=== PATIENT | male | born 1955 | race Caucasian/White ===

== ENCOUNTER 2016-11-07 08:06 | Outpatient (RCR) | payer BC ==
[~2016-11-07 08:06] MED LIST: ALN70T PO; AMLO1TAB55 PO; ATOR40TA PO; BUDE10.22 IH; BUPR150T6 PO; CALC-656 PO; CYAN10007 PO; DULO30CA3 PO; FENO145T2 PO; FEXO60TA PO; GARL400T13 PO; MECL25TA56 PO; METF-380 PO; MULT-963 PO; OMEP-10 PO; PARO40TA47 PO; PNT40TEC PO; PROBIOTIC1 EACH PO; RMP2.5C PO; SCR1T1 PO; SITA100T PO; ST.1POWD PO; TEST75GE3 TOP; TIOT18CA IH; TRZ50T PO
== END 2016-11-11 16:00 | disposition home or self-care (01) ==
LOC: WOUNDCARE 08:06
PROVIDERS: ATTEND Internal Medicine
DX: T81.31XA Disruption of external operation (surgical) wound, not elsewhere classified, initial encounter (principal); E11.622 Type 2 diabetes mellitus with other skin ulcer
CPT/HCPCS: 11042; 87070; 87075; 87205; 97605

== ENCOUNTER → 2016-11-14 | Outpatient (CLI) | payer BC | LOC: WOUNDCARE 08:05 | PROVIDERS: ATTEND Internal Medicine | DX: T81.31XA Disruption of external operation (surgical) wound, not elsewhere classified, initial encounter (principal); E11.621 Type 2 diabetes mellitus with foot ulcer | CPT/HCPCS: 11042 ==

== ENCOUNTER → 2016-11-21 | Outpatient (CLI) | payer BC | LOC: WOUNDCARE 08:03 | PROVIDERS: ATTEND Internal Medicine | DX: E11.622 Type 2 diabetes mellitus with other skin ulcer (principal); T81.31XA Disruption of external operation (surgical) wound, not elsewhere classified, initial encounter | CPT/HCPCS: 11042 ==

== ENCOUNTER → 2016-11-28 | Outpatient (CLI) | payer BC | LOC: WOUNDCARE 12:32 | PROVIDERS: ATTEND Nurse Practitioner | DX: T81.31XA Disruption of external operation (surgical) wound, not elsewhere classified, initial encounter (principal); E11.622 Type 2 diabetes mellitus with other skin ulcer | CPT/HCPCS: 11042 ==

== ENCOUNTER → 2016-12-05 | Outpatient (CLI) | payer BC | LOC: WOUNDCARE 08:01 | PROVIDERS: ATTEND Internal Medicine | DX: T81.31XA Disruption of external operation (surgical) wound, not elsewhere classified, initial encounter (principal); E11.622 Type 2 diabetes mellitus with other skin ulcer | CPT/HCPCS: 11042 ==

== ENCOUNTER → 2016-12-12 | Outpatient (CLI) | payer BC | LOC: WOUNDCARE 12-04 15:53 | PROVIDERS: ATTEND Internal Medicine | DX: T81.31XA Disruption of external operation (surgical) wound, not elsewhere classified, initial encounter (principal); E11.622 Type 2 diabetes mellitus with other skin ulcer | CPT/HCPCS: 11042 ==

== ENCOUNTER → 2016-12-19 | Outpatient (CLI) | payer BC | LOC: WOUNDCARE 08:04 | PROVIDERS: ATTEND Internal Medicine | DX: T81.31XA Disruption of external operation (surgical) wound, not elsewhere classified, initial encounter (principal) | CPT/HCPCS: 11042 ==

== ENCOUNTER → 2016-12-26 | Outpatient (CLI) | payer BC | LOC: WOUNDCARE 08:06 | PROVIDERS: ATTEND Internal Medicine | DX: T81.31XA Disruption of external operation (surgical) wound, not elsewhere classified, initial encounter (principal); E11.622 Type 2 diabetes mellitus with other skin ulcer | CPT/HCPCS: 11042 ==

== ENCOUNTER → 2017-01-02 | Outpatient (CLI) | payer BC | LOC: WOUNDCARE 08:04 | PROVIDERS: ATTEND Internal Medicine | DX: T81.31XA Disruption of external operation (surgical) wound, not elsewhere classified, initial encounter (principal); E11.622 Type 2 diabetes mellitus with other skin ulcer | CPT/HCPCS: 11042 ==

== ENCOUNTER → 2017-01-09 | Outpatient (CLI) | payer BC | LOC: WOUNDCARE 08:00 | PROVIDERS: ATTEND Internal Medicine | DX: T81.31XA Disruption of external operation (surgical) wound, not elsewhere classified, initial encounter (principal) | CPT/HCPCS: 11042; 87070; 87075; 87186; 87205 ==

== ENCOUNTER → 2017-01-16 | Outpatient (CLI) | payer BC | LOC: WOUNDCARE 08:03 | PROVIDERS: ATTEND Internal Medicine | DX: T81.31XA Disruption of external operation (surgical) wound, not elsewhere classified, initial encounter (principal); E11.622 Type 2 diabetes mellitus with other skin ulcer | CPT/HCPCS: 11042 ==

== ENCOUNTER → 2017-01-23 | Outpatient (CLI) | payer BC | LOC: WOUNDCARE 08:04 | PROVIDERS: ATTEND Internal Medicine | DX: T81.31XA Disruption of external operation (surgical) wound, not elsewhere classified, initial encounter (principal); E11.622 Type 2 diabetes mellitus with other skin ulcer | CPT/HCPCS: 11042 ==

== ENCOUNTER → 2017-01-23 | Outpatient (CLI) | payer BC ==
[2017-01-23 09:07] LABS: BASOPHILS # (AUTO) 0.1 10^3/uL (0.0-0.1); BASOPHILS % (AUTO) 1 % (0-10); EOSINOPHILS # (AUTO) 0.4 10^3/uL (0.0-0.3); EOSINOPHILS % (AUTO) 3 % (0-10); LYMPHOCYTES # (AUTO) 2.1 X 10^3 (1.0-4.0); LYMPHOCYTES % (AUTO) 19 % (12-44); MEAN CORPUSCULAR HEMOGLOBIN 27 PG (25-34); MEAN CORPUSCULAR HGB CONC 32 G/DL (32-36); MEAN CORPUSCULAR VOLUME 84 FL (80-99); MEAN PLATELET VOLUME 9.1 FL (7.4-10.4); MONOCYTES # (AUTO) 1.2 X 10^3 (0.0-1.0); MONOCYTES % (AUTO) 11 % (0-12); NEUTROPHILS # (AUTO) 7.2 X 10^3 (1.8-7.8); NEUTROPHILS % (AUTO) 66 % (42-75); PLATELET COUNT 294 10^3/uL (130-400); RED CELL DISTRIBUTION WIDTH 15.4 % (10.0-14.5); WHITE BLOOD COUNT 10.9 10^3/uL (4.3-11.0)
[2017-01-23 09:42] LABS: ERYTHROCYTE SEDIMENTATION RATE 3 MM/HR (0-30)
--- NOTE | 2017-01-23 22:06 | Diagnostic Imaging Report ---
EXAMINATION: Three views of the right elbow. INDICATION: Poor healing of wound along the olecranon. Evaluate for osteomyelitis. FINDINGS: There is lucency projecting over the soft tissues in the posterior aspect of the elbow probably related to the surgical wound described in the history. There is no significant elevation of the anterior or posterior fat pads in the elbow to suggest an effusion and there is no bone erosion or periosteal reaction seen. The there is no fracture or dislocation. No radiopaque from body. IMPRESSION: No bone erosion or periosteal reaction is seen to suggest osteomyelitis. Dictated by: Dictated on workstation # [id number]
== END ==
LOC: RAD 08:36
PROVIDERS: ATTEND Internal Medicine
DX: T81.31XA Disruption of external operation (surgical) wound, not elsewhere classified, initial encounter (principal); E11.622 Type 2 diabetes mellitus with other skin ulcer
CPT/HCPCS: 36415; 73080; 85025; 85652

== ENCOUNTER → 2017-01-30 | Outpatient (CLI) | payer BC | LOC: WOUNDCARE 08:03 | PROVIDERS: ATTEND Internal Medicine | DX: E11.622 Type 2 diabetes mellitus with other skin ulcer (principal); T81.31XA Disruption of external operation (surgical) wound, not elsewhere classified, initial encounter | CPT/HCPCS: 11042 ==

== ENCOUNTER → 2017-02-13 | Outpatient (CLI) | payer BC | LOC: WOUNDCARE 08:00 | PROVIDERS: ATTEND Internal Medicine | DX: E11.622 Type 2 diabetes mellitus with other skin ulcer (principal); T81.31XA Disruption of external operation (surgical) wound, not elsewhere classified, initial encounter | CPT/HCPCS: 99212 ==

== ENCOUNTER → 2017-07-04 | Outpatient (CLI) | payer BC | LOC: RT 10:22 | PROVIDERS: ATTEND Internal Medicine | DX: J44.9 Chronic obstructive pulmonary disease, unspecified (principal) | CPT/HCPCS: 94761 ==

== ENCOUNTER 2018-03-19 15:49 | Inpatient (IN) | payer MEDICARE, OTHER ==
[~2018-03-19] VITALS: Ht 160 cm; Wt 108.0 kg
[2018-03-19] MEDS ORDERED: ALPRAZolam 0.25 MG (XANAX) TAB PO PRN (16:30)
[2018-03-19] MEDS ORDERED: HYDROcodone/APAP 5 MG/325 MG (LORTAB) TAB PO PRN (16:30)
[2018-03-19] MEDS ORDERED: DOCUSATE SODIUM 100 MG (COLACE) CAP PO PRN (16:30)
[2018-03-19] MEDS ORDERED: ZOLPIDEM 5 MG (AMBIEN) TAB PO PRN (16:30)
[2018-03-19] MEDS ORDERED: ACETAMINOPHEN 500 MG TAB (TYLENOL) PO PRN (16:30)
[2018-03-19] MEDS ORDERED: ONDANSETRON 4 MG/2 ML (SDV) Z0FRAN IVP PRN (16:30)
[2018-03-19] MEDS ORDERED: ENOXAPARIN 40 MG/0.4 ML (LOVENOX) SYR SC SCH (16:30)
[2018-03-19] MEDS ORDERED: PIPERACILLIN SODIUM/TAZOBACTAM 4.5 GM in NS (IVPB) 100 ML IV SCH (16:30)
[2018-03-19] MEDS ORDERED: CALCIUM CARBONATE 500 MG (TUMS) TAB.CHEW PO PRN (16:30)
[2018-03-19] MEDS ORDERED: diphenhydrAMINE 25 MG TAB (BENADRYL) PO PRN (16:30)
[2018-03-19] MEDS ORDERED: fentaNYL INJECTION 100 MCG/2 ML AMP IVP PRN (16:30)
[2018-03-19 17:40] VITALS: BP 171/83
--- OUTSIDE RECORDS SUMMARY | 2018-03-19 17:47 | XMS REPORT | Clinical Summary ---
Author Author User, SongAfter Nazanin Rider DO, FACP Address Unknown Phone Allergies, Adverse Reactions, Alerts Allergy Name Reaction Description Start Date Severity Status Provider ANDRODERM skin rash and skin tear Critical Active Nazanin Rider DURAGESIC-100 Hypotension Critical Active Nazanin Rider FENTANYL PATCH hypotension Critical No Longer Active Nazanin Rider Conditions or Problems Problem Name Problem Code Onset Date Status Entry Date Provider Comment Standard Description Annotate OSTEOPOROSIS NEC 733.09 Active Nazanin Rider Other osteoporosis CHRONIC AIRWAY OBSTRUCTION (COPD) 496 Active Nazanin Rider Chronic airway obstruction, not elsewhere classified SMOKER 305.1 Active Nazanin Rider Tobacco use disorder DIABETES MELLITUS, NONINSULIN DEPENDENT (NIDDM) 250.02 Active Nazanin Rider Diabetes mellitus without mention of complication, type II or unspecified type, uncontrolled HYPERTENSION 401.1 Active Nazanin Rider Benign essential hypertension HYPERTRIGLYCERIDEMIA 272.1 Active Nazanin Rider Pure hyperglyceridemia GERD 530.81 Active Nazanin Rider Esophageal reflux PUD 533.90 Resolved Nazanin Rider Peptic ulcer of unspecified site, unspecified as acute or chronic, without mention of hemorrhage or perforation, without mention of obstruction DEPRESSION 311 Active Nazanin Rider Depressive disorder, not elsewhere classified ANXIETY 300.00 Resolved Nazanin Rider Anxiety state, unspecified FATIGUE 780.79 Resolved Nazanin Rider Other malaise and fatigue 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 COLONIC POLYPS 211.3 Active Nazanin Rider Benign neoplasm of colon ERECTILE DYSFUNCTION, 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 TESTOSTERONE DEFICIENCY 257.2 Active Nazanin Rider Other testicular hypofunction VITAMIN B12 DEFICIENCY 266.2 Active Nazanin Rider Other B-complex deficiencies RESTLESS LEG SYNDROME 333.94 Active Nazanin Rider Restless legs syndrome (RLS) PHARYNGITIS, ACUTE 462 Resolved Nazanin Rider Acute pharyngitis DYSPHAGIA PHARYNGOESOPHAGEAL PHASE 787.24 Resolved Nazanin Rider Dysphagia, pharyngoesophageal phase HEALTH SCREENING V70.0 Resolved Nazanin Rider Routine general medical examination at a health care facility SINUSITIS 473.9 Resolved Nazanin Rider Unspecified sinusitis (chronic) ACUTE SPHENOIDAL SINUSITIS 461.3 Resolved Nazanin Rider Acute sphenoidal sinusitis HEALTH SCREENING V70.0 Inactive Nazanin Rider Routine general medical examination at a health care facility BENIGN POSITIONAL VERTIGO 386.11 Resolved Nazanin Rider Benign paroxysmal positional vertigo CHEST PAIN, ATYPICAL 786.59 Resolved Nazanin Rider Other chest pain MUSCLE PAIN 729.1 Resolved Nazanin Rider Myalgia and myositis, unspecified HYPOXEMIA 799.02 Resolved Nazanin Rider Hypoxemia KNEE PAIN 719.46 Resolved Nazanin Rider Pain in joint involving lower leg HEALTH SCREENING V70.0 Resolved Nazanin Rider Routine general medical examination at a health care facility Medication List Medication Instructions Start Date Stop Date Generic Name NDC Status Provider Patient Instruction METFORMIN HCL 1000 MG TABS 1 PO BID METFORMIN HCL 16485387178 Active Nazanin Rider JANUVIA 100 MG TABS 1 PO DAILY SITAGLIPTIN PHOSPHATE 75170522180 Active Mable Moreno ALTACE 2.5 MG CAPS 1 po daily RAMIPRIL 64215573636 No Longer Active Nazanin Rider TESTOSTERONE CREAM 150MG apply cream daily TESTOSTERONE CREAM 150MG No Longer Active Nazanin Rider TRICOR 48 MG TABS 1 PO daily FENOFIBRATE 71845489420 Active Mable Moreno LIPITOR 20 MG TAB 1 PO QD ATORVASTATIN CALCIUM 20812276021 Active Mable Moreno JANUVIA 100 MG TABS 1 PO daily SITAGLIPTIN PHOSPHATE 82067312058 No Longer Active Nazanin Rider COMBIVENT RESPIMAT 20-100 MCG/ACT AERS 2 puffs QID IPRATROPIUM- ALBUTEROL 80920045659 Active Nazaninno Rider FLOMAX 0.4 MG CAPS 1 PO QHS TAMSULOSIN HCL 30063028082 Active Nazaninno Rider SYMBICORT 160-4.5 MCG/ACT AERO 2 puffs BID BUDESONIDE- FORMOTEROL FUMARATE 83028807436 Active Nazaninno Rider FLOMAX 0.4 MG CAPS 1 PO QHS TAMSULOSIN HCL 17596681620 No Longer Active Nazanin Rider ANTIVERT 25 MG TABS 1 PO Qhrs prn MECLIZINE HCL Active Nazanin Deborah Rider CYCLOBENZAPRINE HCL 10 MG TABS 1 PO TID prn CYCLOBENZAPRINE HCL 19314075554 Active Nazanin Deborah Rider HYDROCODONE-ACETAMINOPHEN 5-325 MG TABS 1 PO Q6hrs prn HYDROCODONE- ACETAMINOPHEN 42785549739 Active Nazanin Deborah Rdier CYMBALTA 30 MG CPEP 1 PO daily DULOXETINE HCL 83897189317 Active Mable Moreno WELLBUTRIN XL 300 MG QP52D-YPG 1 PO daily BUPROPION HCL 10806158065 No Longer Active Nazanin Deborah Rider NEURONTIN 100 MG CAP 1 PO TID GABAPENTIN 55869547064 No Longer Active Nazanin Deborah Rider PROAIR HFA 108 (90 BASE) MCG/ACT AERS 2 puff Q4 hrs prn wheezing ALBUTEROL SULFATE 83951829287 No Longer Active Nazanin Deborah Rider SYMBICORT 160-4.5 MCG/ACT AERO 2 pudds BID BUDESONIDE- FORMOTEROL FUMARATE 89289070396 No Longer Active Nazanin Deborah Rider VIAGRA 100 MG TABS 1 PO prn SILDENAFIL CITRATE 86728728244 No Longer Active Nazaninno Rider PREDNISONE 20 MG TAB 1 po bid for 5 days then 1 po daily for 3 days then stop PREDNISONE 22733095026 No Longer Active Nazanin Deborah Rider SPIRIVA HANDIHALER 18 MCG CAPS 1 inhalation daily TIOTROPIUM BROMIDE MONOHYDRATE 33268585432 No Longer Active Nazaninno Rider CYANOCOBALAMIN 1000 MCG TABS 1 PO daily CYANOCOBALAMIN No Longer Active Nazanin SOLORZANO'Walt NASAL SPRAY (DEXAMETHASONE, GENTAMICIN, SALINE) 2 puffs each nostril TID for [address] LEAVITT NASAL SPRAY ( DEXAMETHASONE, GENTAMICIN, SALINE) No Longer Active Nazanin Rider AUGMENTIN 875-125 MG TAB 1 PO BID AMOXICILLIN-POT CLAVULANATE 66889737941 No Longer Active Nazanin Deborah Rider FOSAMAX 70 MG TABS 1 PO Qwk ALENDRONATE SODIUM 45690545866 Active Mablearmaan Moreno FORTEO 600 MCG/2.4ML SOLN 1 injection daily for 2 years TERIPARATIDE (RECOMBINANT) 64698259901 No Longer Active Nazanin Deborah Rider TRAZODONE HCL 150 MG TABS 1 1/2-2 PO QHS TRAZODONE HCL 62433992609 Active Mablearmaan Moreno AUGMENTIN 500-125 MG TAB 1 PO BID AMOXICILLIN-POT CLAVULANATE 22606318006 No Longer Active Nazanin Deborah Rider ANDRODERM 5 MG/24HR PT24 1 patch daily TESTOSTERONE 16202680415 No Longer Active Nazanin Deborah Rider GLIPIZIDE 5 MG TABS one-half pill at noon GLIPIZIDE 24457698035 No Longer Active Mable Moreno COMBIVENT 18-103 MCG/ACT AERO 2 puffs Q4hrs prn IPRATROPIUM-ALBUTEROL 82255590442 No Longer Active Nazanin Deborah Rider DIABETA 1.25 MG TABS 1 po BID GLYBURIDE 64190878133 No Longer Active Nazanin Deborah Rider CHANTIX STARTING MONTH DEVON 0.5 MG X 11 & 1 MG X 42 TABS as directed VARENICLINE TARTRATE 01332757040 No Longer Active Nazanin Deborah Rider DYAZIDE 37.5-25 MG CAP 1 PO Daily TRIAMTERENE-HCTZ 97160330042 No Longer Active Nazanin Deborah Rider VITAMIN B-12 1000 MCG TABS 1 PO daily CYANOCOBALAMIN 04277217829 Active Nazanin Deborah Rider FOSAMAX 70 MG TABS 1 PO Qwk ALENDRONATE SODIUM 40194474219 No Longer Active Nazanin Rider VITAMINS A & D 5000-400 UNIT CAPS 1 PO daily VITAMINS A & D 80778234480 Active Nazanin Rider CALCIUM 600/VITAMIN D TABS 2 PO daily CALCIUM CARBONATE-VITAMIN D TABS 34956990871 Active Nazanin Rider PAXIL 40 MG TABS 1 PO daily PAROXETINE HCL 01019282911 No Longer Active Jacobo Hoffmann CARAFATE 1 GM TABS 1 PO daily SUCRALFATE 04259349399 Active Mable Moreno PROTONIX 40 MG TBEC 1 PO daily PANTOPRAZOLE SODIUM 62130329207 Active Mable Moreno CLAIRE 5-40 MG TABS 1 PO daily AMLODIPINE-OLMESARTAN 25406800266 Active Mable Moreno Vital Signs Date Name Value Unit Range Description blood pressure, diastolic - 8462-4 80 mm[Hg] BP cervantes blood pressure, systolic - 8480-6 140 mm[Hg] BP sys pulse rate E&M - 8867-4 88 /min Heart rate respiratory rate E&M - 9279-1 14 /min Resp rate temperature E&M 98.6 [degF] Body temperature weight E&M - 3141-9 210 [lb_av] Weight Measured blood pressure, diastolic - 8462-4 66 mm[Hg] BP cervantes blood pressure, systolic - 8480-6 122 mm[Hg] BP sys pulse rate E&M - 8867-4 80 /min Heart rate respiratory rate E&M - 9279-1 14 /min Resp rate weight E&M - 3141-9 204 [lb_av] Weight Measured blood pressure, diastolic - 8462-4 84 mm[Hg] BP cervantes blood pressure, systolic - 8480-6 146 mm[Hg] BP sys pulse rate E&M - 8867-4 72 /min Heart rate respiratory rate E&M - 9279-1 14 /min Resp rate weight E&M - 3141-9 210 [lb_av] Weight Measured blood pressure, diastolic - 8462-4 85 mm[Hg] BP cervantes blood pressure, systolic - 8480-6 135 mm[Hg] BP sys pulse rate E&M - 8867-4 90 /min Heart rate respiratory rate E&M - 9279-1 14 /min Resp rate weight E&M - 3141-9 224 [lb_av] Weight Measured blood pressure, diastolic - 8462-4 75 mm[Hg] BP cervantes blood pressure, systolic - 8480-6 135 mm[Hg] BP sys pulse rate E&M - 8867-4 60 /min Heart rate respiratory rate E&M - 9279-1 14 /min Resp rate Diagnostic Results Date Name Value Unit Range Description Clinical Lists Update: CBC - Hematology hematocrit, blood 34.7 % hemoglobin, blood 11.2 g/dL platelet count 409 10*3/mm3 erythrocyte (RBC) count 4.08 10*6/mm3 leukocyte count, blood 6.6 10*3/mm3 mean corpuscular volume, RBC 85.0 fL red blood cell distribution width 15.5 % Clinical Lists Update: CBC,CMP,FLP,HGA1C,ESR - Chemistry sodium, serum 136 mmol/L alkaline phosphatase, serum 33 U/L urea nitrogen, blood 15 mg/dL calcium, serum 9.1 mg/dL chloride, serum 101 mmol/L cholesterol, serum 105 mg/dL carbon dioxide, venous blood 27 mmol/L creatinine, serum 0.88 mg/dL Estimated Glomerular Filtration Rate (calc) >60 mL/min/1.73m2 glucose, plasma fasting 7.5 mg/dL albumin, serum 4.0 g/dL triglyceride, serum, fasting 86 mg/dL bilirubin, serum, total 0.2 mg/dL alanine aminotransferase (SGPT), serum 37 U/L aspartate aminotransferase (SGOT), serum 31 U/L protein, total, serum 7.5 g/dL potassium, serum 4.2 mmol/L LDL cholesterol, serum 50 mg/dL hemoglobin A1C, blood, as % of total hemoglobin 7.1 % HDL cholesterol, serum 38 mg/dL Clinical Lists Update: CBC,CMP,FLP,HGA1C,ESR - Hematology red blood cell distribution width 15.1 % mean corpuscular volume, RBC 80.7 fL leukocyte count, blood 8.6 10*3/mm3 erythrocyte (RBC) count 4.87 10*6/mm3 platelet count 355 10*3/mm3 hemoglobin, blood 12.9 g/dL hematocrit, blood 39.3 % erythrocyte sedimentation rate 18 mm/h Clinical Lists Update: CBC,CMP,PT,INR ER LABS - Chemistry protein, total, serum 7.3 g/dL potassium, serum 3.9 mmol/L creatinine, serum 1.02 mg/dL carbon dioxide, venous blood 23 mmol/L chloride, serum 107 mmol/L calcium, serum 9.0 mg/dL urea nitrogen, blood 9 mg/dL alkaline phosphatase, serum 30 U/L albumin, serum 3.9 g/dL Estimated Glomerular Filtration Rate (calc) >60 mL/min/1.73m2 glucose, plasma fasting 129 mg/dL sodium, serum 142 mmol/L bilirubin, serum, total 0.4 mg/dL alanine aminotransferase (SGPT), serum 44 U/L aspartate aminotransferase (SGOT), serum 30 U/L Clinical Lists Update: CBC,CMP,PT,INR ER LABS - Coagulation prothrombin time (patient) 13.9 s PTT patient 24 s international normalized ratio (INR) 1.1 Clinical Lists Update: CBC,CMP,PT,INR ER LABS - Hematology erythrocyte (RBC) count 4.83 10*6/mm3 platelet count 344 10*3/mm3 hemoglobin, blood 13.6 g/dL leukocyte count, blood 8.4 10*3/mm3 hematocrit, blood 40 % red blood cell distribution width 14.5 % mean corpuscular volume, RBC 83 fL Clinical Lists Update: CMP,FLP,HgA1c - Chemistry alkaline phosphatase, serum 25 U/L albumin, serum 4.0 g/dL urea nitrogen, blood 12 mg/dL calcium, serum 8.4 mg/dL chloride, serum 107 mmol/L cholesterol, serum 102 mg/dL carbon dioxide, venous blood 29 mmol/L creatinine, serum 0.80 mg/dL HDL cholesterol, serum 33 mg/dL hemoglobin A1C, blood, as % of total hemoglobin 7.6 % LDL cholesterol, serum 51 mg/dL potassium, serum 4.1 mmol/L protein, total, serum 7.4 g/dL aspartate aminotransferase (SGOT), serum 45 U/L alanine aminotransferase (SGPT), serum 61 U/L bilirubin, serum, total 0.4 mg/dL triglyceride, serum, fasting 92 mg/dL sodium, serum 135 mmol/L Estimated Glomerular Filtration Rate (calc) >60 mL/min/1.73m2 glucose, plasma fasting 156 mg/dL Clinical Lists Update: CMP,HgA1c,TSH,Chol - Chemistry albumin, serum 3.8 g/dL Estimated Glomerular Filtration Rate (calc) >60 mL/min/1.73m2 urea nitrogen, blood 10 mg/dL calcium, serum 9.2 mg/dL chloride, serum 104 mmol/L cholesterol, serum 81 mg/dL carbon dioxide, venous blood 26 mmol/L creatinine, serum 0.93 mg/dL hemoglobin A1C, blood, as % of total hemoglobin 5.9 % potassium, serum 3.9 mmol/L protein, total, serum 7.2 g/dL aspartate aminotransferase (SGOT), serum 27 U/L alanine aminotransferase (SGPT), serum 20 U/L bilirubin, serum, total 0.4 mg/dL triglyceride, serum, fasting 93 mg/dL sodium, serum 134 mmol/L glucose, plasma fasting 88 mg/dL alkaline phosphatase, serum 29 U/L Clinical Lists Update: ER LABS - Chemistry Estimated Glomerular Filtration Rate (calc) >60 mL/min/1.73m2 albumin, serum 4.0 g/dL sodium, serum 136 mmol/L bilirubin, serum, total 0.4 mg/dL alanine aminotransferase (SGPT), serum 35 U/L aspartate aminotransferase (SGOT), serum 30 U/L protein, total, serum 6.8 g/dL potassium, serum 4.2 mmol/L creatinine, serum 0.99 mg/dL carbon dioxide, venous blood 21 mmol/L chloride, serum 104 mmol/L calcium, serum 9.2 mg/dL urea nitrogen, blood 16 mg/dL alkaline phosphatase, serum 39 U/L glucose, plasma fasting 229 mg/dL Clinical Lists Update: ER LABS - Hematology red blood cell distribution width 15.2 % mean corpuscular volume, RBC 81 fL leukocyte count, blood 18.0 10*3/mm3 erythrocyte (RBC) count 4.43 10*6/mm3 platelet count 337 10*3/mm3 hemoglobin, blood 11.6 g/dL hematocrit, blood 36 % erythrocyte sedimentation rate 12 mm/h Clinical Lists Update: ER LABS - Urinalysis RBC urine by microscopy rare glucose, urine, semiquantitative 1+ bilirubin, urine neg ketones, urine, by test strip neg nitrite, urine, semiquantitative neg blood in urine (hemoglobin) by dipstick neg mucus on urinalysis neg epithelial cells, urine rare /[LPF] hyaline casts, urine none /[LPF] bacteria, urine microscopy neg protein, urine, semiquantitative (dipstick) neg WBC urine on microscopy rare {Cells}/[HPF] appearance, urine Clear Yellow urobilinogen, urine, semiquantitative (dipstick) normal specific gravity, urine 1.010 pH, urine, semiquantitative 6 Clinical Lists Update: Ferritin - Chemistry ferritin, serum 98.6 ng/mL ferritin, serum 28.0 ng/mL Clinical Lists Update: Microalbumin - Urinalysis microalbumin, urine, semiquantitative 0.4 mg/dL Clinical Lists Update: TSH - Chemistry thyroid stimulating hormone, serum 2.37 u[iU]/mL Office Visit: Dr Rider's Check Up: Established Patient Visit - Hematology erythrocyte sedimentation rate 2 mm/h Encounters Code Encounter Date Provider Facility CPT-51362 Ofc Vst, Est Level IV 21:39:22 CDT Nazanin Rider DO, FACP CPT-65311 Ofc Vst, Est Level IV 15:41:33 [employer] Nazanin Godoy Rider, DO, FACP CPT-95316 Ofc Vst, Est Level IV 15:36:22 CDT Nazanin Godoy Rider, DO, FACP CPT-50092 Ofc Vst, Est Level III 16:08:06 CDT Nazanin Deborah Godoy Rider, DO, FACP CPT-01485 Ofc Vst, Est Level IV 11:32:51 CDT Nazanin Deborah Godoy Tereso, DO, FACP CPT-43958 Ofc Vst, Est Level IV 15:57:01 CDT Nazanin Godoy Tereso, DO, FACP CPT-51308 Ofc Vst, Est Level IV 16:28:57 [employer] Nazanin Godoy Tereso, DO, FACP CPT-79095 Ofc Vst, Est Level III 13:24:21 [employer] Nazanin Godoy Rider, DO, FACP CPT-71591 Ofc Vst, Est Level V 14:40:53 CDT Nazanin Godoy Rider, DO, FACP CPT-24230 Ofc Vst, Est Level III 11:18:10 CDT Nazaninno Godoy Tereso, DO, FACP CPT-08432 Ofc Vst, Est Level IV 11:00:50 CDT Nazaninno Godoy Tereso, DO, FACP CPT-11728 Ofc Vst, Est Level IV 10:28:45 [employer] Nazanin Godoy Rider, DO, FACP CPT-42745 Ofc Vst, Est Level V 11:16:51 CDT Nazaninno Godoy Tereso, DO, FACP CPT-90293 Ofc Vst, Est Level IV 10:56:54 CDT Nazanin Cabrera Rider Nazanin Rider DO, FACP CPT-22831 Ofc Vst, Est Level IV 10:47:14 [employer] Nazanin Deborah Tereso Rider DO, FACP CPT-95865 Ofc Vst, Est Level V 15:33:32 [employer] Nazanin Deborahmonika Rider [facility] CPT-04965 Ofc Vst, New Level IV 14:53:37 CDT Nazanin Deborah Tereso Rider DO, FACP Procedures Code Procedure Name Date Entry Date Standard Description CPT-11778 Preventive, Est, (40-64) 20:04:47 [employer] CPT-35382 TRANSITIONAL CARE MANAGE SRVC 14 DAY DISCHARGE 16:51:12 CDT CPT-27333 Preventive, Est, (40-64) 13:15:26 [employer] CPT-24557 Preventive, Est, (40-64) 13:16:36 [employer] CPT-J3420 Vitamin b12 injection 10:28:45 [employer] CPT-74504 Injection 10:28:45 [employer] CPT-20688 Injection 10:47:14 [employer] CPT-J3420 Vitamin b12 injection 10:47:14 [employer] CPT-95623 Injection 15:33:32 [employer] CPT-J3420 Vitamin b12 injection 15:33:32 [employer]
--- OUTSIDE RECORDS SUMMARY | 2018-03-19 17:50 | XMS REPORT | Clinical Summary ---
Author Author User, Getting-in Organization Nazanin Rider DO, FACP Address Unknown Phone [...] Rider Other chest pain MUSCLE PAIN 729.1 Active Nazanin Rider Myalgia and myositis, unspecified HYPOXEMIA 799.02 Active Nazanin Rider Hypoxemia KNEE PAIN 719.46 Active Nazanin Rider Pain in joint involving lower leg HEALTH SCREENING V70.0 Active Nazanin Rider Routine general medical examination at a health care facility Medication List Medication Instructions Start Date Stop Date Generic Name NDC Status Provider Patient Instruction METFORMIN HCL 1000 MG TABS 1 PO BID METFORMIN HCL 33294881704 Active Mable Moreno JANUVIA 100 MG TABS 1 PO DAILY SITAGLIPTIN PHOSPHATE 98125491403 Active Mable Moreno ALTACE 2.5 MG CAPS 1 po daily RAMIPRIL 21392540251 No Longer Active Nazanin Rider TESTOSTERONE CREAM 150MG apply cream daily TESTOSTERONE CREAM 150MG No Longer Active Nazaninno Rider TRICOR 48 MG TABS 1 PO daily FENOFIBRATE 13652260550 Active Mable Moreno LIPITOR 20 MG TAB 1 PO QD ATORVASTATIN CALCIUM 94093632571 Active Mable Moreno JANUVIA 100 MG TABS 1 PO daily SITAGLIPTIN PHOSPHATE 71458343282 No Longer Active Nazanin Rider COMBIVENT RESPIMAT 20-100 MCG/ACT AERS 2 puffs QID IPRATROPIUM- ALBUTEROL 61417898654 Active Nazaninno Rider FLOMAX 0.4 MG CAPS 1 PO QHS TAMSULOSIN HCL 61843813353 Active Nazaninno Rider SYMBICORT 160-4.5 MCG/ACT AERO 2 puffs BID BUDESONIDE- FORMOTEROL FUMARATE 04696654205 Active Nazaninno Rider FLOMAX 0.4 MG CAPS 1 PO QHS TAMSULOSIN HCL 83722264229 No Longer Active Nazaninno Rider ANTIVERT 25 MG TABS 1 PO Qhrs prn MECLIZINE HCL Active Nazanin Deborah Rider CYCLOBENZAPRINE HCL 10 MG TABS 1 PO TID prn CYCLOBENZAPRINE HCL 65929513475 Active Nazanin Deborah Rider HYDROCODONE-ACETAMINOPHEN 5-325 MG TABS 1 PO Q6hrs prn HYDROCODONE- ACETAMINOPHEN 09968039235 Active Nazanin Deborah Riedr CYMBALTA 30 MG CPEP 1 PO daily DULOXETINE HCL 99459765746 Active Mable Moreno WELLBUTRIN XL 300 MG [id number] 1 PO daily BUPROPION HCL 99893465197 No Longer Active Nazanin Deborah Rider NEURONTIN 100 MG CAP 1 PO TID GABAPENTIN 29159618772 No Longer Active Nazanin Deborah Rider PROAIR HFA 108 (90 BASE) MCG/ACT AERS 2 puff Q4 hrs prn wheezing ALBUTEROL SULFATE 33512755349 No Longer Active Nazanin Deborah Rider SYMBICORT 160-4.5 MCG/ACT AERO 2 pudds BID BUDESONIDE- FORMOTEROL FUMARATE 71011272963 No Longer Active Nazanin Deborah Rider VIAGRA 100 MG TABS 1 PO prn SILDENAFIL CITRATE 25224705591 No Longer Active Nazaninno Rider PREDNISONE 20 MG TAB 1 po bid for 5 days then 1 po daily for 3 days then stop PREDNISONE 52198877066 No Longer Active Nazanin Deborah Rider SPIRIVA HANDIHALER 18 MCG CAPS 1 inhalation daily TIOTROPIUM BROMIDE MONOHYDRATE 52730076484 No Longer Active Nazanin Deborah Rider CYANOCOBALAMIN 1000 MCG TABS 1 PO daily CYANOCOBALAMIN No Longer Active Nazaninno SOLORZANO'S NASAL SPRAY (DEXAMETHASONE, GENTAMICIN, SALINE) 2 puffs each nostril TID for [address] LEAVITT NASAL SPRAY ( DEXAMETHASONE, GENTAMICIN, SALINE) No Longer Active Nazanin Rider AUGMENTIN 875-125 MG TAB 1 PO BID AMOXICILLIN-POT CLAVULANATE 93148524008 No Longer Active Nazanin Deborah Rider FOSAMAX 70 MG TABS 1 PO Qwk ALENDRONATE SODIUM 78865240219 Active Mablearmaan Moreno FORTEO 600 MCG/2.4ML SOLN 1 injection daily for 2 years TERIPARATIDE (RECOMBINANT) 54864350643 No Longer Active Nazanin Deborah Rider TRAZODONE HCL 150 MG TABS 1 1/2-2 PO QHS TRAZODONE HCL 43139368258 Active Mablearmaan Moreno AUGMENTIN 500-125 MG TAB 1 PO BID AMOXICILLIN-POT CLAVULANATE 56496364860 No Longer Active Nazanin Deborah Rider ANDRODERM 5 MG/24HR PT24 1 patch daily TESTOSTERONE 77840587822 No Longer Active Nazanni Deborah Rider GLIPIZIDE 5 MG TABS one-half pill at noon GLIPIZIDE 04470771714 No Longer Active Mable Moreno COMBIVENT 18-103 MCG/ACT AERO 2 puffs Q4hrs prn IPRATROPIUM-ALBUTEROL 77727209136 No Longer Active Nazanin Deborah Rider DIABETA 1.25 MG TABS 1 po BID GLYBURIDE 02458423102 No Longer Active Nazanin Deborah Rider CHANTIX STARTING MONTH DEVON 0.5 MG X 11 & 1 MG X 42 TABS as directed VARENICLINE TARTRATE 18408429495 No Longer Active Nazanin Deborah Rider DYAZIDE 37.5-25 MG CAP 1 PO Daily TRIAMTERENE-HCTZ 61672111574 No Longer Active Nazanin Deborah Rider VITAMIN B-12 1000 MCG TABS 1 PO daily CYANOCOBALAMIN 52790901232 Active Nazanin Deborah Rider FOSAMAX 70 MG TABS 1 PO Qwk ALENDRONATE SODIUM 46495387238 No Longer Active Nazanin Rider VITAMINS A & D 5000-400 UNIT CAPS 1 PO daily VITAMINS A & D 70379415248 Active Nazanin Rider CALCIUM 600/VITAMIN D TABS 2 PO daily CALCIUM CARBONATE-VITAMIN D TABS 16488548763 Active Nazanin Rider PAXIL 40 MG TABS 1 PO daily PAROXETINE HCL 03569499431 No Longer Active Jacobo Hoffmann CARAFATE 1 GM TABS 1 PO daily SUCRALFATE 24813010836 Active Mable Moreno PROTONIX 40 MG TBEC 1 PO daily PANTOPRAZOLE SODIUM 35099742642 Active Mable Moreno CLAIRE 5-40 MG TABS 1 PO daily AMLODIPINE-OLMESARTAN 70750537733 Active Mable Moreno Vital Signs Date Name Value Unit Range Description blood pressure, diastolic - 8462-4 66 mm[Hg] [...] Description Clinical Lists Update: CBC - Hematology platelet count 409 10*3/mm3 leukocyte count, blood 6.6 10*3/mm3 mean corpuscular volume, RBC 85.0 fL hemoglobin, blood 11.2 g/dL hematocrit, blood 34.7 % red blood cell distribution width 15.5 % erythrocyte (RBC) count 4.08 10*6/mm3 Clinical Lists Update: CBC,CMP,FLP,HGA1C,ESR - Chemistry cholesterol, serum 105 mg/dL albumin, serum 4.0 g/dL potassium, serum 4.2 mmol/L protein, total, serum 7.5 g/dL bilirubin, serum, total 0.2 mg/dL sodium, serum 136 mmol/L alkaline phosphatase, serum 33 U/L carbon dioxide, venous blood 27 mmol/L creatinine, serum 0.88 mg/dL Estimated Glomerular Filtration Rate (calc) >60 mL/min/1.73m2 urea nitrogen, blood 15 mg/dL glucose, plasma fasting 7.5 mg/dL calcium, serum 9.1 mg/dL triglyceride, serum, fasting 86 mg/dL HDL cholesterol, serum 38 mg/dL aspartate aminotransferase (SGOT), serum 31 U/L alanine aminotransferase (SGPT), serum 37 U/L hemoglobin A1C, blood, as % of total hemoglobin 7.1 % LDL cholesterol, serum 50 mg/dL chloride, serum 101 mmol/L Clinical Lists Update: CBC,CMP,FLP,HGA1C,ESR - Hematology leukocyte count, blood 8.6 10*3/mm3 platelet count 355 10*3/mm3 erythrocyte (RBC) count 4.87 10*6/mm3 hemoglobin, blood 12.9 g/dL mean corpuscular volume, RBC 80.7 fL hematocrit, blood 39.3 % erythrocyte sedimentation rate 18 mm/h red blood cell distribution width 15.1 % Clinical Lists Update: CBC,CMP,PT,INR ER LABS - Chemistry potassium, serum 3.9 mmol/L protein, total, serum 7.3 g/dL aspartate aminotransferase (SGOT), serum 30 U/L alanine aminotransferase (SGPT), serum 44 U/L sodium, serum 142 mmol/L chloride, serum 107 mmol/L carbon dioxide, venous blood 23 mmol/L creatinine, serum 1.02 mg/dL Estimated Glomerular Filtration Rate (calc) >60 mL/min/1.73m2 glucose, plasma fasting 129 mg/dL albumin, serum 3.9 g/dL alkaline phosphatase, serum 30 U/L bilirubin, serum, total 0.4 mg/dL urea nitrogen, blood 9 mg/dL calcium, serum 9.0 mg/dL Clinical Lists Update: CBC,CMP,PT,INR ER LABS - Coagulation PTT patient 24 s prothrombin time (patient) 13.9 s international normalized ratio (INR) 1.1 Clinical Lists Update: CBC,CMP,PT,INR ER LABS - Hematology erythrocyte (RBC) count 4.83 10*6/mm3 red blood cell distribution width 14.5 % hemoglobin, blood 13.6 g/dL hematocrit, blood 40 % leukocyte count, blood 8.4 10*3/mm3 platelet count 344 10*3/mm3 mean corpuscular volume, RBC 83 fL Clinical Lists Update: CMP,FLP,HgA1c - Chemistry sodium, serum 135 mmol/L alanine aminotransferase (SGPT), serum 61 U/L aspartate aminotransferase (SGOT), serum 45 U/L protein, total, serum 7.4 g/dL potassium, serum 4.1 mmol/L triglyceride, serum, fasting 92 mg/dL creatinine, serum 0.80 mg/dL calcium, serum 8.4 mg/dL urea nitrogen, blood 12 mg/dL bilirubin, serum, total 0.4 mg/dL alkaline phosphatase, serum 25 U/L albumin, serum 4.0 g/dL LDL cholesterol, serum 51 mg/dL hemoglobin A1C, blood, as % of total hemoglobin 7.6 % HDL cholesterol, serum 33 mg/dL glucose, plasma fasting 156 mg/dL Estimated Glomerular Filtration Rate (calc) >60 mL/min/1.73m2 carbon dioxide, venous blood 29 mmol/L cholesterol, serum 102 mg/dL chloride, serum 107 mmol/L Clinical Lists Update: CMP,HgA1c,TSH,Chol - Chemistry alkaline phosphatase, serum 29 U/L sodium, serum 134 mmol/L triglyceride, serum, fasting 93 mg/dL hemoglobin A1C, blood, as % of total hemoglobin 5.9 % aspartate aminotransferase (SGOT), serum 27 U/L glucose, plasma fasting 88 mg/dL urea nitrogen, blood 10 mg/dL Estimated Glomerular Filtration Rate (calc) >60 mL/min/1.73m2 albumin, serum 3.8 g/dL creatinine, serum 0.93 mg/dL alanine aminotransferase (SGPT), serum 20 U/L carbon dioxide, venous blood 26 mmol/L calcium, serum 9.2 mg/dL cholesterol, serum 81 mg/dL bilirubin, serum, total 0.4 mg/dL chloride, serum 104 mmol/L potassium, serum 3.9 mmol/L protein, total, serum 7.2 g/dL Clinical Lists Update: ER LABS - Chemistry chloride, serum 104 mmol/L carbon dioxide, venous blood 21 mmol/L creatinine, serum 0.99 mg/dL Estimated Glomerular Filtration Rate (calc) >60 mL/min/1.73m2 glucose, plasma fasting 229 mg/dL albumin, serum 4.0 g/dL alkaline phosphatase, serum 39 U/L bilirubin, serum, total 0.4 mg/dL urea nitrogen, blood 16 mg/dL calcium, serum 9.2 mg/dL potassium, serum 4.2 mmol/L protein, total, serum 6.8 g/dL aspartate aminotransferase (SGOT), serum 30 U/L alanine aminotransferase (SGPT), serum 35 U/L sodium, serum 136 mmol/L Clinical Lists Update: ER LABS - Hematology mean corpuscular volume, RBC 81 fL red blood cell distribution width 15.2 % erythrocyte (RBC) count 4.43 10*6/mm3 platelet count 337 10*3/mm3 leukocyte count, blood 18.0 10*3/mm3 hemoglobin, blood 11.6 g/dL hematocrit, blood 36 % erythrocyte sedimentation rate 12 mm/h Clinical Lists Update: ER LABS - Urinalysis ketones, urine, by test strip neg nitrite, urine, semiquantitative neg bacteria, urine microscopy neg bilirubin, urine neg blood in urine (hemoglobin) by dipstick neg specific gravity, urine 1.010 mucus on urinalysis neg protein, urine, semiquantitative (dipstick) neg WBC urine on microscopy rare {Cells}/[HPF] epithelial cells, urine rare /[LPF] urobilinogen, urine, semiquantitative (dipstick) normal hyaline casts, urine none /[LPF] RBC urine by microscopy rare pH, urine, semiquantitative 6 glucose, urine, semiquantitative 1+ appearance, urine Clear Yellow Clinical Lists Update: Ferritin - Chemistry ferritin, serum 98.6 ng/mL Clinical Lists Update: TSH - Chemistry thyroid stimulating hormone, serum 2.37 u[iU]/mL Office Visit: Dr Rider's Check Up: Established Patient Visit - Hematology erythrocyte sedimentation rate 2 mm/h Encounters Code Encounter Date Provider Facility CPT-94260 Ofc Vst, Est Level IV 15:41:33 RN GASTROENTEROLOGY Nazanin Rider DO, FACP CPT-46695 Ofc Vst, Est Level IV 15:36:22 CDT Nazanin Rider DO, FACP CPT-81063 Ofc Vst, Est Level III 16:08:06 CDT Nazanin Rider DO, FACP CPT-20945 Ofc Vst, Est Level IV 11:32:51 CDT Nazanin Rider DO, FACP CPT-70092 Ofc Vst, Est Level IV 15:57:01 CDT Nazanin Rider DO, FACP CPT-94502 Ofc Vst, Est Level IV 16:28:57 RN GASTROENTEROLOGY Nazanin Godoy Tereso, DO, FACP CPT-11202 Ofc Vst, Est Level III 13:24:21 RN GASTROENTEROLOGY Nazanin Godoy Tereso, DO, FACP CPT-81926 Ofc Vst, Est Level V 14:40:53 CDT Nazaninno Godoy Tereso DO, FACP CPT-48715 Ofc Vst, Est Level III 11:18:10 CDT Nazanin Godoy Tereso, DO, FACP CPT-21104 Ofc Vst, Est Level IV 11:00:50 CDT Nazaninno Godoy Tereso, DO, FACP CPT-18458 Ofc Vst, Est Level IV 10:28:45 RN GASTROENTEROLOGY Nazanin Godoy Tereso DO, FACP CPT-99597 Ofc Vst, Est Level V 11:16:51 CDT Nazaninno Godoy Tereso, DO, FACP CPT-16475 Ofc Vst, Est Level IV 10:56:54 CDT Nazaninno Godoy Tereso, DO, FACP CPT-73624 Ofc Vst, Est Level IV 10:47:14 RN GASTROENTEROLOGY Nazanin Godoy Tereso DO, FACP CPT-81488 Ofc Vst, Est Level V 15:33:32 RN GASTROENTEROLOGY Nazanin Rider [facility] CPT-62977 Ofc Vst, New Level IV 14:53:37 CDT Nazanin Godoy Tereso, DO, FACP Procedures Code Procedure Name Date Entry Date Standard Description CPT-02275 Preventive, Est, (40-64) 20:04:47 RN GASTROENTEROLOGY CPT-38037 TRANSITIONAL CARE MANAGE SRVC 14 DAY DISCHARGE 16:51:12 CDT CPT-29715 Preventive, Est, (40-64) 13:15:26 RN GASTROENTEROLOGY CPT-68327 Preventive, Est, (40-64) 13:16:36 RN GASTROENTEROLOGY CPT-J3420 Vitamin b12 injection 10:28:45 RN GASTROENTEROLOGY CPT-00378 Injection 10:28:45 RN GASTROENTEROLOGY CPT-83136 Injection 10:47:14 RN GASTROENTEROLOGY CPT-J3420 Vitamin b12 injection 10:47:14 RN GASTROENTEROLOGY CPT-50080 Injection 15:33:32 RN GASTROENTEROLOGY CPT-J3420 Vitamin b12 injection 15:33:32 RN GASTROENTEROLOGY
--- OUTSIDE RECORDS SUMMARY | 2018-03-19 17:51 | XMS REPORT | Clinical Summary ---
Author Author User, [employer] Nazanin Rider DO, FACP Address Unknown Phone [...] MG TABS 1 PO BID METFORMIN HCL 05901772347 Active Nazanin Rider JANUVIA 100 MG TABS 1 PO DAILY SITAGLIPTIN PHOSPHATE 53515451364 Active Mable Moreno ALTACE 2.5 MG CAPS 1 po daily RAMIPRIL 62250344888 No Longer Active Nazanin Rider TESTOSTERONE CREAM 150MG apply cream daily TESTOSTERONE CREAM 150MG No Longer Active Nazanin Rider TRICOR 48 MG TABS 1 PO daily FENOFIBRATE 07686733228 Active Mable Moreno LIPITOR 20 MG TAB 1 PO QD ATORVASTATIN CALCIUM 27665116262 Active Mable Moreno JANUVIA 100 MG TABS 1 PO daily SITAGLIPTIN PHOSPHATE 98115825487 No Longer Active Nazanin Rider COMBIVENT RESPIMAT 20-100 MCG/ACT AERS 2 puffs QID IPRATROPIUM- ALBUTEROL 83063906849 Active Nazaninno Rider FLOMAX 0.4 MG CAPS 1 PO QHS TAMSULOSIN HCL 12545692951 Active Nazaninno Rider SYMBICORT 160-4.5 MCG/ACT AERO 2 puffs BID BUDESONIDE- FORMOTEROL FUMARATE 84015058394 Active Nazaninno Rider FLOMAX 0.4 MG CAPS 1 PO QHS TAMSULOSIN HCL 89123788707 No Longer Active Nazanin Rider ANTIVERT 25 MG TABS 1 PO Qhrs prn MECLIZINE HCL Active Nazanin Deborah Rider CYCLOBENZAPRINE HCL 10 MG TABS 1 PO TID prn CYCLOBENZAPRINE HCL 49920800527 Active Nazanin Deborah Rider HYDROCODONE-ACETAMINOPHEN 5-325 MG TABS 1 PO Q6hrs prn HYDROCODONE- ACETAMINOPHEN 53452149886 Active Nazanin Deborah Rider CYMBALTA 30 MG CPEP 1 PO daily DULOXETINE HCL 62412426014 Active Mable Moreno WELLBUTRIN XL 300 MG [id number] 1 PO daily BUPROPION HCL 27882320557 No Longer Active Nazanin Deborah Rider NEURONTIN 100 MG CAP 1 PO TID GABAPENTIN 07394946682 No Longer Active Nazanin Deborah Rider PROAIR HFA 108 (90 BASE) MCG/ACT AERS 2 puff Q4 hrs prn wheezing ALBUTEROL SULFATE 82929368760 No Longer Active Nazanin Deborah Rider SYMBICORT 160-4.5 MCG/ACT AERO 2 pudds BID BUDESONIDE- FORMOTEROL FUMARATE 69177011831 No Longer Active Nazanin Deborah Rider VIAGRA 100 MG TABS 1 PO prn SILDENAFIL CITRATE 13598879862 No Longer Active Nazaninno Rider PREDNISONE 20 MG TAB 1 po bid for 5 days then 1 po daily for 3 days then stop PREDNISONE 97997571923 No Longer Active Nazanin Deborah Rider SPIRIVA HANDIHALER 18 MCG CAPS 1 inhalation daily TIOTROPIUM BROMIDE MONOHYDRATE 68767035270 No Longer Active Nazaninno Rider CYANOCOBALAMIN 1000 MCG TABS 1 PO daily CYANOCOBALAMIN No Longer Active Nazanin SOLORZANO'Walt NASAL SPRAY (DEXAMETHASONE, GENTAMICIN, SALINE) 2 puffs each nostril TID for [address] LEAVITT NASAL SPRAY ( DEXAMETHASONE, GENTAMICIN, SALINE) No Longer Active Nazanin Rider AUGMENTIN 875-125 MG TAB 1 PO BID AMOXICILLIN-POT CLAVULANATE 29896891699 No Longer Active Nazanin Deborah Rider FOSAMAX 70 MG TABS 1 PO Qwk ALENDRONATE SODIUM 31082143938 Active Mablearmaan Moreno FORTEO 600 MCG/2.4ML SOLN 1 injection daily for 2 years TERIPARATIDE (RECOMBINANT) 61819254327 No Longer Active Nazanin Deborah Rider TRAZODONE HCL 150 MG TABS 1 1/2-2 PO QHS TRAZODONE HCL 02271056900 Active Mablearmaan Moreno AUGMENTIN 500-125 MG TAB 1 PO BID AMOXICILLIN-POT CLAVULANATE 64544330734 No Longer Active Nazanin Deborah Rider ANDRODERM 5 MG/24HR PT24 1 patch daily TESTOSTERONE 00960307691 No Longer Active Nazanin Deborah Rider GLIPIZIDE 5 MG TABS one-half pill at noon GLIPIZIDE 77001493579 No Longer Active Mable Moreno COMBIVENT 18-103 MCG/ACT AERO 2 puffs Q4hrs prn IPRATROPIUM-ALBUTEROL 43981628461 No Longer Active Nazanin Deborah Rider DIABETA 1.25 MG TABS 1 po BID GLYBURIDE 19062357741 No Longer Active Nazanin Deborah Rider CHANTIX STARTING MONTH DEVON 0.5 MG X 11 & 1 MG X 42 TABS as directed VARENICLINE TARTRATE 66405441733 No Longer Active Nazanin Deborah Rider DYAZIDE 37.5-25 MG CAP 1 PO Daily TRIAMTERENE-HCTZ 68904912109 No Longer Active Nazanin Deborah Rider VITAMIN B-12 1000 MCG TABS 1 PO daily CYANOCOBALAMIN 93302790763 Active Nazanin Deborah Rider FOSAMAX 70 MG TABS 1 PO Qwk ALENDRONATE SODIUM 24078431526 No Longer Active Nazanin Rider VITAMINS A & D 5000-400 UNIT CAPS 1 PO daily VITAMINS A & D 23440826602 Active Nazanin Rider CALCIUM 600/VITAMIN D TABS 2 PO daily CALCIUM CARBONATE-VITAMIN D TABS 15132062581 Active Nazanin Rider PAXIL 40 MG TABS 1 PO daily PAROXETINE HCL 77210518903 No Longer Active Jacobo Hoffmann CARAFATE 1 GM TABS 1 PO daily SUCRALFATE 86304642227 Active Mable Moreno PROTONIX 40 MG TBEC 1 PO daily PANTOPRAZOLE SODIUM 89544490866 Active Mable Moreno CLAIRE 5-40 MG TABS 1 PO daily AMLODIPINE-OLMESARTAN 07410170386 Active Mable Moreno Vital Signs Date Name [...] CBC - Hematology hematocrit, blood 34.7 % platelet count 409 10*3/mm3 hemoglobin, blood 11.2 g/dL mean corpuscular volume, RBC 85.0 fL red blood cell distribution width 15.5 % leukocyte count, blood 6.6 10*3/mm3 erythrocyte (RBC) count 4.08 10*6/mm3 Clinical Lists Update: CBC,CMP,FLP,HGA1C,ESR - Chemistry glucose, plasma fasting 7.5 mg/dL Estimated Glomerular Filtration Rate (calc) >60 mL/min/1.73m2 creatinine, serum 0.88 mg/dL carbon dioxide, venous blood 27 mmol/L cholesterol, serum 105 mg/dL sodium, serum 136 mmol/L chloride, serum 101 mmol/L alanine aminotransferase (SGPT), serum 37 U/L aspartate aminotransferase (SGOT), serum 31 U/L protein, total, serum 7.5 g/dL potassium, serum 4.2 mmol/L triglyceride, serum, fasting 86 mg/dL calcium, serum 9.1 mg/dL urea nitrogen, blood 15 mg/dL bilirubin, serum, total 0.2 mg/dL alkaline phosphatase, serum 33 U/L albumin, serum 4.0 g/dL LDL cholesterol, serum 50 mg/dL hemoglobin A1C, blood, as % of total hemoglobin 7.1 % HDL cholesterol, serum 38 mg/dL Clinical Lists Update: CBC,CMP,FLP,HGA1C,ESR - Hematology hemoglobin, blood 12.9 g/dL leukocyte count, blood 8.6 10*3/mm3 hematocrit, blood 39.3 % platelet count 355 10*3/mm3 red blood cell distribution width 15.1 % erythrocyte (RBC) count 4.87 10*6/mm3 erythrocyte sedimentation rate 18 mm/h mean corpuscular volume, RBC 80.7 fL Clinical Lists Update: CBC,CMP,PT,INR ER LABS - Chemistry aspartate aminotransferase (SGOT), serum 30 U/L Estimated Glomerular Filtration Rate (calc) >60 mL/min/1.73m2 calcium, serum 9.0 mg/dL chloride, serum 107 mmol/L urea nitrogen, blood 9 mg/dL glucose, plasma fasting 129 mg/dL albumin, serum 3.9 g/dL carbon dioxide, venous blood 23 mmol/L alkaline phosphatase, serum 30 U/L bilirubin, serum, total 0.4 mg/dL alanine aminotransferase (SGPT), serum 44 U/L protein, total, serum 7.3 g/dL sodium, serum 142 mmol/L potassium, serum 3.9 mmol/L creatinine, serum 1.02 mg/dL Clinical Lists Update: CBC,CMP,PT,INR ER LABS - Coagulation international normalized ratio (INR) 1.1 prothrombin time (patient) 13.9 s PTT patient 24 s Clinical Lists Update: CBC,CMP,PT,INR ER LABS - Hematology leukocyte count, blood 8.4 10*3/mm3 platelet count 344 10*3/mm3 erythrocyte (RBC) count 4.83 10*6/mm3 hemoglobin, blood 13.6 g/dL hematocrit, blood 40 % mean corpuscular volume, RBC 83 fL red blood cell distribution width 14.5 % Clinical Lists Update: CMP,FLP,HgA1c - Chemistry chloride, serum 107 mmol/L sodium, serum 135 mmol/L carbon dioxide, venous blood 29 mmol/L creatinine, serum 0.80 mg/dL Estimated Glomerular Filtration Rate (calc) >60 mL/min/1.73m2 glucose, plasma fasting 156 mg/dL HDL cholesterol, serum 33 mg/dL hemoglobin A1C, blood, as % of total hemoglobin 7.6 % LDL cholesterol, serum 51 mg/dL albumin, serum 4.0 g/dL alkaline phosphatase, serum 25 U/L bilirubin, serum, total 0.4 mg/dL urea nitrogen, blood 12 mg/dL calcium, serum 8.4 mg/dL triglyceride, serum, fasting 92 mg/dL potassium, serum 4.1 mmol/L protein, total, serum 7.4 g/dL aspartate aminotransferase (SGOT), serum 45 U/L alanine aminotransferase (SGPT), serum 61 U/L cholesterol, serum 102 mg/dL Clinical Lists Update: CMP,HgA1c,TSH,Chol - Chemistry chloride, serum 104 mmol/L cholesterol, serum 81 mg/dL carbon dioxide, venous blood 26 mmol/L creatinine, serum 0.93 mg/dL Estimated Glomerular Filtration Rate (calc) >60 mL/min/1.73m2 glucose, plasma fasting 88 mg/dL hemoglobin A1C, blood, as % of total hemoglobin 5.9 % albumin, serum 3.8 g/dL alkaline phosphatase, serum 29 U/L bilirubin, serum, total 0.4 mg/dL urea nitrogen, blood 10 mg/dL calcium, serum 9.2 mg/dL triglyceride, serum, fasting 93 mg/dL potassium, serum 3.9 mmol/L protein, total, serum 7.2 g/dL aspartate aminotransferase (SGOT), serum 27 U/L alanine aminotransferase (SGPT), serum 20 U/L sodium, serum 134 mmol/L Clinical Lists Update: ER LABS - Chemistry chloride, serum 104 mmol/L carbon dioxide, venous blood 21 mmol/L sodium, serum 136 mmol/L alanine aminotransferase (SGPT), serum 35 U/L aspartate aminotransferase (SGOT), serum 30 U/L protein, total, serum 6.8 g/dL potassium, serum 4.2 mmol/L calcium, serum 9.2 mg/dL urea nitrogen, blood 16 mg/dL bilirubin, serum, total 0.4 mg/dL alkaline phosphatase, serum 39 U/L albumin, serum 4.0 g/dL glucose, plasma fasting 229 mg/dL Estimated Glomerular Filtration Rate (calc) >60 mL/min/1.73m2 creatinine, serum 0.99 mg/dL Clinical Lists Update: ER LABS - Hematology leukocyte count, blood 18.0 10*3/mm3 red blood cell distribution width 15.2 % hematocrit, blood 36 % hemoglobin, blood 11.6 g/dL mean corpuscular volume, RBC 81 fL erythrocyte (RBC) count 4.43 10*6/mm3 erythrocyte sedimentation rate 12 mm/h platelet count 337 10*3/mm3 Clinical Lists Update: ER LABS - Urinalysis ketones, urine, by test strip neg hyaline casts, urine none /[LPF] glucose, urine, semiquantitative 1+ pH, urine, semiquantitative 6 WBC urine on microscopy rare {Cells}/[HPF] mucus on urinalysis neg protein, urine, semiquantitative (dipstick) neg blood in urine (hemoglobin) by dipstick neg bilirubin, urine neg bacteria, urine microscopy neg appearance, urine Clear Yellow specific gravity, urine 1.010 RBC urine by microscopy rare urobilinogen, urine, semiquantitative (dipstick) normal nitrite, urine, semiquantitative neg epithelial cells, urine rare /[LPF] Clinical Lists Update: Ferritin - Chemistry ferritin, serum 98.6 ng/mL ferritin, serum 28.0 ng/mL Clinical Lists Update: TSH - Chemistry thyroid stimulating hormone, serum 2.37 u[iU]/mL Office Visit: Dr Rider's Check Up: Established Patient Visit - Hematology erythrocyte sedimentation rate 2 mm/h Encounters Code Encounter Date Provider Facility CPT-99088 Ofc Vst, Est Level IV 21:39:22 CDT Nazanin Rider DO, FACP CPT-40897 Ofc Vst, Est Level IV 15:41:33 PLANT OPERATOR Nazanin Deborah Rider Nazanin S Rider, DO, FACP CPT-48402 Ofc Vst, Est Level IV 15:36:22 CDT Nazanin Deborah Godoy Tereso, DO, FACP CPT-51516 Ofc Vst, Est Level III 16:08:06 CDT Nazanin Deborah Godoy Tereso, DO, FACP CPT-16958 Ofc Vst, Est Level IV 11:32:51 CDT Nazanin Deborah Godoy Tereso, DO, FACP CPT-01806 Ofc Vst, Est Level IV 15:57:01 CDT Nazanin Deborah Godoy Tereso, DO, FACP CPT-19771 Ofc Vst, Est Level IV 16:28:57 PL[employer] OPER[employer] Nazanin Godoy Tereso, DO, FACP CPT-76672 Ofc Vst, Est Level III 13:24:21 PLANT OPERATOR Nazaninno Godoy Tereso, DO, FACP CPT-66488 Ofc Vst, Est Level V 14:40:53 CDT Nazaninno Godoy Tereso, DO, FACP CPT-15234 Ofc Vst, Est Level III 11:18:10 CDT Nazaninno Godoy Tereso, DO, FACP CPT-07949 Ofc Vst, Est Level IV 11:00:50 CDT Nazanin Deborah Godoy Tereso, DO, FACP CPT-86747 Ofc Vst, Est Level IV 10:28:45 PLANT OPERATOR Nazaninno Godoy Tereso, DO, FACP CPT-57731 Ofc Vst, Est Level V 11:16:51 CDT Nazainnno Godoy Tereso, DO, FACP CPT-50089 Ofc Vst, Est Level IV 10:56:54 CDT Nazanin Deborah Godoy Tereso, DO, FACP CPT-73219 Ofc Vst, Est Level IV 10:47:14 PLANT OPER[employer] Nazanin Rider DO, FACP CPT-05192 Ofc Vst, Est Level V 15:33:32 PLANT OPER[employer] Nazanin Rider [facility] CPT-57080 Ofc Vst, New Level IV 14:53:37 CDT Nazanin Rider DO, FACP Procedures Code Procedure Name Date Entry Date Standard Description CPT-29497 Preventive, Est, (40-64) 20:04:47 PLANT OPERATOR CPT-05610 TRANSITIONAL CARE MANAGE SRVC 14 DAY DISCHARGE 16:51:12 CDT CPT-03641 Preventive, Est, (40-64) 13:15:26 PLANT OPERATOR CPT-42526 Preventive, Est, (40-64) 13:16:36 PLANT OPERATOR CPT-J3420 Vitamin b12 injection 10:28:45 PLANT OPERATOR CPT-84320 Injection 10:28:45 PLANT OPERATOR CPT-31032 Injection 10:47:14 PLANT OPERATOR CPT-J3420 Vitamin b12 injection 10:47:14 PLANT OPERATOR CPT-51591 Injection 15:33:32 PLANT OPERATOR CPT-J3420 Vitamin b12 injection 15:33:32 PLANT OPERATOR
--- OUTSIDE RECORDS SUMMARY | 2018-03-19 17:52 | XMS REPORT | Clinical Summary ---
Author Author User, [employer] Nazanin Rider DO, FACP Address Unknown Phone [...] MG TABS 1 PO BID METFORMIN HCL 96427904064 Active Mable Moreno JANUVIA 100 MG TABS 1 PO DAILY SITAGLIPTIN PHOSPHATE 37311649560 Active Mable Moreno ALTACE 2.5 MG CAPS 1 po daily RAMIPRIL 65559673618 No Longer Active Nazanin Rider TESTOSTERONE CREAM 150MG apply cream daily TESTOSTERONE CREAM 150MG No Longer Active Nazaninno Rider TRICOR 48 MG TABS 1 PO daily FENOFIBRATE 75110715269 Active Mable Moreno LIPITOR 20 MG TAB 1 PO QD ATORVASTATIN CALCIUM 26008456234 Active Mable Moreno JANUVIA 100 MG TABS 1 PO daily SITAGLIPTIN PHOSPHATE 54456066170 No Longer Active Nazanin Rider COMBIVENT RESPIMAT 20-100 MCG/ACT AERS 2 puffs QID IPRATROPIUM- ALBUTEROL 06882019525 Active Nazaninno Rider FLOMAX 0.4 MG CAPS 1 PO QHS TAMSULOSIN HCL 22236667168 Active Nazaninno Rider SYMBICORT 160-4.5 MCG/ACT AERO 2 puffs BID BUDESONIDE- FORMOTEROL FUMARATE 55065009944 Active Nazaninno Rider FLOMAX 0.4 MG CAPS 1 PO QHS TAMSULOSIN HCL 07920086870 No Longer Active Nazaninno Rider ANTIVERT 25 MG TABS 1 PO Qhrs prn MECLIZINE HCL Active Nazanin Deborah Rider CYCLOBENZAPRINE HCL 10 MG TABS 1 PO TID prn CYCLOBENZAPRINE HCL 47300226563 Active Nazanin Deborah Rider HYDROCODONE-ACETAMINOPHEN 5-325 MG TABS 1 PO Q6hrs prn HYDROCODONE- ACETAMINOPHEN 25438081148 Active Nazanin Deborah Rider CYMBALTA 30 MG CPEP 1 PO daily DULOXETINE HCL 05372611656 Active Mable Moreno WELLBUTRIN XL 300 MG [id number]-[id number] 1 PO daily BUPROPION HCL 38708563770 No Longer Active Nazanin Deborah Rider NEURONTIN 100 MG CAP 1 PO TID GABAPENTIN 53640634637 No Longer Active Nazanin Deborah Rider PROAIR HFA 108 (90 BASE) MCG/ACT AERS 2 puff Q4 hrs prn wheezing ALBUTEROL SULFATE 71116781946 No Longer Active Nazanin Deborah Rider SYMBICORT 160-4.5 MCG/ACT AERO 2 pudds BID BUDESONIDE- FORMOTEROL FUMARATE 48851371609 No Longer Active Nazanin Deborah Rider VIAGRA 100 MG TABS 1 PO prn SILDENAFIL CITRATE 85302034890 No Longer Active Nazaninno Rider PREDNISONE 20 MG TAB 1 po bid for 5 days then 1 po daily for 3 days then stop PREDNISONE 13252770612 No Longer Active Nazanin Deborah Rider SPIRIVA HANDIHALER 18 MCG CAPS 1 inhalation daily TIOTROPIUM BROMIDE MONOHYDRATE 83227066210 No Longer Active Nazanin Deborah Rider CYANOCOBALAMIN 1000 MCG TABS 1 PO daily CYANOCOBALAMIN No Longer Active Nazanin SOLORZANO'S NASAL SPRAY (DEXAMETHASONE, GENTAMICIN, SALINE) 2 puffs each nostril TID for [address] LEAVITT NASAL SPRAY ( DEXAMETHASONE, GENTAMICIN, SALINE) No Longer Active Nazaninno Rider AUGMENTIN 875-125 MG TAB 1 PO BID AMOXICILLIN-POT CLAVULANATE 74180191868 No Longer Active Nazanin Deborah Rider FOSAMAX 70 MG TABS 1 PO Qwk ALENDRONATE SODIUM 30408689322 Active Mable Moreno FORTEO 600 MCG/2.4ML SOLN 1 injection daily for 2 years TERIPARATIDE (RECOMBINANT) 63159314433 No Longer Active Nazanin Deborah Rider TRAZODONE HCL 150 MG TABS 1 1/2-2 PO QHS TRAZODONE HCL 35695462245 Active Mable Moreno AUGMENTIN 500-125 MG TAB 1 PO BID AMOXICILLIN-POT CLAVULANATE 66761223293 No Longer Active Nazanin Deborah Rider ANDRODERM 5 MG/24HR PT24 1 patch daily TESTOSTERONE 08790747528 No Longer Active Nazanin Deborah Rider GLIPIZIDE 5 MG TABS one-half pill at noon GLIPIZIDE 02648439827 No Longer Active Mable Moreno COMBIVENT 18-103 MCG/ACT AERO 2 puffs Q4hrs prn IPRATROPIUM-ALBUTEROL 86494258670 No Longer Active Nazanin Deborah Rider DIABETA 1.25 MG TABS 1 po BID GLYBURIDE 37411908176 No Longer Active Nazanin Deborah Rider CHANTIX STARTING MONTH DEVON 0.5 MG X 11 & 1 MG X 42 TABS as directed VARENICLINE TARTRATE 61728885797 No Longer Active Nazanin Deborah Rider DYAZIDE 37.5-25 MG CAP 1 PO Daily TRIAMTERENE-HCTZ 24600567517 No Longer Active Nazanin Deborah Rider VITAMIN B-12 1000 MCG TABS 1 PO daily CYANOCOBALAMIN 77525521138 Active Nazanin Deborah Rider FOSAMAX 70 MG TABS 1 PO Qwk ALENDRONATE SODIUM 72702395124 No Longer Active Nazanin Rider VITAMINS A & D 5000-400 UNIT CAPS 1 PO daily VITAMINS A & D 38243240660 Active Nazanin Rider CALCIUM 600/VITAMIN D TABS 2 PO daily CALCIUM CARBONATE-VITAMIN D TABS 74348499204 Active Nazanin Rider PAXIL 40 MG TABS 1 PO daily PAROXETINE HCL 68474002068 No Longer Active Jacobo Hoffmann CARAFATE 1 GM TABS 1 PO daily SUCRALFATE 80154346431 Active Mable Moreno PROTONIX 40 MG TBEC 1 PO daily PANTOPRAZOLE SODIUM 45374849867 Active Mable Moreno CLAIRE 5-40 MG TABS 1 PO daily AMLODIPINE-OLMESARTAN 50358551189 Active Mable Moreno Vital Signs Date Name [...] mm/h Encounters Code Encounter Date Provider Facility CPT-78807 Ofc Vst, Est Level IV 15:41:33 FUEL HANDLER Nazanin Rider DO, FACP CPT-98160 Ofc Vst, Est Level IV 15:36:22 CDT Nazanin Rider DO, FACP CPT-75803 Ofc Vst, Est Level III 16:08:06 CDT Nazanin Rider DO, FACP CPT-62853 Ofc Vst, Est Level IV 11:32:51 CDT Nazanin Rider DO, FACP CPT-15629 Ofc Vst, Est Level IV 15:57:01 CDT Nazanin Deborah Rider Nazanin S Rider, DO, FACP CPT-94595 Ofc Vst, Est Level IV 16:28:57 FUEL HANDLER Nazanin Godoy Tereso, DO, FACP CPT-16441 Ofc Vst, Est Level III 13:24:21 FUEL HANDLER Nazanin Godoy Tereso, DO, FACP CPT-18098 Ofc Vst, Est Level V 14:40:53 CDT Nazaninno Godoy Tereso, DO, FACP CPT-42274 Ofc Vst, Est Level III 11:18:10 CDT Nazanin Godoy Tereso, DO, FACP CPT-32787 Ofc Vst, Est Level IV 11:00:50 CDT Nazaninno Godoy Tereso, DO, FACP CPT-10931 Ofc Vst, Est Level IV 10:28:45 FUEL HANDLER Nazanin Godoy Tereso, DO, FACP CPT-75443 Ofc Vst, Est Level V 11:16:51 CDT Nazaninno Godoy Tereso, DO, FACP CPT-74485 Ofc Vst, Est Level IV 10:56:54 CDT Nazaninno Godoy Tereso, DO, FACP CPT-17260 Ofc Vst, Est Level IV 10:47:14 FUEL HANDLER Nazanin Godoy Tereso, DO, FACP CPT-01824 Ofc Vst, Est Level V 15:33:32 FUEL HANDLER Nazanin Rider [place] [facility] CPT-15796 Ofc Vst, New Level IV 14:53:37 CDT Nazanin Godoy Tereso, DO, FACP Procedures Code Procedure Name Date Entry Date Standard Description CPT-86636 Preventive, Est, (40-64) 20:04:47 FUEL HANDLER CPT-63260 TRANSITIONAL CARE MANAGE SRVC 14 DAY DISCHARGE 16:51:12 CDT CPT-94350 Preventive, Est, (40-64) 13:15:26 FUEL HANDLER CPT-57174 Preventive, Est, (40-64) 13:16:36 FUEL HANDLER CPT-J3420 Vitamin b12 injection 10:28:45 FUEL HANDLER CPT-58524 Injection 10:28:45 FUEL HANDLER CPT-02504 Injection 10:47:14 FUEL HANDLER CPT-J3420 Vitamin b12 injection 10:47:14 FUEL HANDLER CPT-33742 Injection 15:33:32 FUEL HANDLER CPT-J3420 Vitamin b12 injection 15:33:32 FUEL HANDLER
--- OUTSIDE RECORDS SUMMARY | 2018-03-19 17:54 | XMS REPORT | Clinical Summary ---
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 Nazanin Rider Neoplasm of uncertain behavior of skin Medication List Medication Instructions Start Date Stop Date Generic Name NDC Status Provider Patient Instruction METFORMIN HCL 1000 MG TABS 1 PO BID METFORMIN HCL 94900035991 Active Nazanin Rider JANUVIA 100 MG TABS 1 PO DAILY SITAGLIPTIN PHOSPHATE 64917171779 Active Mable Moreno ALTACE 2.5 MG CAPS 1 po daily RAMIPRIL 33034932778 No Longer Active Nazanin Rider TESTOSTERONE CREAM 150MG apply cream daily TESTOSTERONE CREAM 150MG No Longer Active Nazanin Rider TRICOR 48 MG TABS 1 PO daily FENOFIBRATE 63993361716 Active Mable Moreno LIPITOR 20 MG TAB 1 PO QD ATORVASTATIN CALCIUM 00133826978 Active Mable Moreno JANUVIA 100 MG TABS 1 PO daily SITAGLIPTIN PHOSPHATE 09411994743 No Longer Active Nazanin Rider COMBIVENT RESPIMAT 20-100 MCG/ACT AERS 2 puffs QID IPRATROPIUM- ALBUTEROL 37389862271 Active Nazanin Rider FLOMAX 0.4 MG CAPS 1 PO QHS TAMSULOSIN HCL 49812629101 Active Nazanin Rider SYMBICORT 160-4.5 MCG/ACT AERO 2 puffs BID BUDESONIDE- FORMOTEROL FUMARATE 64550887178 Active Nazanin Rider FLOMAX 0.4 MG CAPS 1 PO QHS TAMSULOSIN HCL 51563129390 No Longer Active Nazanin Deborah Rider ANTIVERT 25 MG TABS 1 PO Qhrs prn MECLIZINE HCL Active Nazanin Deborah Rider CYCLOBENZAPRINE HCL 10 MG TABS 1 PO TID prn CYCLOBENZAPRINE HCL 02368887970 Active Nazanin Deborah Rider HYDROCODONE-ACETAMINOPHEN 5-325 MG TABS 1 PO Q6hrs prn HYDROCODONE- ACETAMINOPHEN 65279600370 Active Nazanin Deborah Rider CYMBALTA 30 MG CPEP 1 PO daily DULOXETINE HCL 80390399365 Active Mable Moreno WELLBUTRIN XL 300 MG [id number] 1 PO daily BUPROPION HCL 03221792041 No Longer Active Nazanin Deborah Rider NEURONTIN 100 MG CAP 1 PO TID GABAPENTIN 87897068852 No Longer Active Nazanin Deborah Rider PROAIR HFA 108 (90 BASE) MCG/ACT AERS 2 puff Q4 hrs prn wheezing ALBUTEROL SULFATE 88020679115 No Longer Active Nazanin Deborah Rider SYMBICORT 160-4.5 MCG/ACT AERO 2 pudds BID BUDESONIDE- FORMOTEROL FUMARATE 76892282144 No Longer Active Nazanin Deborah Rider VIAGRA 100 MG TABS 1 PO prn SILDENAFIL CITRATE 98571961733 No Longer Active Nazanin Deborah Rider PREDNISONE 20 MG TAB 1 po bid for 5 days then 1 po daily for 3 days then stop PREDNISONE 60119209373 No Longer Active Nazanin Deborah Rider SPIRIVA HANDIHALER 18 MCG CAPS 1 inhalation daily TIOTROPIUM BROMIDE MONOHYDRATE 65729412719 No Longer Active Nazanin Deborah Rider CYANOCOBALAMIN 1000 MCG TABS 1 PO daily CYANOCOBALAMIN No Longer Active Nazanin Deborah SOLORZANO'S NASAL SPRAY (DEXAMETHASONE, GENTAMICIN, SALINE) 2 puffs each nostril TID for [address] SOLORZANO'S NASAL SPRAY ( DEXAMETHASONE, GENTAMICIN, SALINE) No Longer Active Nazaninno Rider AUGMENTIN 875-125 MG TAB 1 PO BID AMOXICILLIN-POT CLAVULANATE 43300711843 No Longer Active Nazanin Debroah Rider FOSAMAX 70 MG TABS 1 PO Qwk ALENDRONATE SODIUM 74297902418 Active Mable Moreno FORTEO 600 MCG/2.4ML SOLN 1 injection daily for 2 years TERIPARATIDE (RECOMBINANT) 38526892390 No Longer Active Nazanin Deborah Rider TRAZODONE HCL 150 MG TABS 1 1/2-2 PO QHS TRAZODONE HCL 62529277866 Active Mable Moreno AUGMENTIN 500-125 MG TAB 1 PO BID AMOXICILLIN-POT CLAVULANATE 30837009340 No Longer Active Nazaninno Rider ANDRODERM 5 MG/24HR PT24 1 patch daily TESTOSTERONE 50688215522 No Longer Active Nazanin Deborah Rider GLIPIZIDE 5 MG TABS one-half pill at noon GLIPIZIDE 76205167888 No Longer Active Mable Moreno COMBIVENT 18-103 MCG/ACT AERO 2 puffs Q4hrs prn IPRATROPIUM-ALBUTEROL 76820468991 No Longer Active Nazaninno Rider DIABETA 1.25 MG TABS 1 po BID GLYBURIDE 06994481689 No Longer Active Nazanin Deborah Rider CHANTIX STARTING MONTH DEVON 0.5 MG X 11 & 1 MG X 42 TABS as directed VARENICLINE TARTRATE 91337592895 No Longer Active Nazanin Deborah Rider DYAZIDE 37.5-25 MG CAP 1 PO Daily TRIAMTERENE-HCTZ 14040811646 No Longer Active Nazanin Deborah Rider VITAMIN B-12 1000 MCG TABS 1 PO daily CYANOCOBALAMIN 60058102781 Active Nazanin Rider FOSAMAX 70 MG TABS 1 PO Qwk ALENDRONATE SODIUM 83837580914 No Longer Active Nazanin Rider VITAMINS A & D 5000-400 UNIT CAPS 1 PO daily VITAMINS A & D 41940532924 Active Nazanin Rider CALCIUM 600/VITAMIN D TABS 2 PO daily CALCIUM CARBONATE-VITAMIN D TABS 37126650466 Active Nazanin Rider PAXIL 40 MG TABS 1 PO daily PAROXETINE HCL 10071848076 No Longer Active Jacobo Hoffmann CARAFATE 1 GM TABS 1 PO daily SUCRALFATE 96572173729 Active Mable Tiffanie PROTONIX 40 MG TBEC 1 PO daily PANTOPRAZOLE SODIUM 03914951704 Active Mable Tiffanie CLAIRE 5-40 MG TABS 1 PO daily AMLODIPINE-OLMESARTAN 91376289329 Active Mable Cheungtis Vital Signs Date Name Value Unit Range Description blood pressure, diastolic - 8462-4 86 mm[Hg] BP cervantes blood pressure, systolic - 8480-6 160 mm[Hg] BP sys pulse rate E&M - 8867-4 92 /min Heart rate respiratory rate E&M - 9279-1 14 /min Resp rate temperature E&M 98.6 [degF] Body temperature weight E&M - 3141-9 216 [lb_av] Weight Measured blood pressure, diastolic - 8462-4 80 mm[Hg] [...] mm/h Encounters Code Encounter Date Provider Facility CPT-94582 Ofc Vst, Est Level IV 21:39:22 CDT Nazanin Deborah Rider, DO, FACP CPT-75001 Ofc Vst, Est Level IV 15:41:33 STONE CRUSHER OPERATOR Nazanin Rider, DO, FACP CPT-26154 Ofc Vst, Est Level IV 15:36:22 CDT Nazaninno Rider, DO, FACP CPT-94696 Ofc Vst, Est Level III 16:08:06 CDT Nazaninno Rider, DO, FACP CPT-47369 Ofc Vst, Est Level IV 11:32:51 CDT Nazaninno Rider, DO, FACP CPT-44116 Ofc Vst, Est Level IV 15:57:01 CDT Nazanin Rider, DO, FACP CPT-60598 Ofc Vst, Est Level IV 16:28:57 STONE CRUSHER OPERATOR Nazanin Rider, DO, FACP CPT-01866 Ofc Vst, Est Level III 13:24:21 STONE CRUSHER OPERATOR Nazanin Rider, DO, FACP CPT-35907 Ofc Vst, Est Level V 14:40:53 CDT Nazaninno Rider, DO, FACP CPT-56950 Ofc Vst, Est Level III 11:18:10 CDT Nazanin Godoy Tereso, DO, FACP CPT-82485 Ofc Vst, Est Level IV 11:00:50 CDT Nazanin Godoy Tereso, DO, FACP CPT-10533 Ofc Vst, Est Level IV 10:28:45 STONE CRUSHER OPERATOR Nazanin Godoy Tereso DO, FACP CPT-80215 Ofc Vst, Est Level V 11:16:51 CDT Nazanin Godoy Tereso, DO, FACP CPT-13343 Ofc Vst, Est Level IV 10:56:54 CDT Nazainn Godoy Tereso, DO, FACP CPT-19370 Ofc Vst, Est Level IV 10:47:14 STONE CRUSHER OPERATOR Nazanin Godoy Tereso DO, FACP CPT-67085 Ofc Vst, Est Level V 15:33:32 STONE CRUSHER OPERATOR Nazanin Rider [facility] CPT-92902 Ofc Vst, New Level IV 14:53:37 CDT Nazanin Godoy Tereso, DO, FACP Procedures Code Procedure Name Date Entry Date Standard Description CPT-49330 Excision of Benign Lesion 1.1-2.0 cm 17:20:46 CDT 09/15 CPT-99922 Preventive, Est, (40-64) 20:04:47 STONE CRUSHER OPERATOR CPT-68130 TRANSITIONAL CARE MANAGE SRVC 14 DAY DISCHARGE 16:51:12 CDT CPT-45140 Preventive, Est, (40-64) 13:15:26 STONE CRUSHER OPERATOR CPT-47055 Preventive, Est, (40-64) 13:16:36 STONE CRUSHER OPERATOR CPT-J3420 Vitamin b12 injection 10:28:45 STONE CRUSHER OPERATOR CPT-12943 Injection 10:28:45 STONE CRUSHER OPERATOR CPT-50886 Injection 10:47:14 STONE CRUSHER OPERATOR CPT-J3420 Vitamin b12 injection 10:47:14 STONE CRUSHER OPERATOR CPT-14347 Injection 15:33:32 STONE CRUSHER OPERATOR CPT-J3420 Vitamin b12 injection 15:33:32 STONE CRUSHER OPERATOR
--- OUTSIDE RECORDS SUMMARY | 2018-03-19 17:55 | XMS REPORT | Clinical Summary ---
Author Author User, [employer] Organization Nazanin Rider DO, FACP Address Unknown [...] MG TABS 1 PO BID METFORMIN HCL 53537727616 Active Mable Moreno JANUVIA 100 MG TABS 1 PO DAILY SITAGLIPTIN PHOSPHATE 37753882888 Active Mable Moreno ALTACE 2.5 MG CAPS 1 po daily RAMIPRIL 96108422728 No Longer Active Nazanin Rider TESTOSTERONE CREAM 150MG apply cream daily TESTOSTERONE CREAM 150MG No Longer Active Nazaninno Rider TRICOR 48 MG TABS 1 PO daily FENOFIBRATE 44537726571 Active Mable Moreno LIPITOR 20 MG TAB 1 PO QD ATORVASTATIN CALCIUM 90815229391 Active Mable Moreno JANUVIA 100 MG TABS 1 PO daily SITAGLIPTIN PHOSPHATE 06301363471 No Longer Active Nazanin Rider COMBIVENT RESPIMAT 20-100 MCG/ACT AERS 2 puffs QID IPRATROPIUM- ALBUTEROL 40085267635 Active Nazaninon Rider FLOMAX 0.4 MG CAPS 1 PO QHS TAMSULOSIN HCL 02968513000 Active Nazaninno Rider SYMBICORT 160-4.5 MCG/ACT AERO 2 puffs BID BUDESONIDE- FORMOTEROL FUMARATE 62558915264 Active Nazaninno Rider FLOMAX 0.4 MG CAPS 1 PO QHS TAMSULOSIN HCL 25808161708 No Longer Active Nazaninno Rider ANTIVERT 25 MG TABS 1 PO Qhrs prn MECLIZINE HCL Active Nazanin Deborah Rider CYCLOBENZAPRINE HCL 10 MG TABS 1 PO TID prn CYCLOBENZAPRINE HCL 51105412614 Active Nazanin Deborah Rider HYDROCODONE-ACETAMINOPHEN 5-325 MG TABS 1 PO Q6hrs prn HYDROCODONE- ACETAMINOPHEN 13796687707 Active Nazanin Deborah Rider CYMBALTA 30 MG CPEP 1 PO daily DULOXETINE HCL 14332715527 Active Mable Moreno WELLBUTRIN XL 300 MG [id number] 1 PO daily BUPROPION HCL 58091954072 No Longer Active Nazanin Deborah Rider NEURONTIN 100 MG CAP 1 PO TID GABAPENTIN 86253644302 No Longer Active Nazanin Deborah Rider PROAIR HFA 108 (90 BASE) MCG/ACT AERS 2 puff Q4 hrs prn wheezing ALBUTEROL SULFATE 43169578156 No Longer Active Nazanin Deborah Rider SYMBICORT 160-4.5 MCG/ACT AERO 2 pudds BID BUDESONIDE- FORMOTEROL FUMARATE 93600777352 No Longer Active Nazanin Deborah Rider VIAGRA 100 MG TABS 1 PO prn SILDENAFIL CITRATE 46728255922 No Longer Active Nazaninno Rider PREDNISONE 20 MG TAB 1 po bid for 5 days then 1 po daily for 3 days then stop PREDNISONE 53708861074 No Longer Active Nazanin Deborah Rider SPIRIVA HANDIHALER 18 MCG CAPS 1 inhalation daily TIOTROPIUM BROMIDE MONOHYDRATE 91699027558 No Longer Active Nazanin Deborah Rider CYANOCOBALAMIN 1000 MCG TABS 1 PO daily CYANOCOBALAMIN No Longer Active Nazaninno SOLORZANO'S NASAL SPRAY (DEXAMETHASONE, GENTAMICIN, SALINE) 2 puffs each nostril TID for [address] LEAVITT NASAL SPRAY ( DEXAMETHASONE, GENTAMICIN, SALINE) No Longer Active Nazanin Rider AUGMENTIN 875-125 MG TAB 1 PO BID AMOXICILLIN-POT CLAVULANATE 33022301090 No Longer Active Nazanin Deborah Rider FOSAMAX 70 MG TABS 1 PO Qwk ALENDRONATE SODIUM 76617088484 Active Mablearmaan Moreno FORTEO 600 MCG/2.4ML SOLN 1 injection daily for 2 years TERIPARATIDE (RECOMBINANT) 03269895354 No Longer Active Nazanin Deborah Rider TRAZODONE HCL 150 MG TABS 1 1/2-2 PO QHS TRAZODONE HCL 69225177769 Active Mablearmaan Moreno AUGMENTIN 500-125 MG TAB 1 PO BID AMOXICILLIN-POT CLAVULANATE 59055615816 No Longer Active Nazanin Deborah Rider ANDRODERM 5 MG/24HR PT24 1 patch daily TESTOSTERONE 87986055087 No Longer Active Nazanin Deborah Rider GLIPIZIDE 5 MG TABS one-half pill at noon GLIPIZIDE 15164793648 No Longer Active Mable Moreno COMBIVENT 18-103 MCG/ACT AERO 2 puffs Q4hrs prn IPRATROPIUM-ALBUTEROL 15680729514 No Longer Active Nazanin Deborah Rider DIABETA 1.25 MG TABS 1 po BID GLYBURIDE 22266090787 No Longer Active Nazanin Deborah Rider CHANTIX STARTING MONTH DEVON 0.5 MG X 11 & 1 MG X 42 TABS as directed VARENICLINE TARTRATE 86183353716 No Longer Active Nazanin Deborah Rider DYAZIDE 37.5-25 MG CAP 1 PO Daily TRIAMTERENE-HCTZ 55300932966 No Longer Active Nazanin Deborah Rider VITAMIN B-12 1000 MCG TABS 1 PO daily CYANOCOBALAMIN 48851391531 Active Nazanin Deborah Rider FOSAMAX 70 MG TABS 1 PO Qwk ALENDRONATE SODIUM 66554191222 No Longer Active Nazanin Rider VITAMINS A & D 5000-400 UNIT CAPS 1 PO daily VITAMINS A & D 05663033981 Active Nazanin Rider CALCIUM 600/VITAMIN D TABS 2 PO daily CALCIUM CARBONATE-VITAMIN D TABS 93677313222 Active Nazanin Rider PAXIL 40 MG TABS 1 PO daily PAROXETINE HCL 99067921797 No Longer Active Jacobo Hoffmann CARAFATE 1 GM TABS 1 PO daily SUCRALFATE 61552122709 Active Mable Moreno PROTONIX 40 MG TBEC 1 PO daily PANTOPRAZOLE SODIUM 67803591050 Active Mable Moreno CLAIRE 5-40 MG TABS 1 PO daily AMLODIPINE-OLMESARTAN 12664728208 Active Mable Moreno Vital Signs Date Name [...] Description Clinical Lists Update: CBC - Hematology leukocyte count, blood 6.6 10*3/mm3 hemoglobin, blood 11.2 g/dL red blood cell distribution width 15.5 % hematocrit, blood 34.7 % platelet count 409 10*3/mm3 erythrocyte (RBC) count 4.08 10*6/mm3 mean corpuscular volume, RBC 85.0 fL Clinical Lists Update: CBC,CMP,FLP,HGA1C,ESR - Chemistry potassium, serum 4.2 mmol/L carbon dioxide, venous blood 27 mmol/L albumin, serum 4.0 g/dL creatinine, serum 0.88 mg/dL glucose, plasma fasting 7.5 mg/dL alkaline phosphatase, serum 33 U/L chloride, serum 101 mmol/L HDL cholesterol, serum 38 mg/dL bilirubin, serum, total 0.2 mg/dL aspartate aminotransferase (SGOT), serum 31 U/L hemoglobin A1C, blood, as % of total hemoglobin 7.1 % alanine aminotransferase (SGPT), serum 37 U/L LDL cholesterol, serum 50 mg/dL urea nitrogen, blood 15 mg/dL Estimated Glomerular Filtration Rate (calc) >60 mL/min/1.73m2 calcium, serum 9.1 mg/dL cholesterol, serum 105 mg/dL protein, total, serum 7.5 g/dL sodium, serum 136 mmol/L triglyceride, serum, fasting 86 mg/dL Clinical Lists Update: CBC,CMP,FLP,HGA1C,ESR - Hematology leukocyte count, blood 8.6 10*3/mm3 mean corpuscular volume, RBC 80.7 fL hemoglobin, blood 12.9 g/dL hematocrit, blood 39.3 % platelet count 355 10*3/mm3 erythrocyte sedimentation rate 18 mm/h red blood cell distribution width 15.1 % erythrocyte (RBC) count 4.87 10*6/mm3 Clinical Lists Update: CBC,CMP,PT,INR ER LABS - Chemistry protein, total, serum 7.3 g/dL potassium, serum 3.9 mmol/L calcium, serum 9.0 mg/dL bilirubin, serum, total 0.4 mg/dL alkaline phosphatase, serum 30 U/L albumin, serum 3.9 g/dL glucose, plasma fasting 129 mg/dL Estimated Glomerular Filtration Rate (calc) >60 mL/min/1.73m2 creatinine, serum 1.02 mg/dL carbon dioxide, venous blood 23 mmol/L chloride, serum 107 mmol/L urea nitrogen, blood 9 mg/dL sodium, serum 142 mmol/L alanine aminotransferase (SGPT), serum 44 U/L aspartate aminotransferase (SGOT), serum 30 U/L Clinical Lists Update: CBC,CMP,PT,INR ER LABS - Coagulation prothrombin time (patient) 13.9 s international normalized ratio (INR) 1.1 PTT patient 24 s Clinical Lists Update: CBC,CMP,PT,INR ER LABS - Hematology hematocrit, blood 40 % hemoglobin, blood 13.6 g/dL mean corpuscular volume, RBC 83 fL leukocyte count, blood 8.4 10*3/mm3 platelet count 344 10*3/mm3 erythrocyte (RBC) count 4.83 10*6/mm3 red blood cell distribution width 14.5 % Clinical Lists Update: CMP,FLP,HgA1c - Chemistry aspartate aminotransferase (SGOT), serum 45 U/L HDL cholesterol, serum 33 mg/dL protein, total, serum 7.4 g/dL potassium, serum 4.1 mmol/L triglyceride, serum, fasting 92 mg/dL calcium, serum 8.4 mg/dL urea nitrogen, blood 12 mg/dL bilirubin, serum, total 0.4 mg/dL alkaline phosphatase, serum 25 U/L albumin, serum 4.0 g/dL LDL cholesterol, serum 51 mg/dL hemoglobin A1C, blood, as % of total hemoglobin 7.6 % glucose, plasma fasting 156 mg/dL Estimated Glomerular Filtration Rate (calc) >60 mL/min/1.73m2 creatinine, serum 0.80 mg/dL carbon dioxide, venous blood 29 mmol/L cholesterol, serum 102 mg/dL chloride, serum 107 mmol/L sodium, serum 135 mmol/L alanine aminotransferase (SGPT), serum 61 U/L Clinical Lists Update: CMP,HgA1c,TSH,Chol - Chemistry protein, total, serum 7.2 g/dL aspartate aminotransferase (SGOT), serum 27 U/L calcium, serum 9.2 mg/dL Estimated Glomerular Filtration Rate (calc) >60 mL/min/1.73m2 alkaline phosphatase, serum 29 U/L creatinine, serum 0.93 mg/dL triglyceride, serum, fasting 93 mg/dL carbon dioxide, venous blood 26 mmol/L albumin, serum 3.8 g/dL cholesterol, serum 81 mg/dL urea nitrogen, blood 10 mg/dL chloride, serum 104 mmol/L potassium, serum 3.9 mmol/L sodium, serum 134 mmol/L hemoglobin A1C, blood, as % of total hemoglobin 5.9 % alanine aminotransferase (SGPT), serum 20 U/L bilirubin, serum, total 0.4 mg/dL glucose, plasma fasting 88 mg/dL Clinical Lists Update: ER LABS - Chemistry aspartate aminotransferase (SGOT), serum 30 U/L alanine aminotransferase (SGPT), serum 35 U/L sodium, serum 136 mmol/L chloride, serum 104 mmol/L carbon dioxide, venous blood 21 mmol/L creatinine, serum 0.99 mg/dL Estimated Glomerular Filtration Rate (calc) >60 mL/min/1.73m2 glucose, plasma fasting 229 mg/dL albumin, serum 4.0 g/dL alkaline phosphatase, serum 39 U/L bilirubin, serum, total 0.4 mg/dL urea nitrogen, blood 16 mg/dL calcium, serum 9.2 mg/dL potassium, serum 4.2 mmol/L protein, total, serum 6.8 g/dL Clinical Lists Update: ER LABS - Hematology hemoglobin, blood 11.6 g/dL mean corpuscular volume, RBC 81 fL hematocrit, blood 36 % erythrocyte (RBC) count 4.43 10*6/mm3 leukocyte count, blood 18.0 10*3/mm3 erythrocyte sedimentation rate 12 mm/h platelet count 337 10*3/mm3 red blood cell distribution width 15.2 % Clinical Lists Update: ER LABS - Urinalysis bilirubin, urine neg blood in urine (hemoglobin) by dipstick neg mucus on urinalysis neg bacteria, urine microscopy neg appearance, urine Clear Yellow hyaline casts, urine none /[LPF] glucose, urine, semiquantitative 1+ epithelial cells, urine rare /[LPF] specific gravity, urine 1.010 RBC urine by microscopy rare protein, urine, semiquantitative (dipstick) neg ketones, urine, by test strip neg WBC urine on microscopy rare {Cells}/[HPF] urobilinogen, urine, semiquantitative (dipstick) normal nitrite, urine, semiquantitative neg pH, urine, semiquantitative 6 Clinical Lists Update: Ferritin - Chemistry ferritin, serum 98.6 ng/mL Office Visit: Dr Rider's Check Up: Established Patient Visit - Hematology erythrocyte sedimentation rate 2 mm/h Encounters Code Encounter Date Provider Facility CPT-99490 Ofc Vst, Est Level IV 15:41:33 CHEMICAL PROCESSING LABORER Nazanin Rider DO, FACP CPT-68740 Ofc Vst, Est Level IV 15:36:22 CDT Nazanin Rider DO, FACP CPT-26186 Ofc Vst, Est Level III 16:08:06 CDT Nazanin Rider DO, FACP CPT-04218 Ofc Vst, Est Level IV 11:32:51 CDT Nazanin Rider DO, FACP CPT-15051 Ofc Vst, Est Level IV 15:57:01 CDT Nazanin Rider, DO, FACP CPT-50071 Ofc Vst, Est Level IV 16:28:57 CHEMICAL PROCESSING LABORER Nazanin Deborah Rider Nazanin S Rider, DO, FACP CPT-20067 Ofc Vst, Est Level III 13:24:21 CHEMICAL PROCESSING LABORER Nazanin Godoy Tereso, DO, FACP CPT-11529 Ofc Vst, Est Level V 14:40:53 CDT Nazanin Godoy Tereso, DO, FACP CPT-44524 Ofc Vst, Est Level III 11:18:10 CDT Nazaninno Godoy Tereso, DO, FACP CPT-62316 Ofc Vst, Est Level IV 11:00:50 CDT Nazanin Godoy Tereso, DO, FACP CPT-29435 Ofc Vst, Est Level IV 10:28:45 CHEMICAL PROCESSING LABORER Nazanin Godoy Tereso, DO, FACP CPT-72042 Ofc Vst, Est Level V 11:16:51 CDT Nazaninno Godoy Tereso, DO, FACP CPT-53878 Ofc Vst, Est Level IV 10:56:54 CDT Nazaninno Godoy Tereso, DO, FACP CPT-49529 Ofc Vst, Est Level IV 10:47:14 CHEMICAL PROCESSING LABORER Nazanin Godoy Tereso, DO, FACP CPT-76062 Ofc Vst, Est Level V 15:33:32 CHEMICAL PROCESSING LABORER Nazanin Rider [facility] CPT-70446 Ofc Vst, New Level IV 14:53:37 CDT Nazanin Godoy Rider, DO, FACP Procedures Code Procedure Name Date Entry Date Standard Description CPT-40828 Preventive, Est, (40-64) 20:04:47 CHEMICAL PROCESSING LABORER CPT-50028 TRANSITIONAL CARE MANAGE SRVC 14 DAY DISCHARGE 16:51:12 CDT CPT-60060 Preventive, Est, (40-64) 13:15:26 CHEMICAL PROCESSING LABORER CPT-97660 Preventive, Est, (40-64) 13:16:36 CHEMICAL PROCESSING LABORER CPT-J3420 Vitamin b12 injection 10:28:45 CHEMICAL PROCESSING LABORER CPT-66174 Injection 10:28:45 CHEMICAL PROCESSING LABORER CPT-70670 Injection 10:47:14 CHEMICAL PROCESSING LABORER CPT-J3420 Vitamin b12 injection 10:47:14 CHEMICAL PROCESSING LABORER CPT-08680 Injection 15:33:32 CHEMICAL PROCESSING LABORER CPT-J3420 Vitamin b12 injection 15:33:32 CHEMICAL PROCESSING LABORER
--- OUTSIDE RECORDS SUMMARY | 2018-03-19 17:58 | XMS REPORT | Continuity of Care Document ---
Author Author [facility] Organization [facility] Address Unknown Phone Unavailable Allergies Active Description Code Type Severity Reaction Onset Reported/Identified Relationship to Patient Clinical Status Yes No Known Drug Allergies [id number] Drug Allergy Unknown N/A 06/18/2012 Medications There is no data. 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 06/22/2012 Ot 785.6 ENLARGEMENT LYMPH NODES 11/08/2013 ISABEL SOLIS ASHLYN Ot 250.00 DIAB LILLY WO COMPL, TYPE II OR UNSPEC TY 11/08/2013 ISABEL SOLIS ASHLYN Ot 272.4 HYPERLIPIDEMIA NEC/NOS 11/08/2013 ISABEL SOLIS ASHLYN Ot 401.9 HYPERTENSION NOS 11/08/2013 ISABEL SOLIS ASHLYN Ot 496 CHR AIRWAY OBSTRUCT NEC 11/08/2013 ISABEL SOLIS ASHLYN Ot 780.4 DIZZINESS AND GIDDINESS 11/08/2013 ISABEL SOLIS ASHLYN Ot 786.59 CHEST PAIN NEC 08/14/2014 JOHN MORALES Ot 719.40 JOINT PAIN-UNSPEC 08/15/2014 JOHN MORALES Ot 719.40 09/28/2014 SARAH ART FACC, ELLIOT FACP CCDS Ot 250.00 09/28/2014 SARAH ART FACC, ELLIOT FACP CCDS Ot 272.4 09/28/2014 SARAH ART FACC, ELLIOT FACP CCDS Ot 278.00 09/28/2014 SARAH ART FACC, ELLIOT FACP CCDS Ot 305.1 09/28/2014 SARAH ART FACC, ELLIOT FACP CCDS Ot 401.9 09/28/2014 SARAH ART FACC, ALI FACP CCDS Ot 423.9 09/28/2014 SARAH ART FACC, ELLIOT FACP CCDS Ot 716.90 09/16/2016 IBETH HAWK MD Ot E11.622 TYPE 2 DIABETES MELLITUS WITH OTHER SKIN 09/16/2016 IBETH HAWK MD Ot T81.31XA DISRUPTION OF EXTERNAL OPERATION (SURGIC 11/04/2016 IBETH HAWK MD Ot E11.622 TYPE 2 DIABETES MELLITUS WITH OTHER SKIN 11/04/2016 IBETH HAWK MD Ot T81.31XA DISRUPTION OF EXTERNAL OPERATION (SURGIC 11/11/2016 IBETH HAWK MD Ot E11.622 TYPE 2 DIABETES MELLITUS WITH OTHER SKIN 11/11/2016 IBETH HAWK MD Ot T81.31XA DISRUPTION OF EXTERNAL OPERATION (SURGIC 11/20/2016 IBETH HAWK MD Ot E11.621 TYPE 2 DIABETES MELLITUS WITH FOOT ULCER 11/20/2016 IBETH HAWK MD Ot T81.31XA DISRUPTION OF EXTERNAL OPERATION (SURGIC 11/27/2016 IBETH HAWK MD Ot E11.622 TYPE 2 DIABETES MELLITUS WITH OTHER SKIN 11/27/2016 IBETH HAWK MD Ot T81.31XA DISRUPTION OF EXTERNAL OPERATION (SURGIC 12/09/2016 IBETH HAWK MD Ot E11.621 TYPE 2 DIABETES MELLITUS WITH FOOT ULCER 12/09/2016 IBETH HAWK MD Ot T81.31XA DISRUPTION OF EXTERNAL OPERATION (SURGIC 12/09/2016 IBETH HAWK MD Ot E11.622 TYPE 2 DIABETES MELLITUS WITH OTHER SKIN 12/09/2016 IBETH HAWK MD Ot T81.31XA DISRUPTION OF EXTERNAL OPERATION (SURGIC 12/17/2016 TODD LOVELL FURNITURE REFINISHER Ot E11.622 TYPE 2 DIABETES MELLITUS WITH OTHER SKIN 12/17/2016 TODD LOVELL FURNITURE REFINISHER Ot T81.31XA DISRUPTION OF EXTERNAL OPERATION (SURGIC 12/18/2016 IBETH HAWK MD Ot E11.622 TYPE 2 DIABETES MELLITUS WITH OTHER SKIN 12/18/2016 IBETH HAWK MD Ot T81.31XA DISRUPTION OF EXTERNAL OPERATION (SURGIC 12/25/2016 IBETH HAWK MD Ot E11.622 TYPE 2 DIABETES MELLITUS WITH OTHER SKIN 12/25/2016 IBETH HAWK MD Ot T81.31XA DISRUPTION OF EXTERNAL OPERATION (SURGIC 12/27/2016 IBETH HAWK MD Ot E11.622 TYPE 2 DIABETES MELLITUS WITH OTHER SKIN 12/27/2016 IBETH HAWK MD Ot T81.31XA DISRUPTION OF EXTERNAL OPERATION (SURGIC 01/02/2017 IBETH HAWK MD Ot T81.31XA DISRUPTION OF EXTERNAL OPERATION (SURGIC 01/06/2017 IBETH HAWK MD Ot E11.622 TYPE 2 DIABETES MELLITUS WITH OTHER SKIN 01/06/2017 IBETH HAWK MD Ot T81.31XA DISRUPTION OF EXTERNAL OPERATION (SURGIC 01/08/2017 IBETH HAWK MD Ot E11.622 TYPE 2 DIABETES MELLITUS WITH OTHER SKIN 01/08/2017 IBETH HAWK MD Ot T81.31XA DISRUPTION OF EXTERNAL OPERATION (SURGIC 01/08/2017 IBETH HAWK MD Ot E11.622 TYPE 2 DIABETES MELLITUS WITH OTHER SKIN 01/08/2017 IBETH HAWK MD Ot T81.31XA DISRUPTION OF EXTERNAL OPERATION (SURGIC 01/15/2017 IBETH HAWK MD Ot T81.31XA DISRUPTION OF EXTERNAL OPERATION (SURGIC 01/15/2017 IBETH HAWK MD Ot E11.622 TYPE 2 DIABETES MELLITUS WITH OTHER SKIN 01/15/2017 IBETH HAWK MD Ot T81.31XA DISRUPTION OF EXTERNAL OPERATION (SURGIC 01/22/2017 IBETH HAWK MD Ot T81.31XA DISRUPTION OF EXTERNAL OPERATION (SURGIC 02/13/2017 IBETH HAWK MD Ot E11.622 TYPE 2 DIABETES MELLITUS WITH OTHER SKIN 02/13/2017 IBETH HAWK MD Ot T81.31XA DISRUPTION OF EXTERNAL OPERATION (SURGIC 02/13/2017 IBETH HAWK MD Ot E11.622 TYPE 2 DIABETES MELLITUS WITH OTHER SKIN 02/13/2017 IBETH HAWK MD Ot T81.31XA DISRUPTION OF EXTERNAL OPERATION (SURGIC 02/13/2017 IBETH HAWK MD Ot E11.622 TYPE 2 DIABETES MELLITUS WITH OTHER SKIN 02/13/2017 IBETH HAWK MD Ot T81.31XA DISRUPTION OF EXTERNAL OPERATION (SURGIC 02/13/2017 IBETH HAWK MD Ot E11.622 TYPE 2 DIABETES MELLITUS WITH OTHER SKIN 02/13/2017 IBETH HAWK MD Ot T81.31XA DISRUPTION OF EXTERNAL OPERATION (SURGIC 02/14/2017 IBETH HAWK MD Ot E11.622 TYPE 2 DIABETES MELLITUS WITH OTHER SKIN 02/14/2017 IBETH HAWK MD Ot T81.31XA DISRUPTION OF EXTERNAL OPERATION (SURGIC 02/18/2017 Ot 733.90 BONE CARTILAGE DIS NOS 02/18/2017 Ot 462 ACUTE PHARYNGITIS 02/18/2017 Ot 473.9 CHRONIC SINUSITIS NOS 02/18/2017 Ot 786.2 COUGH 02/18/2017 Ot V81.5 SCREEN FOR NEPHROPATHY 02/18/2017 Ot 492.8 EMPHYSEMA NEC 02/18/2017 Ot 571.8 CHRONIC LIVER DIS NEC 02/18/2017 Ot 785.6 ENLARGEMENT LYMPH NODES 02/18/2017 Ot V81.5 SCREEN FOR NEPHROPATHY 02/18/2017 Ot 785.6 ENLARGEMENT LYMPH NODES 02/18/2017 Ot 786.05 SHORTNESS OF BREATH 02/18/2017 Ot V72.84 EXAM PRE- OPERATIVE NOS 02/18/2017 SARAH ART FACC, ALI FACP CCDS Ot 250.00 DIAB LILLY WO COMPL, TYPE II OR UNSPEC TY 02/18/2017 SARAH ART FACC, ALI FACP CCDS Ot 272.4 HYPERLIPIDEMIA NEC/NOS 02/18/2017 SARAH ART FACC, ALI FACP CCDS Ot 278.00 OBESITY, NOS 02/18/2017 SARAH ART FACC, ALI FACP CCDS Ot 305.1 TOBACCO USE DISORDER 02/18/2017 SARAH ART FACC, ALI FACP CCDS Ot 401.9 HYPERTENSION NOS 02/18/2017 SARAH ART FACC, ALI FACP CCDS Ot 423.9 PERICARDIAL DISEASE NOS 02/18/2017 SARAH ART FACC, ALI FACP CCDS Ot 716.90 ARTHROPATHY NOS-UNSPEC 02/18/2017 IBETH HAWK MD Ot E11.621 TYPE 2 DIABETES MELLITUS WITH FOOT ULCER 02/18/2017 KENN ART, IBETH Orozco Ot T81.31XA DISRUPTION OF EXTERNAL OPERATION (SURGIC 02/18/2017 IBETH HAWK MD, Ot E11.622 TYPE 2 DIABETES MELLITUS WITH OTHER SKIN 02/18/2017 IBETH HAWK MD, Ot T81.31XA DISRUPTION OF EXTERNAL OPERATION (SURGIC 02/18/2017 TODD LOVELL FURNITURE REFINISHER Ot E11.622 TYPE 2 DIABETES MELLITUS WITH OTHER SKIN 02/18/2017 TODD LOVELL FURNITURE REFINISHER Ot T81.31XA DISRUPTION OF EXTERNAL OPERATION (SURGIC 02/18/2017 IBETH HAWK MD, Ot E11.622 TYPE 2 DIABETES MELLITUS WITH OTHER SKIN 02/18/2017 IBETH HAWK MD Ot T81.31XA DISRUPTION OF EXTERNAL OPERATION (SURGIC 02/18/2017 IBETH HAWK MD, Ot E11.622 TYPE 2 DIABETES MELLITUS WITH OTHER SKIN 02/18/2017 IBETH HAWK MD Ot T81.31XA DISRUPTION OF EXTERNAL OPERATION (SURGIC 02/18/2017 IBETH HAWK MD Ot T81.31XA DISRUPTION OF EXTERNAL OPERATION (SURGIC 02/18/2017 IBETH HAWK MD Ot E11.622 TYPE 2 DIABETES MELLITUS WITH OTHER SKIN 02/18/2017 IBETH HAWK MD Ot T81.31XA DISRUPTION OF EXTERNAL OPERATION (SURGIC 02/18/2017 IBETH HAWK MD Ot E11.622 TYPE 2 DIABETES MELLITUS WITH OTHER SKIN 02/18/2017 IBETH HAWK MD Ot T81.31XA DISRUPTION OF EXTERNAL OPERATION (SURGIC 02/18/2017 IBETH HAWK MD Ot T81.31XA DISRUPTION OF EXTERNAL OPERATION (SURGIC 02/18/2017 IBETH HAWK MD Ot E11.622 TYPE 2 DIABETES MELLITUS WITH OTHER SKIN 02/18/2017 IBETH HAWK MD Ot T81.31XA DISRUPTION OF EXTERNAL OPERATION (SURGIC 02/18/2017 IBETH HAWK MD Ot E11.622 TYPE 2 DIABETES MELLITUS WITH OTHER SKIN 02/18/2017 IBETH HAWK MD Ot T81.31XA DISRUPTION OF EXTERNAL OPERATION (SURGIC 02/18/2017 IBETH HAWK MD Ot E11.622 TYPE 2 DIABETES MELLITUS WITH OTHER SKIN 02/18/2017 IBETH HAWK MD Ot T81.31XA DISRUPTION OF EXTERNAL OPERATION (SURGIC 02/18/2017 IBETH HAWK MD Ot E11.622 TYPE 2 DIABETES MELLITUS WITH OTHER SKIN 02/18/2017 IBETH HAWK MD Ot T81.31XA DISRUPTION OF EXTERNAL OPERATION (SURGIC 02/18/2017 IBETH HAWK MD Ot E11.622 TYPE 2 DIABETES MELLITUS WITH OTHER SKIN 02/18/2017 IBETH HAWK MD Ot T81.31XA DISRUPTION OF EXTERNAL OPERATION (SURGIC 03/17/2017 IBETH HAWK MD Ot E11.622 TYPE 2 DIABETES MELLITUS WITH OTHER SKIN 03/17/2017 IBETH HAWK MD Ot T81.31XA DISRUPTION OF EXTERNAL OPERATION (SURGIC 03/17/2017 MELINDA MARQUEZ APRN Ot J32.8 OTHER CHRONIC SINUSITIS 03/17/2017 MELINDA MARQUEZ APRN Ot J39.2 OTHER DISEASES OF PHARYNX 07/07/2017 ASHLYN HALL DO Ot J44.9 CHRONIC OBSTRUCTIVE PULMONARY DISEASE, U 07/16/2017 ASHLYN HALL DO Ot J44.9 CHRONIC OBSTRUCTIVE PULMONARY DISEASE, U Procedures There is no data. Results Test Result Range Bacteria identification in isolate by anaerobe culture - 09/19/16 08:29 Bacteria identification in isolate by anaerobe culture NG NRG Gram stain microscopy - 09/19/16 08:29 GRAM STAIN RESULT NO BACTERIA OBSERVED NRG Bacteria identification in wound by culture - 09/19/16 08:29 Bacteria identification in wound by culture NG NRG Gram stain microscopy - 01/09/17 08:22 GRAM STAIN RESULT NO WBC'S OR BACTERIA OBSERVED NRG Bacteria identification in isolate by anaerobe culture - 01/09/17 08:22 Bacteria identification in isolate by anaerobe culture NOANA NRG Bacteria identification in wound by culture - 01/09/17 08:22 Bacteria identification in wound by culture [id number] NR FREE [place] [address], 01-11-17 NRG QUANTITY OF GROWTH Scant Growth NR Bacterial susceptibility panel - 01/09/17 08:22 Oxacillin susceptibility test by minimum inhibitory concentration < = NRG Gentamicin susceptibility test by minimum inhibitory concentration < = NRG Clindamycin susceptibility test by minimum inhibitory concentration <= NRG Erythromycin susceptibility test by minimum inhibitory concentration >= NRG Trimethoprim/sulfamethoxazole susceptibility test by minimum inhibitoryconcentration 80 NRG Vancomycin susceptibility test by minimum inhibitory concentration 1 NRG Levofloxacin susceptibility test by minimum inhibitory concentration <= NRG Rifampin susceptibility test by minimum inhibitory concentration <= NRG Tetracycline susceptibility test by minimum inhibitory concentration <= NRG Complete blood count (CBC) with automated white blood cell (WBC) differential - 01/23/17 09:00 Blood leukocytes automated count (number/volume) 10.9 10*3/uL 4.3-11.0 Blood erythrocytes automated count (number/volume) 5.40 10*6/uL 4.35-5.85 Venous blood hemoglobin measurement (mass/volume) 14.6 g/dL 13.3-17.7 Blood hematocrit (volume fraction) 45 % 40-54 Automated erythrocyte mean corpuscular volume 84 [foz_us] 80-99 Automated erythrocyte mean corpuscular hemoglobin (mass per erythrocyte) 27 pg 25-34 Automated erythrocyte mean corpuscular hemoglobin concentration measurement ( mass/volume) 32 g/dL 32-36 Automated erythrocyte distribution width ratio 15.4 % 10.0-14.5 Automated blood platelet count (count/volume) 294 10*3/uL 130-400 Automated blood platelet mean volume measurement 9.1 [foz_us] 7.4-10.4 Automated blood neutrophils/100 leukocytes 66 % 42-75 Automated blood lymphocytes/100 leukocytes 19 % 12-44 Blood monocytes/100 leukocytes 11 % 0-12 Automated blood eosinophils/100 leukocytes 3 % 0-10 Automated blood basophils/100 leukocytes 1 % 0-10 Blood neutrophils automated count (number/volume) 7.2 10*3 1.8-7.8 Blood lymphocytes automated count (number/volume) 2.1 10*3 1.0-4.0 Blood monocytes automated count (number/volume) 1.2 10*3 0.0-1.0 Automated eosinophil count 0.4 10*3/uL 0.0-0.3 Automated blood basophil count (count/volume) 0.1 10*3/uL 0.0-0.1 Erythrocyte sedimentation rate by westergren method - 01/23/17 09:00 Erythrocyte sedimentation rate by westergren method 3 mm 0-30 [id number] - 02/18/17 07:22 Serum or plasma urea nitrogen measurement (mass/volume) 13 mg/dL 7-18 Serum or plasma creatinine measurement (mass/volume) 0.96 mg/dL 0.60-1.30 Serum or plasma urea nitrogen/creatinine mass ratio 14 NRG Serum or plasma creatinine measurement with calculation of estimated glomerular filtration rate > NRG Hemoglobin A1c - 02/18/17 07:22 Hemoglobin A1c 6.7 % 4.5-6.2 Encounters ACCT No. Visit Date/Time Discharge Status Pt. Type Provider Facility Loc./Unit Complaint [id number] 07/04/2017 10:22:00 07/04/2017 23:59:59 CLS Outpatient ASHLYN HALL DO [facility] RT J44.9 [id number] 02/18/2017 07:13:00 02/18/2017 23:59:59 CLS Outpatient MELINDA MARQUEZ APRN [facility] RAD ASSYMETRICAL HEARING LOSS [id number] 02/13/2017 08:00:00 02/13/2017 23:59:59 CLS Outpatient IBETH HAWK MD [facility] WOUNDCARE [id number] 01/30/2017 08:03:00 01/30/2017 23:59:59 CLS Outpatient IBETH HAWK MD [facility] WOUNDCARE [id number] 01/23/2017 08:36:00 01/23/2017 23:59:59 CLS Outpatient IBETH HAWK MD [facility] RAD T81.31XA,E11.622 [id number] 01/23/2017 08:04:00 01/23/2017 23:59:59 CLS Outpatient IBETH HAWK MD [facility] WOUNDCARE [id number] 01/16/2017 08:03:00 01/16/2017 23:59:59 CLS Outpatient IBETH HAWK MD [id number] 01/09/2017 08:00:00 01/09/2017 23:59:59 CLS Outpatient IBETH HAWK MD [facility] [id number] 01/02/2017 08:04:00 01/02/2017 23:59:59 CLS Outpatient IBETH HAWK MD [facility] [id number] 12/26/2016 08:06:00 12/26/2016 23:59:59 CLS Outpatient IBETH HAWK MD [facility] [id number] 12/19/2016 08:04:00 12/19/2016 23:59:59 CLS Outpatient IBETH HAWK MD [facility] [id number] 12/12/2016 08:04:00 12/12/2016 23:59:59 CLS Outpatient IBETH HAWK MD [facility] [id number] 12/05/2016 08:01:00 12/05/2016 23:59:59 CLS Outpatient IBETH HAWK MD [facility] WOUND[facility] [id number] 11/28/2016 12:32:00 11/28/2016 23:59:59 CLS Outpatient TODD LOVELL APRN [facility] WOUND[facility] [id number] 11/21/2016 08:03:00 11/21/2016 23:59:59 CLS Outpatient IBETH HAWK MD [facility] WOUND[facility] [id number] 11/14/2016 08:05:00 11/14/2016 23:59:59 CLS Outpatient IBETH HAWK MD [facility] WOUND[facility] [id number] 11/07/2016 08:06:00 11/11/2016 16:00:00 DIS Outpatient IBETH HAWK MD [facility] WOUND[facility] [id number] 08/20/2015 13:59:00 08/20/2015 23:59:59 CLS Outpatient COLLORENE GALLO DO [facility] QUICK [id number] 08/16/2014 09:19:00 08/16/2014 23:59:59 CLS Outpatient SARAH ART FACC, ELLIOT WHITTAKER CCDS [facility] CARD PE [id number] 08/14/2014 15:56:00 08/14/2014 20:20:00 DIS Emergency JOHN MORALES [facility] ER JOINT SWELLING [id number] 11/07/2013 13:48:00 11/08/2013 14:53:00 DIS Inpatient ASHLYN HALL DO [facility] CSD CHEST PAIN, LIGHTHEADEDNESS/DIZZINESS [id number] 12/04/2012 17:36:00 12/04/2012 23:59:59 CLS Outpatient [id number] 06/22/2012 05:59:00 Document Registration [id number] 06/18/2012 12:21:00 Document Registration [id number] 05/22/2012 08:16:00 Document Registration [id number] 03/24/2012 08:26:00 Document Registration [id number] 03/13/2012 08:23:00 Document Registration
[2018-03-19] MEDS ORDERED: PIPERACILLIN/TAZO 4.5 GM/NS 100 ML IV NR ×2 (18:00)
[2018-03-19] MEDS ORDERED: CATHETER FLUSH 10 ML SYR IV PRN ×2 (18:15→19:00)
[2018-03-19 18:19] LABS: BASOPHILS # (AUTO) 0.1 10^3/uL (0.0-0.1); BASOPHILS % (AUTO) 1 % (0-10); EOSINOPHILS # (AUTO) 0.2 10^3/uL (0.0-0.3); EOSINOPHILS % (AUTO) 2 % (0-10); HEMATOCRIT 44 % (40-54); LYMPHOCYTES # (AUTO) 2.4 X 10^3 (1.0-4.0); LYMPHOCYTES % (AUTO) 19 % (12-44); MEAN CORPUSCULAR HEMOGLOBIN 27 PG (25-34); MEAN CORPUSCULAR HGB CONC 32 G/DL (32-36); MEAN CORPUSCULAR VOLUME 85 FL (80-99); MEAN PLATELET VOLUME 9.1 FL (7.4-10.4); MONOCYTES # (AUTO) 1.4 X 10^3 (0.0-1.0); MONOCYTES % (AUTO) 11 % (0-12); NEUTROPHILS # (AUTO) 8.6 X 10^3 (1.8-7.8); NEUTROPHILS % (AUTO) 68 % (42-75); PLATELET COUNT 262 10^3/uL (130-400); RED BLOOD COUNT 5.19 10^6/uL (4.35-5.85); WHITE BLOOD COUNT 12.7 10^3/uL (4.3-11.0)
[2018-03-19] MEDS: NS IV 1000 ML 1,000 ML IV SCH (18:35)
[2018-03-19] MEDS: methylPREDNISolone 40 MG/ML (Solu-MEDROL) VIAL IV SCH (18:38)
[2018-03-19 18:39] LABS: ALANINE AMINOTRANSFERASE 27 U/L (0-55); ALBUMIN 3.9 GM/DL (3.2-4.5); ALKALINE PHOSPHATASE 42 U/L (40-136); BILIRUBIN,TOTAL 0.5 MG/DL (0.1-1.0); BUN/CREATININE RATIO 12; CALCIUM 9.3 MG/DL (8.5-10.1); CARBON DIOXIDE 24 MMOL/L (21-32); CHLORIDE 102 MMOL/L (98-107); CREATININE SERUM 0.78 MG/DL (0.60-1.30); GFR ESTIMATED > 60; GLUCOSE 136 MG/DL (70-105); POTASSIUM 3.3 MMOL/L (3.6-5.0); SODIUM 138 MMOL/L (135-145)
[2018-03-19] MEDS ORDERED: NS 250 ML (IVPB) BAG IV ONE (19:00)
[2018-03-19] MEDS ORDERED: IOHEXOL 350 MG/ML 100 ML (OMNIPAQUE 350) VIAL IV ONE (19:00)
[2018-03-19] MEDS ORDERED: RECEIVED CONTRAST (Hold Metformin) IV SCH (19:00)
--- NOTE | 2018-03-19 19:31 | Diagnostic Imaging Report ---
INDICATION: Pneumonia PA and lateral chest obtained at 7:35 p.m. and compared to 08/20/2015. There is cardiomegaly. There is mild central vascular prominence. There are multiple old bilateral rib fractures. There is some minimal infiltrate and/or atelectasis in the right base as well as in the right perihilar region. There is some minimal left perihilar infiltrate and left basilar infiltrate. There is a stable enchondroma versus bone infarct in the right proximal humerus. IMPRESSION: Cardiomegaly. Minimal bilateral infiltrates are present as above. There are old bilateral rib fractures noted. There is no pleural fluid or pneumothorax. Dictated by: Dictated on workstation # [id number]
--- NOTE | 2018-03-19 19:44 | Diagnostic Imaging Report ---
PROCEDURE: CT chest with contrast only. TECHNIQUE: Multiple contiguous axial images were obtained through the chest after administration of intravenous contrast. INDICATION: Increased shortness of breath and chest pressure. History of COPD. Pneumonia versus lung mass. COMPARISON: Chest radiographs also performed today. FINDINGS: TRACHEA AND MAIN BRONCHI: Patent without evidence of tracheal or endobronchial lesion. LUNGS AND PLEURA: There is upper lobe predominant centrilobular emphysematous change in both lungs. There are scattered areas of linear atelectasis or scarring, most prominent in the right middle lobe and lingula. There is mild dependent atelectasis in both lower lobes. No focal consolidation to suggest pneumonia. No mass is seen. No pleural effusion or pneumothorax. MEDIASTINUM AND BENY: Visualized thyroid gland is normal. There is marked mediastinal lymphadenopathy, with the largest nodes being a 1.3 cm short axis diameter right pretracheal lymph node and a 1.4 cm short axis diameter subcarinal lymph node. No definite hilar lymphadenopathy. The esophagus is nondistended. HEART AND VESSELS: Heart is normal in size. Small pericardial effusion. Thoracic aorta is nonaneurysmal. DIAPHRAGM AND UPPER ABDOMEN: Unremarkable. CHEST WALL: Unremarkable. BONES: Multilevel degenerative changes involve the spine. No acute osseous abnormality. There are multiple bilateral old rib fractures. IMPRESSION: Upper lobe predominant emphysematous change. No evidence of pneumonia. No lung mass. Scattered linear atelectasis or scarring is demonstrated in the lung bases. Nonspecific mediastinal lymphadenopathy. Findings may be reactive in nature; however, malignancy is not excluded. Dictated by: Dictated on workstation # [id number]
[2018-03-19 20:10] VITALS: BP 152/86
[2018-03-19 20:16] LABS: BILIRUBIN,URINE NEGATIVE (NEGATIVE); CLARITY,URINE CLEAR; COLOR,URINE YELLOW; GLUCOSE, URINE (UA) NEGATIVE (NEGATIVE); KETONES,URINE NEGATIVE (NEGATIVE); LEUKOCYTE ESTERASE ,URINE 1+ (NEGATIVE); NITRITE,URINE NEGATIVE (NEGATIVE); PH,URINE 8 (5-9); PROTEIN,URINE 3+ (NEGATIVE); UROBILINOGEN,URINE NORMAL (NORMAL)
[2018-03-19 20:23] LABS: BACTERIA,URINE NEGATIVE /HPF; WBC,URINE 0-2 /HPF
[2018-03-19] MEDS: inSUlin ASPART (NovoLOG) 1 UNIT/0.01 ML (CHARGE PER UNIT) SC SCH (20:34)
[2018-03-19] MEDS: RT-ALBUTEROL/IPRATROPIUM 3 ML (DUONEB) VIAL INH SCH ×2 (20:37→23:05)
[2018-03-19 20:51] VITALS: BP 171/83
[2018-03-19] MEDS ORDERED: hydrALAZINE (APRESOLINE) 25 MG TAB PO SCH (21:15)
[2018-03-19] MEDS ORDERED: MULTIVIT W/MINERALS TAB (THERAGRAN M) PO ONE (21:15)
[2018-03-19] MEDS ORDERED: SUCRALFATE 1 GM (CARAFATE) TAB PO ONE (21:15)
[2018-03-19] MEDS: MELATONIN 3 MG TABLET PO SCH (21:30)
[2018-03-19] MEDS: BISACODYL 10 MG SUPP (DULCOLAX) PR SCH (21:30)
[2018-03-19] MEDS ORDERED: hydrALAZINE (APRESOLINE) 25 MG TAB ONE (23:04)
[2018-03-19 23:05] VITALS: BP 157/79
[2018-03-19] MEDS ORDERED: traZODone 150 MG (DESYREL) TABLET ONE (23:05)
[2018-03-19] MEDS: traZODone 150 MG (DESYREL) TABLET PO SCH (23:08)
[2018-03-20] MEDS: PIPERACILLIN/TAZO 4.5 GM/NS 100 ML IV SCH ×8 (01:22→23:39)
[2018-03-20] MEDS: methylPREDNISolone 40 MG/ML (Solu-MEDROL) VIAL IV SCH ×5 (01:23→23:38)
[2018-03-20] MEDS: RT-ALBUTEROL/IPRATROPIUM 3 ML (DUONEB) VIAL INH SCH ×6 (02:52→22:33)
[2018-03-20 04:13] VITALS: BP 141/73
[2018-03-20 05:20] LABS: BASOPHILS % (AUTO) 0 % (0-10); EOSINOPHILS % (AUTO) 0 % (0-10); HEMATOCRIT 46 % (40-54); HEMOGLOBIN 14.6 G/DL (13.3-17.7); LYMPHOCYTES # (AUTO) 1.2 X 10^3 (1.0-4.0); LYMPHOCYTES % (AUTO) 10 % (12-44); MEAN CORPUSCULAR HEMOGLOBIN 27 PG (25-34); MEAN CORPUSCULAR HGB CONC 32 G/DL (32-36); MEAN CORPUSCULAR VOLUME 86 FL (80-99); MEAN PLATELET VOLUME 10.1 FL (7.4-10.4); MONOCYTES # (AUTO) 0.2 X 10^3 (0.0-1.0); MONOCYTES % (AUTO) 2 % (0-12); NEUTROPHILS # (AUTO) 10.6 X 10^3 (1.8-7.8); NEUTROPHILS % (AUTO) 89 % (42-75); PLATELET COUNT 251 10^3/uL (130-400); RED BLOOD COUNT 5.39 10^6/uL (4.35-5.85); RED CELL DISTRIBUTION WIDTH 17.6 % (10.0-14.5); WHITE BLOOD COUNT 11.9 10^3/uL (4.3-11.0)
[2018-03-20 05:37] LABS: ALANINE AMINOTRANSFERASE 30 U/L (0-55); ALBUMIN 4.1 GM/DL (3.2-4.5); ALKALINE PHOSPHATASE 41 U/L (40-136); BILIRUBIN,TOTAL 0.5 MG/DL (0.1-1.0); BUN/CREATININE RATIO 11; CALCIUM 9.2 MG/DL (8.5-10.1); CARBON DIOXIDE 22 MMOL/L (21-32); CHLORIDE 103 MMOL/L (98-107); CREATININE SERUM 0.89 MG/DL (0.60-1.30); GFR ESTIMATED > 60; GLUCOSE 208 MG/DL (70-105); POTASSIUM 4.3 MMOL/L (3.6-5.0); SODIUM 138 MMOL/L (135-145); TOTAL PROTEIN 7.6 GM/DL (6.4-8.2)
[2018-03-20 06:33] LABS: LYMPHOCYTES % (MANUAL) 10 %; NEUTROPHILS % (MANUAL) 90 %
[2018-03-20] MEDS: inSUlin ASPART (NovoLOG) 1 UNIT/0.01 ML (CHARGE PER UNIT) SC SCH ×4 (06:36→20:32)
[2018-03-20] MEDS: RT-ADVAIR HFA 115/21 MCG PER PUFF IH SCH ×2 (06:52→22:33)
[2018-03-20 08:00] VITALS: BP 152/73
[2018-03-20] MEDS ORDERED: FLU QUADRIvalent (5+ YOA) 2018-2019 (AFLURIA) 0.5 ML IM ONE ×2 (08:00→11:44)
[2018-03-20] MEDS: CYANOCOBALAMIN 1,000 MCG (VITAMIN B-12) TABLET PO SCH (08:34)
[2018-03-20] MEDS: FERROUS SULF 325 MG (IRON) TAB PO SCH ×3 (08:34→17:21)
[2018-03-20] MEDS: LACTOBACILLUS ACIDOPHILUS (PROBIOTIC) CAPSULE PO SCH (08:34)
[2018-03-20] MEDS: GLIMEPIRIDE 1 MG (AMARYL) TAB PO SCH ×2 (08:35→17:21)
[2018-03-20] MEDS: MAGNESIUM OXIDE (MAG-OX)400 MG TAB PO SCH (08:35)
[2018-03-20] MEDS: ENOXAPARIN 40 MG/0.4 ML (LOVENOX) SYR SC SCH ×2 (09:44→18:33)
[2018-03-20] MEDS: LOSARTAN 100 MG (COZAAR) TABLET PO SCH (09:44)
[2018-03-20] MEDS: PARoxetine 20 MG (PAXIL) TAB PO SCH (09:44)
[2018-03-20] MEDS: amLODIPine 5 MG (NORVASC) TAB PO SCH (09:44)
[2018-03-20] MEDS: PANTOPRAZOLE 20 MG TABLET (PROTONIX) PO SCH (09:45)
[2018-03-20] MEDS: buPROPion SR 150 MG (WELLBUTRIN SR) TAB PO SCH (09:45)
[2018-03-20] MEDS: hydrALAZINE (APRESOLINE) 25 MG TAB PO SCH ×2 (09:45→20:31)
[2018-03-20] MEDS: OXYBUTYNIN (DITROPAN) 5 MG TAB PO SCH ×2 (09:46→20:31)
[2018-03-20] MEDS: NS IV 1000 ML 1,000 ML IV SCH ×2 (09:47→17:22)
[2018-03-20] MEDS: BISACODYL 10 MG SUPP (DULCOLAX) PR SCH ×2 (09:49→20:30)
[2018-03-20] MEDS ORDERED: FEXO180T84 PO (10:09)
[2018-03-20] MEDS ORDERED: MULT-1102 PO (10:09)
[2018-03-20] MEDS ORDERED: L.AC1CAP6 PO (10:09)
[2018-03-20] MEDS ORDERED: BUPR150T7 PO (10:09)
[2018-03-20] MEDS ORDERED: GLIM1TAB PO (10:09)
[2018-03-20] MEDS ORDERED: SUCR1TAB PO (10:09)
[2018-03-20] MEDS ORDERED: BUDE10.2 INH (10:09)
[2018-03-20] MEDS ORDERED: GLUT1POW PO (10:09)
[2018-03-20] MEDS ORDERED: FINA5TAB6 PO (10:09)
[2018-03-20] MEDS ORDERED: METF-399 PO (10:09)
[2018-03-20] MEDS ORDERED: RT-ALBUINH INH (10:09)
[2018-03-20] MEDS ORDERED: SITA100T12 PO (10:09)
[2018-03-20] MEDS ORDERED: LOSA100T8 PO (10:09)
[2018-03-20] MEDS ORDERED: FERR-84 PO (10:09)
[2018-03-20] MEDS ORDERED: CYAN200014 PO (10:09)
[2018-03-20] MEDS ORDERED: OMEP20TA7 PO (10:09)
[2018-03-20] MEDS ORDERED: PARO40TA3 PO (10:09)
[2018-03-20] MEDS ORDERED: TRAZ150T72 PO (10:09)
[2018-03-20] MEDS ORDERED: FENO48TA5 PO (10:09)
[2018-03-20] MEDS ORDERED: ALFU10TA11 PO (10:09)
[2018-03-20] MEDS ORDERED: AMLO5TAB7 PO (10:09)
[2018-03-20] MEDS ORDERED: IPRA4AER INH (10:09)
[2018-03-20] MEDS ORDERED: OXYB10TA PO (10:09)
[2018-03-20] MEDS ORDERED: CALC-6 PO (10:09)
[2018-03-20] MEDS ORDERED: ALEN70TA47 PO (10:09)
[2018-03-20] MEDS ORDERED: MAGN250T13 PO (10:09)
[2018-03-20] MEDS ORDERED: IPRA3AMP31 NEB (10:19)
[2018-03-20] MEDS ORDERED: GLUTATHIONE PO (10:19)
[2018-03-20] MEDS ORDERED: AMOX500C2 PO (10:19)
[2018-03-20] MEDS ORDERED: HYDR-3923 PO (10:19)
[2018-03-20] MEDS ORDERED: IBUP200C11 PO (10:22)
--- NOTE | 2018-03-20 11:00 | History & Physical-Hospitalist ---
History of Present Illness HPI/Chief Complaint CC: Dyspnea HPI: This is a 62-year-old white male clinic patient of mine for the past 10 years with severe COPD due to continued smoking now oxygen dependent, diabetes mellitus, hypertension, and chronic disability who presents to my clinic yesterday with increased shortness of breath and unable to manage at home. He was placed on an antibiotic 2 days ago for both bronchitis and dental abscess by Dr. Carbone but he continued to worsen coughing up productive sputum that is yellow and due to the severity of his COPD he will require IV steroids and IV antibiotics and CT scan sister was a question of a mass in the right lower lobe when pneumonia was diagnosed with a chest x-ray was done at [facility] the day before admission. CT scan was reviewed and considering the mediastinal lymphadenopathy and a long-term smoker he will require repeat CT scan in 3 months after treating the upper respiratory bacterial infection to hopefully clear and showed no evidence of any mass but a lung mass and cancer is a possibility. Source: patient, RN/MD Exam Limitations: no limitations Date Seen 03/20/18 Time Seen by a Provider: 10:30 Attending Physician Nazanin Rider DO PCP Nazanin Rider DO Referring Physician Date of Admission Mar 19, 2018 at 17:43 Home Medications & Allergies Home Medications Reviewed patient Home Medication Reconciliation performed by pharmacy medication reconciliations mechanical laboratory technician and/or nursing. Patients Allergies have been reviewed. 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) Smoking Status: Current Everyday Smoker Type Used: Cigarettes Physical Abuse Screen: No Sexual Abuse: No Recent Foreign Travel: No Contact w/other who traveled: No Recent Hopitalizations: No Recent Infectious Disease Expo: No Immunizations Up To Date Tetanus Booster (TDap): More than 5yrs Pediatric: No Date of Pneumonia Vaccine: Mar 19, 2013 Seasonal Allergies Seasonal Allergies: Yes Past Medical History Surgeries: Orthopedic Respiratory: Asthma, Chronic Bronchitis, COPD, Emphysema, Pneumonia, Sleep Apnea Currently Using CPAP: No Currently Using BIPAP: No Cardiac: High Cholesterol, Hypertension Reproductive: No Genitourinary: Benign Prostatic Hyperpl, Bladder Infection Gastrointestinal: Gastroesophageal Reflux, Ulcer Musculoskeletal: Osteoporosis, Chronic Back Pain Endocrine: Diabetes, Non-Insulin dep Psychosocial: Depression History of Blood Disorders: No Family History Alcoholism G8 BROTHER Family history: Diabetes mellitus G8 BROTHER Family history: Hypertension 19 MOTHER History of - disorder G8 BROTHER (DEPRESSION) G8 SISTER (STAPH INFECTION) History of drug abuse 19 MOTHER Stroke G8 BROTHER Diabetes, Hypertension, Stroke Review of Systems Constitutional: see HPI, dizziness, malaise, weakness EENTM: no symptoms reported Respiratory: cough, dyspnea on exertion, orthopnea, phlegm, short of breath, wheezing Cardiovascular: no symptoms reported Gastrointestinal: no symptoms reported Genitourinary: no symptoms reported Musculoskeletal: no symptoms reported Skin: no symptoms reported Psychiatric/Neurological: No Symptoms Reported Physical Exam Physical Exam Vital Signs Vital Signs - First Documented 03/19/18 03/19/18 17:40 20:51 Temp 98.1 Pulse 95 Resp 22 B/P (MAP) 171/83 (112) Pulse Ox 90 O2 Delivery Nasal Cannula O2 Flow Rate 4.00 FiO2 36 Capillary Refill : Height, Weight, BMI Height: 5'3.00" Weight: 238lbs. 1.0oz. [id number]; 42.2 BMI Method:Stated General Appearance: WD/WN, Anxious, Chronically ill, Mild Distress Eyes: Bilateral Eye Normal Inspection, Bilateral Eye PERRL HEENT: PERRL/EOMI, Normal ENT Inspection, Pharynx Normal Neck: Full Range of Motion, Normal Inspection, Non Tender, Supple, Carotid Bruit Respiratory: Chest Non Tender, No Accessory Muscle Use, No Respiratory Distress , Crackles, Decreased Breath Sounds, Wheezing Cardiovascular: Regular Rate, Rhythm, No Edema, No Gallop, No JVD, No Murmur, Normal Peripheral Pulses Gastrointestinal: Normal Bowel Sounds, No Organomegaly, No Pulsatile Mass, Non Tender, Soft Back: Normal Inspection, No CVA Tenderness, No Vertebral Tenderness Extremity: Normal Capillary Refill, Normal Inspection, Normal Range of Motion, Non Tender, No Calf Tenderness, No Pedal Edema Neurologic/Psychiatric: Alert, Oriented x3, No Motor/Sensory Deficits, Normal Mood/Affect Skin: Normal Color, Warm/Dry Lymphatic: No Adenopathy Results Results/Procedures Labs Laboratory Tests 03/19/18 18:00 03/20/18 04:50 Patient resulted labs reviewed. Assessment/Plan Admission Diagnosis Assessment: Bilateral pneumonia failed oral antibiotics Severe COPD with exacerbation requiring IV steroids Diabetes mellitus out of control due to steroids Obesity Sleep apnea Chronic disability Hypertension malignant type Severe chronic back pain Current smoker Leukocytosis acute Plan: IV steroids IV antibiotics empirically Repeat CT scan in 3 months to rule out any type of lung mass and a current smoker Insulin Home meds Monitor creatinine Nebulizer treatments Admission Status: Inpatient Order (span 2 midnights) Reason for Inpatient Admission: Severe COPD exacerbation with pneumonia on CT scan who failed oral antibiotics 2 days prior Diagnosis/Problems Diagnosis/Problems (1) Pneumonia Status: Acute Qualifiers: Pneumonia type: due to unspecified organism Laterality: bilateral Lung location: lower lobe of lung Qualified Codes: J18.1 - Lobar pneumonia, unspecified organism (2) RESPIRATORY FAILURE, UNSP, UNSP W HYPOXIA OR HYPERCAPNIA Status: Acute (3) COPD exacerbation Status: Acute (4) Oxygen dependent Status: Chronic (5) Diabetes mellitus Qualifiers: Diabetes mellitus type: type 2 Diabetes mellitus custodial insulin use: without custodial use Diabetes mellitus complication status: without complication Qualified Codes: E11.9 - Type 2 diabetes mellitus without complications (6) Obesity Status: Chronic Qualifiers: Obesity type: due to excess calories Obesity classification: adult class 3 (BMI >= 40) Serious obesity comorbidity presence: with serious comorbidity Body mass index: BMI 40.0-44.9 Qualified Codes: E66.01 - Morbid (severe) obesity due to excess calories; Z68.41 - Body mass index (BMI) 40.0-44.9, adult (7) Leukocytosis Status: Acute Qualifiers: Leukocytosis type: leukemoid reaction Qualified Codes: D72.823 - Leukemoid reaction (8) Hypertension Status: Chronic Qualifiers: Hypertension type: essential hypertension Qualified Codes: I10 - Essential (primary) hypertension (9) Depression Status: Chronic Qualifiers: Depression Type: unspecified Qualified Codes: F32.9 - Major depressive disorder, single episode, unspecified (10) Malaise Status: Acute (11) Low grade fever Status: Acute Clinical Quality Measures DVT/VTE Risk/Contraindication: Risk Factor Score Per Nursin RFS Level Per Nursing on Admit: 4+=Very High NAZANIN RIDER DO Mar 20, 2018 11:00
[2018-03-20 12:00] VITALS: BP 153/71
[2018-03-20 16:00] VITALS: BP 162/75
[2018-03-20 19:49] VITALS: BP 156/76
[2018-03-20] MEDS: MELATONIN 3 MG TABLET PO SCH ×2 (20:22→23:40)
[2018-03-20] MEDS: traZODone 150 MG (DESYREL) TABLET PO SCH (20:32)
[2018-03-20] MEDS ORDERED: FENOFIBRATE, MICRO 67 MG (LOFIBRA) CAPSULE PO SCH (21:00)
[2018-03-20] MEDS ORDERED: FINASTERIDE (PROSCAR) 5 MG TAB PO SCH (21:00)
[2018-03-21 00:19] VITALS: BP 158/84
[2018-03-21] MEDS: RT-ALBUTEROL/IPRATROPIUM 3 ML (DUONEB) VIAL INH SCH ×3 (02:19→11:27)
[2018-03-21 04:00] VITALS: BP 170/79
[2018-03-21] MEDS: NS IV 1000 ML 1,000 ML IV SCH (04:29)
[2018-03-21] MEDS: inSUlin ASPART (NovoLOG) 1 UNIT/0.01 ML (CHARGE PER UNIT) SC SCH (05:53)
[2018-03-21] MEDS: methylPREDNISolone 40 MG/ML (Solu-MEDROL) VIAL IV SCH (05:53)
[2018-03-21] MEDS: RT-ADVAIR HFA 115/21 MCG PER PUFF IH SCH (06:15)
[2018-03-21] MEDS: CYANOCOBALAMIN 1,000 MCG (VITAMIN B-12) TABLET PO SCH (06:57)
[2018-03-21] MEDS: LACTOBACILLUS ACIDOPHILUS (PROBIOTIC) CAPSULE PO SCH (06:57)
[2018-03-21] MEDS: ENOXAPARIN 40 MG/0.4 ML (LOVENOX) SYR SC SCH (06:57)
[2018-03-21] MEDS: FERROUS SULF 325 MG (IRON) TAB PO SCH (06:57)
[2018-03-21] MEDS: GLIMEPIRIDE 1 MG (AMARYL) TAB PO SCH (06:58)
[2018-03-21] MEDS: MAGNESIUM OXIDE (MAG-OX)400 MG TAB PO SCH (06:58)
[2018-03-21 08:00] VITALS: BP 172/84
[2018-03-21] MEDS: PIPERACILLIN/TAZO 4.5 GM/NS 100 ML IV SCH ×2 (08:37)
[2018-03-21] MEDS: OXYBUTYNIN (DITROPAN) 5 MG TAB PO SCH (08:37)
[2018-03-21] MEDS: hydrALAZINE (APRESOLINE) 25 MG TAB PO SCH (08:37)
[2018-03-21] MEDS: PANTOPRAZOLE 20 MG TABLET (PROTONIX) PO SCH (08:37)
[2018-03-21] MEDS: PARoxetine 20 MG (PAXIL) TAB PO SCH (08:37)
[2018-03-21] MEDS: buPROPion SR 150 MG (WELLBUTRIN SR) TAB PO SCH (08:37)
[2018-03-21] MEDS: LOSARTAN 100 MG (COZAAR) TABLET PO SCH (08:37)
[2018-03-21] MEDS: amLODIPine 5 MG (NORVASC) TAB PO SCH (08:37)
[2018-03-21] MEDS: BISACODYL 10 MG SUPP (DULCOLAX) PR SCH (08:38)
[2018-03-21] MEDS ORDERED: CEFD300C3 PO (10:25)
[2018-03-21] MEDS ORDERED: PRED10TA22 PO (10:25)
[2018-03-21] MEDS ORDERED: FURO-125 PO (10:25)
--- NOTE | 2018-03-21 10:28 | Discharge Summary-Hospitalist ---
Diagnosis/Chief Complaint Date of Admission Mar 19, 2018 at 17:43 Date of Discharge Discharge Date: Mar 21, 2018 Admission Diagnosis Assessment: Bilateral pneumonia failed oral antibiotics Severe COPD with exacerbation requiring IV steroids Diabetes mellitus out of control due to steroids Obesity Sleep apnea Chronic disability Hypertension malignant type Severe chronic back pain Current smoker Leukocytosis acute Plan: IV steroids IV antibiotics empirically Repeat CT scan in 3 months to rule out any type of lung mass and a current smoker Insulin Home meds Monitor creatinine Nebulizer treatments Discharge Diagnosis (1) Pneumonia Status: Acute (2) RESPIRATORY FAILURE, UNSP, UNSP W HYPOXIA OR HYPERCAPNIA Status: Acute (3) COPD exacerbation Status: Acute (4) Oxygen dependent Status: Chronic (5) Diabetes mellitus (6) Obesity Status: Chronic (7) Leukocytosis Status: Acute (8) Hypertension Status: Chronic (9) Depression Status: Chronic (10) Malaise Status: Acute (11) Low grade fever Status: Acute Discharge Summary Discharge Physical Exam Allergies: Coded Allergies: No Known Drug Allergies (Unverified , 06/18/12) Vitals & I&Os Vital Signs Date Time Temp Pulse Resp B/P (MAP) Pulse Ox O2 Delivery O2 Flow Rate FiO2 03/21/18 13:51 86 20 172/84 91 Nasal Cannula 4.50 03/21/18 08:00 98.0 03/19/18 20:51 36 General Appearance: No Apparent Distress, WD/WN, Anxious, Chronically ill, Obese Respiratory: Chest Non Tender, Normal Breath Sounds, No Accessory Muscle Use, No Respiratory Distress, Crackles, Wheezing Cardiovascular: Regular Rate, Rhythm, No Edema, No Gallop, No JVD, No Murmur, Normal Peripheral Pulses Neurologic/Psychiatric: Alert, Oriented x3, No Motor/Sensory Deficits, Normal Mood/Affect Hospital Course Hospital course: Patient had a brief hospital course he was admitted for severe dyspnea and exacerbation of COPD. Is placed on empiric antibiotics for pneumonia found on chest x-ray from [facility] the right lower lobe. CT scan showed widespread infiltrates. Home meds were restarted. Overall patient improved dramatically he was able to be discharged in improved condition and he will see me in close follow-up at the clinic. He will need repeat CT scan in 3 months to make sure that there are no masses in this current every day and heavy smoker. Labs (last 24 hrs) Microbiology 03/19/18 Blood Culture - Preliminary, Resulted No growth Patient resulted labs reviewed. Pending Labs Discussion & Recommendations Discharge Planning: <30 minutes discharge planning Discharge Home Medications: Active Scripts Active Lasix (Furosemide) 20 Mg Tablet 20 Mg PO Q48H Prednisone 10 Mg Tab.ds.pk 20 Mg PO DAILY Cefdinir 300 Mg Capsule 300 Mg PO BID Reported Advil (Ibuprofen) 200 Mg Capsule 400-800 Mg PO TID PRN Iprat-Albut 0.5-3(2.5) mg/3 ml (Ipratropium/Albuterol Sulfate) 3 Ml Ampul.neb 3 Ml NEB BID Hydralazine HCl 25 Mg Tablet 12.5 Mg PO BID TAKES 1/2 (25MG) TABLET [Glutathione] 3 Cap PO DAILY Proair Hfa (Albuterol Sulfate) 1 Puff Puff 2 Puff INH Q4H PRN Symbicort 160-4.5 Mcg Inhaler (Budesonide/Formoterol Fumarate) 10.2 Gm Hfa.aer.ad 2 Puff INH BID Combivent Respimat Inhal [place] (Albuterol/Ipratropium) 4 Gm Aero 1 Puff INH TID Alfuzosin HCl ER (Alfuzosin HCl) 10 Mg Tab.er.24h 10 Mg PO HS Finasteride 5 Mg Tablet 5 Mg PO HS Iron (Ferrous Sulfate) 325 Mg Tablet 325 Mg PO [place] Magnesium (Magnesium Oxide) 250 Mg Tablet 250 Mg PO DAILY Shilpa Allergy (Fexofenadine HCl) 180 Mg Tablet 180 Mg PO DAILY Alendronate Sodium 70 Mg Tablet 70 Mg PO [place] Fenofibrate (Fenofibrate Nanocrystallized) 48 Mg Tablet 48 Mg PO DAILY Bupropion Xl (Bupropion HCl) 150 Mg Tab.er.24h 150 Mg PO DAILY Januvia (Sitagliptin Phosphate) 100 Mg Tablet 100 Mg PO DAILY Oxybutynin Chloride ER (Oxybutynin Chloride) 10 Mg Tab.er.24 10 Mg PO DAILY Paroxetine HCl 40 Mg Tablet 40 Mg PO DAILY Sucralfate 1 Gm Tablet 1 Gm PO DAILY Losartan Potassium 100 Mg Tablet 100 Mg PO DAILY Amlodipine Besylate 5 Mg Tablet 5 Mg PO DAILY Trazodone HCl 150 Mg Tablet 300 Mg PO HS TAKES 2 (150MG) TABLETS Metformin HCl 1,000 Mg Tablet 1,000 Mg PO BID Glimepiride 1 Mg Tablet 0.5 Mg PO BID TAKES 1/2 (1MG) TABLET Omeprazole 20 Mg Tablet.dr 20 Mg PO DAILY Men's Multivitamin Tablet (Multivit-Min/Folic/Vit K/Lycop) 1 Each Tablet 1 Tab PO DAILY Vitamin B-12 (Cyanocobalamin (Vitamin B-12)) 2,000 Mcg Tablet 2,000 Mcg PO DAILY Calcium 600 + Vit D 200 Tablet (Calcium Carbonate/Vitamin D3) 1 Each Tablet 1 Tab PO BID Probiotic (L.acidoph & Paracasei,B.lactis) 1 Each Capsule 1 Cap PO DAILY Instructions to patient/family Please see electronic discharge instructions given to patient. Clinical Quality Measures DVT/VTE Risk/Contraindication: Risk Factor Score Per Nursin RFS Level Per Nursing on Admit: 4+=Very High Problem Qualifiers (1) Pneumonia: Pneumonia type: due to unspecified organism Laterality: bilateral Lung location: lower lobe of lung Qualified Codes: J18.1 - Lobar pneumonia, unspecified organism (2) Diabetes mellitus: Diabetes mellitus type: type 2 Diabetes mellitus halfway insulin use: without halfway use Diabetes mellitus complication status: without complication Qualified Codes: E11.9 - Type 2 diabetes mellitus without complications (3) Obesity: Obesity type: due to excess calories Obesity classification: adult class 3 ( BMI >= 40) Serious obesity comorbidity presence: with serious comorbidity Body mass index: BMI 40.0-44.9 Qualified Codes: E66.01 - Morbid (severe) obesity due to excess calories; Z68.41 - Body mass index (BMI) 40.0-44.9, adult (4) Leukocytosis: Leukocytosis type: leukemoid reaction Qualified Codes: D72.823 - Leukemoid reaction (5) Hypertension: Hypertension type: essential hypertension Qualified Codes: I10 - Essential ( primary) hypertension (6) Depression: Depression Type: unspecified Qualified Codes: F32.9 - Major depressive disorder, single episode, unspecified ASHLYN HALL DO Mar 21, 2018 10:28
[2018-03-21] MEDS ORDERED: FUROSEMIDE 40 MG/4 ML INJ (LASIX) IVP ONE ×2 (10:30)
[2018-03-21 13:51] VITALS: BP 172/84
== END 2018-03-21 12:10 | disposition home or self-care (01) | DRG 193 ==
LOC: 4TH 17:43
PROVIDERS: ADMIT Internal Medicine; ATTEND Internal Medicine
DX: J18.9 Pneumonia, unspecified organism (principal); J96.90 Respiratory failure, unspecified, unspecified whether with hypoxia or hypercapnia; J43.9 Emphysema, unspecified; E66.01 Morbid (severe) obesity due to excess calories; Z68.41 Body mass index [BMI] 40.0-44.9, adult; E11.65 Type 2 diabetes mellitus with hyperglycemia; T38.0X5A Adverse effect of glucocorticoids and synthetic analogues, initial encounter; I10 Essential (primary) hypertension; F17.210 Nicotine dependence, cigarettes, uncomplicated; G47.30 Sleep apnea, unspecified; J45.909 Unspecified asthma, uncomplicated; E78.00 Pure hypercholesterolemia, unspecified; N40.0 Benign prostatic hyperplasia without lower urinary tract symptoms; K21.9 Gastro-esophageal reflux disease without esophagitis; M81.0 Age-related osteoporosis without current pathological fracture; F32.9 Major depressive disorder, single episode, unspecified; R53.81 Other malaise; Z99.81 Dependence on supplemental oxygen
CPT/HCPCS: 36415; 71046; 71260; 80053; 81000; 82962; 83605; 83880; 84484; 85007; 85025; 85027; 87040; 90686; 93005; 94640; 94760

== ENCOUNTER 2018-05-11 10:45 | Outpatient (RCR) | payer MEDICARE, OTHER ==
[~2018-05-11 10:45] MED LIST changes: +ALEN70TA5 PO; +ALFU10TA11 PO; +AMLO5TAB9 PO; +AMOX500C2 PO; +BUDE10.2 INH; +BUPR150T7 PO; +CALC-6 PO; +CEFD300C3 PO; +CYAN200014 PO; +FENO48TA5 PO; +FERR-84 PO; +FEXO180T84 PO; +FINA5TAB6 PO; +FURO-125 PO; +GLIM1TAB PO; +GLUT1POW PO; +GLUTATHIONE PO; +HYDR-3923 PO; +IBUP200C11 PO; +IPRA3AMP31 NEB; +IPRA4AER INH; +L.AC1CAP6 PO; +LOSA100T57 PO; +MAGN250T13 PO; +METF-399 PO; +MULT-1102 PO; +OMEP20TA7 PO; +OXYB10TA PO; +PARO40TA3 PO; +PRED10TA22 PO; +RT-ALBUINH INH; +SITA100T12 PO; +SUCR1TAB PO; +TRAZ150T72 PO
--- NOTE | 2018-05-11 11:49 | Pulmonary Rehab Eval/Txmt Plan ---
Pulmonary Rehab Initial Eval Information Paper Evaluation Completed: Yes Date: May 11, 2018 Therapist: RADHIKA Diagnosis: J44.9 COPD Referring Physician: ISABEL Pulmonary Rehab Treatment Plan Treatment P Treatment Periord: Initial Diagnosis Diagnosis: J44.9 COPD Date: May 11, 2018 Barriers to Learning Barriers: None Assessment/Problems Exercise: Deconditioning, No Regular Exercise, Sedentary Type: AEROBIC Frequency: 2 X'S PER WEEK Duration: 1 HR CLASS, EXERCISE PER PT'S TOLERANCE Barriers to Exercise: VERY SOA Initial MET Level: 2 Aerobic Exercise/Goals Freq: time per week minus RI: 2 MET Level=: 2 Type: Arm Ergometry, Bike, Scifi/Nustep, Treadmill EMILY CLEMENTS DO May 11, 2018 11:48
[2018-06-02 09:30] VITALS: BP 160/88
[2018-06-04 09:00] VITALS: BP 140/90
[2018-06-04 11:00] VITALS: BP 140/80
== END 2018-08-09 | disposition home or self-care (01) ==
LOC: PULM 10:45
PROVIDERS: ATTEND Internal Medicine
DX: J44.9 Chronic obstructive pulmonary disease, unspecified (principal)
CPT/HCPCS: 99211

== ENCOUNTER → 2018-07-06 | Outpatient (CLI) | payer MEDICARE, OTHER ==
[~2018-07-06] MED LIST changes: +GADOBUTROL 10 MMOL/10 ML (GADAVIST) VIAL IV ONE
--- NOTE | 2018-07-06 09:45 | Diagnostic Imaging Report ---
PROCEDURE: MR imaging of the brain with and without contrast. TECHNIQUE: Multiplanar, multisequence MR imaging of the brain was performed with and without contrast. INDICATION: Headaches and dizziness as well as right-sided weakness. Correlation is made with prior MRI brain from 02/18/2017. The ventricles and sulci are stable in appearance. Periventricular and subcortical white matter signal abnormalities appear similar to prior exam and consistent with chronic microvascular ischemia. The normal expected flow-voids within the carotid siphons are seen. No diffusion restriction is identified to suggest acute ischemia. No acute intra-axial or extra-axial hemorrhage is detected. No abnormal enhancement following contrast administration is seen. Corpus callosum is unremarkable. The sella and parasellar structures are unremarkable. IMPRESSION: Stable MRI of the brain with and without contrast when compared with exam from 02/18/2017. Changes of chronic microvascular ischemia appears similar to prior exam. No acute abnormality is identified. Dictated by: Dictated on workstation # [id number]
== END ==
LOC: RAD 07:32
PROVIDERS: ATTEND Internal Medicine
DX: I63.9 Cerebral infarction, unspecified (principal); I67.82 Cerebral ischemia
CPT/HCPCS: 70553

== ENCOUNTER 2020-03-06 05:30 | Outpatient (RCR) | payer MEDICARE, OTHER ==
[~2020-03-06] VITALS: Ht 162.6 cm; Wt 96.8 kg
[~2020-03-06 05:30] MED LIST changes: -ALEN70TA5 PO; +ALEN70TA69 PO; -ALFU10TA11 PO; +ALFU10TA12 PO; +AMLO-250 PO; -AMLO5TAB9 PO; +ATOR20TA66 PO; -CALC-6 PO; +CALC1TAB84 PO; +FENO48TA10 PO; -FENO48TA5 PO; -GADOBUTROL 10 MMOL/10 ML (GADAVIST) VIAL IV ONE; -GLIM1TAB PO; +GLIM1TAB4 PO; -OXYB10TA PO; +OXYB10TA29 PO; +PRAZ1CAP2 PO
== END 2020-03-06 10:51 | disposition home or self-care (01) ==
LOC: PREOP 05:30
PROVIDERS: ATTEND Surgery
DX: Z01.812 Encounter for preprocedural laboratory examination (principal); K21.9 Gastro-esophageal reflux disease without esophagitis; Z20.828 Contact with and (suspected) exposure to other viral communicable diseases
CPT/HCPCS: 87635

== ENCOUNTER 2020-03-08 09:24 | Day surgery (SDC) | payer MEDICARE, OTHER ==
[~2020-03-08] VITALS: Ht 162 cm; Wt 97.0 kg
[2020-03-08] MEDS ORDERED: LACTATED RINGERS 1,000 ML IV STA (09:33)
[2020-03-08] MEDS ORDERED: LACTATED RINGERS 1,000 ML IV ONE (09:35)
[2020-03-08 09:45] VITALS: BP 174/107
[2020-03-08] MEDS ORDERED: LIDOCAINE JELLY 2% 6 ML SYRINGE MM PRN (09:45)
[2020-03-08] MEDS ORDERED: HURRICAINE EXT TUBE (BENZOCAINE) XX PRN (09:45)
[2020-03-08] MEDS ORDERED: PROPOFOL INJECTION 50 ML IV ONE ×2 (10:37→11:34)
[2020-03-08] MEDS ORDERED: MIDAZOLAM 2 MG/2 ML (VERSED) VIAL ONE ×2 (10:37→11:02)
[2020-03-08] MEDS ORDERED: MIDAZOLAM 2 MG/2 ML (VERSED) VIAL IVP ONE (11:15)
--- NOTE | 2020-03-08 11:26 | Progress Note-Pre Operative ---
Pre-Operative Progress Note H&P Reviewed The H&P was reviewed, patient examined and no changes noted. Date Seen by Provider: Mar 08, 2020 Time Seen by Provider: 11:00 Date H&P Reviewed: Mar 08, 2020 Time H&P Reviewed: 11:00 Pre-Operative Diagnosis: GERD, dysphagia, screening LIANE CLEMONS MD Mar 08, 2020 11:26
[2020-03-08] MEDS ORDERED: PANT40TA2 PO (11:27)
--- NOTE | 2020-03-08 11:28 | Discharge Inst-Surgical ---
D/C Lap Instructions-KIDO New, Converted, or Re-Newed RX: RX on Chart Follow Up Activity as tolerated High Fiber Diet 25g or more per day Avoid Alcohol, Caffeine, Spicy [place] and Acid foods. Drink 64 fluid oz or more of fluids per day. Symptoms to Report: Fever over 101 degree F, Nausea/Vomiting If any problems/questions: Contact your physician or go to Emergency Room LIANE CLEMONS MD Mar 08, 2020 11:28
[2020-03-08] MEDS ORDERED: LIDOCAINE JELLY 2% 6 ML SYRINGE ONE (11:29)
[2020-03-08] MEDS ORDERED: ONDANSETRON 4 MG/2 ML (SDV) Z0FRAN IVP PRN (11:30)
[2020-03-08] MEDS ORDERED: ACETAMINOPHEN 325 MG TABLET PO PRN (11:30)
[2020-03-08] MEDS ORDERED: morphine INJ 10 MG/ML 1ML (SYR OR VIAL) IVP PRN ×2 (11:30)
[2020-03-08] MEDS ORDERED: HYDROcodone/APAP 5 MG/325 MG (LORTAB) TAB PO PRN (11:30)
[2020-03-08 12:35] VITALS: BP 141/72
[2020-03-08 12:40] VITALS: BP 148/72
[2020-03-08 12:45] VITALS: BP 163/85
[2020-03-08 12:50] VITALS: BP 163/85
[2020-03-08 13:30] VITALS: BP 163/85
--- NOTE | 2020-03-08 13:37 | Progress Note-Post Operative ---
Post-Operative Progess Note Surgeon (s)/Costume Seamstress (s) Surgeon LIANE CLEMONS MD Costume Seamstress: none Pre-Operative Diagnosis GERD, dysphagia, screening Post-Operative Diagnosis reflux esophagitis(stage 2-3), moderate HH(2.5cm), mod gastritis. mild stage 1 ext and int hemorrhoids, polyp ascending, hepatic flex, prox transverse colon, distal transverse. Procedure & Operative Findings Date of Procedure 03/08/20 Procedure Performed/Findings EGD with bx. Colonoscopy with bx x4 and snare polypectomy Anesthesia Type mac Estimated Blood Loss Estimated blood loss (mL): minimal Specimens/Packing Specimens Removed polyp ascending, hepatic flex, prox transverse colon, distal transverse. LIANE CLEMONS MD Mar 08, 2020 13:37
--- NOTE | 2020-03-08 14:32 | Anesthesia-General Post-Op ---
MAC Patient Condition Mental Status/LOC: Same as Preop Cardiovascular: Satisfactory Nausea/Vomiting: Absent Respiratory: Satisfactory Pain: Controlled Complications: Absent Post Op Complications Complications None Follow Up Care/Instructions Patient Instructions None needed. Anesthesiology Discharge Order Discharge Order Patient is doing well, no complaints, stable vital signs, no apparent adverse anesthesia problems. No complications reported per nursing. ELIGIO CANELA CRNA Mar 08, 2020 14:32
--- NOTE | 2020-03-08 20:32 | OPERATIVE REPORT ---
DATE OF SERVICE: 03/08/2020 ATTENDING PRIMARY CARE PHYSICIAN: Nazanin Rider DO. PREOPERATIVE DIAGNOSES: Gastroesophageal reflux disease, screening colonoscopy. POSTOPERATIVE DIAGNOSES: Reflux esophagitis between stage II and III, small to moderate size hiatal hernia approximately 2.5 cm in size, moderate gastritis, normal duodenum. Multiple polyps were identified throughout the colon including a rectal polyp, ascending colon, hepatic flexure, proximal transverse colon, distal transverse colon as well as others identified upon entry; however, there was a poor prep to identify these. The largest one was at the distal transverse colon in approximately 7 mm in size and removed by snare polypectomy. PROCEDURE: Esophagogastroduodenoscopy with biopsy, colonoscopy with snare polypectomy and removal by biopsy forceps x4 SURGEON: Liane Clemons MD. ANESTHESIA: Monitored anesthesia care. ESTIMATED BLOOD LOSS: Minimal. FINDINGS: Reflux esophagitis between stage II and III, small to moderate size hiatal hernia approximately 2.5 cm in size, moderate gastritis, normal duodenum. Multiple polyps were identified throughout the colon including a rectal polyp, ascending colon, hepatic flexure, proximal transverse colon, distal transverse colon as well as others identified upon entry; however, there was a poor prep to identify these. The largest one was at the distal transverse colon in approximately 7 mm in size and removed by snare polypectomy. DISPOSITION: The patient tolerated the procedure well. INDICATIONS: The patient is a 64-year-old male who we have seen before in the past for lipoma of the back, which was removed. He was referred over to us for issues with gastroesophageal reflux disease, which has worsened and also does have mild intermittent episodes of dysphagia with specific types of food. He also is in need of a screening colonoscopy. His last colonoscopy was greater than 20 years ago. DESCRIPTION OF PROCEDURE: The patient was brought to the endoscopy suite, laid in left lateral decubitus position. After adequate IV pain and stated medications and monitored anesthesia care, the mouthpiece was applied. The endoscope was placed in the mouth, visualizing the pharynx and hypopharyngeal region. Vocal cords, epiglottis and vallecula identified and appeared to be normal. The endoscope gently intubated esophageal opening and esophagus insufflated. The endoscope was then advanced through the first, second and third portion of the esophagus. At the GE junction, a reflux esophagitis between stage II and III identified. There were no ulcers or strictures identified in this region. A biopsy was taken with forceps with visualization of good hemostasis. The endoscope was then advanced into the stomach and endoscope retroflexed, visualizing a small to moderate size hiatal hernia approximately 2.5 cm in size. There was a moderate gastritis and a biopsy was taken of the antrum to rule out H. pylori with visualization of good hemostasis. The endoscope was then advanced to the pylorus and the first and second portion of the duodenum, which appeared normal. The endoscope was then slowly withdrawn while taking a second look and suctioning of residual air with no additional findings. Under the same anesthesia, we then proceeded with colonoscopy portion of procedure. Digital rectal examination was performed, which revealed chronic stage II external and internal hemorrhoids, not actively edematous nor inflamed and no bleeding. Normal sphincter tone was felt and there were no palpable masses. Prostate gland was palpable and appeared normal. The endoscope was then intubated and anus and rectum gently insufflated. A small polyp approximately 3 mm in size was identified of the rectum. This was biopsied and destroyed using forceps and electrocautery with visualization of good hemostasis. Throughout the descending colon, a few other small polyps of the similar in size were identified. We decided to proceed with advancing the scope through the remainder of the transverse and ascending colon to the cecum. Multiple other polyps were identified. We then proceeded with systematic biopsy and removal of the forceps starting at the ascending colon using forceps and electrocautery and the same at the hepatic flexure and proximal transverse colon. At the distal transverse colon, a polyp that was large in size, approximately 7 mm in size was identified. This was snared at its base using a snare and electrocautery. While withdrawing the scope through the descending and sigmoid colon, the prep was poor and we were unable to identify the small polyps that were seen on entry. The endoscope was then slowly withdrawn while taking a second look and suctioning of residual air with no additional findings. The patient tolerated the procedure well. We will recommend the necessary lifestyle and diet accommodation including small and more frequent meals, avoidance of eating at night as well as head elevation while lying supine. He also needs to avoid caffeinated beverages, spicy, greasy and acidic foods. We will also start him on Protonix 40 mg daily. Due to the number of polyps identified and the inadequacy of the prep, we will recommend a followup colonoscopy in the next 1 to 3 years to reevaluate the colon and to remove any residual polyps. Job ID: [id number] DocumentID: [id number] Dictated Date: 03/08/2020 12:48:15 [address] Tester Date: 03/08/2020 20:31:58 Dictated By: LIANE CLEMONS MD MTDD
== END 2020-03-08 13:30 | disposition home or self-care (01) ==
LOC: ENDO 09:24
PROVIDERS: ATTEND Surgery
DX: Z12.11 Encounter for screening for malignant neoplasm of colon (principal); D12.8 Benign neoplasm of rectum; D12.2 Benign neoplasm of ascending colon; D12.3 Benign neoplasm of transverse colon; K21.00 Gastro-esophageal reflux disease with esophagitis, without bleeding; K29.50 Unspecified chronic gastritis without bleeding; K44.9 Diaphragmatic hernia without obstruction or gangrene; I10 Essential (primary) hypertension; J44.9 Chronic obstructive pulmonary disease, unspecified; F32.9 Major depressive disorder, single episode, unspecified; F41.9 Anxiety disorder, unspecified; K21.9 Gastro-esophageal reflux disease without esophagitis; E11.9 Type 2 diabetes mellitus without complications; G89.29 Other chronic pain; E78.00 Pure hypercholesterolemia, unspecified; N40.0 Benign prostatic hyperplasia without lower urinary tract symptoms; E66.9 Obesity, unspecified; Z68.37 Body mass index [BMI] 37.0-37.9, adult; Z79.899 Other long term (current) drug therapy; Z79.51 Long term (current) use of inhaled steroids; Z79.84 Long term (current) use of oral hypoglycemic drugs; Z87.11 Personal history of peptic ulcer disease
CPT/HCPCS: 82962; 88305

== ENCOUNTER → 2020-09-20 | Outpatient (CLI) | payer MEDICARE, OTHER ==
[~2020-09-20] MED LIST changes: -ALEN70TA69 PO; +ALEN70TA80 PO; +BUPR150T24 PO; -BUPR150T7 PO; +PANT40TA2 PO
[2020-09-20 09:38] LABS: BASOPHILS # (AUTO) 0.1 10^3/uL (0.0-0.1); BASOPHILS % (AUTO) 1 % (0-10); EOSINOPHILS # (AUTO) 0.4 10^3/uL (0.0-0.3); EOSINOPHILS % (AUTO) 4 % (0-10); HEMATOCRIT 44 % (40-54); HEMOGLOBIN 13.9 g/dL (13.3-17.7); LYMPHOCYTES % (AUTO) 19 % (12-44); MEAN CORPUSCULAR HEMOGLOBIN 27 pg (25-34); MEAN CORPUSCULAR HGB CONC 32 g/dL (32-36); MEAN CORPUSCULAR VOLUME 86 fL (80-99); MEAN PLATELET VOLUME 9.6 fL (9.0-12.2); MONOCYTES # (AUTO) 1.6 10^3/uL (0.0-1.0); MONOCYTES % (AUTO) 16 % (0-12); NEUTROPHILS # (AUTO) 6.4 10^3/uL (1.8-7.8); NEUTROPHILS % (AUTO) 61 % (42-75); PLATELET COUNT 292 10^3/uL (130-400); WHITE BLOOD COUNT 10.5 10^3/uL (4.3-11.0)
== END ==
LOC: LAB 09:17
PROVIDERS: ATTEND Surgery
DX: L98.492 Non-pressure chronic ulcer of skin of other sites with fat layer exposed (principal); E11.622 Type 2 diabetes mellitus with other skin ulcer; B02.9 Zoster without complications; T65.222A Toxic effect of tobacco cigarettes, intentional self-harm, initial encounter; F17.218 Nicotine dependence, cigarettes, with other nicotine-induced disorders
CPT/HCPCS: 36415; 85025

== ENCOUNTER → 2020-09-20 | Outpatient (CLI) | payer MEDICARE, OTHER | LOC: WOUNDCARE 08:08 | PROVIDERS: ATTEND Surgery | DX: L98.492 Non-pressure chronic ulcer of skin of other sites with fat layer exposed (principal); E11.622 Type 2 diabetes mellitus with other skin ulcer; B02.9 Zoster without complications; T65.222A Toxic effect of tobacco cigarettes, intentional self-harm, initial encounter; F17.218 Nicotine dependence, cigarettes, with other nicotine-induced disorders | CPT/HCPCS: 11042; A6260; G0463 ==

== ENCOUNTER → 2020-09-27 | Outpatient (CLI) | payer MEDICARE, OTHER ==
[2020-09-27 09:23] LABS: ALANINE AMINOTRANSFERASE 18 U/L (0-55); ALKALINE PHOSPHATASE 33 U/L (40-136); BILIRUBIN,TOTAL 0.5 MG/DL (0.1-1.0); BUN/CREATININE RATIO 10; CARBON DIOXIDE 22 MMOL/L (21-32); CHLORIDE 106 MMOL/L (98-107); CREATININE SERUM 0.86 MG/DL (0.60-1.30); GFR ESTIMATED > 60; GLUCOSE 117 MG/DL (70-105); POTASSIUM 3.6 MMOL/L (3.6-5.0); SODIUM 139 MMOL/L (135-145); TOTAL PROTEIN 7.4 GM/DL (6.4-8.2)
== END ==
LOC: WOUNDCARE 07:57
PROVIDERS: ATTEND Surgery
DX: E11.622 Type 2 diabetes mellitus with other skin ulcer (principal); I96 Gangrene, not elsewhere classified; L98.492 Non-pressure chronic ulcer of skin of other sites with fat layer exposed; B02.9 Zoster without complications; T65.222A Toxic effect of tobacco cigarettes, intentional self-harm, initial encounter; F17.218 Nicotine dependence, cigarettes, with other nicotine-induced disorders
CPT/HCPCS: 11042; 80053; 83036; A6260; G0463; 36415

== ENCOUNTER → 2020-10-04 | Outpatient (CLI) | payer MEDICARE, OTHER | LOC: WOUNDCARE 08:19 | PROVIDERS: ATTEND Surgery | DX: I96 Gangrene, not elsewhere classified (principal); L98.492 Non-pressure chronic ulcer of skin of other sites with fat layer exposed; E11.622 Type 2 diabetes mellitus with other skin ulcer; B02.8 Zoster with other complications; T65.222A Toxic effect of tobacco cigarettes, intentional self-harm, initial encounter; F17.218 Nicotine dependence, cigarettes, with other nicotine-induced disorders | CPT/HCPCS: 11042; A6197; G0463 ==

== ENCOUNTER → 2020-10-11 | Outpatient (CLI) | payer MEDICARE, OTHER | LOC: WOUNDCARE 08:01 | PROVIDERS: ATTEND Surgery | DX: L98.492 Non-pressure chronic ulcer of skin of other sites with fat layer exposed (principal); E11.622 Type 2 diabetes mellitus with other skin ulcer; B02.8 Zoster with other complications; T65.222A Toxic effect of tobacco cigarettes, intentional self-harm, initial encounter; F17.218 Nicotine dependence, cigarettes, with other nicotine-induced disorders | CPT/HCPCS: 99212 ==

== ENCOUNTER → 2020-10-19 | Outpatient (CLI) | payer MEDICARE, OTHER | LOC: CARD 11:00 | PROVIDERS: ATTEND Internal Medicine | DX: I51.7 Cardiomegaly (principal) | CPT/HCPCS: 93306 ==

== ENCOUNTER 2022-05-21 18:28 | Inpatient (IN) | payer MEDICARE, OTHER ==
[~2022-05-21] VITALS: Ht 170.2 cm; Wt 109.0 kg
[~2022-05-21 18:28] MED LIST changes: +ALBU8.5H6 INH; -FENO48TA10 PO; +FENO48TA11 PO; +OMEP20TA56 PO; -OMEP20TA7 PO; -RT-ALBUINH INH
[2022-05-21] MEDS ORDERED: ENOXAPARIN 40 MG/0.4 ML (LOVENOX) SYR SC SCH (18:45)
[2022-05-21] MEDS ORDERED: BISACODYL 10 MG SUPP (DULCOLAX) PR PRN (18:45)
[2022-05-21] MEDS ORDERED: MELATONIN 3 MG TABLET PO PRN (18:45)
[2022-05-21] MEDS ORDERED: CALCIUM CARBONATE 500 MG (TUMS) TAB.CHEW PO PRN (18:45)
[2022-05-21] MEDS ORDERED: LACTULOSE SYRUP 10GM/15ML (ENULOSE) 30ML UDC PO PRN (18:45)
[2022-05-21] MEDS ORDERED: ONDANSETRON 4 MG (ZOFRAN) ORAL DISSOLVE TAB PO PRN (18:45)
[2022-05-21] MEDS ORDERED: diphenhydrAMINE 50 MG/ML INJ (BENADRYL) IVP PRN (18:45)
[2022-05-21] MEDS ORDERED: ACETAMINOPHEN 325 MG TABLET PO PRN (18:45)
[2022-05-21] MEDS ORDERED: MILK OF MAGNESIA 400 MG/5 ML 30 ML UDC PO PRN (18:45)
[2022-05-21] MEDS ORDERED: diphenhydrAMINE 25 MG TAB (BENADRYL) PO PRN (18:45)
[2022-05-21] MEDS ORDERED: polyethylene glycoL POWDER 17 GM (MIRALAX) PACK PO PRN (18:45)
[2022-05-21] MEDS ORDERED: ANTACID SUSP 30 ML UDC (MYLANTA) PO PRN (18:45)
[2022-05-21] MEDS ORDERED: NS IV 500 ML 500 ML IV PRN (18:45)
[2022-05-21] MEDS ORDERED: FUROSEMIDE 40 MG/4 ML INJ (LASIX) IVP NR (19:00)
--- NOTE | 2022-05-21 19:12 | Diagnostic Imaging Report ---
INDICATION: Difficulty breathing. Time of Exam: 6:58 PM Comparison is made with prior chest from 11/07/2013. Heart is enlarged. There are multiple healed rib fractures bilaterally. There appears to be some minimal infiltrate or atelectasis right base. Otherwise, the lungs are clear. No effusion or pneumothorax is seen. IMPRESSION: Cardiomegaly with minimal right basilar infiltrate or atelectasis. Dictated by: Dictated on workstation # [id number]
[2022-05-21 19:19] LABS: BASOPHILS # (AUTO) 0.1 10^3/uL (0.0-0.1); BASOPHILS % (AUTO) 1 % (0-10); EOSINOPHILS # (AUTO) 0.3 10^3/uL (0.0-0.3); EOSINOPHILS % (AUTO) 2 % (0-10); HEMATOCRIT 37 % (40-54); HEMOGLOBIN 11.7 g/dL (13.3-17.7); LYMPHOCYTES # (AUTO) 2.2 10^3/uL (1.0-4.0); LYMPHOCYTES % (AUTO) 14 % (12-44); MEAN CORPUSCULAR HEMOGLOBIN 27 pg (25-34); MEAN CORPUSCULAR HGB CONC 32 g/dL (32-36); MEAN CORPUSCULAR VOLUME 86 fL (80-99); MEAN PLATELET VOLUME 9.3 fL (9.0-12.2); MONOCYTES # (AUTO) 1.7 10^3/uL (0.0-1.0); MONOCYTES % (AUTO) 11 % (0-12); NEUTROPHILS # (AUTO) 11.1 10^3/uL (1.8-7.8); NEUTROPHILS % (AUTO) 72 % (42-75); PLATELET COUNT 332 10^3/uL (130-400); WHITE BLOOD COUNT 15.4 10^3/uL (4.3-11.0)
[2022-05-21 19:33] LABS: ALBUMIN 3.9 GM/DL (3.2-4.5); CHLORIDE 106 MMOL/L (98-107); POTASSIUM 3.1 MMOL/L (3.6-5.0); SODIUM 142 MMOL/L (135-145)
[2022-05-21 19:35] LABS: GLUCOSE 101 MG/DL (70-105)
[2022-05-21 19:36] LABS: TOTAL PROTEIN 7.2 GM/DL (6.4-8.2)
[2022-05-21 19:37] LABS: CARBON DIOXIDE 25 MMOL/L (21-32)
[2022-05-21 19:38] LABS: BILIRUBIN,TOTAL 0.5 MG/DL (0.1-1.0)
[2022-05-21 19:39] LABS: ALKALINE PHOSPHATASE 40 U/L (40-136); GFR ESTIMATED 97
[2022-05-21 19:40] LABS: BUN/CREATININE RATIO 11
[2022-05-21 19:42] LABS: ALANINE AMINOTRANSFERASE 24 U/L (0-55)
[2022-05-21 19:46] LABS: ABG BASE EXCESS 4.3 MMOL/L (-2.5-2.5); ABG OXYGEN SATURATION 90 % (94-100); ABG PCO2 45 MMHG (35-45); ABG PH 7.42 (7.37-7.43); ABG PO2 55 MMHG (79-93); ABG TCO2 29.9 MMOL/L (21.0-31.0)
[2022-05-21 19:53] LABS: FIBRIN DEGRADATION PRODUCTS 3.16 UG/ML (0.00-0.49); PROTHROMBIN TIME PATIENT 13.9 SEC (12.2-14.7)
[2022-05-21 19:58] LABS: ALLENS TEST YES-POS; INSPIRED O2 6L; PATIENT TEMP 37.1; VENTILATOR NO
[2022-05-21 19:59] LABS: ANISOCYTOSIS SLIGHT; EOSINOPHILS % (MANUAL) 2 %; HYPOCHROMASIA SLIGHT; LYMPHOCYTES % (MANUAL) 9 %; MONOCYTES % (MANUAL) 10 %; NEUTROPHILS % (MANUAL) 79 %
[2022-05-21] MEDS ORDERED: KCL 20 MEQ TAB (K-DUR) PO ONE (20:15)
--- NOTE | 2022-05-21 20:33 | Progress Note ---
Progress Note This is a 66yoWM clinic patient of [employer] for the past 15+ years who has a h/o severe COPD O2 dependent and continued smoking along with DM, HTN, HLP, depression who presented to the ICU as a direct admit from my clinic in [place] for increasing dyspnea for past 3 weeks following COVID. Lower extremity edema noted for the past several days up to thighs. O2 sat was 60% this morning, 75% in my clinic. ABG ordered along with septic w/u. COVID was 3 weeks ago confirmed on swab so no need to reswab. Assessment: Acute on chronic respiratory failure AECOPD Severe COPD O2 dependent at home Suspicion for PNA vs. bronchitis Recent COVID 3 weeks ago Lower extremity edema Elevated d-dimer ordered CT angiogram to r/o PE and dosed Lovenox 1mg/kg SQ Q 12 hours Smoker Panic attacks DM HTN HLP Depression Insomnia Anemia GERD Hypogonadism ED BPH B12 Plan: CT angiogram IVF Abx Lovenox ABG CXR BCx UA Anxiolytics ASHLYN HALL DO May 21, 2022 20:33
[2022-05-21] MEDS ORDERED: IOHEXOL 350 MG/ML 100 ML (OMNIPAQUE 350) VIAL IV ONE (20:45)
[2022-05-21] MEDS ORDERED: cloNIDine 0.1 MG (CATAPRES) TAB PO PRN (20:45)
[2022-05-21] MEDS ORDERED: NS 100 ML (IVPB) BAG IV ONE (20:45)
--- NOTE | 2022-05-21 21:12 | Diagnostic Imaging Report ---
PROCEDURE: CT angiography of the chest with contrast. TECHNIQUE: Multiple contiguous axial images were obtained through the chest after uneventful bolus administration of intravenous contrast. 3D reconstructed CTA MIP acquisitions were also performed. Auto Exposure Controls were utilized during the CT exam to meet ALARA standards for radiation dose reduction. INDICATION: Dyspnea. COMPARISON: Chest x-ray from 03/19/2018 FINDINGS: There is marked motion artifact on multiple images resulting in suboptimal evaluation due to respiration. The pulmonary arteries appear diagnostic to the lobar level on the right and perhaps the proximal segmental level on the left. No definite filling defect is seen to indicate a pulmonary embolus on this exam. There is no evidence of right heart strain. The aorta is normal in caliber. There is mild atherosclerosis. There is a moderate pericardial effusion. There are multiple mildly prominent mediastinal lymph nodes. There is a marker right lower paratracheal lymph node which measures 1.9 x 1.9 cm in size. These may be reactive. There are moderate emphysematous changes in the lungs. Again, the lungs are difficult to evaluate due to motion. There does appear to be some chronic airspace opacity in the right lower lobe. There are old right-sided rib fractures. There are old left-sided rib fractures. There are degenerative changes throughout the spine. Imaged portions of the upper abdomen demonstrate motion artifact. There may be some pericholecystic edema. IMPRESSION: 1. Suboptimal examination due to significant motion artifact. No pulmonary embolus is seen under these terms. 2. Moderate pericardial effusion. This appears mildly increased since 03/19/2018. 3. Airspace opacities in the right lower lobe, appear to be chronic, most likely atelectasis and scarring. 4. Mildly prominent mediastinal lymph nodes, which are nonspecific. These could be reactive and appear similar to the prior study. 5. Question mild pericholecystic edema. Consider correlation with clinical findings and liver enzymes and if indicated ultrasound could be considered to evaluate for cholecystitis. Dictated by: Dictated on workstation # [id number]
[2022-05-21] MEDS ORDERED: AZITHROMYCIN INJECTION 500 MG/5 ML VIAL ONE (21:16)
[2022-05-21] MEDS ORDERED: NS (IVPB) 50 ML ONE (21:16)
[2022-05-21] MEDS ORDERED: NS IV 1000 ML 1,000 ML ONE (21:17)
[2022-05-21] MEDS ORDERED: CEFEPIME 1 GM/10 ML (MAXIPIME) VIAL ONE (21:17)
[2022-05-21] MEDS ORDERED: NS (IVPB) 250 ML ONE (21:17)
[2022-05-21] MEDS: LORazepam INJ 2 MG/ML (ATIVAN) VIAL IVP PRN (21:23)
[2022-05-21] MEDS: CEFEPIME INJECTION 1,000 MG in NS (IVPB) 50 ML IV SCH (21:24)
[2022-05-21] MEDS: NS IV 1000 ML 1,000 ML IV SCH (21:24)
[2022-05-21] MEDS: AZITHROMYCIN INJECTION 500 MG in NS (IVPB) 250 ML IV SCH (21:25)
[2022-05-21] MEDS: hydrALAZINE (APRESOLINE) 25 MG TAB PO SCH ×2 (21:45→22:00)
[2022-05-21] MEDS ORDERED: LIDOCAINE UROJET 2% GEL 10 ML PKG TOP ONE (21:45)
[2022-05-21] MEDS ORDERED: LIDOCAINE UROJET 2% GEL 10 ML PKG ONE (21:48)
[2022-05-21] MEDS ORDERED: RT-ALBUTEROL/IPRATROPIUM 3 ML (DUONEB) VIAL INH SCH (22:00)
[2022-05-21] MEDS: SENNOSIDES 8.6 MG (SENOKOT) TAB PO SCH (22:06)
[2022-05-21] MEDS: RT-IPRATROPIUM (ATROVENT) 0.5MG/2.5ML AMP IH SCH (22:06)
[2022-05-21] MEDS: DOCUSATE SODIUM 100 MG (COLACE) CAP PO SCH (22:06)
[2022-05-21] MEDS: RT-ALBUTEROL SULF 2.5 MG/3 ML PRE-MIX VIAL INH SCH (22:06)
[2022-05-21] MEDS: inSUlin ASPART (NovoLOG) 1 UNIT/0.01 ML (CHARGE PER UNIT) SC SCH (22:07)
[2022-05-21 22:09] LABS: BILIRUBIN,URINE NEGATIVE (NEGATIVE); CLARITY,URINE CLEAR; COLOR,URINE YELLOW; GLUCOSE, URINE (UA) NEGATIVE (NEGATIVE); KETONES,URINE NEGATIVE (NEGATIVE); LEUKOCYTE ESTERASE ,URINE NEGATIVE (NEGATIVE); NITRITE,URINE NEGATIVE (NEGATIVE); PH,URINE 7.5 (5-9); PROTEIN,URINE 1+ (NEGATIVE)
[2022-05-21] MEDS: HYDROmorphone 2 MG/ML VIAL (DILAUDID) IV PRN (22:13)
[2022-05-21 22:18] LABS: BACTERIA,URINE TRACE /HPF; SQUAMOUS EPITHELIAL CELL,UR RARE /HPF
[2022-05-22] MEDS: methylPREDNISolone 40 MG/ML (Solu-MEDROL) VIAL IV SCH ×4 (00:23→17:55)
[2022-05-22] MEDS: RT-IPRATROPIUM (ATROVENT) 0.5MG/2.5ML AMP IH SCH ×6 (01:35→22:28)
[2022-05-22] MEDS: RT-ALBUTEROL SULF 2.5 MG/3 ML PRE-MIX VIAL INH SCH ×6 (01:35→22:28)
[2022-05-22] MEDS: LORazepam INJ 2 MG/ML (ATIVAN) VIAL IVP PRN (01:43)
[2022-05-22] MEDS: CEFEPIME INJECTION 1,000 MG in NS (IVPB) 50 ML IV SCH ×4 (04:32→22:05)
[2022-05-22] MEDS ORDERED: LABETALOL HCL 20 MG/4 ML VIAL ONE (05:16)
[2022-05-22] MEDS: LABETALOL HCL 20 MG/4 ML VIAL IV PRN (05:22)
[2022-05-22 05:24] LABS: EOSINOPHILS % (AUTO) 1 % (0-10); HEMOGLOBIN 11.9 g/dL (13.3-17.7); NEUTROPHILS % (AUTO) 91 % (42-75)
[2022-05-22 05:26] LABS: BASOPHILS # (AUTO) 0.1 10^3/uL (0.0-0.1); BASOPHILS % (AUTO) 1 % (0-10); EOSINOPHILS # (AUTO) 0.1 10^3/uL (0.0-0.3); HEMATOCRIT 39 % (40-54); LYMPHOCYTES # (AUTO) 0.9 10^3/uL (1.0-4.0); LYMPHOCYTES % (AUTO) 5 % (12-44); MEAN CORPUSCULAR HEMOGLOBIN 27 pg (25-34); MEAN CORPUSCULAR HGB CONC 31 g/dL (32-36); MEAN CORPUSCULAR VOLUME 88 fL (80-99); MEAN PLATELET VOLUME 10.8 fL (9.0-12.2); MONOCYTES # (AUTO) 0.3 10^3/uL (0.0-1.0); MONOCYTES % (AUTO) 2 % (0-12); NEUTROPHILS # (AUTO) 15.2 10^3/uL (1.8-7.8); PLATELET COUNT 254 10^3/uL (130-400); WHITE BLOOD COUNT 16.7 10^3/uL (4.3-11.0)
[2022-05-22 05:51] LABS: ALBUMIN 3.8 GM/DL (3.2-4.5); BILIRUBIN,TOTAL 0.4 MG/DL (0.1-1.0); CALCIUM 8.6 MG/DL (8.5-10.1); CREATININE SERUM 0.77 MG/DL (0.60-1.30); MAGNESIUM 1.7 MG/DL (1.6-2.4); PHOSPHORUS 3.5 MG/DL (2.3-4.7); POTASSIUM 3.8 MMOL/L (3.6-5.0); TOTAL PROTEIN 7.2 GM/DL (6.4-8.2)
--- NOTE | 2022-05-22 06:24 | Diagnostic Imaging Report ---
INDICATION: Dyspnea. Comparison is made with prior examination of 05/21/22. FINDINGS: There is cardiomegaly. There are bilateral pulmonary infiltrates. There appears to be some venous congestion. There is some discoid atelectasis in the right lung base. There is no pleural effusion or pneumothorax. IMPRESSION: Bilateral pulmonary infiltrates with discoid atelectasis in right lung base. Cardiomegaly and mild central pulmonary venous congestion. Dictated by: Dictated on workstation # [id number]
[2022-05-22] MEDS: KCL 20 MEQ TAB (K-DUR) PO SCH (06:34)
[2022-05-22] MEDS: POTASSIUM CL 10MEQ/50ML IVPB 50 ML IV SCH (06:34)
[2022-05-22] MEDS: MAGNESIUM 1 GM/100 ML IVPB 100 ML IV SCH ×5 (06:34→08:49)
[2022-05-22] MEDS: inSUlin ASPART (NovoLOG) 1 UNIT/0.01 ML (CHARGE PER UNIT) SC SCH ×4 (06:35→22:06)
[2022-05-22] MEDS ORDERED: FUROSEMIDE 40 MG/4 ML INJ (LASIX) IVP SCH (07:00)
--- NOTE | 2022-05-22 07:41 | Tele-ICU Consult ---
History of Present Illness History of Present Illness Date Seen by Provider: May 22, 2022 Time Seen by Provider: 07:36 History of Present Illness eICU consult 66 M with severe COPD admitted with exacerbation, uses oxygen at home, Came to ED with increasing dyspne and leg edema. recent episode of COVID On BiPAP at 18/8 FiO2 50% CXR showed marked cardiomegaly with congestion, CTA did not show pulm emb but has moderate pericardial effusion, seen by senior genetic counselor, to get echo D dimer elevated at 3.16, on Lovenox 1 mg/kg Started on IV Cefepime, Azithromycin, Medrol PMH DM, HTN, HLD, depression, GERD, ED, BPH, low B 12 continue to smoke Allergies and Home Medications Allergies Coded Allergies: No Known Drug Allergies (Unverified , 06/18/12) Home Medications Albuterol Sulfate 1 Puff Puff, 2 PUFF INH Q4H PRN for SHORTNESS OF BREATH, (Reported) Albuterol/Ipratropium 4 Gm Aero, 1 PUFF INH TID, (Reported) Alfuzosin HCl 10 Mg Tab.er.24h, 10 MG PO HS, (Reported) Amlodipine Besylate 5 Mg Tablet, 5 MG PO DAILY, (Reported) Atorvastatin Calcium 20 Mg Tablet, 20 MG PO HS, (Reported) Budesonide/Formoterol Fumarate 10.2 Gm Hfa.aer.ad, 2 PUFF INH BID, (Reported) Bupropion HCl 150 Mg Tab.er.24h, 150 MG PO DAILY, (Reported) Calcium Carbonate/Vitamin D3 1 Each Tablet, 1 TAB PO BID, (Reported) Cyanocobalamin (Vitamin B-12) 2,000 Mcg Tablet, 2,000 MCG PO DAILY, (Reported) Fenofibrate Nanocrystallized 48 Mg Tablet, 48 MG PO DAILY, (Reported) Ferrous Sulfate 325 Mg Tablet, 325 MG PO MoWeFr, (Reported) Fexofenadine HCl 180 Mg Tablet, 180 MG PO DAILY, (Reported) Finasteride 5 Mg Tablet, 5 MG PO HS, (Reported) Glimepiride 1 Mg Tablet, 0.5 MG PO BID, (Reported) TAKES 1/2 (1MG) TABLET Hydralazine HCl 25 Mg Tablet, 12.5 MG PO BID, (Reported) TAKES 1/2 (25MG) TABLET Ipratropium/Albuterol Sulfate 3 Ml Ampul.neb, 3 ML NEB BID, (Reported) L.acidoph & Paracasei,B.lactis 1 Each Capsule, 1 CAP PO DAILY, (Reported) Losartan Potassium 100 Mg Tablet, 100 MG PO DAILY, (Reported) Metformin HCl 1,000 Mg Tablet, 1,000 MG PO BID, (Reported) Multivit-Min/Folic/Vit K/Lycop 1 Each Tablet, 1 TAB PO DAILY, (Reported) Pantoprazole Sodium 40 Mg Tablet.dr, 40 MG PO DAILY Prescribed by: LIANE CLEMONS on 03/08/20 1127 Paroxetine HCl 40 Mg Tablet, 40 MG PO DAILY, (Reported) Prazosin HCl 1 Mg Capsule, 1 MG PO DAILY, (Reported) Sitagliptin Phosphate 100 Mg Tablet, 100 MG PO DAILY, (Reported) Sucralfate 1 Gm Tablet, 1 GM PO DAILY, (Reported) Trazodone HCl 150 Mg Tablet, 150 MG PO HS, (Reported) [Glutathione] , 3 CAP PO DAILY, (Reported) Past Medical/Social/Family Hx Patient Social History Tobacco Use?: No Smoking Status: Former Smoker Immunizations Up To Date Influenza Vaccine Up-to-Date: No; Not Current Hepatitis A: No Hepatitis B: No TB Skin Test: Negative Date of Pneumonia Vaccine: Mar 19, 2013 Current Status Communicates: Verbally Primary Language: [place] Preferred Spoken Language: [place] Is interpretation needed?: No Review of Systems Constitutional: see HPI Focused Exam Lactate Level 05/21/22 19:05: Lactic Acid Level 1.56 Height, Weight, BMI Height: 5'3.00" Weight: 226lbs. 1.0oz. 107.649411sd; 34.58 BMI Method:Stated Exam Exam Patient acknowledged, consented, and participated in this virtual visit which was conducted using real time audio/video Vital Signs Date Time Temp Pulse Resp B/P (MAP) Pulse Ox O2 Delivery O2 Flow Rate FiO2 05/22/22 07:18 92 OxyMask 10.00 05/22/22 06:00 81 15 173/95 (130) 92 OxyMask 10.00 05/22/22 05:00 96 17 182/99 (131) 93 OxyMask 10.00 05/22/22 04:00 93 OxyMask 10.00 05/22/22 04:00 93 32 171/92 (118) 93 OxyMask 10.00 05/22/22 03:00 95 21 176/95 (120) 93 OxyMask 10.00 05/22/22 02:11 94 23 181/95 (136) 94 OxyMask 10.00 05/22/22 02:03 OxyMask 10.00 05/22/22 02:00 93 36 181/101 (125) 94 High Flow N/C 10.00 05/22/22 01:38 High Flow N/C 10.00 05/22/22 01:35 92 High Flow N/C 10.00 05/22/22 01:00 90 17 167/92 (118) 91 Nasal Cannula 6.00 05/22/22 01:00 90 05/22/22 00:00 36.8 05/22/22 00:00 85 17 169/88 (104) 90 Nasal Cannula 6.00 05/21/22 23:59 92 Nasal Cannula 6.00 05/21/22 23:00 85 13 178/95 (134) 95 Nasal Cannula 6.00 05/21/22 22:52 85 35 180/110 (121) 94 Nasal Cannula 6.00 05/21/22 22:07 98 Nasal Cannula 6.00 05/21/22 22:02 85 29 178/90 (115) 95 Nasal Cannula 6.00 05/21/22 21:02 82 23 167/117 (136) 92 Nasal Cannula 6.00 05/21/22 20:15 80 16 150/75 (107) 89 Nasal Cannula 6.00 05/21/22 20:00 94 Nasal Cannula 6.00 05/21/22 20:00 80 13 169/88 (139) 92 Nasal Cannula 6.00 05/21/22 19:45 80 13 154/87 (95) 91 Nasal Cannula 6.00 05/21/22 19:30 80 14 135/81 (93) 91 Nasal Cannula 6.00 05/21/22 19:26 80 15 160/87 (138) 91 Nasal Cannula 6.00 05/21/22 19:00 37.1 96 22 168/89 (115) 94 Nasal Cannula 6.00 05/21/22 19:00 82 24 95 05/21/22 19:00 83 I & O 05/22/22 07:00 Intake Total 450 ml Output Total 1150 ml Balance -700 ml Height & Weight Height: 5'3.00" Weight: 226lbs. 1.0oz. 107.378506mk; 34.58 BMI Method:Stated General Appearance: No Apparent Distress, Mild Distress Respiratory: Decreased Breath Sounds, Wheezing Cardiovascular: Regular Rate, Rhythm Gastrointestinal: normal bowel sounds, non tender, soft Extremity: Pedal Edema, Other (+2 leg edema) Neurologic/Psychiatric: Alert, Oriented x3 Results Lab Laboratory Tests 05/21/22 19:05 05/22/22 04:28 Assessment/Plan Assessment/Plan AECOPD, will continue steroids, abx, monitor SpO2, pt is full code, continue on BIPAP would do echo looking for pulm htn, size of pericardial effusion Glu 189 on sliding scale insulin LA is normal, renal and liver function ok Critical Care: Critically Ill Patient Time spent with patient (mins): 25 CARLOS HADDAD MD May 22, 2022 07:41
[2022-05-22] MEDS: DexMEDEtomidine 250 ML DRIP 250 ML IV SCH (07:48)
[2022-05-22 07:57] VITALS: BP 186/102
--- NOTE | 2022-05-22 08:35 | Consultation-Cardiology ---
HPI-Cardiology Cardiology Consultation: Date of Consultation 05/22/22 Time Seen by a Provider: 08:30 Date of Admission 05-21-22 Attending Physician Nazanin Hall DO Admitting Physician Admitting Physician: Nazanin Hall DO Attending Physician: Nazanin Hall DO Consulting Physician Suresh Bonner MD HPI: Chief Complaint: Progressive dyspnea Mr. Diaz is a 66 yr old male admitted to ICU as a direct admit per Dr. Hall d/t increasing SOB. He is currently requiring Bi-pap. D/t sedation he is not able to provide any information from patient. There is not family at the bedside. Nurse reports he was admitted for increasing dyspnea and lower extremity edema. Review of Systems-Cardiology Review of Systems Other comments Unable to obtain d/t sedation [id number]-[id number] Hx Patient Social History Smoking Status: Former Smoker Former smoker/When Quit: Apr 14, 2012 Immunizations Up To Date Tetanus Booster (TDap): More than 5yrs Date of Pneumonia Vaccine: Mar 19, 2013 Date of Influenza Vaccine: Jan 13, 2020 Past Medical History PMH As described under Assessment. Family Medical History Family Medical History: Unable to obtain d/t sedation Family History: Alcoholism G8 BROTHER Family history: Diabetes mellitus G8 BROTHER Family history: Hypertension 19 MOTHER History of - disorder G8 BROTHER (DEPRESSION) G8 SISTER (STAPH INFECTION) History of drug abuse 19 MOTHER Stroke G8 BROTHER Allergies and Home Medications Allergies Coded Allergies: No Known Drug Allergies (Unverified , 06/18/12) Patient Home Medication List Acetaminophen/Diphenhydramine (Tylenol Pm Ex-Strength Caplet) 500 Mg-25 Mg Tablet, 3 EACH PO HS, (Reported) Entered as Reported by: THOR THOMAS on 05/22/22 1221 Last Action: Reviewed Albuterol Sulfate (Ventolin Hfa) 1 Puff Puff, 2 PUFF INH Q4H PRN for SHORTNESS OF BREATH, (Reported) Entered as Reported by: MARTHA LOERA on 03/20/18 100 Last Action: Reviewed Albuterol/Ipratropium (Combivent Respimat Inhal [place]) 20 Mcg-100 Mcg/Actuation Aero, 1 PUFF INH BID, (Reported) Entered as Reported by: MARTHA LOERA on 03/20/18 100 Last Action: Reviewed Amlodipine Besylate (Amlodipine Besylate) 5 Mg Tablet, 5 MG PO BID, (Reported) Entered as Reported by: MARTHA LOERA on 03/20/181008 Last Action: Reviewed Atorvastatin Calcium (Atorvastatin Calcium) 10 Mg Tablet, 10 MG PO DAILY, (Reported) Entered as Reported by: THOR THOMAS on 05/22/221 Last Action: Reviewed Budesonide/Formoterol Fumarate (Symbicort 160-4.5 Mcg Inhaler) 10.2 Gm Hfa.aer .ad, 2 PUFF INH BID, (Reported) Entered as Reported by: MARTHA LOERA on 03/20/181008 Last Action: Reviewed Bupropion HCl (Bupropion Xl) 150 Mg Tab.er.24h, 150 MG PO DAILY, (Reported) Entered as Reported by: MARTHA LOERA on 03/20/181008 Last Action: Reviewed Calcium Carbonate/Vitamin D3 (Calcium 600 + Vit D 200 Tablet) 600 Mg Calcium-5 Mcg (200 Unit) Tablet, 1 EA PO BID WITH MEALS, (Reported) Entered as Reported by: MARTHA LOERA on 03/20/181008 Last Action: Reviewed Diphenhydramine HCl (Zzzquil) 50 Mg/30 Ml Liquid, 5 ML PO HS, (Reported) Entered as Reported by: THOR THOMAS on 05/22/221220 Last Action: Reviewed Fenofibrate Nanocrystallized (Fenofibrate) 48 Mg Tablet, 48 MG PO DAILY, (Reported) Entered as Reported by: MARTHA LOERA on 03/20/181008 Last Action: Reviewed Finasteride (Finasteride) 5 Mg Tablet, 5 MG PO 1800, (Reported) Entered as Reported by: MARTHA LOERA on 03/20/181008 Last Action: Reviewed Hydralazine HCl (Hydralazine HCl) 25 Mg Tablet, 25 MG PO BID WITH MEALS, (Reported) Entered as Reported by: MARTHA LOERA on 03/20/181018 Last Action: Reviewed Ipratropium/Albuterol Sulfate (Iprat-Albut 0.5-3(2.5) mg/3 ml) 0.5 Mg-3 Mg (2.5 Mg Base)/3 Ml Ampul.neb, 3 ML NEB TID, (Reported) Entered as Reported by: MARTHA LOERA on 03/20/18 1019 Last Action: Reviewed L.acidoph & Paracasei,B.lactis (Probiotic) 1 Each Capsule, 1 CAP PO DAILY, (Reported) Entered as Reported by: MARTHA LOERA on 03/20/18 100 Last Action: Reviewed Loratadine (Loratadine) 10 Mg Tablet, 10 MG PO DAILY, (Reported) Entered as Reported by: THOR THOMAS on 05/22/221220 Last Action: Reviewed Melatonin (Melatonin) 5 Mg Tablet, 10 MG PO HS, (Reported) Entered as Reported by: THOR THOMAS on 05/22/221220 Last Action: Reviewed Metformin HCl (Metformin HCl) 500 Mg Tablet, 500 MG PO BID WITH MEALS, (Reported) Entered as Reported by: THOR THOMAS on 05/22/221220 Last Action: Reviewed Multivit-Min/FA/Lycopen/Lutein (Men 50 Plus Multivitamin Tab) 300 Mcg-600 Mcg-30 0 Mcg Tablet, 1 EACH PO DAILY, (Reported) Entered as Reported by: THOR THOMAS on 05/22/221220 Last Action: Reviewed Olmesartan Medoxomil (Olmesartan Medoxomil) 40 Mg Tablet, 40 MG PO DAILY, (Reported) Entered as Reported by: THOR THOMAS on 05/22/221220 Last Action: Reviewed Omeprazole (Omeprazole) 20 Mg Tab.rap.dr, 20 MG PO DAILY, (Reported) Entered as Reported by: THOR THOMAS on 05/22/221220 Last Action: Reviewed Paroxetine HCl (Paroxetine HCl) 40 Mg Tablet, 40 MG PO DAILY, (Reported) Entered as Reported by: AMRTHA LOERA on 03/20/18 100 Last Action: Reviewed Prazosin HCl (Prazosin HCl) 1 Mg Capsule, 1 MG PO HS, (Reported) Entered as Reported by: CARLYLE ROBLES on 03/02/20 1530 Last Action: Reviewed Tolterodine Tartrate (Tolterodine Tartrate ER) 4 Mg Cap.er.24h, 4 MG PO DAILY, (Reported) Entered as Reported by: THOR THOMAS on 05/22/221220 Last Action: Reviewed Trazodone HCl (Trazodone HCl) 150 Mg Tablet, 300 MG PO HS, (Reported) Entered as Reported by: AMRTHA LOERA on 03/20/181008 Last Action: Reviewed Discontinued Medications Alfuzosin HCl (Alfuzosin HCl ER) 10 Mg Tab.er.24h, 10 MG PO HS, (Reported) Discontinued Reason: No Longer Taking Entered as Reported by: MARTHA LOERA on 03/20/181008 Last Action: Discontinued Atorvastatin Calcium (Atorvastatin Calcium) 20 Mg Tablet, 20 MG PO HS, (Reported) Discontinued Reason: Duplicate Order Entered as Reported by: CARLYLE ROBLES on 03/02/20 1530 Last Action: Discontinued Cyanocobalamin (Vitamin B-12) (Vitamin B-12) 2,000 Mcg Tablet, 2,000 MCG PO DAILY, (Reported) Discontinued Reason: No Longer Taking Entered as Reported by: MARTHA LOERA on 03/20/181008 Last Action: Discontinued Ferrous Sulfate (Iron) 325 Mg Tablet, 325 MG PO MoWeFr, (Reported) Discontinued Reason: No Longer Taking Entered as Reported by: MARTHA LOERA on 03/20/181008 Last Action: Discontinued Fexofenadine HCl (Shilpa Allergy) 180 Mg Tablet, 180 MG PO DAILY, (Reported) Discontinued Reason: No Longer Taking Entered as Reported by: MARTHA LOERA on 03/20/181008 Last Action: Discontinued Glimepiride (Glimepiride) 1 Mg Tablet, 0.5 MG PO BID, (Reported) Discontinued Reason: No Longer Taking Entered as Reported by: MARTHA LOERA on 03/20/181008 Last Action: Discontinued Losartan Potassium (Losartan Potassium) 100 Mg Tablet, 100 MG PO DAILY, (Reported) Discontinued Reason: No Longer Taking Entered as Reported by: MARTHA LOERA on 03/20/181008 Last Action: Discontinued Metformin HCl (Metformin HCl) 1,000 Mg Tablet, 1,000 MG PO BID, (Reported) Discontinued Reason: No Longer Taking Entered as Reported by: MARTHA LOERA on 03/20/181008 Last Action: Discontinued Multivit-Min/Folic/Vit K/Lycop (Men's Multivitamin Tablet) 1 Each Tablet, 1 TAB PO DAILY, (Reported) Discontinued Reason: Prescription changed Entered as Reported by: MARTHA LOERA on 03/20/181008 Pantoprazole Sodium (Protonix) 40 Mg Tablet.dr, 40 MG PO DAILY Discontinued Reason: No Longer Taking Prescribed by: LIANE CLEMONS on 03/08/20 1127 Last Action: Discontinued Sitagliptin Phosphate (Januvia) 100 Mg Tablet, 100 MG PO DAILY, (Reported) Discontinued Reason: No Longer Taking Entered as Reported by: MARTHA LOERA on 03/20/18 1009 Last Action: Discontinued Sucralfate (Sucralfate) 1 Gm Tablet, 1 GM PO DAILY, (Reported) Discontinued Reason: No Longer Taking Entered as Reported by: MARTHA LOERA on 03/20/18 1009 Last Action: Discontinued [Glutathione] , 3 CAP PO DAILY, (Reported) Discontinued Reason: No Longer Taking Entered as Reported by: MARTHA LOERA on 03/20/18 1019 Last Action: Discontinued Physical Exam-Cardiology Physical Exam Vital Signs/I&O 05/22/22 05/22/22 05/22/22 05/23/22 22:28 23:00 23:59 00:00 Pulse 67 68 67 Resp 17 18 17 B/P (MAP) 169/88 (115) 173/89 (117) Pulse Ox 95 95 96 95 O2 Delivery NIV Bilevel NIV Bilevel NIV Bilevel O2 Flow Rate 50.00 50.00 50.00 FiO2 50 05/23/22 05/23/22 05/23/22 05/23/22 01:00 01:00 02:00 02:40 Pulse 70 67 65 65 Resp 30 15 21 B/P (MAP) 170/90 (116) 174/91 (118) Pulse Ox 95 95 95 O2 Delivery NIV Bilevel NIV Bilevel O2 Flow Rate 50.00 50.00 50.00 05/23/22 05/23/22 05/23/22 05/23/22 03:00 04:00 04:00 05:00 Pulse 71 67 71 Resp 20 19 21 B/P (MAP) 173/88 (116) 178/93 (121) Pulse Ox 96 97 96 97 O2 Delivery NIV Bilevel NIV Bilevel NIV Bilevel NIV Bilevel O2 Flow Rate 50.00 50.00 50.00 FiO2 50 05/23/22 05/23/22 05/23/22 05/23/22 05:14 06:00 06:59 07:00 Pulse 71 70 71 70 Resp 17 18 27 B/P (MAP) 173/88 158/127 (137) 178/78 (111) Pulse Ox 97 97 97 O2 Delivery NIV Bilevel NIV Bilevel O2 Flow Rate 50.00 50.00 50.00 05/23/22 05/23/22 05/23/22 05/23/22 07:00 07:04 08:00 09:00 Pulse 70 70 68 76 Resp 16 15 15 B/P (MAP) 186/91 (122) 186/140 (155) Pulse Ox 97 97 97 O2 Delivery NIV Bilevel NIV Bilevel O2 Flow Rate 40.00 50.00 50.00 05/23/22 05/23/22 09:22 09:22 Temp 37.1 O2 Delivery OxyMask O2 Flow Rate 6.00 05/23/22 00:00 Intake Total 1550 ml Output Total 375 ml Balance 1175 ml Capillary Refill : Constitutional: other (currently sedated and on the Bi-pap) Neck: No carotid bruit; carotid pulses are 2 + bilaterally Respiratory: No accessory muscle use, No respiratory distress; chest expansion is symmetric, chest is bilaterally symmetric, rhonchi (scattered), other (fair air entry - currently on Bi-pap) Cardiovascular: regular rate-rhythm; No JVD; S1 and S2 Gastrointestinal: soft, audible bowel sounds Extremities: no lower extremity edema bilateral Neurologic/Psychiatric: other (unable to cooperate with neuro exam d/t sedatio) Skin: No rash on exposed areas, No ulcerations on exposed areas Data Review Labs Laboratory Tests 05/22/22 15:50: Glucometer 162H 05/22/22 21:43: Glucometer 195H 05/23/22 06:16: Glucometer 219H 05/23/22 08:11: White Blood Count 14.4H, Red Blood Count 4.28L, Hemoglobin 11.6L, Hematocrit 37L , Mean Corpuscular Volume 85, Mean Corpuscular Hemoglobin 27, Mean Corpuscular Hemoglobin Concent 32, Red Cell Distribution Width 15.4H, Platelet Count 292, Mean Platelet Volume 9.8, Immature Granulocyte % (Auto) 1, Neutrophils (%) (Auto) 84H, Lymphocytes (%) (Auto) 7L, Monocytes (%) (Auto) 7, Eosinophils (%) (Auto) 0, Basophils (%) (Auto) 0, Neutrophils # (Auto) 12.2H, Lymphocytes # (Auto) 1.1, Monocytes # (Auto) 1.1H, Eosinophils # (Auto) 0.0, Basophils # (Auto) 0.0, Immature Granulocyte # (Auto) 0.1, Sodium Level 137, Potassium Level 4.0, Chloride Level 105, Carbon Dioxide Level 24, Anion Gap 8, Blood Urea Nitrogen 26H, Creatinine 0.92, Estimat Glomerular Filtration Rate 91, BUN/Creatinine Ratio 28, Glucose Level 218H, Calcium Level 8.6, Corrected Calcium 9.0, Phosphorus Level 3.1, Magnesium Level 2.3, Total Bilirubin 0.4, Aspartate Amino Transf (AST/SGOT) 18, Alanine Aminotransferase (ALT/SGPT) 16, Alkaline Phosphatase 40, Total Protein 6.7, Albumin 3.5 Microbiology 05/21/22 Blood Culture - Preliminary, Resulted No growth 05/21/22 MRSA Screen - Final, Complete MRSA not isolated Radiology NAME: SHIRLEY DIAZ [facility] REC#: [id number] PT STATUS: ADM Letty : 1955 PHYSICIAN: NAZANIN HALL DO ADMIT DATE: 05/21/22/ICU Signed Date of Exam:05/21/22 CT ANGIO CHEST W PROCEDURE: CT angiography of the chest with contrast. TECHNIQUE: Multiple contiguous axial images were obtained through the chest after uneventful bolus administration of intravenous contrast. 3D reconstructed CTA MIP acquisitions were also performed. Auto Exposure Controls were utilized during the CT exam to meet ALARA standards for radiation dose reduction. INDICATION: Dyspnea. COMPARISON: Chest x-ray from 03/19/2018 FINDINGS: There is marked motion artifact on multiple images resulting in suboptimal evaluation due to respiration. The pulmonary arteries appear diagnostic to the lobar level on the right and perhaps the proximal segmental level on the left. No definite filling defect is seen to indicate a pulmonary embolus on this exam. There is no evidence of right heart strain. The aorta is normal in caliber. There is mild atherosclerosis. There is a moderate pericardial effusion. There are multiple mildly prominent mediastinal lymph nodes. There is a marker right lower paratracheal lymph node which measures 1.9 x 1.9 cm in size. These may be reactive. There are moderate emphysematous changes in the lungs. Again, the lungs are difficult to evaluate due to motion. There does appear to be some chronic airspace opacity in the right lower lobe. There are old right-sided rib fractures. There are old left-sided rib fractures. There are degenerative changes throughout the spine. Imaged portions of the upper abdomen demonstrate motion artifact. There may be some pericholecystic edema. IMPRESSION: 1. Suboptimal examination due to significant motion artifact. No pulmonary embolus is seen under these terms. 2. Moderate pericardial effusion. This appears mildly increased since 03/19/2018. 3. Airspace opacities in the right lower lobe, appear to be chronic, most likely atelectasis and scarring. 4. Mildly prominent mediastinal lymph nodes, which are nonspecific. These could be reactive and appear similar to the prior study. 5. Question mild pericholecystic edema. Consider correlation with clinical findings and liver enzymes and if indicated ultrasound could be considered to evaluate for cholecystitis. Dictated by: Dictated on workstation # [id number] Dict: 05/21/222099 Trans: 05/21/222257 ACB [id number] Interpreted by: KELLY LINDSAY MD Electronically signed by: KELLY LINDSAY MD 05/21/228 NAME: SHIRLEY DIAZ [facility] REC#: [id number] PT STATUS: ADM Letty : 1955 PHYSICIAN: NAZANIN HALL DO ADMIT DATE: 05/21/22/ICU Draft Date of Exam:05/22/22 CHEST 1 VIEW, AP/PA ONLY INDICATION: Dyspnea. Comparison is made with prior examination of 05/21/22. FINDINGS: There is cardiomegaly. There are bilateral pulmonary infiltrates. There appears to be some venous congestion. There is some discoid atelectasis in the right lung base. There is no pleural effusion or pneumothorax. IMPRESSION: Bilateral pulmonary infiltrates with discoid atelectasis in right lung base. Cardiomegaly and mild central pulmonary venous congestion. Dictated on workstation # [id number] Dict: 05/22/22610 Trans: 05/22/22622 WILNER [id number] Interpreted by: GUZMAN SANTIZO MD Electronically signed by: ECG Impression ECG Initial ECG Rhythm: Normal Sinus A/P-Cardiology Assessment/Admission Diagnosis Progressive dyspnea - Echocardiogram of 10-19-20 showed LVEF 55-65%. Mild concentric hypertrophy. LA dilated. PASP 40-45 mmHg Acute on chronic exacerbation of COPD - management per medical services Pneumonia - management per medical services Pericardial effusion seen on CT of the chest on 05-21-22 - Echocardiogram today HTN - uncontrolled - restart home medications DM 2 GERD Discussion and Recomendations Progressive dyspnea likely d/t acute exacerbation of COPD with pneumonia - management per medical/eICU services CTA of the chest showed pericardial effusion - echocardiogram today Uncontrolled HTN - restart home medications Monitor lab - replace electrolytes as indicated Further recs will be based on his hospital course We would like to thank medical services for this consult Clinical Quality Measures DVT/VTE Risk/Contraindication: Contraindications-Mechi: Other *list below* Other: poss dvt KEVIN GONZALEZ PAPER REELER May 22, 2022 08:35
[2022-05-22] MEDS: SENNOSIDES 8.6 MG (SENOKOT) TAB PO SCH ×2 (08:42→22:06)
[2022-05-22] MEDS: DOCUSATE SODIUM 100 MG (COLACE) CAP PO SCH ×2 (08:42→22:06)
[2022-05-22] MEDS: hydrALAZINE (APRESOLINE) 25 MG TAB PO SCH ×3 (08:42→22:06)
[2022-05-22] MEDS ORDERED: KCL 20 MEQ TAB (K-DUR) PO ONE (09:00)
[2022-05-22] MEDS ORDERED: ENOXAPARIN 100 MG/1 ML (LOVENOX) SYR SC SCH (09:00)
--- NOTE | 2022-05-22 09:08 | Diagnostic Imaging Report ---
PROCEDURE: US Venous Lower Ext Lan. TECHNIQUE: Multiple real-time grayscale images were obtained over the lower extremities in various projections, bilaterally. Additional duplex Doppler and color Doppler images were also obtained. INDICATION: DVT. There is no evidence of right or left lower extremity DVT. Both lower extremity deep venous systems demonstrate normal compressibility with normal response to augmentation and Valsalva. No fluid collection or mass is detected. IMPRESSION: No evidence of right or left lower extremity DVT. Dictated by: Dictated on workstation # [id number]
[2022-05-22] MEDS ORDERED: ENOXAPARIN 40 MG/0.4 ML (LOVENOX) SYR SC SCH (10:00)
[2022-05-22 10:42] VITALS: BP 186/102
[2022-05-22] MEDS ORDERED: OLME40TA18 PO (12:21)
[2022-05-22] MEDS ORDERED: METF-397 PO (12:21)
[2022-05-22] MEDS ORDERED: DIPH50LI PO (12:21)
[2022-05-22] MEDS ORDERED: OMEP-401 PO (12:21)
[2022-05-22] MEDS ORDERED: MELA5TAB14 PO (12:21)
[2022-05-22] MEDS ORDERED: LORA10TA7 PO (12:21)
[2022-05-22] MEDS ORDERED: ACET-3075 PO (12:21)
[2022-05-22] MEDS ORDERED: ATOR10TA66 PO (12:21)
[2022-05-22] MEDS ORDERED: TOLT4CAP26 PO (12:21)
[2022-05-22] MEDS ORDERED: MULT-1056 PO (12:21)
[2022-05-22] MEDS: NS IV 1000 ML 1,000 ML IV SCH ×2 (13:26→17:04)
[2022-05-22 15:05] VITALS: BP 160/63
--- NOTE | 2022-05-22 16:26 | History & Physical ---
SARBJIT NEUMANN 05/22/22 1626: History of Present Illness History of Present Illness Reason for visit/HPI Sacha Diaz is a 66 yo M with a pmh of severe COPD and BiPAP dependence. He is a patient of Dr. Hall who was directly admitted from clinic in [place] due to increasing dyspnea. This morning he went in to respiratory distress and was placed on BiPAP and given Precedex. Patient was deeply asleep unable to wake for an interview. There is no family in the room. Venous Doppler shows no evidence of right or left lower extremity DVT. Per last note of Dr. Hall on 05/21/22: "This is a 66yoWM clinic patient of mine for the past 15+ years who has a h/o severe COPD O2 dependent and continued smoking along with DM, HTN, HLP, depression who presented to the ICU as a direct admit from my clinic in [place] for increasing dyspnea for past 3 weeks following COVID. Lower extremity edema noted for the past several days up to thighs. O2 sat was 60% this morning, 75% in my clinic. ABG ordered along with septic w/u. COVID was 3 weeks ago confirmed on swab so no need to reswab." Date of Admission May 21, 2022 at 18:38 Date Seen by a Provider: May 22, 2022 Time Seen by a Provider: 08:42 I consulted on this patient on 05/22/22 08:42 Attending Physician Nazanin Hall DO Admitting Physician Admitting Physician: Nazanin Hall DO Attending Physician: Nazanin Hall DO Consult Allergies and Home Medications Allergies Coded Allergies: No Known Drug Allergies (Unverified , 06/18/12) Patient Home Medication List Home Medication List Reviewed: Yes Acetaminophen/Diphenhydramine (Tylenol Pm Ex-Strength Caplet) 500 Mg-25 Mg Tablet, 3 EACH PO HS, (Reported) Entered as Reported by: THOR THOMAS on 05/22/22 1221 Last Action: Reviewed Albuterol Sulfate (Ventolin Hfa) 1 Puff Puff, 2 PUFF INH Q4H PRN for SHORTNESS OF BREATH, (Reported) Entered as Reported by: MARTHA LOERA on 03/20/18 1009 Last Action: Reviewed Albuterol/Ipratropium (Combivent Respimat Inhal [place]) 20 Mcg-100 Mcg/Actuation Aero, 1 PUFF INH BID, (Reported) Entered as Reported by: MARTHA LOERA on 03/20/181008 Last Action: Reviewed Amlodipine Besylate (Amlodipine Besylate) 5 Mg Tablet, 5 MG PO BID, (Reported) Entered as Reported by: MARTHA LOERA on 03/20/181008 Last Action: Reviewed Atorvastatin Calcium (Atorvastatin Calcium) 10 Mg Tablet, 10 MG PO DAILY, (Reported) Entered as Reported by: THOR THOMAS on 05/22/221220 Last Action: Reviewed Budesonide/Formoterol Fumarate (Symbicort 160-4.5 Mcg Inhaler) 10.2 Gm Hfa.aer.ad, 2 PUFF INH BID, (Reported) Entered as Reported by: MARTHA LOERA on 03/20/181008 Last Action: Reviewed Bupropion HCl (Bupropion Xl) 150 Mg Tab.er.24h, 150 MG PO DAILY, (Reported) Entered as Reported by: MARTHA LOERA on 03/20/181008 Last Action: Reviewed Calcium Carbonate/Vitamin D3 (Calcium 600 + Vit D 200 Tablet) 600 Mg Calcium-5 Mcg (200 Unit) Tablet, 1 EA PO BID WITH MEALS, (Reported) Entered as Reported by: MARTHA LOERA on 03/20/181008 Last Action: Reviewed Diphenhydramine HCl (Zzzquil) 50 Mg/30 Ml Liquid, 5 ML PO HS, (Reported) Entered as Reported by: THOR THOMAS on 05/22/221220 Last Action: Reviewed Fenofibrate Nanocrystallized (Fenofibrate) 48 Mg Tablet, 48 MG PO DAILY, (Reported) Entered as Reported by: MARTHA LOERA on 03/20/181008 Last Action: Reviewed Finasteride (Finasteride) 5 Mg Tablet, 5 MG PO 1800, (Reported) Entered as Reported by: MARTHA LOERA on 03/20/181008 Last Action: Reviewed Hydralazine HCl (Hydralazine HCl) 25 Mg Tablet, 25 MG PO BID WITH MEALS, (Reported) Entered as Reported by: MARTHA LOERA on 03/20/18 101 Last Action: Reviewed Ipratropium/Albuterol Sulfate (Iprat-Albut 0.5-3(2.5) mg/3 ml) 0.5 Mg-3 Mg (2.5 Mg Base)/3 Ml Ampul.neb, 3 ML NEB TID, (Reported) Entered as Reported by: MARTHA LOERA on 03/20/18 1019 Last Action: Reviewed L.acidoph & Paracasei,B.lactis (Probiotic) 1 Each Capsule, 1 CAP PO DAILY, (Reported) Entered as Reported by: MARTHA LOERA on 03/20/18 100 Last Action: Reviewed Loratadine (Loratadine) 10 Mg Tablet, 10 MG PO DAILY, (Reported) Entered as Reported by: THOR THOMAS on 05/22/221220 Last Action: Reviewed Melatonin (Melatonin) 5 Mg Tablet, 10 MG PO HS, (Reported) Entered as Reported by: THOR THOMAS on 05/22/221220 Last Action: Reviewed Metformin HCl (Metformin HCl) 500 Mg Tablet, 500 MG PO BID WITH MEALS, (Reported) Entered as Reported by: THOR THOMAS on 05/22/221220 Last Action: Reviewed Multivit-Min/FA/Lycopen/Lutein (Men 50 Plus Multivitamin Tab) 300 Mcg-600 Mcg- 300 Mcg Tablet, 1 EACH PO DAILY, (Reported) Entered as Reported by: THOR THOMAS on 05/22/221220 Last Action: Reviewed Olmesartan Medoxomil (Olmesartan Medoxomil) 40 Mg Tablet, 40 MG PO DAILY, (Reported) Entered as Reported by: THOR THOMAS on 05/22/221220 Last Action: Reviewed Omeprazole (Omeprazole) 20 Mg Tab.rap.dr, 20 MG PO DAILY, (Reported) Entered as Reported by: THOR THOMAS on 05/22/221220 Last Action: Reviewed Paroxetine HCl (Paroxetine HCl) 40 Mg Tablet, 40 MG PO DAILY, (Reported) Entered as Reported by: MARTHA LOERA on 03/20/18 100 Last Action: Reviewed Prazosin HCl (Prazosin HCl) 1 Mg Capsule, 1 MG PO HS, (Reported) Entered as Reported by: CARLYLE ROBLES on 03/02/20 1530 Last Action: Reviewed Tolterodine Tartrate (Tolterodine Tartrate ER) 4 Mg Cap.er.24h, 4 MG PO DAILY, (Reported) Entered as Reported by: THOR THOMAS on 05/22/22 1221 Last Action: Reviewed Trazodone HCl (Trazodone HCl) 150 Mg Tablet, 300 MG PO HS, (Reported) Entered as Reported by: MARTHA LOERA on 03/20/181008 Last Action: Reviewed Discontinued Medications Alfuzosin HCl (Alfuzosin HCl ER) 10 Mg Tab.er.24h, 10 MG PO HS, (Reported) Discontinued Reason: No Longer Taking Entered as Reported by: MARTHA LOERA on 03/20/181008 Last Action: Discontinued Atorvastatin Calcium (Atorvastatin Calcium) 20 Mg Tablet, 20 MG PO HS, (Reported) Discontinued Reason: Duplicate Order Entered as Reported by: CARLYLE ROBLES on 03/02/20 1530 Last Action: Discontinued Cyanocobalamin (Vitamin B-12) (Vitamin B-12) 2,000 Mcg Tablet, 2,000 MCG PO DAILY, (Reported) Discontinued Reason: No Longer Taking Entered as Reported by: MARTHA LOERA on 03/20/181008 Last Action: Discontinued Ferrous Sulfate (Iron) 325 Mg Tablet, 325 MG PO MoWeFr, (Reported) Discontinued Reason: No Longer Taking Entered as Reported by: MARTHA LOERA on 03/20/181008 Last Action: Discontinued Fexofenadine HCl (Shilpa Allergy) 180 Mg Tablet, 180 MG PO DAILY, (Reported) Discontinued Reason: No Longer Taking Entered as Reported by: MARTHA LOERA on 03/20/181008 Last Action: Discontinued Glimepiride (Glimepiride) 1 Mg Tablet, 0.5 MG PO BID, (Reported) Discontinued Reason: No Longer Taking Entered as Reported by: MARTHA LOERA on 03/20/181008 Last Action: Discontinued Losartan Potassium (Losartan Potassium) 100 Mg Tablet, 100 MG PO DAILY, (Reported) Discontinued Reason: No Longer Taking Entered as Reported by: MARTHA LOERA on 03/20/181008 Last Action: Discontinued Metformin HCl (Metformin HCl) 1,000 Mg Tablet, 1,000 MG PO BID, (Reported) Discontinued Reason: No Longer Taking Entered as Reported by: MARTHA LOERA on 03/20/181008 Last Action: Discontinued Multivit-Min/Folic/Vit K/Lycop (Men's Multivitamin Tablet) 1 Each Tablet, 1 TAB PO DAILY, (Reported) Discontinued Reason: Prescription changed Entered as Reported by: MARTHA LOERA on 03/20/18 1009 Pantoprazole Sodium (Protonix) 40 Mg Tablet.dr, 40 MG PO DAILY Discontinued Reason: No Longer Taking Prescribed by: LIANE CLEMONS on 03/08/20 1127 Last Action: Discontinued Sitagliptin Phosphate (Januvia) 100 Mg Tablet, 100 MG PO DAILY, (Reported) Discontinued Reason: No Longer Taking Entered as Reported by: MARTHA LOERA on 03/20/18 1009 Last Action: Discontinued Sucralfate (Sucralfate) 1 Gm Tablet, 1 GM PO DAILY, (Reported) Discontinued Reason: No Longer Taking Entered as Reported by: MARTHA LOERA on 03/20/18 100 Last Action: Discontinued [Glutathione] , 3 CAP PO DAILY, (Reported) Discontinued Reason: No Longer Taking Entered as Reported by: MARTHA LOERA on 03/20/18 1019 Last Action: Discontinued Past Qfuyhym-Bcvudy-Jgqltu Hx Patient Social History Tobacco Use?: No Smoking Status: Former Smoker Immunizations Up To Date Date of Influenza Vaccine: Jan 13, 2020 Hepatitis A: No Hepatitis B: No PED Vaccines UTD: No Date of Pneumonia Vaccine: Mar 19, 2013 Seasonal Allergies Seasonal Allergies: Yes Current Status Communicates: Verbally Primary Language: [place] Preferred Spoken Language: [place] Is interpretation needed?: No Past Medical History Surgeries: Orthopedic, Tonsillectomy Pneumonia, Chronic Bronchitis, COPD Currently Using CPAP: No Currently Using BIPAP: No High Cholesterol, Hypertension Benign Prostatic Hyperpl Gastroesophageal Reflux, Ulcer Osteoporosis, Chronic Back Pain Diabetes, Non-Insulin dep Anxiety, Depression Blood Disorders: No Family Medical History Alcoholism G8 BROTHER Family history: Diabetes mellitus G8 BROTHER Family history: Hypertension 19 MOTHER History of - disorder G8 BROTHER (DEPRESSION) G8 SISTER (STAPH INFECTION) History of drug abuse 19 MOTHER Stroke G8 BROTHER Diabetes, Hypertension, Stroke Review of Systems ROS-Unable to Obtain: Patient is deeply sleeping 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 1.0oz. 107.331008mp; 34.58 BMI Method:Stated General Appearance: Obese, Other (On BiPAP) Respiratory: Decreased Breath Sounds, Other (wearing BiPAP) Cardiovascular: Regular Rate, Rhythm, Normal Peripheral Pulses Gastrointestinal: Normal Bowel Sounds, Soft Genital/Rectal: Other (keys catheter in place) Neurologic/Psychiatric: Other (deep sleep) Skin: Normal Color, Warm/Dry Assessment/Plan Assessment and Plan Assessment: Acute on chronic respiratory failure AECOPD Severe COPD O2 dependent at home Suspicion for PNA vs. bronchitis Recent COVID 3 weeks ago Lower extremity edema Elevated d-dimer ordered CT angiogram to r/o PE and dosed Lovenox 1mg/kg SQ Q 12 hours Smoker Panic attacks DM HTN HLP Depression Insomnia Anemia GERD Hypogonadism ED BPH B12 Plan: Continue BiPAP IVF Abx - Azithromycin and Cefepime Lovenox Anxiolytics Admission Diagnosis Admission Status: Inpatient Order (span 2 midnights) Reason for Inpatient Admission: Acute on Chronic Respiratory Failure Clinical Quality Measures DVT/VTE Risk/Contraindication: Contraindications-Mechi: Other *list below* Other: poss dvt NAZANIN HALL DO 05/23/22 0523: Allergies and Home Medications Allergies Coded Allergies: No Known Drug Allergies (Unverified , 06/18/12) Patient Home Medication List Acetaminophen/Diphenhydramine (Tylenol Pm Ex-Strength Caplet) 500 Mg-25 Mg Tablet, 3 EACH PO HS, (Reported) Entered as Reported by: THOR THOMAS on 05/22/22 1221 Last Action: Reviewed Albuterol Sulfate (Ventolin Hfa) 1 Puff Puff, 2 PUFF INH Q4H PRN for SHORTNESS OF BREATH, (Reported) Entered as Reported by: MARTHA LOERA on 03/20/18 100 Last Action: Reviewed Albuterol/Ipratropium (Combivent Respimat Inhal [place]) 20 Mcg-100 Mcg/Actuation Aero, 1 PUFF INH BID, (Reported) Entered as Reported by: MARTHA LOERA on 03/20/18 100 Last Action: Reviewed Amlodipine Besylate (Amlodipine Besylate) 5 Mg Tablet, 5 MG PO BID, (Reported) Entered as Reported by: MARTHA LOERA on 03/20/181008 Last Action: Reviewed Atorvastatin Calcium (Atorvastatin Calcium) 10 Mg Tablet, 10 MG PO DAILY, (Reported) Entered as Reported by: THOR THOMAS on 05/22/221 Last Action: Reviewed Budesonide/Formoterol Fumarate (Symbicort 160-4.5 Mcg Inhaler) 10.2 Gm Hfa.aer.ad, 2 PUFF INH BID, (Reported) Entered as Reported by: MARTHA LOERA on 03/20/181008 Last Action: Reviewed Bupropion HCl (Bupropion Xl) 150 Mg Tab.er.24h, 150 MG PO DAILY, (Reported) Entered as Reported by: MARTHA LOERA on 03/20/181008 Last Action: Reviewed Calcium Carbonate/Vitamin D3 (Calcium 600 + Vit D 200 Tablet) 600 Mg Calcium-5 Mcg (200 Unit) Tablet, 1 EA PO BID WITH MEALS, (Reported) Entered as Reported by: MARTHA LOERA on 03/20/181008 Last Action: Reviewed Diphenhydramine HCl (Zzzquil) 50 Mg/30 Ml Liquid, 5 ML PO HS, (Reported) Entered as Reported by: THOR THOMAS on 05/22/22 122 Last Action: Reviewed Fenofibrate Nanocrystallized (Fenofibrate) 48 Mg Tablet, 48 MG PO DAILY, (Reported) Entered as Reported by: MARTHA LOERA on 03/20/181008 Last Action: Reviewed Finasteride (Finasteride) 5 Mg Tablet, 5 MG PO 1800, (Reported) Entered as Reported by: MARTHA LOERA on 03/20/181008 Last Action: Reviewed Hydralazine HCl (Hydralazine HCl) 25 Mg Tablet, 25 MG PO BID WITH MEALS, (Reported) Entered as Reported by: MARTHA LOERA on 03/20/181018 Last Action: Reviewed Ipratropium/Albuterol Sulfate (Iprat-Albut 0.5-3(2.5) mg/3 ml) 0.5 Mg-3 Mg (2.5 Mg Base)/3 Ml Ampul.neb, 3 ML NEB TID, (Reported) Entered as Reported by: MARTHA LOERA on 12/7/18 1019 Last Action: Reviewed L.acidoph & Paracasei,B.lactis (Probiotic) 1 Each Capsule, 1 CAP PO DAILY, (Reported) Entered as Reported by: MARTHA LOERA on 03/20/181008 Last Action: Reviewed Loratadine (Loratadine) 10 Mg Tablet, 10 MG PO DAILY, (Reported) Entered as Reported by: THOR THOMAS on 05/22/221220 Last Action: Reviewed Melatonin (Melatonin) 5 Mg Tablet, 10 MG PO HS, (Reported) Entered as Reported by: THOR THOMAS on 05/22/221220 Last Action: Reviewed Metformin HCl (Metformin HCl) 500 Mg Tablet, 500 MG PO BID WITH MEALS, (Reported) Entered as Reported by: THOR THOMAS on 05/22/221220 Last Action: Reviewed Multivit-Min/FA/Lycopen/Lutein (Men 50 Plus Multivitamin Tab) 300 Mcg-600 Mcg- 300 Mcg Tablet, 1 EACH PO DAILY, (Reported) Entered as Reported by: THOR THOMAS on 05/22/221220 Last Action: Reviewed Olmesartan Medoxomil (Olmesartan Medoxomil) 40 Mg Tablet, 40 MG PO DAILY, (Reported) Entered as Reported by: THOR THOMAS on 05/22/221220 Last Action: Reviewed Omeprazole (Omeprazole) 20 Mg Tab.rap.dr, 20 MG PO DAILY, (Reported) Entered as Reported by: THOR THOMAS on 05/22/221220 Last Action: Reviewed Paroxetine HCl (Paroxetine HCl) 40 Mg Tablet, 40 MG PO DAILY, (Reported) Entered as Reported by: MARTHA LOERA on 03/20/181008 Last Action: Reviewed Prazosin HCl (Prazosin HCl) 1 Mg Capsule, 1 MG PO HS, (Reported) Entered as Reported by: CARLYLE ROBLES on 03/02/20 1530 Last Action: Reviewed Tolterodine Tartrate (Tolterodine Tartrate ER) 4 Mg Cap.er.24h, 4 MG PO DAILY, (Reported) Entered as Reported by: THOR THOMAS on 05/22/221220 Last Action: Reviewed Trazodone HCl (Trazodone HCl) 150 Mg Tablet, 300 MG PO HS, (Reported) Entered as Reported by: MARTHA LOERA on 03/20/181008 Last Action: Reviewed Discontinued Medications Alfuzosin HCl (Alfuzosin HCl ER) 10 Mg Tab.er.24h, 10 MG PO HS, (Reported) Discontinued Reason: No Longer Taking Entered as Reported by: MARTHA LOERA on 03/20/181008 Last Action: Discontinued Atorvastatin Calcium (Atorvastatin Calcium) 20 Mg Tablet, 20 MG PO HS, (Repo rted) Discontinued Reason: Duplicate Order Entered as Reported by: CARLYLE ROBLES on 03/02/20 1530 Last Action: Discontinued Cyanocobalamin (Vitamin B-12) (Vitamin B-12) 2,000 Mcg Tablet, 2,000 MCG PO DAILY, (Reported) Discontinued Reason: No Longer Taking Entered as Reported by: MARTHA LOERA on 03/20/181008 Last Action: Discontinued Ferrous Sulfate (Iron) 325 Mg Tablet, 325 MG PO MoWeFr, (Reported) Discontinued Reason: No Longer Taking Entered as Reported by: MARTHA LOERA on 03/20/181008 Last Action: Discontinued Fexofenadine HCl (Shilpa Allergy) 180 Mg Tablet, 180 MG PO DAILY, (Reported) Discontinued Reason: No Longer Taking Entered as Reported by: MARTHA LOERA on 03/20/181008 Last Action: Discontinued Glimepiride (Glimepiride) 1 Mg Tablet, 0.5 MG PO BID, (Reported) Discontinued Reason: No Longer Taking Entered as Reported by: MARTHA LOERA on 03/20/181008 Last Action: Discontinued Losartan Potassium (Losartan Potassium) 100 Mg Tablet, 100 MG PO DAILY, (Reported) Discontinued Reason: No Longer Taking Entered as Reported by: MARTHA LOERA on 03/20/181008 Last Action: Discontinued Metformin HCl (Metformin HCl) 1,000 Mg Tablet, 1,000 MG PO BID, (Reported) Discontinued Reason: No Longer Taking Entered as Reported by: MARTHA LOERA on 03/20/181008 Last Action: Discontinued Multivit-Min/Folic/Vit K/Lycop (Men's Multivitamin Tablet) 1 Each Tablet, 1 TAB PO DAILY, (Reported) Discontinued Reason: Prescription changed Entered as Reported by: MARTHA LOERA on 03/20/181008 Pantoprazole Sodium (Protonix) 40 Mg Tablet.dr, 40 MG PO DAILY Discontinued Reason: No Longer Taking Prescribed by: LIANE CLEMONS on 03/08/20 1127 Last Action: Discontinued Sitagliptin Phosphate (Januvia) 100 Mg Tablet, 100 MG PO DAILY, (Reported) Discontinued Reason: No Longer Taking Entered as Reported by: MARTHA LOERA on 03/20/18 1009 Last Action: Discontinued Sucralfate (Sucralfate) 1 Gm Tablet, 1 GM PO DAILY, (Reported) Discontinued Reason: No Longer Taking Entered as Reported by: MARTHA LOERA on 03/20/18 1009 Last Action: Discontinued [Glutathione] , 3 CAP PO DAILY, (Reported) Discontinued Reason: No Longer Taking Entered as Reported by: MARTHA LOERA on 03/20/18 1019 Last Action: Discontinued Past Xtjdsuy-Ktnidi-Pbzsib Hx Patient Social History Marrital Status: 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/Student: 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 Smoking Status: Current Everyday Smoker Alcohol Use?: No Past Medical History COPD, Emphysema Chronic Edema/Swelling, High Cholesterol, Hypertension Neuropathy Benign Prostatic Hyperpl Gastroesophageal Reflux Arthritis, Chronic Back Pain Diabetes, Non-Insulin dep Anxiety, Depression Family Medical History Alcoholism G8 BROTHER Family history: Diabetes mellitus G8 BROTHER Family history: Hypertension 19 MOTHER History of - disorder G8 BROTHER (DEPRESSION) G8 SISTER (STAPH INFECTION) History of drug abuse 19 MOTHER Stroke G8 BROTHER Review of Systems Constitutional: see HPI Physical Exam General Appearance: WD/WN, Chronically ill, Obese Eyes: Bilateral Eye Normal Inspection, Bilateral Eye PERRL, Bilateral Eye EOMI HEENT: PERRL/EOMI, Normal ENT Inspection, Pharynx Normal Neck: Full Range of Motion, Normal Inspection, Non Tender, Supple, Carotid Bruit Respiratory: Chest Non Tender, Lungs Clear, No Accessory Muscle Use, No Respiratory Distress, Decreased Breath Sounds, Other (wearing BiPAP) Cardiovascular: Regular Rate, Rhythm, No Edema, No Gallop, No JVD, No Murmur, Normal Peripheral Pulses Gastrointestinal: Normal Bowel Sounds, No Organomegaly, No Pulsatile Mass, Non Tender, Soft Back: Normal Inspection, No CVA Tenderness, No Vertebral Tenderness Extremity: Normal Capillary Refill, Normal Inspection, Normal Range of Motion, Non Tender, No Calf Tenderness, No Pedal Edema Neurologic/Psychiatric: Alert, Oriented x3, No Motor/Sensory Deficits, Normal Mood/Affect Skin: Normal Color, Warm/Dry Lymphatic: No Adenopathy Assessment/Plan Assessment and Plan Problems: (1) Respiratory failure with hypoxia (2) COPD exacerbation (3) BiPAP (biphasic positive airway pressure) dependence (4) Anasarca (5) Pericardial effusion (6) Hypertension Status: Chronic (7) Diabetes mellitus (8) Obesity Status: Chronic (9) Oxygen dependent Status: Chronic Admission Diagnosis Admission Status: Inpatient Order (span 2 midnights) Reason for Inpatient Admission: resp fail Supervisory-Addendum Brief Verification & Attestation Participated in pt care: history, MDM, physical Personally performed: exam, history, MDM, supervision of care Care discussed with: Medical Student Procedures: n/a Results interpretation: Verified all documentation Verification and Attestation of Medical Student E/M Service A medical student performed and documented this service in my presence. I revie wed and verified all information documented by the medical student and made modifications to such information, when appropriate. I personally performed the physical exam and medical decision making. Nazanin Hall May 23, 2022,05:23 SARBJIT NEUMANN May 22, 2022 16:26 NAZANIN HALL DO May 23, 2022 05:23
--- NOTE | 2022-05-22 17:27 | Consultation-Cardiology ---
HPI-Cardiology Cardiology Consultation: Date of Consultation 05/22/22 Time Seen by a Provider: 13:10 Date of Admission Attending Physician Nazanin Rider DO Admitting Physician Admitting Physician: Nazanin Rider DO Attending Physician: Nazanin Rider DO Consulting Physician ELLIOT SMITH MD, MA, FACP, FACC, FSCAI, CCDS HPI: Chief Complaint: Reason for Card consult: Progressive dyspnea Mr. Diaz is a 66 yr old male admitted to ICU as a direct admit per Dr. Rider d/t increasing SOB. He is currently requiring Bi-pap. D/t sedation he is not able to provide any information from patient. There is not family at the bedside. Nurse reports he was admitted for increasing dyspnea and lower extremity edema. Review of Systems-Cardiology All Other Systems Reviewed Negative Unless Noted: Yes [id number] Hx Patient Social History Smoking Status: Former Smoker Former smoker/When Quit: Apr 14, 2012 Immunizations Up To Date Tetanus Booster (TDap): More than 5yrs Date of Pneumonia Vaccine: Mar 19, 2013 Date of Influenza Vaccine: Jan 13, 2020 Past Medical History PMH As described under Assessment. Family Medical History Family Medical History: Unable to obtain d/t sedation Family History: Alcoholism G8 BROTHER Family history: Diabetes mellitus G8 BROTHER Family history: Hypertension 19 MOTHER History of - disorder G8 BROTHER (DEPRESSION) G8 SISTER (STAPH INFECTION) History of drug abuse 19 MOTHER Stroke G8 BROTHER Allergies and Home Medications Allergies Coded Allergies: No Known Drug Allergies (Unverified , 06/18/12) Patient Home Medication List Home Medication List Reviewed: Yes Acetaminophen/Diphenhydramine (Tylenol Pm Ex-Strength Caplet) 500 Mg-25 Mg Tablet, 3 EACH PO HS, (Reported) Entered as Reported by: THOR THOMAS on 05/22/22 1221 Last Action: Reviewed Albuterol Sulfate (Ventolin Hfa) 1 Puff Puff, 2 PUFF INH Q4H PRN for SHORTNESS OF BREATH, (Reported) Entered as Reported by: MARTHA LOERA on 03/20/18 1009 Last Action: Reviewed Albuterol/Ipratropium (Combivent Respimat Inhal [place]) 20 Mcg-100 Mcg/Actuation Aero, 1 PUFF INH BID, (Reported) Entered as Reported by: MARTHA LOERA on 03/20/181008 Last Action: Reviewed Amlodipine Besylate (Amlodipine Besylate) 5 Mg Tablet, 5 MG PO BID, (Reported) Entered as Reported by: MARTHA LOERA on 03/20/181008 Last Action: Reviewed Atorvastatin Calcium (Atorvastatin Calcium) 10 Mg Tablet, 10 MG PO DAILY, (Reported) Entered as Reported by: THOR THOMAS on 05/22/22 1221 Last Action: Reviewed Budesonide/Formoterol Fumarate (Symbicort 160-4.5 Mcg Inhaler) 10.2 Gm Hfa.aer.ad, 2 PUFF INH BID, (Reported) Entered as Reported by: MARTHA LOERA on 03/20/181008 Last Action: Reviewed Bupropion HCl (Bupropion Xl) 150 Mg Tab.er.24h, 150 MG PO DAILY, (Reported) Entered as Reported by: MARTHA LOERA on 03/20/181008 Last Action: Reviewed Calcium Carbonate/Vitamin D3 (Calcium 600 + Vit D 200 Tablet) 600 Mg Calcium-5 Mcg (200 Unit) Tablet, 1 EA PO BID WITH MEALS, (Reported) Entered as Reported by: MARTHA LOERA on 03/20/181008 Last Action: Reviewed Diphenhydramine HCl (Zzzquil) 50 Mg/30 Ml Liquid, 5 ML PO HS, (Reported) Entered as Reported by: THOR THOMAS on 05/22/221220 Last Action: Reviewed Fenofibrate Nanocrystallized (Fenofibrate) 48 Mg Tablet, 48 MG PO DAILY, (Reported) Entered as Reported by: MARTHA LOERA on 03/20/181008 Last Action: Reviewed Finasteride (Finasteride) 5 Mg Tablet, 5 MG PO 1800, (Reported) Entered as Reported by: MARTHA LOERA on 03/20/181008 Last Action: Reviewed Hydralazine HCl (Hydralazine HCl) 25 Mg Tablet, 25 MG PO BID WITH MEALS, (Reported) Entered as Reported by: MARTHA LOERA on 03/20/181018 Last Action: Reviewed Ipratropium/Albuterol Sulfate (Iprat-Albut 0.5-3(2.5) mg/3 ml) 0.5 Mg-3 Mg (2.5 Mg Base)/3 Ml Ampul.neb, 3 ML NEB TID, (Reported) Entered as Reported by: MARTHA LOERA on 03/20/18 1019 Last Action: Reviewed L.acidoph & Paracasei,B.lactis (Probiotic) 1 Each Capsule, 1 CAP PO DAILY, (Repo rted) Entered as Reported by: MARTHA LOERA on 03/20/18 1009 Last Action: Reviewed Loratadine (Loratadine) 10 Mg Tablet, 10 MG PO DAILY, (Reported) Entered as Reported by: THOR THOMAS on 05/22/221220 Last Action: Reviewed Melatonin (Melatonin) 5 Mg Tablet, 10 MG PO HS, (Reported) Entered as Reported by: THOR THOMAS on 05/22/221220 Last Action: Reviewed Metformin HCl (Metformin HCl) 500 Mg Tablet, 500 MG PO BID WITH MEALS, (Reported) Entered as Reported by: THOR THOMAS on 05/22/221220 Last Action: Reviewed Multivit-Min/FA/Lycopen/Lutein (Men 50 Plus Multivitamin Tab) 300 Mcg-600 Mcg- 300 Mcg Tablet, 1 EACH PO DAILY, (Reported) Entered as Reported by: THOR THOMAS on 05/22/221220 Last Action: Reviewed Olmesartan Medoxomil (Olmesartan Medoxomil) 40 Mg Tablet, 40 MG PO DAILY, (Reported) Entered as Reported by: THOR THOMAS on 05/22/221220 Last Action: Reviewed Omeprazole (Omeprazole) 20 Mg Tab.rap.dr, 20 MG PO DAILY, (Reported) Entered as Reported by: THOR THOMAS on 05/22/221220 Last Action: Reviewed Paroxetine HCl (Paroxetine HCl) 40 Mg Tablet, 40 MG PO DAILY, (Reported) Entered as Reported by: MARTHA LOERA on 03/20/18 1009 Last Action: Reviewed Prazosin HCl (Prazosin HCl) 1 Mg Capsule, 1 MG PO HS, (Reported) Entered as Reported by: CARLYLE ROBLES on 03/02/20 1530 Last Action: Reviewed Tolterodine Tartrate (Tolterodine Tartrate ER) 4 Mg Cap.er.24h, 4 MG PO DAILY, (Reported) Entered as Reported by: THOR THOMAS on 05/22/221220 Last Action: Reviewed Trazodone HCl (Trazodone HCl) 150 Mg Tablet, 300 MG PO HS, (Reported) Entered as Reported by: MARTHA LOERA on 03/20/181008 Last Action: Reviewed Discontinued Medications Alfuzosin HCl (Alfuzosin HCl ER) 10 Mg Tab.er.24h, 10 MG PO HS, (Reported) Discontinued Reason: No Longer Taking Entered as Reported by: MARTHA LOERA on 03/20/181008 Last Action: Discontinued Atorvastatin Calcium (Atorvastatin Calcium) 20 Mg Tablet, 20 MG PO HS, (Reported) Discontinued Reason: Duplicate Order Entered as Reported by: CARLYLE ROBLES on 03/02/20 1530 Last Action: Discontinued Cyanocobalamin (Vitamin B-12) (Vitamin B-12) 2,000 Mcg Tablet, 2,000 MCG PO DAILY, (Reported) Discontinued Reason: No Longer Taking Entered as Reported by: MARTHA LOERA on 03/20/181008 Last Action: Discontinued Ferrous Sulfate (Iron) 325 Mg Tablet, 325 MG PO MoWeFr, (Reported) Discontinued Reason: No Longer Taking Entered as Reported by: MARTHA LOERA on 03/20/181008 Last Action: Discontinued Fexofenadine HCl (Shilpa Allergy) 180 Mg Tablet, 180 MG PO DAILY, (Reported) Discontinued Reason: No Longer Taking Entered as Reported by: MARTHA LOERA on 03/20/181008 Last Action: Discontinued Glimepiride (Glimepiride) 1 Mg Tablet, 0.5 MG PO BID, (Reported) Discontinued Reason: No Longer Taking Entered as Reported by: MARTHA LOERA on 03/20/181008 Last Action: Discontinued Losartan Potassium (Losartan Potassium) 100 Mg Tablet, 100 MG PO DAILY, (Reported) Discontinued Reason: No Longer Taking Entered as Reported by: MARTHA LOERA on 03/20/181008 Last Action: Discontinued Metformin HCl (Metformin HCl) 1,000 Mg Tablet, 1,000 MG PO BID, (Reported) Discontinued Reason: No Longer Taking Entered as Reported by: MARTHA LOERA on 03/20/181008 Last Action: Discontinued Multivit-Min/Folic/Vit K/Lycop (Men's Multivitamin Tablet) 1 Each Tablet, 1 TAB PO DAILY, (Reported) Discontinued Reason: Prescription changed Entered as Reported by: MARTHA LOERA on 12/7/18 1009 Pantoprazole Sodium (Protonix) 40 Mg Tablet.dr, 40 MG PO DAILY Discontinued Reason: No Longer Taking Prescribed by: LIANE CLEMONS on 03/08/20 1127 Last Action: Discontinued Sitagliptin Phosphate (Januvia) 100 Mg Tablet, 100 MG PO DAILY, (Reported) Discontinued Reason: No Longer Taking Entered as Reported by: MARTHA LOERA on 03/20/18 1009 Last Action: Discontinued Sucralfate (Sucralfate) 1 Gm Tablet, 1 GM PO DAILY, (Reported) Discontinued Reason: No Longer Taking Entered as Reported by: MARTHA LOERA on 03/20/18 100 Last Action: Discontinued [Glutathione] , 3 CAP PO DAILY, (Reported) Discontinued Reason: No Longer Taking Entered as Reported by: MARTHA LOERA on 03/20/18 1019 Last Action: Discontinued Physical Exam-Cardiology Physical Exam Vital Signs/I&O 05/22/22 05/22/22 05/22/22 05/22/22 06:00 07:00 07:18 07:40 Pulse 81 90 Resp 15 18 B/P (MAP) 173/95 (130) 186/102 (130) Pulse Ox 92 92 92 O2 Delivery OxyMask OxyMask OxyMask OxyMask O2 Flow Rate 10.00 10.00 10.00 11.00 05/22/22 05/22/22 05/22/22 05/22/22 07:48 07:57 07:57 08:00 Temp 37.4 Pulse 81 88 89 Resp 19 B/P (MAP) 173/95 Pulse Ox 100 O2 Flow Rate 100.00 05/22/22 05/22/22 05/22/22 05/22/22 08:00 08:00 08:10 09:00 Pulse 87 81 81 Resp 20 17 17 B/P (MAP) 162/86 (111) 143/80 (101) 143/80 (101) Pulse Ox 93 99 93 93 O2 Delivery NIV Bilevel OxyMask NIV Bilevel NIV Bilevel O2 Flow Rate 11.00 50.00 50.00 FiO2 50 05/22/22 05/22/22 05/22/22 05/22/22 10:00 10:42 11:00 11:48 Pulse 72 88 75 75 Resp 18 19 16 B/P (MAP) 154/86 (108) 168/96 (120) 168/96 Pulse Ox 93 100 96 O2 Delivery NIV Bilevel NIV Bilevel O2 Flow Rate 50.00 50.00 50.00 05/22/22 05/22/22 05/22/22 05/22/22 12:00 12:00 12:00 12:43 Temp 36.3 Pulse 77 77 Resp 16 B/P (MAP) 171/87 (115) Pulse Ox 93 95 O2 Delivery NIV Bilevel NIV Bilevel O2 Flow Rate 50.00 FiO2 50 05/22/22 05/22/22 05/22/22 05/22/22 13:00 14:00 15:00 15:05 Pulse 89 82 75 76 Resp 18 17 16 16 B/P (MAP) 144/119 (127) 162/90 (114) 160/83 (108) Pulse Ox 95 93 94 93 O2 Delivery NIV Bilevel NIV Bilevel NIV Bilevel O2 Flow Rate 50.00 50.00 50.00 50.00 05/22/22 05/22/22 05/22/22 05/22/22 15:59 16:00 17:00 17:00 Temp 36.8 Pulse 76 74 Resp 13 17 B/P (MAP) 167/83 (111) 167/86 (113) Pulse Ox 93 96 94 O2 Delivery NIV Bilevel NIV Bilevel NIV Bilevel O2 Flow Rate 50.00 50.00 FiO2 50 05/22/22 00:00 Intake Total 200 ml Balance 200 ml Capillary Refill : Constitutional: other (currently sedated and on the Bi-pap) Neck: No carotid bruit; carotid pulses are 2 + bilaterally Respiratory: No accessory muscle use, No respiratory distress; chest expansion is symmetric, chest is bilaterally symmetric, rhonchi (scattered), other (fair air entry - currently on Bi-pap) Cardiovascular: regular rate-rhythm; No JVD; S1 and S2 Gastrointestinal: soft, audible bowel sounds Extremities: no lower extremity edema bilateral Neurologic/Psychiatric: other (unable to cooperate with neuro exam d/t sedatio) Skin: No rash on exposed areas, No ulcerations on exposed areas Data Review Labs Laboratory Tests 05/21/22 19:05: White Blood Count 15.4H, Red Blood Count 4.32, Hemoglobin 11.7L, Hematocrit 37L, Mean Corpuscular Volume 86, Mean Corpuscular Hemoglobin 27, Mean Corpuscular Hemoglobin Concent 32, Red Cell Distribution Width 15.7H, Platelet Count 332, Mean Platelet Volume 9.3, Immature Granulocyte % (Auto) 1, Neutrophils (%) (Auto) 72, Lymphocytes (%) (Auto) 14, Monocytes (%) (Auto) 11, Eosinophils (%) (Auto) 2, Basophils (%) (Auto) 1, Neutrophils # (Auto) 11.1H, Lymphocytes # (Auto) 2.2, Monocytes # (Auto) 1.7H, Eosinophils # (Auto) 0.3, Basophils # (Auto) 0.1, Immature Granulocyte # (Auto) 0.1, Neutrophils % (Manual) 79, Lymphocytes % (Manual) 9, Monocytes % (Manual) 10, Eosinophils % (Manual) 2, Hypochromasia SLIGHT, Anisocytosis SLIGHT, Prothrombin Time 13.9, INR Comment 1.0, D-Dimer 3.16H, Sodium Level 142, Potassium Level 3.1L, Chloride Level 106, Carbon Dioxide Level 25, Anion Gap 11, Blood Urea Nitrogen 9, Creatinine 0.80, Estimat Glomerular Filtration Rate 97, BUN/Creatinine Ratio 11, Glucose Level 101, Lactic Acid Level 1.56, Calcium Level 9.0, Corrected Calcium 9.1, Total Bilirubin 0.5, Aspartate Amino Transf (AST/SGOT) 16, Alanine Aminotransferase (ALT/SGPT) 24, Alkaline Phosphatase 40, Troponin I < 0.028, B-Type Natriuretic Peptide 75.4, Total Protein 7.2, Albumin 3.9 05/21/22 19:38: Blood Gas Puncture Site L RAD, Blood Gas Patient Temperature 37.1, Arterial Blood pH 7.42, Arterial Blood Partial Pressure CO2 45, Arterial Blood Partial Pressure O2 55L, Arterial Blood HCO3 29H, Arterial Blood Total CO2 29.9, Arterial Blood Oxygen Saturation 90L, Arterial Blood Base Excess 4.3H, Castro Test YES-POS, Blood Gas Ventilator Setting NO, Blood Gas Inspired Oxygen 6L 05/21/22 21:04: Glucometer 131H 05/22/22 04:28: White Blood Count 16.7H, Red Blood Count 4.39, Hemoglobin 11.9L, Hematocrit 39L, Mean Corpuscular Volume 88, Mean Corpuscular Hemoglobin 27, Mean Corpuscular Hemoglobin Concent 31L, Red Cell Distribution Width 15.2H, Platelet Count 254, Mean Platelet Volume 10.8, Immature Granulocyte % (Auto) 1, Neutrophils (%) (Auto) 91H, Lymphocytes (%) (Auto) 5L, Monocytes (%) (Auto) 2, Eosinophils (%) (Auto) 1, Basophils (%) (Auto) 1, Neutrophils # (Auto) 15.2H, Lymphocytes # (Auto) 0.9L, Monocytes # (Auto) 0.3, Eosinophils # (Auto) 0.1, Basophils # (Auto) 0.1, Immature Granulocyte # (Auto) 0.2H, Sodium Level 141, Potassium Level 3.8, Chloride Level 105, Carbon Dioxide Level 24, Anion Gap 12, Blood Urea Nitrogen 8, Creatinine 0.77, Estimat Glomerular Filtration Rate 98, BUN/Creatinine Ratio 10, Glucose Level 189H, Calcium Level 8.6, Corrected Calcium 8.8, Total Bilirubin 0.4, Aspartate Amino Transf (AST/SGOT) 19, Alanine Aminotransferase (ALT/SGPT) 20, Alkaline Phosphatase 43, Total Protein 7.2, Albumin 3.8, Percent Immature Platelet Fraction 4.1, Phosphorus Level 3.5, Magnesium Level 1.7 05/22/22 10:14: Glucometer 234H 05/22/22 15:50: Glucometer 162H Microbiology 05/21/22 Blood Culture - Preliminary, Resulted No growth 05/21/22 MRSA Screen - Final, Complete MRSA not isolated A/P-Cardiology Assessment/Admission Diagnosis Progressive dyspnea probably due to ac on ch exac of COPD due to pneumonia - Echocardiogram of 05-22-22: Mild concentric hypertrophy. Estimated ejection fraction is 60-65%. There were no regional wall motion abnormalities identified. A small to moderate pericardial effusion is identified circumferential to the heart, without evidence of hemodynamic significance Acute on chronic exacerbation of COPD - management per Medical services Pneumonia - management per medical services Pericardial effusion seen on CT of the chest on 05-21-22 - see subsequent echo report above HTN - uncontrolled DM 2 GERD Discussion and Recomendations * Treat pnemonia and ac exac of COPD (Med Svce * Monitor pericar eff * Restart home meds for hypertension * Monitor labs * I spoke with him and his fam regarding CV issues Clinical Quality Measures DVT/VTE Risk/Contraindication: Contraindications-Mechi: Other *list below* Other: poss dvt ELLIOT SMITH MD FACP [facility] CCDS May 22, 2022 17:27
[2022-05-22 18:58] VITALS: BP 172/87
[2022-05-22 22:28] VITALS: BP 181/91
[2022-05-23] MEDS: methylPREDNISolone 40 MG/ML (Solu-MEDROL) VIAL IV SCH ×5 (00:25→23:25)
[2022-05-23 02:40] VITALS: BP 174/91
[2022-05-23] MEDS: RT-IPRATROPIUM (ATROVENT) 0.5MG/2.5ML AMP IH SCH ×5 (02:40→22:55)
[2022-05-23] MEDS: RT-ALBUTEROL SULF 2.5 MG/3 ML PRE-MIX VIAL INH SCH ×5 (02:40→22:54)
[2022-05-23] MEDS: CEFEPIME INJECTION 1,000 MG in NS (IVPB) 50 ML IV SCH ×4 (03:59→21:02)
[2022-05-23] MEDS: DexMEDEtomidine 250 ML DRIP 250 ML IV SCH ×3 (05:14→20:21)
[2022-05-23] MEDS: KCL 20 MEQ TAB (K-DUR) PO SCH (05:34)
[2022-05-23] MEDS: MAGNESIUM 1 GM/100 ML IVPB 100 ML IV SCH (05:34)
[2022-05-23] MEDS: POTASSIUM CL 10MEQ/50ML IVPB 50 ML IV SCH (05:34)
[2022-05-23] MEDS: inSUlin ASPART (NovoLOG) 1 UNIT/0.01 ML (CHARGE PER UNIT) SC SCH ×4 (06:21→21:06)
[2022-05-23 08:20] LABS: BASOPHILS % (AUTO) 0 % (0-10); EOSINOPHILS % (AUTO) 0 % (0-10); HEMATOCRIT 37 % (40-54); HEMOGLOBIN 11.6 g/dL (13.3-17.7); LYMPHOCYTES # (AUTO) 1.1 10^3/uL (1.0-4.0); LYMPHOCYTES % (AUTO) 7 % (12-44); MEAN CORPUSCULAR HEMOGLOBIN 27 pg (25-34); MEAN CORPUSCULAR HGB CONC 32 g/dL (32-36); MEAN CORPUSCULAR VOLUME 85 fL (80-99); MEAN PLATELET VOLUME 9.8 fL (9.0-12.2); MONOCYTES # (AUTO) 1.1 10^3/uL (0.0-1.0); MONOCYTES % (AUTO) 7 % (0-12); NEUTROPHILS # (AUTO) 12.2 10^3/uL (1.8-7.8); NEUTROPHILS % (AUTO) 84 % (42-75); PLATELET COUNT 292 10^3/uL (130-400); WHITE BLOOD COUNT 14.4 10^3/uL (4.3-11.0)
--- NOTE | 2022-05-23 08:42 | Diagnostic Imaging Report ---
Indication: Shortness of breath Portable chest 5:18 AM There is cardiomegaly. Pulmonary vascularity is normal. Lungs are clear. IMPRESSION: Cardiomegaly without evidence of pulmonary venous hypertension. There is improved vascular congestion compared to previous day. Dictated by: Dictated on workstation # [id number]
[2022-05-23 08:51] LABS: ALBUMIN 3.5 GM/DL (3.2-4.5)
[2022-05-23 08:52] LABS: CALCIUM 8.6 MG/DL (8.5-10.1)
[2022-05-23 08:54] LABS: TOTAL PROTEIN 6.7 GM/DL (6.4-8.2)
[2022-05-23] MEDS: hydrALAZINE (APRESOLINE) 25 MG TAB PO SCH ×2 (08:54→17:47)
[2022-05-23] MEDS: ENOXAPARIN 40 MG/0.4 ML (LOVENOX) SYR SC SCH (08:54)
[2022-05-23] MEDS: DOCUSATE SODIUM 100 MG (COLACE) CAP PO SCH ×2 (08:54→21:05)
[2022-05-23] MEDS: SENNOSIDES 8.6 MG (SENOKOT) TAB PO SCH ×2 (08:54→21:06)
[2022-05-23 08:55] LABS: BILIRUBIN,TOTAL 0.4 MG/DL (0.1-1.0)
[2022-05-23 08:57] LABS: CREATININE SERUM 0.92 MG/DL (0.60-1.30); PHOSPHORUS 3.1 MG/DL (2.3-4.7)
[2022-05-23 09:01] LABS: MAGNESIUM 2.3 MG/DL (1.6-2.4)
[2022-05-23] MEDS: LORazepam 0.5 MG (ATIVAN) TABLET PO PRN ×2 (09:02→14:26)
--- NOTE | 2022-05-23 10:19 | Progress Note - Cardiology ---
Cardiology SOAP Progress Note Subjective: Off Bi-pap this morning Very anxious and SOB No c/o CP Objective: I&O/Vital Signs 05/23/22 05/23/22 05/23/22 05/24/22 22:55 23:00 23:59 00:00 Pulse 56 60 60 Resp 23 28 20 B/P (MAP) 143/81 (101) 151/83 (105) Pulse Ox 98 98 98 98 O2 Delivery NIV Bilevel NIV Bilevel NIV Bilevel O2 Flow Rate 40.00 40.00 40.00 FiO2 40 05/24/22 05/24/22 05/24/22 05/24/22 00:00 00:21 01:00 01:00 Temp 36.4 Pulse 60 59 61 Resp 19 B/P (MAP) 151/83 165/89 (114) Pulse Ox 98 O2 Delivery NIV Bilevel O2 Flow Rate 40.00 05/24/22 05/24/22 05/24/22 05/24/22 02:00 02:36 02:44 03:00 Pulse 59 58 58 61 Resp 19 17 20 B/P (MAP) 169/86 (113) 172/89 165/88 (113) Pulse Ox 98 98 97 O2 Delivery NIV Bilevel NIV Bilevel O2 Flow Rate 40.00 40.00 40.00 05/24/22 05/24/22 05/24/22 05/24/22 04:00 04:00 04:00 05:00 Temp 36.6 Pulse 62 73 Resp 24 24 B/P (MAP) 167/89 (115) 178/95 (122) Pulse Ox 99 98 98 O2 Delivery NIV Bilevel NIV Bilevel NIV Bilevel O2 Flow Rate 40.00 40.00 FiO2 40 05/24/22 05/24/22 05/24/22 05/24/22 06:00 07:00 07:00 07:00 Pulse 65 75 70 77 B/P (MAP) 172/93 (119) 166/91 (139) 166/91 Pulse Ox 99 96 O2 Delivery NIV Bilevel NIV Bilevel O2 Flow Rate 40.00 30.00 05/24/22 05/24/22 05/24/22 05/24/22 07:04 07:30 07:30 08:00 Temp 36.8 36.0 Pulse 70 74 Resp 23 16 B/P (MAP) 157/86 (117) Pulse Ox 98 97 O2 Delivery NIV Bilevel O2 Flow Rate 30.00 30.00 05/24/22 05/24/22 09:00 10:00 Pulse 69 77 Resp 17 21 B/P (MAP) 166/82 (115) 148/77 (105) Pulse Ox 97 96 O2 Delivery NIV Bilevel NIV Bilevel O2 Flow Rate 30.00 30.00 05/24/22 00:00 Intake Total 1145 ml Output Total 850 ml Balance 295 ml Weight (Pounds): 226 Weight (Ounces): 1.0 Weight (Calculated Kilograms): [id number] Constitutional: other (currently sedated and on the Bi-pap) Respiratory: accessory muscle use, respiratory distress, chest expansion is symmetric, chest is bilaterally symmetric, rhonchi (scattered), other (fair air entry - currently on Bi-pap) Cardiovascular: regular rate-rhythm; No JVD; S1 and S2 Gastrointestional: soft, audible bowel sounds Extremities: no lower extremity edema bilateral Neurologic/Psychiatric: other (unable to cooperate with neuro exam d/t sedatio) Skin: No rash on exposed areas, No ulcerations on exposed areas Results/Procedures: Labs Laboratory Tests 05/23/22 12:11: Glucometer 265H 05/23/22 15:44: Glucometer 256H 05/23/22 20:26: Glucometer 222H 05/24/22 03:07: Blood Gas Puncture Site LT RAD, Blood Gas Patient Temperature 36.8, Arterial Blood pH 7.40, Arterial Blood Partial Pressure CO2 40, Arterial Blood Partial Pressure O2 68L, Arterial Blood HCO3 24, Arterial Blood Total CO2 25.2, Arterial Blood Oxygen Saturation 94, Arterial Blood Base Excess -0.3, Castro Test YES-POS, Blood Gas Ventilator Setting NO, Blood Gas Inspired Oxygen 65% 05/24/22 04:15: White Blood Count 17.2H, Red Blood Count 4.46, Hemoglobin 11.9L, Hematocrit 38L, Mean Corpuscular Volume 85, Mean Corpuscular Hemoglobin 27, Mean Corpuscular Hemoglobin Concent 32, Red Cell Distribution Width 15.3H, Platelet Count 293, Mean Platelet Volume 10.3, Immature Granulocyte % (Auto) 1, Neutrophils (%) (Auto) 88H, Lymphocytes (%) (Auto) 6L, Monocytes (%) (Auto) 5, Eosinophils (%) (Auto) 0, Basophils (%) (Auto) 0, Neutrophils # (Auto) 15.1H, Lymphocytes # (Auto) 1.1, Monocytes # (Auto) 0.9, Eosinophils # (Auto) 0.0, Basophils # (Auto) 0.0, Immature Granulocyte # (Auto) 0.1, Sodium Level 137, Potassium Level 4.0, Chloride Level 106, Carbon Dioxide Level 19L, Anion Gap 12, Blood Urea Nitrogen 32H, Creatinine 0.84, Estimat Glomerular Filtration Rate 96, BUN/Creatinine Ratio 38, Glucose Level 204H, Calcium Level 9.0, Corrected Calcium 9.5, Phosphorus Level 3.5, Magnesium Level 2.1, Total Bilirubin 0.5, Aspartate Amino Transf (AST/SGOT) 19, Alanine Aminotransferase (ALT/SGPT) 18, Alkaline Phosphatase 40, Total Protein 6.4, Albumin 3.4 Microbiology 05/21/22 Blood Culture - Preliminary, Resulted No growth 05/21/22 MRSA Screen - Final, Complete MRSA not isolated Procedures NAME: [facility] REC#: [id number] PT STATUS: ADM IN : 1955 PHYSICIAN: ASHLYN HALL DO ADMIT DATE: 05/21/22/ICU Signed Date of Exam:05/23/22 CHEST 1 VIEW, AP/PA ONLY Indication: Shortness of breath Portable chest 5:18 AM There is cardiomegaly. Pulmonary vascularity is normal. Lungs are clear. IMPRESSION: Cardiomegaly without evidence of pulmonary venous hypertension. There is improved vascular congestion compared to previous day. Dictated by: Dictated on workstation # [id number] Dict: 05/23/22824 Trans: 05/23/22918 [facility] [id number] Interpreted by: ROLA TYLER MD Electronically signed by: ROLA TYLER MD 05/23/22918 A/P: Assessment: Progressive dyspnea probably due to ac on ch exac of COPD due to pneumonia - Echocardiogram of 05-22-22: Mild concentric hypertrophy. Estimated ejection fraction is 60-65%. There were no regional wall motion abnormalities identified. A small to moderate pericardial effusion is identified circumferential to the heart, without evidence of hemodynamic significance Acute on chronic exacerbation of COPD - management per Medical services Pneumonia - management per medical services Pericardial effusion seen on CT of the chest on 05-21-22 - see subsequent echo report above HTN - uncontrolled DM 2 GERD Plan: * Treat pnemonia and ac exac of COPD (Med Svce * Monitor pericar eff * BP not well controlled - restart home regimen * Sinus tachycardia - likely d/t resp distress * Monitor labs * I spoke with him and his fam regarding CV issues * Lovenox for DVT prophylaxis KEVIN GONZALEZ May 23, 2022 10:19
[2022-05-23] MEDS: LORazepam INJ 2 MG/ML (ATIVAN) VIAL IVP PRN ×2 (10:20→10:39)
--- NOTE | 2022-05-23 10:27 | Tele-ICU Progress Note ---
Subjective Date Seen by a Provider: May 23, 2022 Time Seen by a Provider: 10:26 Subjective/Events-last exam (Tele-ICU Physician , Progress Note ) Service provided via interactive audio and video telecommunications E-CARE system to a patient admitted to ICU bed in [facility]. Patient is seen today due to persistent need of ICU care Available chart/ vitals / labs / Images reviewed Video assessment done using teleICU camera, rest of exam as per RN Discussed with RN Events overnight : Afebrile hemodynamically stable Respiratory - I/O = Drips: Pressors- no Consultants: Hospital course: 05/21- 66y M Direct from Interior for Acute on Chronic Resp failure,COPD, hypoxemia,LE edema. Elevated Ddimer-CTA chest r/o PE(-) A/P Progressive dyspnea probably due to ac on ch exac of COPD due to pneumonia - ECHO 05-22-22: Mild concentric hypertrophy. Estimated ejection fraction is 60- 65%. There were no regional wall motion abnormalities identified. A small to moderate pericardial effusion is identified circumferential to the heart, without evidence of hemodynamic significance Acute on chronic resp failure - with AECOPD, infection , possible VO ( CTA 05/21 and US LE 05/22 neg for tromboembolic dz ) - Neddsa BIPAP 29/11 50 % - try to wean off Acute exacerbation of COPD ( moderate emphysematous changes on CT, ( baseline on O2 ) - cont IV steroidsm, nebs Pneumonia? - post covid ? , CT chest with chronic changes - small infitrates vs atelecvtasis , - management per medical services Pericardial effusion seen on CT of the chest on 05-21-22 -not consern by ECHO HTN - as per cards DM 2 - ISS Anxiety -on precedex 0.8 + ativan prn Lines : , (Central Line Necessity Reviewed) Landeros: OG: Nutrition: po Analgesia: Anxiety/ delirium VTE Prophylaxis: wil 40 Stress Ulcer Prophylaxis: Plans in collaboration with bedside consultants and IM MDs. Discussed with RN to reach out if any questions or concerns A total of 32 minutes of critical care time was devoted to this patient today, required to treat and/or prevent further deterioration of critical care condition ( as above ) . I am remotely monitoring this patient from another state. I am unable to do the bedside exam, and history/physical and pertinent information is taken from other notes in the computer and bedside staff. Sepsis Event Evaluation Height, Weight, BMI Height: 5'3.00" Weight: 226lbs. 1.0oz. 107.892934nj; 34.58 BMI Method:Stated Focused Exam Lactate Level 05/21/22 19:05: Lactic Acid Level 1.56 Exam Exam Patient acknowledged, consented, and participated in this virtual visit which was conducted using real time audio/video Vital Signs Date Time Temp Pulse Resp B/P (MAP) Pulse Ox O2 Delivery O2 Flow Rate FiO2 05/23/22 09:22 OxyMask 6.00 05/23/22 09:22 37.1 05/23/22 09:00 76 15 186/140 (155) 97 NIV Bilevel 50.00 05/23/22 08:00 68 15 186/91 (122) 97 NIV Bilevel 50.00 05/23/22 07:04 70 16 97 40.00 05/23/22 07:00 70 05/23/22 07:00 70 27 178/78 (111) 97 NIV Bilevel 50.00 05/23/22 06:59 71 18 97 50.00 05/23/22 06:00 70 17 158/127 (137) 97 NIV Bilevel 50.00 05/23/22 05:14 71 173/88 05/23/22 05:00 71 21 97 NIV Bilevel 50.00 05/23/22 04:00 67 19 178/93 (121) 96 NIV Bilevel 50.00 05/23/22 04:00 97 NIV Bilevel 50 05/23/22 03:00 71 20 173/88 (116) 96 NIV Bilevel 50.00 05/23/22 02:40 65 21 95 50.00 05/23/22 02:00 65 15 174/91 (118) 95 NIV Bilevel 50.00 05/23/22 01:00 67 30 170/90 (116) 95 NIV Bilevel 50.00 05/23/22 01:00 70 05/23/22 00:00 67 17 173/89 (117) 95 NIV Bilevel 50.00 05/22/22 23:59 96 NIV Bilevel 50 05/22/22 23:00 68 18 169/88 (115) 95 NIV Bilevel 50.00 05/22/22 22:28 67 17 95 50.00 05/22/22 22:00 67 23 181/91 (121) 95 NIV Bilevel 50.00 05/22/22 21:00 68 16 171/86 (114) 94 NIV Bilevel 50.00 05/22/22 20:04 36.6 69 20 172/87 (115) 94 NIV Bilevel 50.00 05/22/22 20:00 93 NIV Bilevel 50 05/22/22 19:00 70 05/22/22 19:00 66 17 170/98 (122) 94 NIV Bilevel 50.00 05/22/22 18:58 65 22 94 50.00 05/22/22 18:00 67 17 172/87 (115) 95 NIV Bilevel 50.00 05/22/22 17:00 36.8 05/22/22 17:00 74 17 167/86 (113) 94 NIV Bilevel 50.00 05/22/22 16:00 76 13 167/83 (111) 96 NIV Bilevel 50.00 05/22/22 15:59 93 NIV Bilevel 50 05/22/22 15:05 76 16 93 50.00 05/22/22 15:00 75 16 160/83 (108) 94 NIV Bilevel 50.00 05/22/22 14:00 82 17 162/90 (114) 93 NIV Bilevel 50.00 05/22/22 13:00 89 18 144/119 (127) 95 NIV Bilevel 50.00 05/22/22 12:43 77 05/22/22 12:00 77 16 171/87 (115) 95 NIV Bilevel 50.00 05/22/22 12:00 93 NIV Bilevel 50 05/22/22 12:00 36.3 05/22/22 11:48 75 168/96 05/22/22 11:00 75 16 168/96 (120) 96 NIV Bilevel 50.00 05/22/22 10:42 88 19 100 50.00 I & O 05/23/22 07:00 Intake Total 2400 ml Output Total 1075 ml Balance 1325 ml Height & Weight Height: 5'3.00" Weight: 226lbs. 1.0oz. 107.958333vp; 34.58 BMI Method:Stated General Appearance: WD/WN, Chronically ill, Obese HEENT: PERRL/EOMI, Normal ENT Inspection, Pharynx Normal Neck: Full Range of Motion, Normal Inspection, Non Tender, Supple, Carotid Bruit Respiratory: Chest Non Tender, Lungs Clear, No Accessory Muscle Use, No Respiratory Distress, Decreased Breath Sounds, Other (wearing BiPAP) Cardiovascular: Regular Rate, Rhythm, No Edema, No Gallop, No JVD, No Murmur, Normal Peripheral Pulses Capillary Refill: Less Than 3 Seconds Gastrointestinal: normal bowel sounds, non tender, soft Extremity: Normal Capillary Refill, Normal Inspection, Normal Range of Motion, Non Tender, No Calf Tenderness, No Pedal Edema Neurologic/Psychiatric: Alert, Oriented x3, No Motor/Sensory Deficits, Normal Mood/Affect Skin: Normal Color, Warm/Dry Lymphatic: No Adenopathy Results Lab Laboratory Tests 05/21/22 19:05 05/22/22 04:28 05/23/22 08:11 Assessment/Plan Assessment/Plan 1 ZAC DIAZ MD May 23, 2022 10:27
[2022-05-23] MEDS ORDERED: amLODIPine 10 MG (NORVASC) TAB PO NR (10:30)
[2022-05-23] MEDS ORDERED: LORazepam INJ 2 MG/ML (ATIVAN) VIAL ONE (10:43)
[2022-05-23] MEDS ORDERED: methylPREDNISolone 125 MG (Solu-MEDROL) VIAL ONE (10:43)
[2022-05-23] MEDS ORDERED: MIDAZOLAM 5 MG/5 ML (VERSED) VIAL ONE (10:43)
[2022-05-23] MEDS ORDERED: methylPREDNISolone 125 MG (Solu-MEDROL) VIAL IM ONE (10:45)
[2022-05-23] MEDS ORDERED: MIDAZOLAM 5 MG/5 ML (VERSED) VIAL IVP ONE (11:00)
[2022-05-23] MEDS ORDERED: MIDAZOLAM 10 MG/2 ML (VERSED) VIAL IM NR (11:00)
[2022-05-23] MEDS ORDERED: LORazepam INJ 2 MG/ML (ATIVAN) VIAL IVP NR (11:00)
[2022-05-23] MEDS ORDERED: LOSARTAN 25 MG (COZAAR) TAB PO NR (11:00)
[2022-05-23] MEDS ORDERED: methylPREDNISolone 125 MG (Solu-MEDROL) VIAL IVP ONE (11:15)
[2022-05-23] MEDS: NS IV 1000 ML 1,000 ML IV SCH (13:00)
--- NOTE | 2022-05-23 13:27 | Progress Note ---
SARBJIT NEUMANN 05/23/22 1327: Subjective Date Seen by a Provider: May 23, 2022 Time Seen by a Provider: 09:03 Subjective/Events-last exam Shirley Diaz is a 66 yo M with a pmh of severe COPD with oxygen dependence, smoking, DM, HTN, HLP, and depression. He is a patient of Dr. Hall who was d irectly admitted on 05/21 from clinic in [place] due to increasing dyspnea. This morning Shirley is alert and oriented. Received Ativan this morning. His is present in the room. He refused ABGs this morning. ECHO performed yesterday. During interview he is off of BiPAP and wearing an oxygen mask while sats are 92-94. He believes he is breathing fine like this but he plans to resume BiPAP soon. He denies pain or concerns at this time. Keys is in place. He is unsure of when he last had a bowel movement. Later, due to increasing anxiety, RN notes patient received Versed. Review of Systems HEENT: No Head Aches, No Visual Changes Pulmonary: Dyspnea, Cough Cardiovascular: No: Chest Pain, Palpitations Gastrointestinal: No: Nausea, Vomiting, Abdominal Pain Genitourinary: Other (keys in place) Neurological: Weakness Anxious Focused Exam Lactate Level 05/21/22 19:05: Lactic Acid Level 1.56 Objective Exam Last Set of Vital Signs Vital Signs Date Time Temp Pulse Resp B/P (MAP) Pulse Ox O2 Delivery O2 Flow Rate FiO2 05/23/22 12:43 76 05/23/22 12:00 27 156/81 (106) 94 OxyMask 6.00 05/23/22 09:22 37.1 05/23/22 04:00 50 Capillary Refill : Less Than 3 Seconds I&O Intake and Output 05/23/22 00:00 Intake Total 1900 ml Output Total 1850 ml Balance 50 ml Intake Oral 750 ml IV Total 1150 ml Output Urine Total 1850 ml General: Alert, Oriented X3, Cooperative, Mild Distress (on oxygen mask) HEENT: PERRLA, EOMI Neck: Supple Lungs: Other (decreased air movement / accessory muscle use) Heart: Regular Rate, Normal S1, Normal S2, No Murmurs Abdomen: Normal Bowel Sounds, Soft, No Tenderness Extremities: No Clubbing, Normal Pulses, No Tenderness/Swelling Results Lab Laboratory Tests 2/8/23 15:50: Glucometer 162H 05/22/22 21:43: Glucometer 195H 05/23/22 06:16: Glucometer 219H 05/23/22 08:11: White Blood Count 14.4H, Red Blood Count 4.28L, Hemoglobin 11.6L, Hematocrit 37L , Mean Corpuscular Volume 85, Mean Corpuscular Hemoglobin 27, Mean Corpuscular Hemoglobin Concent 32, Red Cell Distribution Width 15.4H, Platelet Count 292, Mean Platelet Volume 9.8, Immature Granulocyte % (Auto) 1, Neutrophils (%) (Auto) 84H, Lymphocytes (%) (Auto) 7L, Monocytes (%) (Auto) 7, Eosinophils (%) (Auto) 0, Basophils (%) (Auto) 0, Neutrophils # (Auto) 12.2H, Lymphocytes # (Auto) 1.1, Monocytes # (Auto) 1.1H, Eosinophils # (Auto) 0.0, Basophils # (Auto) 0.0, Immature Granulocyte # (Auto) 0.1, Sodium Level 137, Potassium Level 4.0, Chloride Level 105, Carbon Dioxide Level 24, Anion Gap 8, Blood Urea Ni trogen 26H, Creatinine 0.92, Estimat Glomerular Filtration Rate 91, BUN/Creatinine Ratio 28, Glucose Level 218H, Calcium Level 8.6, Corrected Calcium 9.0, Phosphorus Level 3.1, Magnesium Level 2.3, Total Bilirubin 0.4, Aspartate Amino Transf (AST/SGOT) 18, Alanine Aminotransferase (ALT/SGPT) 16, Alkaline Phosphatase 40, Total Protein 6.7, Albumin 3.5 05/23/22 12:11: Glucometer 265H Microbiology 05/21/22 Blood Culture - Preliminary, Resulted No growth 05/21/22 MRSA Screen - Final, Complete MRSA not isolated Radiology NAME: SHIRLEY DIAZ Pam [facility] REC#: [id number] PT STATUS: ADM IN : 1955 PHYSICIAN: NAZANIN HALL DO ADMIT DATE: 05/21/22/ICU Signed Date of Exam:05/23/22 CHEST 1 VIEW, AP/PA ONLY Indication: Shortness of breath Portable chest 5:18 AM There is cardiomegaly. Pulmonary vascularity is normal. Lungs are clear. IMPRESSION: Cardiomegaly without evidence of pulmonary venous hypertension. There is improved vascular congestion compared to previous day. Dictated by: Dictated on workstation # [id number] Dict: 05/23/22824 Trans: 05/23/22918 [facility] [id number] Interpreted by: ROLA TYLER MD Electronically signed by: ROLA TYLER MD 05/23/22918 Procedures Procedures Echocardiogram of 05-22-22: Mild concentric hypertrophy. Estimated ejection fraction is 60-65%. There were no regional wall motion abnormalities identified. A small to moderate pericardial effusion is identified circumferential to the heart, without evidence of hemodynamic significance Assessment/Plan Assessment/Plan Assess & Plan/Chief Complaint Assessment: Acute on chronic respiratory failure AECOPD Severe COPD O2 dependent at home Suspicion for PNA vs. bronchitis Recent COVID 3 weeks ago Lower extremity edema Elevated d-dimer ordered CT angiogram to r/o PE and dosed Lovenox 1mg/kg SQ Q 12 hours Smoker Panic attacks DM HTN HLP Depression Insomnia Anemia GERD Hypogonadism ED BPH B12 Malignant HTN Plan: Continue BiPAP Continue steroid IVF Abx - Azithromycin and Cefepime Lovenox - CTA and Venous doppler ruled out PE or DVT of lower extremities Anxiolytics - receiving Ativan and Versed Lower Extremity edema has much improved today B12 labs are pending DM - continue insulins Malignant HTN - start amlodipine, losartan Depression - start paroxetine, buproprion Clinical Quality Measures Admission Status Admission Dx Assessment: Acute on chronic respiratory failure AECOPD Severe COPD O2 dependent at home Suspicion for PNA vs. bronchitis Recent COVID 3 weeks ago Lower extremity edema Elevated d-dimer ordered CT angiogram to r/o PE and dosed Lovenox 1mg/kg SQ Q 12 hours Smoker Panic attacks DM HTN HLP Depression Insomnia Anemia GERD Hypogonadism ED BPH B12 Plan: Continue BiPAP IVF Abx - Azithromycin and Cefepime Lovenox Anxiolytics DVT/VTE Risk/Contraindication: Contraindications-Mechi: Other *list below* Other: poss dvt NAZANIN HALL DO 05/24/22 0514: Assessment/Plan Assessment/Plan Assess & Plan/Chief Complaint Updated in-depth in waiting room Supervisory-Addendum Brief Verification & Attestation Participated in pt care: history, MDM, physical Personally performed: exam, history, MDM, supervision of care Care discussed with: Medical Student Procedures: n/a Results interpretation: Verified all documentation Verification and Attestation of Medical Student E/M Service A medical student performed and documented this service in my presence. I reviewed and verified all information documented by the medical student and made modifications to such information, when appropriate. I personally performed the physical exam and medical decision making. Nazanin Hall, May 24, 2022,05:13 SARBJIT NEUMANN May 23, 2022 13:27 NAZANIN HALL DO May 24, 2022 05:14
[2022-05-23 14:34] VITALS: BP 167/88
--- NOTE | 2022-05-23 17:40 | Progress Note - Cardiology ---
Cardiology SOAP Progress Note Subjective: He had received anxiolytics prior to my exam, was sedated, on BiPAP and unable to meaningfully answer questions Objective: I&O/Vital Signs 05/23/22 05/23/22 05/23/22 05/23/22 06:00 06:59 07:00 07:00 Pulse 70 71 70 70 Resp 17 18 27 B/P (MAP) 158/127 (137) 178/78 (111) Pulse Ox 97 97 97 O2 Delivery NIV Bilevel NIV Bilevel O2 Flow Rate 50.00 50.00 50.00 05/23/22 05/23/22 05/23/22 05/23/22 07:04 08:00 08:00 09:00 Pulse 70 68 76 Resp 16 15 15 B/P (MAP) 186/91 (122) 186/140 (155) Pulse Ox 97 97 97 97 O2 Delivery NIV Bilevel NIV Bilevel NIV Bilevel O2 Flow Rate 40.00 50.00 50.00 FiO2 45 05/23/22 05/23/22 05/23/22 05/23/22 09:22 09:22 10:00 10:45 Temp 37.1 Pulse 79 Resp 20 B/P (MAP) 159/78 (105) Pulse Ox 93 O2 Delivery OxyMask OxyMask NIV Bilevel O2 Flow Rate 6.00 6.00 40.00 05/23/22 05/23/22 05/23/22 05/23/22 11:00 12:00 12:30 12:43 Pulse 84 76 76 Resp 26 27 B/P (MAP) 140/76 (97) 156/81 (106) Pulse Ox 98 94 96 O2 Delivery NIV Bilevel NIV Bilevel NIV Bilevel O2 Flow Rate 40.00 40.00 FiO2 40 05/23/22 05/23/22 05/23/22 05/23/22 13:00 14:00 14:34 14:58 Pulse 75 71 74 71 Resp 20 19 20 B/P (MAP) 176/91 (119) 171/94 (119) 167/88 Pulse Ox 94 96 96 O2 Delivery NIV Bilevel NIV Bilevel O2 Flow Rate 40.00 40.00 40.00 05/23/22 05/23/22 05/23/22 05/23/22 15:00 15:51 16:00 16:00 Temp 37.2 Pulse 72 70 Resp 19 23 B/P (MAP) 163/83 (109) 183/104 (130) Pulse Ox 97 96 95 O2 Delivery NIV Bilevel NIV Bilevel NIV Bilevel O2 Flow Rate 40.00 40.00 FiO2 40 05/23/22 17:00 Pulse 66 Resp 21 B/P (MAP) 177/88 (117) Pulse Ox 95 O2 Delivery NIV Bilevel O2 Flow Rate 40.00 05/23/22 00:00 Intake Total 1550 ml Output Total 375 ml Balance 1175 ml Weight (Pounds): 226 Weight (Ounces): 1.0 Weight (Calculated Kilograms): 107.155598 Constitutional: other (currently sedated and on the Bi-pap) Respiratory: accessory muscle use, respiratory distress, chest expansion is symmetric, chest is bilaterally symmetric, rhonchi (scattered), other (fair air entry - currently on Bi-pap) Cardiovascular: regular rate-rhythm; No JVD; S1 and S2 Gastrointestional: soft, audible bowel sounds Extremities: no lower extremity edema bilateral Neurologic/Psychiatric: other (unable to cooperate with neuro exam d/t sedatio) Skin: No rash on exposed areas, No ulcerations on exposed areas Results/Procedures: Labs Laboratory Tests 05/22/22 21:43: Glucometer 195H 05/23/22 06:16: Glucometer 219H 05/23/22 08:11: White Blood Count 14.4H, Red Blood Count 4.28L, Hemoglobin 11.6L, Hematocrit 37L , Mean Corpuscular Volume 85, Mean Corpuscular Hemoglobin 27, Mean Corpuscular Hemoglobin Concent 32, Red Cell Distribution Width 15.4H, Platelet Count 292, Mean Platelet Volume 9.8, Immature Granulocyte % (Auto) 1, Neutrophils (%) (Auto) 84H, Lymphocytes (%) (Auto) 7L, Monocytes (%) (Auto) 7, Eosinophils (%) (Auto) 0, Basophils (%) (Auto) 0, Neutrophils # (Auto) 12.2H, Lymphocytes # (Auto) 1.1, Monocytes # (Auto) 1.1H, Eosinophils # (Auto) 0.0, Basophils # (Auto) 0.0, Immature Granulocyte # (Auto) 0.1, Sodium Level 137, Potassium Level 4.0, Chloride Level 105, Carbon Dioxide Level 24, Anion Gap 8, Blood Urea Nitrogen 26H, Creatinine 0.92, Estimat Glomerular Filtration Rate 91, BUN/Creatinine Ratio 28, Glucose Level 218H, Calcium Level 8.6, Corrected Calcium 9.0, Phosphorus Level 3.1, Magnesium Level 2.3, Total Bilirubin 0.4, Aspartate Amino Transf (AST/SGOT) 18, Alanine Aminotransferase (ALT/SGPT) 16, Alkaline Phosphatase 40, Total Protein 6.7, Albumin 3.5 05/23/22 12:11: Glucometer 265H 05/23/22 15:44: Glucometer 256H Microbiology 05/21/22 Blood Culture - Preliminary, Resulted No growth 05/21/22 MRSA Screen - Final, Complete MRSA not isolated A/P: Assessment: Progressive dyspnea probably due to ac on ch exac of COPD due to pneumonia - Echocardiogram of 05-22-22: Mild concentric hypertrophy. Estimated ejection fraction is 60-65%. There were no regional wall motion abnormalities identified. A small to moderate pericardial effusion is identified circumferential to the heart, without evidence of hemodynamic significance Acute on chronic exacerbation of COPD - management per Medical services Pneumonia - management per medical services Pericardial effusion seen on CT of the chest on 05-21-22 - see subsequent echo report above HTN - uncontrolled DM 2 GERD Plan: * Treat pnemonia and ac exac of COPD (Med Svce * Monitor pericar eff * BP not well controlled - restart home regimen * Sinus tachycardia - likely d/t resp distress * Monitor labs * Lovenox for DVT prophylaxis ELLIOT SMITH MD FACP [facility] May 23, 2022 17:40
[2022-05-23] MEDS: metFORMIN 500 MG (GLUCOPHAGE) TAB PO SCH (17:46)
[2022-05-23] MEDS: FINASTERIDE (PROSCAR) 5 MG TAB PO SCH (17:46)
[2022-05-23] MEDS: CALCIUM CARB + VIT D 600 MG (CALCARB + D) TAB PO SCH (17:47)
[2022-05-23] MEDS ORDERED: NON-FORMULARY MEDICATION 1 EA EA (Calcium Carbonate/Vitamin D3 (Calcium 600 + Vit D 200 Ta PO SCH (18:00)
[2022-05-23] MEDS ORDERED: NON-FORMULARY MEDICATION 1 EA EA (Melatonin 10 MG) PO SCH (21:00)
[2022-05-23] MEDS ORDERED: DIPHENHYDRAMINE HCL PO SCH (21:00)
[2022-05-23] MEDS ORDERED: NON-FORMULARY MEDICATION 1 EA EA (Acetaminophen/Diphenhydramine (Tylenol Pm Ex-Strength Ca PO SCH (21:00)
[2022-05-23] MEDS ORDERED: amLODIPine 5 MG (NORVASC) TAB PO SCH (21:00)
[2022-05-23] MEDS ORDERED: NON-FORMULARY MEDICATION 1 EA EA (Budesonide/Formoterol Fumarate (Symbicort 160-4.5 Mcg In INH SCH (21:00)
[2022-05-23] MEDS ORDERED: NON-FORMULARY MEDICATION 1 EA EA (Prazosin HCl 1 MG) PO SCH (21:00)
[2022-05-23] MEDS: MELATONIN 10 MG TABLET PO SCH (21:04)
[2022-05-23] MEDS: diphenhydrAMINE 25 MG TAB (BENADRYL) PO SCH (21:05)
[2022-05-23] MEDS: traZODone 150 MG (DESYREL) TABLET PO SCH (21:05)
[2022-05-23] MEDS: ACETAMINOPHEN 500 MG TAB (TYLENOL) PO SCH (21:06)
[2022-05-23] MEDS: AZITHROMYCIN INJECTION 500 MG in NS (IVPB) 250 ML IV SCH (21:41)
[2022-05-23 22:55] VITALS: BP 138/78
[2022-05-23] MEDS: RT--FLUTICASONE/SALMETEROL 232-14 (AIRDUO RespiCLICK) IH SCH (22:55)
[2022-05-24 02:36] VITALS: BP 172/89
[2022-05-24] MEDS: RT-IPRATROPIUM (ATROVENT) 0.5MG/2.5ML AMP IH SCH ×6 (02:36→22:28)
[2022-05-24] MEDS: RT-ALBUTEROL SULF 2.5 MG/3 ML PRE-MIX VIAL INH SCH ×6 (02:36→22:28)
[2022-05-24] MEDS: CEFEPIME INJECTION 1,000 MG in NS (IVPB) 50 ML IV SCH ×4 (02:44→21:02)
[2022-05-24] MEDS: DexMEDEtomidine 250 ML DRIP 250 ML IV SCH ×3 (02:44→20:32)
[2022-05-24 03:12] LABS: ABG BASE EXCESS -0.3 MMOL/L (-2.5-2.5); ABG OXYGEN SATURATION 94 % (94-100); ABG PCO2 40 MMHG (35-45); ABG PO2 68 MMHG (79-93); ABG TCO2 25.2 MMOL/L (21.0-31.0); ALLENS TEST YES-POS
[2022-05-24 03:13] LABS: INSPIRED O2 65%; PATIENT TEMP 36.8; VENTILATOR NO
[2022-05-24 04:36] LABS: BASOPHILS % (AUTO) 0 % (0-10); EOSINOPHILS % (AUTO) 0 % (0-10); HEMATOCRIT 38 % (40-54); HEMOGLOBIN 11.9 g/dL (13.3-17.7); LYMPHOCYTES # (AUTO) 1.1 10^3/uL (1.0-4.0); LYMPHOCYTES % (AUTO) 6 % (12-44); MEAN CORPUSCULAR HEMOGLOBIN 27 pg (25-34); MEAN CORPUSCULAR HGB CONC 32 g/dL (32-36); MEAN CORPUSCULAR VOLUME 85 fL (80-99); MEAN PLATELET VOLUME 10.3 fL (9.0-12.2); MONOCYTES # (AUTO) 0.9 10^3/uL (0.0-1.0); MONOCYTES % (AUTO) 5 % (0-12); NEUTROPHILS # (AUTO) 15.1 10^3/uL (1.8-7.8); NEUTROPHILS % (AUTO) 88 % (42-75); PLATELET COUNT 293 10^3/uL (130-400); WHITE BLOOD COUNT 17.2 10^3/uL (4.3-11.0)
[2022-05-24 05:01] LABS: ALBUMIN 3.4 GM/DL (3.2-4.5)
[2022-05-24 05:04] LABS: TOTAL PROTEIN 6.4 GM/DL (6.4-8.2)
[2022-05-24 05:06] LABS: BILIRUBIN,TOTAL 0.5 MG/DL (0.1-1.0)
[2022-05-24 05:07] LABS: PHOSPHORUS 3.5 MG/DL (2.3-4.7)
[2022-05-24 05:08] LABS: CREATININE SERUM 0.84 MG/DL (0.60-1.30)
[2022-05-24 05:10] LABS: MAGNESIUM 2.1 MG/DL (1.6-2.4)
[2022-05-24] MEDS: KCL 20 MEQ TAB (K-DUR) PO SCH (05:48)
[2022-05-24] MEDS: POTASSIUM CL 10MEQ/50ML IVPB 50 ML IV SCH (05:48)
[2022-05-24] MEDS: MAGNESIUM 1 GM/100 ML IVPB 100 ML IV SCH ×3 (05:48→13:02)
[2022-05-24] MEDS: methylPREDNISolone 40 MG/ML (Solu-MEDROL) VIAL IV SCH ×4 (05:59→23:14)
[2022-05-24] MEDS: inSUlin ASPART (NovoLOG) 1 UNIT/0.01 ML (CHARGE PER UNIT) SC SCH ×4 (05:59→21:04)
[2022-05-24] MEDS: MULTIVIT W/MINERALS TAB (THERAGRAN M) PO SCH (06:00)
--- NOTE | 2022-05-24 06:08 | Diagnostic Imaging Report ---
Indication: Shortness of breath Portable chest 5:07 AM There is cardiomegaly. There is vascular congestion. There are some volume loss at both lung bases. Tiny effusions cannot be excluded. IMPRESSION: Cardiomegaly with pulmonary venous hypertension and questionable tiny effusions. No significant change compared to previous day. Dictated by: Dictated on workstation # [id number]
[2022-05-24 07:04] VITALS: BP 166/91
[2022-05-24] MEDS ORDERED: NON-FORMULARY MEDICATION 1 EA EA (Paroxetine HCl 40 MG) PO SCH (09:00)
[2022-05-24] MEDS ORDERED: NON-FORMULARY MEDICATION 1 EA EA (Bupropion HCl (Bupropion Xl) 150 MG) PO SCH (09:00)
[2022-05-24] MEDS ORDERED: [UNRECOGNIZED DRUG - OTHER] PO SCH (09:00)
[2022-05-24] MEDS ORDERED: NON-FORMULARY MEDICATION 1 EA EA (L.acidoph & Paracasei,B.lactis (Probiotic) 1 CAP) PO SCH (09:00)
[2022-05-24] MEDS ORDERED: NON-FORMULARY MEDICATION 1 EA EA (Olmesartan Medoxomil 40 MG) PO SCH (09:00)
[2022-05-24] MEDS ORDERED: LOSARTAN 25 MG (COZAAR) TAB PO SCH (09:00)
[2022-05-24] MEDS ORDERED: NON-FORMULARY MEDICATION 1 EA EA (Tolterodine Tartrate (Tolterodine Tartrate ER) 4 MG) PO SCH (09:00)
[2022-05-24] MEDS ORDERED: NON-FORMULARY MEDICATION 1 EA EA (Fenofibrate Nanocrystallized (Fenofibrate) 48 MG) PO SCH (09:00)
[2022-05-24] MEDS: DOCUSATE SODIUM 100 MG (COLACE) CAP PO SCH ×2 (09:12→21:02)
[2022-05-24] MEDS: metFORMIN 500 MG (GLUCOPHAGE) TAB PO SCH ×2 (09:12→17:53)
[2022-05-24] MEDS: TOLTERODINE LA 2 MG (DETROL LA) CAP PO SCH (09:12)
[2022-05-24] MEDS: CALCIUM CARB + VIT D 600 MG (CALCARB + D) TAB PO SCH ×2 (09:12→17:53)
[2022-05-24] MEDS: AtorvaSTATin TABLET 10 MG TABLET PO SCH (09:12)
[2022-05-24] MEDS: FENOFIBRATE, MICRO 67 MG (LOFIBRA) CAPSULE PO SCH (09:13)
[2022-05-24] MEDS: SENNOSIDES 8.6 MG (SENOKOT) TAB PO SCH ×2 (09:13→21:02)
[2022-05-24] MEDS: hydrALAZINE (APRESOLINE) 25 MG TAB PO SCH ×2 (09:13→17:53)
[2022-05-24] MEDS: amLODIPine 10 MG (NORVASC) TAB PO SCH (09:13)
[2022-05-24] MEDS: PARoxetine 20 MG (PAXIL) TAB PO SCH (09:13)
[2022-05-24] MEDS: buPROPion SR 150 MG (WELLBUTRIN SR) TAB PO SCH (09:13)
[2022-05-24] MEDS: ENOXAPARIN 40 MG/0.4 ML (LOVENOX) SYR SC SCH (09:14)
[2022-05-24] MEDS: LORATADINE (CLARITIN) 10 MG TAB PO SCH (09:14)
[2022-05-24] MEDS: LACTOBACILLUS ACIDOPHILUS (PROBIOTIC) CAPSULE PO SCH (09:14)
[2022-05-24] MEDS: PANTOPRAZOLE 20 MG TABLET (PROTONIX) PO SCH (09:14)
--- NOTE | 2022-05-24 10:13 | Tele-ICU Progress Note ---
Subjective Date Seen by a Provider: May 24, 2022 Time Seen by a Provider: 10:13 Subjective/Events-last exam (Tele-ICU Physician , Progress Note ) Service provided via interactive audio and video telecommunications E-CARE system to a patient admitted to ICU bed in [facility]. Patient is seen today due to persistent need of ICU care Available chart/ vitals / labs / Images reviewed Video assessment done using teleICU camera, rest of exam as per RN Discussed with RN Events overnight : Afebrile hemodynamically stable Respiratory - 30% I/O = Drips: 60 /h Pressors- no Consultants: Hospital course: 05/21- 66y M Direct from [place] for Acute on Chronic Resp failure,COPD, hypoxemia,LE edema. Elevated Ddimer-CTA chest r/o PE(-) 05/24 BIPAP 16/8 30 % rr20 [id number], precedex 1.5 A/P Progressive dyspnea probably due to ac on ch exac of COPD due to pneumonia - ECHO 05-22-22: Mild concentric hypertrophy. Estimated ejection fraction is 60- 65%. There were no regional wall motion abnormalities identified. A small to moderate pericardial effusion is identified circumferential to the heart, without evidence of hemodynamic significance Acute on chronic resp failure - with AECOPD, infection , possible VO ( CTA 05/21 and US LE 05/22 neg for tromboembolic dz ) - BIPAP /8 30 % rr20 [id number], precedex 1.5 - try to wean off to VT , assess if can swallow and eat - consider diuresis - follow closely Acute exacerbation of COPD ( moderate emphysematous changes on CT, ( baseline on O2 ) - cont IV steroids - ( extra 125mg 05/23) nebs Pneumonia? - post covid ? , CT chest with chronic changes - small infitrates vs atelecvtasis , - cont abx Pericardial effusion seen on CT of the chest on 05-21-22 -not consern by ECHO HTN - as per cards DM 2 - ISS - levemir Anxiety -on precedex 0.8 + ativan prn midline 05/24 Landeros: + OG: Nutrition: po if can Analgesia: Anxiety/ delirium VTE Prophylaxis: wil 40 Stress Ulcer Prophylaxis: ppi Plans in collaboration with bedside consultants and IM MDs. Discussed with RN to reach out if any questions or concerns A total of 32 minutes of critical care time was devoted to this patient today, required to treat and/or prevent further deterioration of critical care condition ( as above ) . I am remotely monitoring this patient from another state. I am unable to do the bedside exam, and history/physical and pertinent information is taken from other notes in the computer and bedside staff. Sepsis Event Evaluation Height, Weight, BMI Height: 5'3.00" Weight: 226lbs. 1.0oz. 107.177611oc; 34.58 BMI Method:Stated Focused Exam Lactate Level 05/21/22 19:05: Lactic Acid Level 1.56 Exam Exam Patient acknowledged, consented, and participated in this virtual visit which was conducted using real time audio/video Vital Signs Date Time Temp Pulse Resp B/P (MAP) Pulse Ox O2 Delivery O2 Flow Rate FiO2 05/24/22 09:00 69 17 166/82 (115) 97 NIV Bilevel 30.00 05/24/22 08:00 74 16 157/86 (117) 97 NIV Bilevel 30.00 05/24/22 07:30 36.0 05/24/22 07:30 36.8 05/24/22 07:04 70 23 98 30.00 05/24/22 07:00 77 05/24/22 07:00 70 166/91 05/24/22 07:00 75 166/91 (139) 96 NIV Bilevel 30.00 05/24/22 06:00 65 172/93 (119) 99 NIV Bilevel 40.00 05/24/22 05:00 73 24 178/95 (122) 98 NIV Bilevel 40.00 05/24/22 04:00 98 NIV Bilevel 40 05/24/22 04:00 62 24 167/89 (115) 99 NIV Bilevel 40.00 05/24/22 04:00 36.6 05/24/22 03:00 61 20 165/88 (113) 97 NIV Bilevel 40.00 05/24/22 02:44 58 172/89 05/24/22 02:36 58 17 98 40.00 05/24/22 02:00 59 19 169/86 (113) 98 NIV Bilevel 40.00 05/24/22 01:00 61 05/24/22 01:00 59 19 165/89 (114) 98 NIV Bilevel 40.00 05/24/22 00:21 60 151/83 05/24/22 00:00 36.4 05/24/22 00:00 60 20 151/83 (105) 98 NIV Bilevel 40.00 05/23/22 23:59 98 NIV Bilevel 40 05/23/22 23:00 60 28 143/81 (101) 98 NIV Bilevel 40.00 05/23/22 22:55 56 23 98 40.00 05/23/22 22:00 62 28 138/78 (98) 99 NIV Bilevel 40.00 05/23/22 21:00 76 18 163/85 (111) 97 NIV Bilevel 40.00 05/23/22 20:21 62 177/88 05/23/22 20:00 36.6 05/23/22 20:00 61 19 180/96 (124) 94 NIV Bilevel 40.00 05/23/22 20:00 94 NIV Bilevel 40 05/23/22 19:30 62 19 94 40.00 05/23/22 19:00 63 18 179/112 (134) 95 NIV Bilevel 40.00 05/23/22 19:00 62 05/23/22 18:00 64 21 97 NIV Bilevel 40.00 05/23/22 17:00 66 21 177/88 (117) 95 NIV Bilevel 40.00 05/23/22 16:00 37.2 05/23/22 16:00 70 23 183/104 (130) 95 NIV Bilevel 40.00 05/23/22 15:51 96 NIV Bilevel 40 05/23/22 15:00 72 19 163/83 (109) 97 NIV Bilevel 40.00 05/23/22 14:58 71 167/88 05/23/22 14:34 74 20 96 40.00 05/23/22 14:00 71 19 171/94 (119) 96 NIV Bilevel 40.00 05/23/22 13:00 75 20 176/91 (119) 94 NIV Bilevel 40.00 05/23/22 12:43 76 05/23/22 12:30 96 NIV Bilevel 40 05/23/22 12:00 76 27 156/81 (106) 94 NIV Bilevel 40.00 05/23/22 11:00 84 26 140/76 (97) 98 NIV Bilevel 40.00 05/23/22 10:45 NIV Bilevel 40.00 I & O 05/24/22 06:59 Intake Total 2335 ml Output Total 1750 ml Balance 585 ml Height & Weight Height: 5'3.00" Weight: 226lbs. 1.0oz. 107.016244im; 34.58 BMI Method:Stated General Appearance: WD/WN, Chronically ill, Obese HEENT: PERRL/EOMI, Normal ENT Inspection, Pharynx Normal Neck: Full Range of Motion, Normal Inspection, Non Tender, Supple, Carotid Bruit Respiratory: Chest Non Tender, Lungs Clear, No Accessory Muscle Use, No Respiratory Distress, Decreased Breath Sounds, Other (wearing BiPAP) Cardiovascular: Regular Rate, Rhythm, No Edema, No Gallop, No JVD, No Murmur, Normal Peripheral Pulses Capillary Refill: Less Than 3 Seconds Gastrointestinal: normal bowel sounds, non tender, soft Extremity: Normal Capillary Refill, Normal Inspection, Normal Range of Motion, Non Tender, No Calf Tenderness, No Pedal Edema Neurologic/Psychiatric: Alert, Oriented x3, No Motor/Sensory Deficits, Normal Mood/Affect Skin: Normal Color, Warm/Dry Lymphatic: No Adenopathy Results Lab Laboratory Tests 05/23/22 08:11 05/24/22 04:15 Assessment/Plan Assessment/Plan (Tele-ICU Physician , Progress Note ) Service provided via interactive audio and video telecommunications E-CARE system to a patient admitted to ICU bed in [facility]. Patient is seen today due to persistent need of ICU care Available chart/ vitals / labs / Images reviewed Video assessment done using teleICU camera, rest of exam as per RN Discussed with RN Events overnight : Afebrile hemodynamically stable Respiratory - 30% I/O = Drips: 60 /h Pressors- no Consultants: Hospital course: 2/7- 66y M Direct from [place] for Acute on Chronic Resp failure,COPD, hypoxemia,LE edema. Elevated Ddimer-CTA chest r/o PE(-) 05/24 BIPAP 27/11 30 % rr20 [id number], precedex 1.5 A/P Progressive dyspnea probably due to ac on ch exac of COPD due to pneumonia - ECHO 05-22-22: Mild concentric hypertrophy. Estimated ejection fraction is 60- 65%. There were no regional wall motion abnormalities identified. A small to moderate pericardial effusion is identified circumferential to the heart, without evidence of hemodynamic significance Acute on chronic resp failure - with AECOPD, infection , possible VO ( CTA 05/21 and US LE 05/22 neg for tromboembolic dz ) - BIPAP 27/11 30 % rr20 [id number], precedex 1.5 - try to wean off to VT , assess if can swallow and eat - consider diuresis - follow closely Acute exacerbation of COPD ( moderate emphysematous changes on CT, ( baseline on O2 ) - cont IV steroids - ( extra 125mg 05/23) nebs Pneumonia? - post covid ? , CT chest with chronic changes - small infitrates vs atelecvtasis , - cont abx Pericardial effusion seen on CT of the chest on 05-21-22 -not consern by ECHO HTN - as per cards DM 2 - ISS - levemir Anxiety -on precedex 0.8 + ativan prn midline 05/24 Landeros: + OG: Nutrition: po if can Analgesia: Anxiety/ delirium VTE Prophylaxis: wil 40 Stress Ulcer Prophylaxis: ppi Plans in collaboration with bedside consultants and IM MDs. Discussed with RN to reach out if any questions or concerns A total of 32 minutes of critical care time was devoted to this patient today, required to treat and/or prevent further deterioration of critical care condition ( as above ) . I am remotely monitoring this patient from another state. I am unable to do the bedside exam, and history/physical and pertinent information is taken from other notes in the computer and bedside staff. ZAC DIAZ MD May 24, 2022 10:13
[2022-05-24] MEDS: ALPRAZolam 0.5 MG (XANAX) TAB PO PRN ×2 (10:23→18:44)
--- NOTE | 2022-05-24 10:44 | Progress Note - Cardiology ---
Cardiology SOAP Progress Note Subjective: Bi-pap in place Anxious again this morning Continues to be SOB No c/o CP Objective: I&O/Vital Signs 05/26/22 05/26/22 05/26/22 05/26/22 21:00 22:00 22:27 23:00 Pulse 70 66 63 64 Resp 16 16 15 B/P (MAP) 153/79 (112) 153/78 (112) 156/85 156/85 (120) Pulse Ox 94 95 96 O2 Delivery NIV Bilevel NIV Bilevel NIV Bilevel O2 Flow Rate 40.00 40.00 40.00 05/26/22 05/26/22 05/26/22 05/26/22 23:07 23:11 23:13 23:39 Temp 36.6 Pulse 63 64 63 Resp 16 15 B/P (MAP) Pulse Ox 97 95 97 O2 Delivery NIV Bilevel O2 Flow Rate 40.00 30.00 30.00 FiO2 40 05/26/22 05/27/22 05/27/22 05/27/22 23:59 00:00 01:00 01:00 Pulse 62 61 61 Resp 15 18 B/P (MAP) 154/83 (118) 152/85 (115) Pulse Ox 96 94 95 O2 Delivery NIV Bilevel NIV Bilevel NIV Bilevel O2 Flow Rate 30.00 30.00 FiO2 40 05/27/22 05/27/22 05/27/22 05/27/22 01:05 02:00 02:00 03:00 Pulse 63 58 59 59 Resp 15 15 B/P (MAP) 156/85 153/82 153/82 (117) 155/85 (118) Pulse Ox 95 95 O2 Delivery NIV Bilevel NIV Bilevel O2 Flow Rate 30.00 30.00 05/27/22 05/27/22 05/27/22 05/27/22 03:21 04:00 04:00 05:00 Pulse 58 61 60 Resp 15 17 17 B/P (MAP) 147/81 (111) 156/85 (114) Pulse Ox 95 95 97 94 O2 Delivery NIV Bilevel NIV Bilevel NIV Bilevel O2 Flow Rate 30.00 30.00 30.00 FiO2 40 05/27/22 05/27/22 05/27/22 05/27/22 05:05 06:00 06:30 07:00 Pulse 58 60 59 61 Resp 15 15 B/P (MAP) 155/85 161/91 (126) 161/91 157/88 (111) Pulse Ox 95 95 O2 Delivery NIV Bilevel NIV Bilevel O2 Flow Rate 30.00 30.00 05/27/22 05/27/22 07:13 07:32 Pulse 61 60 Resp 19 Pulse Ox 95 O2 Flow Rate 30.00 05/27/22 00:00 Intake Total 1125 ml Output Total 775 ml Balance 350 ml Weight (Pounds): 226 Weight (Ounces): 1.0 Weight (Calculated Kilograms): 107.809438 Constitutional: other (currently sedated and on the Bi-pap) Respiratory: No accessory muscle use, No respiratory distress; chest expansion is symmetric, chest is bilaterally symmetric, rhonchi (scattered), other (fair air entry - currently on Bi-pap) Cardiovascular: regular rate-rhythm; No JVD; S1 and S2 Gastrointestional: soft, audible bowel sounds Extremities: no lower extremity edema bilateral Neurologic/Psychiatric: grossly intact (moves all extremities) Skin: No rash on exposed areas, No ulcerations on exposed areas Results/Procedures: Labs Laboratory Tests 05/26/22 10:43: Glucometer 215H 05/26/22 16:00: Glucometer 186H 05/26/22 21:30: Glucometer 226H 05/27/22 05:41: White Blood Count 14.7H, Red Blood Count 4.52, Hemoglobin 12.1L, Hematocrit 38L, Mean Corpuscular Volume 83, Mean Corpuscular Hemoglobin 27, Mean Corpuscular Hemoglobin Concent 32, Red Cell Distribution Width 14.9H, Platelet Count 290, Mean Platelet Volume 10.1, Immature Granulocyte % (Auto) 0, Neutrophils (%) (Auto) 88H, Lymphocytes (%) (Auto) 5L, Monocytes (%) (Auto) 6, Eosinophils (%) (Auto) 0, Basophils (%) (Auto) 0, Neutrophils # (Auto) 12.9H, Lymphocytes # (Auto) 0.7L, Monocytes # (Auto) 0.9, Eosinophils # (Auto) 0.0, Basophils # (Auto) 0.0, Immature Granulocyte # (Auto) 0.1, Neutrophils % (Manual) 89, Lymphocytes % (Manual) 2, Monocytes % (Manual) 9, Eosinophils % (Manual) 0, Basophils % (Manual) 0, Band Neutrophils 0, Anisocytosis SLIGHT, Sodium Level 137, Potassium Level 4.7, Chloride Level 106, Carbon Dioxide Level 22, Anion Gap 9, Blood Urea Nitrogen 36H, Creatinine 1.03, Estimat Glomerular Filtration Rate 80, BUN/Creatinine Ratio 35, Glucose Level 233H, Calcium Level 8.7, Corrected Calcium 9.5, Phosphorus Level 3.1, Magnesium Level 2.2, Total Bilirubin 0.4, Aspartate Amino Transf (AST/SGOT) 9, Alanine Aminotransferase (ALT/SGPT) 19, Alkaline Phosphatase 32L, Total Protein 5.7L, Albumin 3.0L Microbiology 05/21/22 Blood Culture - Preliminary, Resulted No growth 05/21/22 MRSA Screen - Final, Complete MRSA not isolated A/P: Assessment: Conitnued progressive dyspnea probably due to ac on ch exac of COPD due to pneumonia - Echocardiogram of 05-22-22: Mild concentric hypertrophy. Estimated ejection frac tion is 60-65%. There were no regional wall motion abnormalities identified. A small to moderate pericardial effusion is identified circumferential to the heart, without evidence of hemodynamic significance Acute on chronic exacerbation of COPD - management per Medical services Pneumonia - management per medical services Pericardial effusion seen on CT of the chest on 05-21-22 - see subsequent echo report above HTN - uncontrolled DM 2 GERD Plan: * Treat pnemonia and ac exac of COPD (Med Svce * Monitor pericar eff * BP improved, but not ideal * HR is controlled when resting * Monitor labs * Lovenox for DVT prophylaxis KEVIN GONZALEZ May 24, 2022 10:44
[2022-05-24] MEDS ORDERED: LOSARTAN 25 MG (COZAAR) TAB PO ONE (10:45)
[2022-05-24] MEDS: RT--FLUTICASONE/SALMETEROL 232-14 (AIRDUO RespiCLICK) IH SCH ×2 (11:21→22:28)
[2022-05-24] MEDS: NS IV 1000 ML 1,000 ML IV SCH (13:03)
--- NOTE | 2022-05-24 13:42 | Progress Note ---
SARBJIT NEUMANN 05/24/22 1342: Subjective Date Seen by a Provider: May 24, 2022 Time Seen by a Provider: 09:10 Subjective/Events-last exam Shirley Diaz, 66 yo M, remains in ICU for BiPAP dependent Acute on Chronic Respiratory Failure. This morning he is laying in bed on his BiPAP and in no severe distress. He has still been having panic attacks and is on Precedex, Xanax, and Ativan. His has been communicating with nursing staff on the phone this morning. Patient is alert and oriented but seemingly very tired. He believes he is breathing okay on his BiPAP. Denies pain or concerns. Patient has not had a bowel movement and not consuming much. He is not ambulating due to being constantly connected to the BiPAP. Landeros is in place and contains straw colored urine. He denies chest pain, palpitations, cough, or nausea/vomiting. Review of Systems General: No Chills HEENT: No Visual Changes, No Sore Throat (dry throat) Pulmonary: Dyspnea; No Cough Cardiovascular: No: Chest Pain, Palpitations Gastrointestinal: No: Nausea, Vomiting Genitourinary: No Dysuria, No Hematuria Neurological: No: Weakness, Numbness Anxious Focused Exam Lactate Level 05/21/22 19:05: Lactic Acid Level 1.56 Objective Exam Last Set of Vital Signs Vital Signs Date Time Temp Pulse Resp B/P (MAP) Pulse Ox O2 Delivery O2 Flow Rate FiO2 05/24/22 13:03 77 132/74 05/24/22 13:00 19 99 NIV Bilevel 30.00 05/24/22 12:00 36.1 05/24/22 11:21 40 Capillary Refill : Less Than 3 Seconds I&O Intake and Output 05/24/22 00:00 Intake Total 2135 ml Output Total 1575 ml Balance 560 ml Intake Oral 1285 ml IV Total 850 ml Output Urine Total 1575 ml General: Alert, Oriented X3, Cooperative, Mild Distress (Respiratory distress managed by BiPAP) HEENT: PERRLA, EOMI Lungs: Other (decreased air movement) Heart: Regular Rate, Normal S1, Normal S2 Abdomen: Normal Bowel Sounds, Soft, No Tenderness Extremities: No Clubbing, No Cyanosis, Normal Pulses Psych/Mental Status: Other (Anxious) Results Lab Laboratory Tests 05/23/22 15:44: Glucometer 256H 05/23/22 20:26: Glucometer 222H 05/24/22 03:07: Blood Gas Puncture Site LT RAD, Blood Gas Patient Temperature 36.8, Arterial Blood pH 7.40, Arterial Blood Partial Pressure CO2 40, Arterial Blood Partial Pressure O2 68L, Arterial Blood HCO3 24, Arterial Blood Total CO2 25.2, Arterial Blood Oxygen Saturation 94, Arterial Blood Base Excess -0.3, Castro Test YES-POS, Blood Gas Ventilator Setting NO, Blood Gas Inspired Oxygen 65% 05/24/22 04:15: White Blood Count 17.2H, Red Blood Count 4.46, Hemoglobin 11.9L, Hematocrit 38L, Mean Corpuscular Volume 85, Mean Corpuscular Hemoglobin 27, Mean Corpuscular Hemoglobin Concent 32, Red Cell Distribution Width 15.3H, Platelet Count 293, Mean Platelet Volume 10.3, Immature Granulocyte % (Auto) 1, Neutrophils (%) (Auto) 88H, Lymphocytes (%) (Auto) 6L, Monocytes (%) (Auto) 5, Eosinophils (%) (Auto) 0, Basophils (%) (Auto) 0, Neutrophils # (Auto) 15.1H, Lymphocytes # (Auto) 1.1, Monocytes # (Auto) 0.9, Eosinophils # (Auto) 0.0, Basophils # (Auto) 0.0, Immature Granulocyte # (Auto) 0.1, Sodium Level 137, Potassium Level 4.0, Chloride Level 106, Carbon Dioxide Level 19L, Anion Gap 12, Blood Urea Nitrogen 32H, Creatinine 0.84, Estimat Glomerular Filtration Rate 96, BUN/Creatinine Ratio 38, Glucose Level 204H, Calcium Level 9.0, Corrected Calcium 9.5, Phosphorus Level 3.5, Magnesium Level 2.1, Total Bilirubin 0.5, Aspartate Amino Transf (AST/SGOT) 19, Alanine Aminotransferase (ALT/SGPT) 18, Alkaline Phosphata se 40, Total Protein 6.4, Albumin 3.4 05/24/22 10:57: Glucometer 191H Microbiology 05/21/22 Blood Culture - Preliminary, Resulted No growth 05/21/22 MRSA Screen - Final, Complete MRSA not isolated Meds Continuing IV steroids, on cefepime and azithromycin, started Xanax for anxiety Radiology NAME: SHIRLEY DIAZ REC#: [id number] PT STATUS: ADM IN : 1955 PHYSICIAN: NAZANIN HALL DO ADMIT DATE: 05/21/22/ICU Signed Date of Exam:05/24/22 CHEST 1 VIEW, AP/PA ONLY Indication: Shortness of breath Portable chest 5:07 AM There is cardiomegaly. There is vascular congestion. There are some volume loss at both lung bases. Tiny effusions cannot be excluded. IMPRESSION: Cardiomegaly with pulmonary venous hypertension and questionable tiny effusions. No significant change compared to previous day. Dictated by: Dictated on workstation # [id number] Dict: 05/24/22605 Trans: 05/24/22606 TCB [id number] Interpreted by: ROLA TYLER MD Electronically signed by: ROLA TYLER MD 05/24/22606 Assessment/Plan Assessment/Plan Assess & Plan/Chief Complaint Assessment: Acute on chronic respiratory failure, BiPAP dependent Hypoxemia - newest ABG pO2 is 68 PNA AECOPD Severe COPD O2 dependent at home Recent COVID 3 weeks ago Lower extremity edema Elevated d-dimer ordered CT angiogram to r/o PE and dosed Lovenox 1mg/kg SQ Q 12 hours Smoker Panic attacks DM HTN HLP Depression Insomnia Anemia GERD Hypogonadism ED BPH B12 Malignant HTN Plan: Continue BiPAP - start Vapotherm Continue steroids IVF Abx - Azithromycin and Cefepime Lovenox - CTA and Venous doppler ruled out PE or DVT of lower extremities Anxiolytics - receiving Ativan, Precedex, Xanax Lower Extremity edema - resolved B12 labs = 491 wnl DM - continue insulins Malignant HTN - start amlodipine, losartan Depression - start paroxetine, buproprion Promote increasing nutrition intake Clinical Quality Measures Admission Status Admission Dx Assessment: Acute on chronic respiratory failure AECOPD Severe COPD O2 dependent at home Suspicion for PNA vs. bronchitis Recent COVID 3 weeks ago Lower extremity edema Elevated d-dimer ordered CT angiogram to r/o PE and dosed Lovenox 1mg/kg SQ Q 12 hours Smoker Panic attacks DM HTN HLP Depression Insomnia Anemia GERD Hypogonadism ED BPH B12 Plan: Continue BiPAP IVF Abx - Azithromycin and Cefepime Lovenox Anxiolytics DVT/VTE Risk/Contraindication: Contraindications-Mechi: Other *list below* Other: poss dvt NAZANIN HALL DO 05/25/22 0703: Supervisory-Addendum Brief Verification & Attestation Participated in pt care: history, MDM, physical Personally performed: exam, history, MDM, supervision of care Care discussed with: Medical Student Procedures: n/a Results interpretation: Verified all documentation Verification and Attestation of Medical Student E/M Service A medical student performed and documented this service in my presence. I reviewed and verified all information documented by the medical student and made modifications to such information, when appropriate. I personally performed the physical exam and medical decision making. Nazanin Hall, May 25, 2022,07:03 SARBJIT NEUMANN May 24, 2022 13:42 NAZANIN HALL DO May 25, 2022 07:03
[2022-05-24] MEDS: ONDANSETRON 4 MG/2 ML (SDV) Z0FRAN IV PRN ×2 (15:12→21:39)
--- NOTE | 2022-05-24 16:08 | Progress Note - Cardiology ---
Cardiology SOAP Progress Note Subjective: Gen weakness and malaise Shortness of breath with activity No cp or palp or syncope No n/v/d No focal weakness Objective: I&O/Vital Signs 05/24/22 05/24/22 05/24/22 05/24/22 05:00 06:00 07:00 07:00 Pulse 73 65 75 70 Resp 24 B/P (MAP) 178/95 (122) 172/93 (119) 166/91 (139) 166/91 Pulse Ox 98 99 96 O2 Delivery NIV Bilevel NIV Bilevel NIV Bilevel O2 Flow Rate 40.00 40.00 30.00 05/24/22 05/24/22 05/24/22 05/24/22 07:00 07:04 07:30 07:30 Temp 36.8 36.0 Pulse 77 70 Resp 23 Pulse Ox 98 O2 Flow Rate 30.00 05/24/22 05/24/22 05/24/22 05/24/22 08:00 08:00 09:00 10:00 Pulse 74 69 77 Resp 16 17 21 B/P (MAP) 157/86 (117) 166/82 (115) 148/77 (105) Pulse Ox 97 97 97 96 O2 Delivery NIV Bilevel NIV Bilevel NIV Bilevel NIV Bilevel O2 Flow Rate 30.00 30.00 30.00 FiO2 40 05/24/22 05/24/22 05/24/22 05/24/22 11:00 11:21 12:00 12:00 Temp 36.1 Pulse 68 Resp 20 B/P (MAP) 152/80 (113) Pulse Ox 97 99 95 O2 Delivery NIV Bilevel Vapotherm Vapotherm O2 Flow Rate 30.00 20.00 FiO2 40 05/24/22 05/24/22 05/24/22 05/24/22 12:00 12:42 13:00 13:03 Pulse 67 77 68 77 Resp 18 19 B/P (MAP) 132/74 (92) 137/81 (101) 132/74 Pulse Ox 96 99 O2 Delivery NIV Bilevel NIV Bilevel O2 Flow Rate 30.00 30.00 05/24/22 05/24/22 05/24/22 14:00 15:00 15:56 Pulse 64 66 Resp 19 22 B/P (MAP) 146/76 (100) 143/76 (98) Pulse Ox 96 96 96 O2 Delivery NIV Bilevel NIV Bilevel Vapotherm O2 Flow Rate 30.00 30.00 20.00 FiO2 40 05/24/22 00:00 Intake Total 1145 ml Output Total 850 ml Balance 295 ml Weight (Pounds): 226 Weight (Ounces): 1.0 Weight (Calculated Kilograms): 107.016395 Constitutional: other (currently sedated and on the Bi-pap) Respiratory: No accessory muscle use, No respiratory distress; chest expansion is symmetric, chest is bilaterally symmetric, rhonchi (scattered), other (fair air entry - currently on Bi-pap) Cardiovascular: regular rate-rhythm; No JVD; S1 and S2 Gastrointestional: soft, audible bowel sounds Extremities: no lower extremity edema bilateral Neurologic/Psychiatric: grossly intact (moves all extremities) Skin: No rash on exposed areas, No ulcerations on exposed areas Results/Procedures: Labs Laboratory Tests 05/23/22 20:26: Glucometer 222H 05/24/22 03:07: Blood Gas Puncture Site LT RAD, Blood Gas Patient Temperature 36.8, Arterial Blood pH 7.40, Arterial Blood Partial Pressure CO2 40, Arterial Blood Partial Pressure O2 68L, Arterial Blood HCO3 24, Arterial Blood Total CO2 25.2, Arterial Blood Oxygen Saturation 94, Arterial Blood Base Excess -0.3, Castro Test YES-POS, Blood Gas Ventilator Setting NO, Blood Gas Inspired Oxygen 65% 05/24/22 04:15: White Blood Count 17.2H, Red Blood Count 4.46, Hemoglobin 11.9L, Hematocrit 38L, Mean Corpuscular Volume 85, Mean Corpuscular Hemoglobin 27, Mean Corpuscular Hemoglobin Concent 32, Red Cell Distribution Width 15.3H, Platelet Count 293, Mean Platelet Volume 10.3, Immature Granulocyte % (Auto) 1, Neutrophils (%) (Auto) 88H, Lymphocytes (%) (Auto) 6L, Monocytes (%) (Auto) 5, Eosinophils (%) (Auto) 0, Basophils (%) (Auto) 0, Neutrophils # (Auto) 15.1H, Lymphocytes # (Auto) 1.1, Monocytes # (Auto) 0.9, Eosinophils # (Auto) 0.0, Basophils # (Auto) 0.0, Immature Granulocyte # (Auto) 0.1, Sodium Level 137, Potassium Level 4.0, Chloride Level 106, Carbon Dioxide Level 19L, Anion Gap 12, Blood Urea Nitrogen 32H, Creatinine 0.84, Estimat Glomerular Filtration Rate 96, BUN/Creatinine Ratio 38, Glucose Level 204H, Calcium Level 9.0, Corrected Calcium 9.5, Phosphorus Level 3.5, Magnesium Level 2.1, Total Bilirubin 0.5, Aspartate Amino Transf (AST/SGOT) 19, Alanine Aminotransferase (ALT/SGPT) 18, Alkaline Phosphatase 40, Total Protein 6.4, Albumin 3.4 05/24/22 10:57: Glucometer 191H 05/24/22 15:50: Glucometer 238H Microbiology 05/21/22 Blood Culture - Preliminary, Resulted No growth 05/21/22 MRSA Screen - Final, Complete MRSA not isolated Laboratory Tests 05/23/22 08:11 05/24/22 04:15 A/P: Assessment: Conitnued progressive dyspnea probably due to ac on ch exac of COPD due to pneumonia - Echocardiogram of 05-22-22: Mild concentric hypertrophy. Estimated ejection fraction is 60-65%. There were no regional wall motion abnormalities identified. A small to moderate pericardial effusion is identified circumferential to the heart, without evidence of hemodynamic significance Acute on chronic exacerbation of COPD - management per Medical services Pneumonia - management per medical services Pericardial effusion seen on CT of the chest on 05-21-22 - see subsequent echo report above HTN - uncontrolled DM 2 GERD Plan: * Treat pnemonia and ac exac of COPD (Med Svce) * Monitor pericard eff * BP improved, but not ideal * HR is controlled when resting * Monitor labs * Lovenox for DVT prophylaxis ELLIOT SMITH MD FACP [facility] CCDS May 24, 2022 16:08
[2022-05-24] MEDS: FINASTERIDE (PROSCAR) 5 MG TAB PO SCH (17:53)
[2022-05-24] MEDS: diphenhydrAMINE 25 MG TAB (BENADRYL) PO SCH (21:02)
[2022-05-24] MEDS: traZODone 150 MG (DESYREL) TABLET PO SCH (21:02)
[2022-05-24] MEDS: MELATONIN 10 MG TABLET PO SCH (21:03)
[2022-05-24] MEDS: ACETAMINOPHEN 500 MG TAB (TYLENOL) PO SCH (21:03)
[2022-05-24] MEDS: AZITHROMYCIN 250 MG TAB (ZITHROMAX) PO SCH (21:03)
[2022-05-24] MEDS ORDERED: PANTOPRAZOLE 40 MG (PROTONIX) VIAL IV ONE (23:00)
[2022-05-25] MEDS: CEFEPIME INJECTION 1,000 MG in NS (IVPB) 50 ML IV SCH ×4 (02:22→20:17)
[2022-05-25] MEDS: DexMEDEtomidine 250 ML DRIP 250 ML IV SCH ×4 (02:25→22:34)
[2022-05-25] MEDS: RT-IPRATROPIUM (ATROVENT) 0.5MG/2.5ML AMP IH SCH ×6 (02:42→22:14)
[2022-05-25] MEDS: RT-ALBUTEROL SULF 2.5 MG/3 ML PRE-MIX VIAL INH SCH ×6 (02:42→22:14)
[2022-05-25 02:43] VITALS: BP 147/72
[2022-05-25 04:41] LABS: BASOPHILS % (AUTO) 0 % (0-10); EOSINOPHILS % (AUTO) 0 % (0-10); HEMATOCRIT 36 % (40-54); HEMOGLOBIN 11.7 g/dL (13.3-17.7); LYMPHOCYTES # (AUTO) 0.8 10^3/uL (1.0-4.0); LYMPHOCYTES % (AUTO) 5 % (12-44); MEAN CORPUSCULAR HEMOGLOBIN 27 pg (25-34); MEAN CORPUSCULAR HGB CONC 32 g/dL (32-36); MEAN CORPUSCULAR VOLUME 84 fL (80-99); MEAN PLATELET VOLUME 9.7 fL (9.0-12.2); MONOCYTES % (AUTO) 6 % (0-12); NEUTROPHILS # (AUTO) 15.6 10^3/uL (1.8-7.8); NEUTROPHILS % (AUTO) 89 % (42-75); PLATELET COUNT 316 10^3/uL (130-400); WHITE BLOOD COUNT 17.5 10^3/uL (4.3-11.0)
[2022-05-25 04:48] LABS: ALBUMIN 3.3 GM/DL (3.2-4.5)
[2022-05-25 04:49] LABS: POTASSIUM 4.3 MMOL/L (3.6-5.0)
[2022-05-25 04:50] LABS: CALCIUM 9.2 MG/DL (8.5-10.1)
[2022-05-25 04:51] LABS: TOTAL PROTEIN 6.3 GM/DL (6.4-8.2)
[2022-05-25 04:53] LABS: BILIRUBIN,TOTAL 0.3 MG/DL (0.1-1.0)
[2022-05-25 04:54] LABS: PHOSPHORUS 3.4 MG/DL (2.3-4.7)
[2022-05-25 04:55] LABS: CREATININE SERUM 0.88 MG/DL (0.60-1.30)
[2022-05-25 04:57] LABS: MAGNESIUM 2.1 MG/DL (1.6-2.4)
[2022-05-25] MEDS: POTASSIUM CL 10MEQ/50ML IVPB 50 ML IV SCH (05:05)
[2022-05-25] MEDS: MAGNESIUM 1 GM/100 ML IVPB 100 ML IV SCH (05:05)
[2022-05-25] MEDS: KCL 20 MEQ TAB (K-DUR) PO SCH (05:05)
[2022-05-25 05:11] LABS: ABG BASE EXCESS -0.5 MMOL/L (-2.5-2.5); ABG OXYGEN SATURATION 92 % (94-100); ABG PCO2 44 MMHG (35-45); ABG PH 7.36 (7.37-7.43); ABG PO2 65 MMHG (79-93); ABG TCO2 25.8 MMOL/L (21.0-31.0)
[2022-05-25 05:12] LABS: ALLENS TEST YES-POS; INSPIRED O2 40%; PATIENT TEMP 36.2; VENTILATOR NO
[2022-05-25] MEDS: inSUlin ASPART (NovoLOG) 1 UNIT/0.01 ML (CHARGE PER UNIT) SC SCH ×4 (05:53→20:16)
[2022-05-25] MEDS: methylPREDNISolone 40 MG/ML (Solu-MEDROL) VIAL IV SCH ×3 (05:53→17:29)
[2022-05-25] MEDS: MULTIVIT W/MINERALS TAB (THERAGRAN M) PO SCH (06:03)
[2022-05-25 07:36] VITALS: BP 156/76
[2022-05-25] MEDS: SENNOSIDES 8.6 MG (SENOKOT) TAB PO SCH ×2 (08:09→20:52)
[2022-05-25] MEDS: DOCUSATE SODIUM 100 MG (COLACE) CAP PO SCH ×2 (08:09→20:51)
[2022-05-25] MEDS: metFORMIN 500 MG (GLUCOPHAGE) TAB PO SCH ×2 (08:09→17:29)
[2022-05-25] MEDS: PANTOPRAZOLE 20 MG TABLET (PROTONIX) PO SCH (08:09)
[2022-05-25] MEDS: FENOFIBRATE, MICRO 67 MG (LOFIBRA) CAPSULE PO SCH (08:09)
[2022-05-25] MEDS: TOLTERODINE LA 2 MG (DETROL LA) CAP PO SCH (08:09)
[2022-05-25] MEDS: ALPRAZolam 0.5 MG (XANAX) TAB PO PRN ×2 (08:09→18:08)
[2022-05-25] MEDS: LOSARTAN 50 MG (COZAAR) TAB PO SCH (08:09)
[2022-05-25] MEDS: PARoxetine 20 MG (PAXIL) TAB PO SCH (08:09)
[2022-05-25] MEDS: AtorvaSTATin TABLET 10 MG TABLET PO SCH (08:09)
[2022-05-25] MEDS: amLODIPine 10 MG (NORVASC) TAB PO SCH (08:09)
[2022-05-25] MEDS: CALCIUM CARB + VIT D 600 MG (CALCARB + D) TAB PO SCH ×2 (08:09→17:29)
[2022-05-25] MEDS: LORATADINE (CLARITIN) 10 MG TAB PO SCH (08:09)
[2022-05-25] MEDS: hydrALAZINE (APRESOLINE) 25 MG TAB PO SCH ×2 (08:09→17:29)
[2022-05-25] MEDS: buPROPion SR 150 MG (WELLBUTRIN SR) TAB PO SCH (08:09)
[2022-05-25] MEDS: LACTOBACILLUS ACIDOPHILUS (PROBIOTIC) CAPSULE PO SCH (08:09)
[2022-05-25] MEDS: ENOXAPARIN 40 MG/0.4 ML (LOVENOX) SYR SC SCH (08:10)
[2022-05-25] MEDS: NS IV 1000 ML 1,000 ML IV SCH (08:22)
--- NOTE | 2022-05-25 08:30 | Diagnostic Imaging Report ---
INDICATION: Dyspnea. TECHNIQUE: Single view chest 7:59 AM. CORRELATION STUDY: 05/24/2022 FINDINGS: Rather pronounced cardiac enlargement again demonstrated. Perhaps slightly increased. Vasculature overall appears less congested. Likely right infrahilar perihilar atelectasis along with a infiltrate left lung base. Suspect small effusion. Age indeterminate left posterior lateral rib fracture deformity. Correlation for any potential symptoms. Probable benign enchondroma right proximal humerus, stable. IMPRESSION: 1. Cardiac enlargement with vasculature appearing improved from prior. Bilateral perihilar and basilar areas of atelectasis and/or infiltrate greatest left lung base along small left pleural effusion. Dictated by: Dictated on workstation # [id number]
[2022-05-25] MEDS ORDERED: BUMETANIDE 1 MG/4 ML (BUMEX) VIAL IV NR (10:00)
[2022-05-25] MEDS: RT--FLUTICASONE/SALMETEROL 232-14 (AIRDUO RespiCLICK) IH SCH ×2 (10:33→22:14)
[2022-05-25 10:34] VITALS: BP 156/76
--- NOTE | 2022-05-25 10:34 | Tele-ICU Progress Note ---
Subjective Date Seen by a Provider: May 25, 2022 Time Seen by a Provider: 10:34 Subjective/Events-last exam (Tele-ICU Physician , Progress Note ) Service provided via interactive audio and video telecommunications E-CARE system to a patient admitted to ICU bed in [facility]. Patient is seen today due to persistent need of ICU care Available chart/ vitals / labs / Images reviewed Video assessment done using teleICU camera, rest of exam as per RN Discussed with RN Events overnight : Afebrile hemodynamically stable Respiratory - 30% I/O = pos Drips: 60 /h - TO STP Pressors- no Consultants: Hospital course: 05/21- 66y M Direct from [place] for Acute on Chronic Resp failure,COPD, hy poxemia,LE edema. Elevated Ddimer-CTA chest r/o PE(-) 05/24 BIPAP 16/8 30 % rr20 [id number], precedex 1.5 VT 5H 05/25 Bipap overnignh , precedex 1.5 , BUMEX 0.5 x1 A/P Acute on chronic resp failure - with AECOPD, infection , possible VO ( CTA 05/21 and US LE 05/22 neg for tromboembolic dz ) - BIPAP 16/8 30 % rr20 [id number], precedex 1.5 - try to wean off to VT, was on VT 5H last 24 h , while on VT can swallow and eat - stop IVF and try to diuresis - follow closely Acute exacerbation of COPD ( moderate emphysematous changes on CT, ( baseline on O2 ) - cont IV steroids - ( extra 125mg 05/23) nebs , on 80 q6 h - to decrease dose tomrrow Pneumonia? - post covid ? , CT chest with chronic changes - small infitrates vs atelecvtasis , - cont abx - cefepime Pericardial effusion seen on CT of the chest on 05-21-22 -not consern by ECHO HTN - as per cards DM 2 - ISS - levemir , metformin Anxiety -on precedex 1.5 + xanax prn midline 05/24 Landeros: + OG: Nutrition: po Analgesia: Anxiety/ delirium VTE Prophylaxis: wil 40 Stress Ulcer Prophylaxis: ppi Plans in collaboration with bedside consultants and IM MDs. Discussed with RN to reach out if any questions or concerns A total of 32 minutes of critical care time was devoted to this patient today, required to treat and/or prevent further deterioration of critical care condition ( as above ) . I am remotely monitoring this patient from another state. I am unable to do the bedside exam, and history/physical and pertinent information is taken from other notes in the computer and bedside staff. Sepsis Event Evaluation Height, Weight, BMI Height: 5'3.00" Weight: 226lbs. 1.0oz. 107.246826py; 34.58 BMI Method:Stated Exam Exam Patient acknowledged, consented, and participated in this virtual visit which was conducted using real time audio/video Vital Signs Date Time Temp Pulse Resp B/P (MAP) Pulse Ox O2 Delivery O2 Flow Rate FiO2 05/25/22 10:00 61 17 156/78 (113) 97 NIV Bilevel 40.00 05/25/22 09:02 63 150/75 05/25/22 09:00 63 19 148/93 (106) 97 NIV Bilevel 40.00 05/25/22 08:00 97 NIV Bilevel 40 05/25/22 08:00 63 19 150/75 (103) 95 NIV Bilevel 40.00 05/25/22 07:59 36.0 05/25/22 07:36 63 19 95 40.00 05/25/22 07:00 63 05/25/22 07:00 64 19 154/77 (113) 95 NIV Bilevel 40.00 05/25/22 06:11 65 146/71 05/25/22 06:00 66 20 148/72 (97) 94 NIV Bilevel 40.00 05/25/22 05:00 65 20 146/71 (96) 95 NIV Bilevel 40.00 05/25/22 04:00 72 21 145/69 (94) 96 NIV Bilevel 40.00 05/25/22 04:00 92 NIV Bilevel 40 05/25/22 03:00 69 19 140/69 (92) 94 NIV Bilevel 40.00 05/25/22 02:51 NIV Bilevel 40.00 05/25/22 02:43 67 24 94 40.00 05/25/22 02:25 128 213/100 05/25/22 02:00 69 18 140/69 (92) 92 Vapotherm 25.00 40.00 05/25/22 01:00 73 20 137/67 (90) 93 Vapotherm 25.00 40.00 05/25/22 01:00 73 05/25/22 01:00 Vapotherm 25.00 40.00 05/25/22 00:32 128 213/100 05/25/22 00:00 36.4 05/25/22 00:00 74 20 139/74 (95) 93 Vapotherm 20.00 40.00 05/24/22 23:59 92 Vapotherm 25.00 40 05/24/22 23:00 80 19 141/65 (90) 92 Vapotherm 20.00 40.00 05/24/22 22:28 90 Vapotherm 25.00 40 05/24/22 22:00 71 20 162/79 (106) 93 Vapotherm 20.00 40.00 05/24/22 21:41 Vapotherm 20.00 40.00 05/24/22 21:33 35.9 05/24/22 21:03 35.9 05/24/22 21:00 74 22 148/75 (99) 97 NIV Bilevel 40.00 05/24/22 20:32 128 213/100 05/24/22 20:00 66 18 153/76 (101) 93 NIV Bilevel 40.00 05/24/22 20:00 35.9 05/24/22 20:00 97 NIV Bilevel 40 05/24/22 19:00 70 05/24/22 19:00 64 19 155/78 (103) 96 NIV Bilevel 40.00 05/24/22 18:58 NIV Bilevel 40.00 05/24/22 18:36 96 Vapotherm 20.00 40 05/24/22 18:00 64 15 122/74 (90) 93 NIV Bilevel 30.00 05/24/22 17:03 60 158/80 05/24/22 17:00 62 22 158/80 (117) 95 NIV Bilevel 30.00 05/24/22 16:00 36.3 05/24/22 16:00 67 22 151/106 (124) 90 NIV Bilevel 30.00 05/24/22 16:00 95 NIV Bilevel 30 05/24/22 15:56 96 Vapotherm 20.00 40 05/24/22 15:00 66 22 143/76 (98) 96 NIV Bilevel 30.00 05/24/22 14:00 64 19 146/76 (100) 96 NIV Bilevel 30.00 05/24/22 13:03 77 132/74 05/24/22 13:00 68 19 137/81 (101) 99 NIV Bilevel 30.00 05/24/22 12:42 77 05/24/22 12:00 67 18 132/74 (92) 96 NIV Bilevel 30.00 05/24/22 12:00 95 Vapotherm 05/24/22 12:00 36.1 05/24/22 11:21 99 Vapotherm 20.00 40 05/24/22 11:00 68 20 152/80 (113) 97 NIV Bilevel 30.00 I & O 05/25/22 07:00 Intake Total 1300 ml Output Total 1325 ml Balance -25 ml Height & Weight Height: 5'3.00" Weight: 226lbs. 1.0oz. 107.666804iz; 34.58 BMI Method:Stated General Appearance: WD/WN, Chronically ill, Obese HEENT: PERRL/EOMI, Normal ENT Inspection, Pharynx Normal Neck: Full Range of Motion, Normal Inspection, Non Tender, Supple, Carotid Bruit Respiratory: Chest Non Tender, Lungs Clear, No Accessory Muscle Use, No Respiratory Distress, Decreased Breath Sounds, Other (wearing BiPAP) Cardiovascular: Regular Rate, Rhythm, No Edema, No Gallop, No JVD, No Murmur, Normal Peripheral Pulses Capillary Refill: Less Than 3 Seconds Gastrointestinal: normal bowel sounds, non tender, soft Extremity: Normal Capillary Refill, Normal Inspection, Normal Range of Motion, Non Tender, No Calf Tenderness, No Pedal Edema Neurologic/Psychiatric: Alert, Oriented x3, No Motor/Sensory Deficits, Normal Mood/Affect Skin: Normal Color, Warm/Dry Lymphatic: No Adenopathy Results Lab Laboratory Tests 05/24/22 04:15 05/25/22 04:33 Assessment/Plan Assessment/Plan 1 ZAC DIAZ MD May 25, 2022 10:34
--- NOTE | 2022-05-25 11:36 | Progress Note ---
Subjective Date Seen by a Provider: May 25, 2022 Time Seen by a Provider: 11:45 Subjective/Events-last exam Patient is still BiPAP dependent Labs reviewed Decreasing steroids tomorrow No pain reported Precedex is helpful Panic attacks occur frequently without trend Objective Exam Last Set of Vital Signs Vital Signs Date Time Temp Pulse Resp B/P (MAP) Pulse Ox O2 Delivery O2 Flow Rate FiO2 05/25/22 11:00 59 18 148/75 (109) 96 NIV Bilevel 40.00 05/25/22 08:00 40 05/25/22 07:59 36.0 Capillary Refill : Less Than 3 Seconds I&O Intake and Output 05/24/22 23:59 Intake Total 2150 ml Output Total 1325 ml Balance 825 ml Intake Oral 1550 ml IV Total 600 ml Output Urine Total 1325 ml General: Other (sedated) Lungs: Other (diminished BS all rosenbaum) Psych/Mental Status: Mental Status NL Results Lab Laboratory Tests 05/24/22 15:50: Glucometer 238H 05/24/22 20:02: Glucometer 177H 05/25/22 04:33: White Blood Count 17.5H, Red Blood Count 4.32, Hemoglobin 11.7L, Hematocrit 36L, Mean Corpuscular Volume 84, Mean Corpuscular Hemoglobin 27, Mean Corpuscular Hemoglobin Concent 32, Red Cell Distribution Width 15.2H, Platelet Count 316, Mean Platelet Volume 9.7, Immature Granulocyte % (Auto) 1, Neutrophils (%) (Auto) 89H, Lymphocytes (%) (Auto) 5L, Monocytes (%) (Auto) 6, Eosinophils (%) (Auto) 0, Basophils (%) (Auto) 0, Neutrophils # (Auto) 15.6H, Lymphocytes # (Auto) 0.8L, Monocytes # (Auto) 1.0, Eosinophils # (Auto) 0.0, Basophils # (Auto) 0.0, Immature Granulocyte # (Auto) 0.1, Blood Gas Puncture Site R RAD, Blood Gas Patient Temperature 36.2, Arterial Blood pH 7.36L, Arterial Blood Partial Pressure CO2 44, Arterial Blood Partial Pressure O2 65L, Arterial Blood HCO3 24, Arterial Blood Total CO2 25.8, Arterial Blood Oxygen Saturation 92L, Arterial Blood Base Excess -0.5, Castro Test YES-POS, Blood Gas Ventilator Setting NO, Blood Gas Inspired Oxygen 40%, Sodium Level 136, Potassium Level 4.3, Chloride Level 105, Carbon Dioxide Level 20L, Anion Gap 11, Blood Urea Nitrogen 34H, Creatinine 0.88, Estimat Glomerular Filtration Rate 94, BUN/Creatinine Ratio 39, Glucose Level 233H, Calcium Level 9.2, Corrected Calcium 9.8, Phosphorus Level 3.4, Magnesium Level 2.1, Total Bilirubin 0.3, Aspartate Amino Transf (AST/SGOT) 17, Alanine Aminotransferase (ALT/SGPT) 20, Alkaline Phosphatase 34L, Total Protein 6.3L, Albumin 3.3 05/25/22 10:29: Glucometer 240H Microbiology 05/21/22 Blood Culture - Preliminary, Resulted No growth 05/21/22 MRSA Screen - Final, Complete MRSA not isolated Assessment/Plan Assessment/Plan Assess & Plan/Chief Complaint Assessment: Acute on chronic respiratory failure AECOPD Severe COPD O2 dependent at home Suspicion for PNA vs. bronchitis Recent COVID 3 weeks ago Lower extremity edema Elevated d-dimer ordered CT angiogram to r/o PE and dosed Lovenox 1mg/kg SQ Q 12 hours but negative so decreased to DVT PPx dosing Smoker Panic attacks DM HTN HLP Depression Insomnia Anemia GERD Hypogonadism ED BPH B12 Plan: Precedex BiPAP Steroids Supportive care Diagnosis/Problems Diagnosis/Problems (1) Respiratory failure with hypoxia (2) COPD exacerbation (3) BiPAP (biphasic positive airway pressure) dependence (4) Anasarca (5) Pericardial effusion (6) Hypertension Status: Chronic (7) Diabetes mellitus (8) Obesity Status: Chronic (9) Oxygen dependent Status: Chronic Clinical Quality Measures Admission Status Admission Dx DVT/VTE Risk/Contraindication: Contraindications-Mechi: Other *list below* Other: poss dvt ASHLYN HALL DO May 25, 2022 11:36
--- NOTE | 2022-05-25 14:13 | Progress Note - Cardiology ---
Cardiology SOAP Progress Note Subjective: Shortness of breath better No n/v/d No cp or palp or syncope No focal weakness Gen weakness and malaise present Objective: I&O/Vital Signs 05/25/22 05/25/22 05/25/22 05/25/22 02:25 02:43 02:51 03:00 Pulse 128 67 69 Resp 24 19 B/P (MAP) 213/100 140/69 (92) Pulse Ox 94 94 O2 Delivery NIV Bilevel NIV Bilevel O2 Flow Rate 40.00 40.00 40.00 05/25/22 05/25/22 05/25/22 05/25/22 04:00 04:00 05:00 06:00 Pulse 72 65 66 Resp 21 20 20 B/P (MAP) 145/69 (94) 146/71 (96) 148/72 (97) Pulse Ox 92 96 95 94 O2 Delivery NIV Bilevel NIV Bilevel NIV Bilevel NIV Bilevel O2 Flow Rate 40.00 40.00 40.00 FiO2 40 05/25/22 05/25/22 05/25/22 05/25/22 06:11 07:00 07:00 07:36 Pulse 65 64 63 63 Resp 19 19 B/P (MAP) 146/71 154/77 (113) Pulse Ox 95 95 O2 Delivery NIV Bilevel O2 Flow Rate 40.00 40.00 05/25/22 05/25/22 05/25/22 05/25/22 07:59 08:00 08:00 09:00 Temp 36.0 Pulse 63 63 Resp 19 19 B/P (MAP) 150/75 (103) 148/93 (106) Pulse Ox 95 97 97 O2 Delivery NIV Bilevel NIV Bilevel NIV Bilevel O2 Flow Rate 40.00 40.00 FiO2 40 05/25/22 05/25/22 05/25/22 05/25/22 09:02 10:00 10:34 11:00 Pulse 63 61 63 59 Resp 17 19 18 B/P (MAP) 150/75 156/78 (113) 148/75 (109) Pulse Ox 97 95 96 O2 Delivery NIV Bilevel NIV Bilevel O2 Flow Rate 40.00 40.00 40.00 05/25/22 05/25/22 05/25/22 05/25/22 12:00 12:00 12:00 12:26 Temp 36.2 Pulse 63 62 Resp 20 B/P (MAP) 145/76 (128) Pulse Ox 97 97 O2 Delivery NIV Bilevel NIV Bilevel O2 Flow Rate 40.00 FiO2 40 05/25/22 05/25/22 13:00 14:00 Pulse 60 61 Resp 20 18 B/P (MAP) 142/70 (103) 140/73 (112) Pulse Ox 95 96 O2 Delivery NIV Bilevel NIV Bilevel O2 Flow Rate 40.00 40.00 05/25/22 00:00 Intake Total 800 ml Output Total 425 ml Balance 375 ml Weight (Pounds): 226 Weight (Ounces): 1.0 Weight (Calculated Kilograms): 107.630078 Constitutional: AAO x 3, well-developed, well-nourished Respiratory: No accessory muscle use, No respiratory distress; chest expansion is symmetric, chest is bilaterally symmetric, rhonchi (scattered), other (fair air entry - currently on Bi-pap) Cardiovascular: regular rate-rhythm; No JVD; S1 and S2 Gastrointestional: soft, audible bowel sounds Extremities: swelling (mild to mod edema of all four extremities) Neurologic/Psychiatric: other (moves all limbs equally) Skin: No rash on exposed areas, No ulcerations on exposed areas Results/Procedures: Labs Laboratory Tests 05/24/22 15:50: Glucometer 238H 05/24/22 20:02: Glucometer 177H 05/25/22 04:33: White Blood Count 17.5H, Red Blood Count 4.32, Hemoglobin 11.7L, Hematocrit 36L, Mean Corpuscular Volume 84, Mean Corpuscular Hemoglobin 27, Mean Corpuscular Hemoglobin Concent 32, Red Cell Distribution Width 15.2H, Platelet Count 316, Mean Platelet Volume 9.7, Immature Granulocyte % (Auto) 1, Neutrophils (%) (Auto) 89H, Lymphocytes (%) (Auto) 5L, Monocytes (%) (Auto) 6, Eosinophils (%) (Auto) 0, Basophils (%) (Auto) 0, Neutrophils # (Auto) 15.6H, Lymphocytes # (Auto) 0.8L, Monocytes # (Auto) 1.0, Eosinophils # (Auto) 0.0, Basophils # (Auto) 0.0, Immature Granulocyte # (Auto) 0.1, Blood Gas Puncture Site R RAD, Blood Gas Patient Temperature 36.2, Arterial Blood pH 7.36L, Arterial Blood Partial Pressure CO2 44, Arterial Blood Partial Pressure O2 65L, Arterial Blood HCO3 24, Arterial Blood Total CO2 25.8, Arterial Blood Oxygen Saturation 92L, Arterial Blood Base Excess -0.5, Castro Test YES-POS, Blood Gas Ventilator Setting NO, Blood Gas Inspired Oxygen 40%, Sodium Level 136, Potassium Level 4.3, Chloride Level 105, Carbon Dioxide Level 20L, Anion Gap 11, Blood Urea Nitr ogen 34H, Creatinine 0.88, Estimat Glomerular Filtration Rate 94, BUN/Creatinine Ratio 39, Glucose Level 233H, Calcium Level 9.2, Corrected Calcium 9.8, Phosphorus Level 3.4, Magnesium Level 2.1, Total Bilirubin 0.3, Aspartate Amino Transf (AST/SGOT) 17, Alanine Aminotransferase (ALT/SGPT) 20, Alkaline Phosphatase 34L, Total Protein 6.3L, Albumin 3.3 05/25/22 10:29: Glucometer 240H Microbiology 05/21/22 Blood Culture - Preliminary, Resulted No growth 05/21/22 MRSA Screen - Final, Complete MRSA not isolated Laboratory Tests 05/24/22 04:15 05/25/22 04:33 A/P: Assessment: Conitnued progressive dyspnea probably due to ac on ch exac of COPD due to pneumonia - Echocardiogram of 05-22-22: Mild concentric hypertrophy. Estimated ejection fraction is 60-65%. There were no regional wall motion abnormalities identified. A small to moderate pericardial effusion is identified circumferential to the heart, without evidence of hemodynamic significance Acute on chronic exacerbation of COPD - management per Medical services Pneumonia - management per medical services Pericardial effusion seen on CT of the chest on 05-21-22 - see subsequent echo report above HTN - uncontrolled DM 2 GERD Plan: * Treat pnemonia and ac exac of COPD (Med Svce) * Monitor pericard eff. Repeat echo tomorros * BP improved, continue current regimen * iv diuretics as needed * Monitor labs * Lovenox for DVT prophylaxis [facility]OT SMITH [facility] May 25, 2022 14:13
[2022-05-25] MEDS: FINASTERIDE (PROSCAR) 5 MG TAB PO SCH (17:29)
[2022-05-25] MEDS: traZODone 150 MG (DESYREL) TABLET PO SCH (20:16)
[2022-05-25] MEDS: diphenhydrAMINE 25 MG TAB (BENADRYL) PO SCH (20:16)
[2022-05-25] MEDS: ACETAMINOPHEN 500 MG TAB (TYLENOL) PO SCH (20:16)
[2022-05-25] MEDS: LORazepam 0.5 MG (ATIVAN) TABLET PO PRN (20:16)
[2022-05-25] MEDS: AZITHROMYCIN 250 MG TAB (ZITHROMAX) PO SCH (20:16)
[2022-05-25] MEDS: MELATONIN 10 MG TABLET PO SCH (20:16)
[2022-05-25 22:12] VITALS: BP 155/76
[2022-05-26] MEDS: methylPREDNISolone 40 MG/ML (Solu-MEDROL) VIAL IV SCH ×4 (00:07→17:28)
[2022-05-26] MEDS: CEFEPIME INJECTION 1,000 MG in NS (IVPB) 50 ML IV SCH ×3 (02:22→14:33)
[2022-05-26] MEDS: RT-ALBUTEROL SULF 2.5 MG/3 ML PRE-MIX VIAL INH SCH ×6 (03:12→23:07)
[2022-05-26] MEDS: RT-IPRATROPIUM (ATROVENT) 0.5MG/2.5ML AMP IH SCH ×6 (03:12→23:07)
[2022-05-26] MEDS: DexMEDEtomidine 250 ML DRIP 250 ML IV SCH ×2 (04:18→18:27)
[2022-05-26 04:24] LABS: ABG BASE EXCESS -1.1 MMOL/L (-2.5-2.5); ABG OXYGEN SATURATION 92 % (94-100); ABG PCO2 42 MMHG (35-45); ABG PH 7.37 (7.37-7.43); ABG PO2 61 MMHG (79-93); ABG TCO2 24.8 MMOL/L (21.0-31.0)
[2022-05-26 04:25] LABS: ALLENS TEST YES-POS; BASOPHILS % (AUTO) 0 % (0-10); EOSINOPHILS % (AUTO) 0 % (0-10); HEMATOCRIT 38 % (40-54); HEMOGLOBIN 12.3 g/dL (13.3-17.7); INSPIRED O2 40%; LYMPHOCYTES # (AUTO) 0.8 10^3/uL (1.0-4.0); LYMPHOCYTES % (AUTO) 5 % (12-44); MEAN CORPUSCULAR HEMOGLOBIN 27 pg (25-34); MEAN CORPUSCULAR HGB CONC 32 g/dL (32-36); MEAN CORPUSCULAR VOLUME 84 fL (80-99); MEAN PLATELET VOLUME 9.4 fL (9.0-12.2); MONOCYTES # (AUTO) 0.9 10^3/uL (0.0-1.0); MONOCYTES % (AUTO) 6 % (0-12); NEUTROPHILS # (AUTO) 13.3 10^3/uL (1.8-7.8); NEUTROPHILS % (AUTO) 88 % (42-75); PATIENT TEMP 36.9; PLATELET COUNT 303 10^3/uL (130-400); VENTILATOR NO; WHITE BLOOD COUNT 15.1 10^3/uL (4.3-11.0)
[2022-05-26 04:39] LABS: ALBUMIN 3.1 GM/DL (3.2-4.5); POTASSIUM 4.5 MMOL/L (3.6-5.0)
[2022-05-26 04:40] LABS: CALCIUM 8.9 MG/DL (8.5-10.1)
[2022-05-26 04:43] LABS: BILIRUBIN,TOTAL 0.4 MG/DL (0.1-1.0)
[2022-05-26 04:45] LABS: CREATININE SERUM 0.87 MG/DL (0.60-1.30); PHOSPHORUS 3.4 MG/DL (2.3-4.7)
[2022-05-26 04:48] LABS: MAGNESIUM 1.9 MG/DL (1.6-2.4)
[2022-05-26] MEDS: POTASSIUM CL 10MEQ/50ML IVPB 50 ML IV SCH (05:03)
[2022-05-26] MEDS: KCL 20 MEQ TAB (K-DUR) PO SCH (05:03)
[2022-05-26] MEDS: MAGNESIUM 1 GM/100 ML IVPB 100 ML IV SCH ×3 (05:04→06:09)
[2022-05-26] MEDS: MULTIVIT W/MINERALS TAB (THERAGRAN M) PO SCH (06:08)
[2022-05-26] MEDS: LORazepam 0.5 MG (ATIVAN) TABLET PO PRN (06:08)
[2022-05-26] MEDS: inSUlin ASPART (NovoLOG) 1 UNIT/0.01 ML (CHARGE PER UNIT) SC SCH ×4 (06:08→21:51)
--- NOTE | 2022-05-26 07:32 | Progress Note ---
Subjective Date Seen by a Provider: May 26, 2022 Time Seen by a Provider: 11:00 Subjective/Events-last exam Off BiPAP temporarily Vapotherm maintained Still tachypneic at bedside Still high risk for intubation Review of Systems General: Fatigue, Malaise Pulmonary: Dyspnea Objective Exam Last Set of Vital Signs Vital Signs Date Time Temp Pulse Resp B/P (MAP) Pulse Ox O2 Delivery O2 Flow Rate FiO2 05/26/22 06:00 57 18 169/83 (111) 95 NIV Bilevel 40.00 05/26/22 04:09 36.9 05/26/22 04:00 40 Capillary Refill : Less Than 3 Seconds I&O Intake and Output 05/26/22 00:00 Intake Total 1400 ml Output Total 2175 ml Balance -775 ml Intake Oral 1100 ml IV Total 300 ml Output Urine Total 2175 ml General: Alert, Oriented X3, Cooperative, No Acute Distress Lungs: Clear to Auscultation, Normal Air Movement Heart: Regular Rate, Normal S1, Normal S2, No Murmurs Psych/Mental Status: Mental Status NL, Mood NL Results Lab Laboratory Tests 05/25/22 10:29: Glucometer 240H 05/25/22 15:41: Glucometer 222H 05/25/22 19:58: Glucometer 218H 05/26/22 04:16: White Blood Count 15.1H, Red Blood Count 4.54, Hemoglobin 12.3L, Hematocrit 38L, Mean Corpuscular Volume 84, Mean Corpuscular Hemoglobin 27, Mean Corpuscular Hemoglobin Concent 32, Red Cell Distribution Width 14.9H, Platelet Count 303, Mean Platelet Volume 9.4, Immature Granulocyte % (Auto) 1, Neutrophils (%) (Auto) 88H, Lymphocytes (%) (Auto) 5L, Monocytes (%) (Auto) 6, Eosinophils (%) (Auto) 0, Basophils (%) (Auto) 0, Neutrophils # (Auto) 13.3H, Lymphocytes # (Auto) 0.8L, Monocytes # (Auto) 0.9, Eosinophils # (Auto) 0.0, Basophils # (Auto) 0.0, Immature Granulocyte # (Auto) 0.1, Blood Gas Puncture Site L RAD, Blood Gas Patient Temperature 36.9, Arterial Blood pH 7.37, Arterial Blood Partial Pressure CO2 42, Arterial Blood Partial Pressure O2 61L, Arterial Blood HCO3 24, Arterial Blood Total CO2 24.8, Arterial Blood Oxygen Saturation 92L, Arterial Blood Base Excess -1.1, Castro Test YES-POS, Blood Gas Ventilator Setting NO, Blood Gas Inspired Oxygen 40%, Sodium Level 137, Potassium Level 4.5, Chloride Level 106, Carbon Dioxide Level 20L, Anion Gap 11, Blood Urea Nitrogen 35H, Creatinine 0.87, Estimat Glomerular Filtration Rate 95, BUN/Creatinine Ratio 40, Glucose Level 225H, Calcium Level 8.9, Corrected Calcium 9.6, Phosphorus Level 3.4, Magnesium Level 1.9, Total Bilirubin 0.4, Aspartate Amino Transf (AST/SGOT) 12, Alanine Aminotransferase (ALT/SGPT) 20, Alkaline Phosphatase 35L, Total Protein 6.0L, Albumin 3.1L Microbiology 05/21/22 Blood Culture - Preliminary, Resulted No growth 05/21/22 MRSA Screen - Final, Complete MRSA not isolated Assessment/Plan Assessment/Plan Assess & Plan/Chief Complaint Assessment: Acute on chronic respiratory failure AECOPD Severe COPD O2 dependent at home Suspicion for PNA vs. bronchitis Recent COVID 3 weeks ago Lower extremity edema Elevated d-dimer ordered CT angiogram to r/o PE and dosed Lovenox 1mg/kg SQ Q 12 hours but negative so decreased to DVT PPx dosing Smoker Panic attacks DM HTN HLP Depression Insomnia Anemia GERD Hypogonadism ED BPH B12 Plan: Precedex BiPAP Steroids Supportive care Diagnosis/Problems Diagnosis/Problems (1) Respiratory failure with hypoxia (2) COPD exacerbation (3) BiPAP (biphasic positive airway pressure) dependence (4) Anasarca (5) Pericardial effusion (6) Hypertension Status: Chronic (7) Diabetes mellitus (8) Obesity Status: Chronic (9) Oxygen dependent Status: Chronic Clinical Quality Measures Admission Status Admission Dx DVT/VTE Risk/Contraindication: Contraindications-Mechi: Other *list below* Other: poss dvt ASHLYN HALL DO May 26, 2022 07:32
--- NOTE | 2022-05-26 07:41 | Tele-ICU Progress Note ---
Progress Note video rounds completed Morbidly obese 66 y/o male with COPD and admitte giorgiovaleria acute on chronic resp failure and PNA. Currently on nightly BIPAP: 27/11, 40% and appears comfortable and not hypoxic Pulse: 58 NSR O2 sa: 95% Cardiology following for CHF Meds: cefipime for PNA Lovenox for DVT px Pantoprazole for GI PX IMP COPD exacerbation, PNA PLAN: continue current plans and antibiotics Focused Exam Height, Weight, BMI Height: 5'3.00" Weight: 226lbs. 1.0oz. 107.215354xz; 34.58 BMI Method:Stated Labs Laboratory Tests 05/26/22 04:16 Results Results/Procedures Labs Laboratory Tests 05/25/22 04:33 05/26/22 04:16 Patient resulted labs reviewed. Results Labs Labs Laboratory Tests 05/25/22 10:29: Glucometer 240H 05/25/22 15:41: Glucometer 222H 05/25/22 19:58: Glucometer 218H 05/26/22 04:16: White Blood Count 15.1H, Red Blood Count 4.54, Hemoglobin 12.3L, Hematocrit 38L, Mean Corpuscular Volume 84, Mean Corpuscular Hemoglobin 27, Mean Corpuscular Hemoglobin Concent 32, Red Cell Distribution Width 14.9H, Platelet Count 303, Mean Platelet Volume 9.4, Immature Granulocyte % (Auto) 1, Neutrophils (%) (Auto) 88H, Lymphocytes (%) (Auto) 5L, Monocytes (%) (Auto) 6, Eosinophils (%) (Auto) 0, Basophils (%) (Auto) 0, Neutrophils # (Auto) 13.3H, Lymphocytes # (Auto) 0.8L, Monocytes # (Auto) 0.9, Eosinophils # (Auto) 0.0, Basophils # (Auto) 0.0, Immature Granulocyte # (Auto) 0.1, Blood Gas Puncture Site L RAD, Blood Gas Patient Temperature 36.9, Arterial Blood pH 7.37, Arterial Blood Partial Pressure CO2 42, Arterial Blood Partial Pressure O2 61L, Arterial Blood HCO3 24, Arterial Blood Total CO2 24.8, Arterial Blood Oxygen Saturation 92L, Arterial Blood Base Excess -1.1, Castro Test YES-POS, Blood Gas Ventilator Setting NO, Blood Gas Inspired Oxygen 40%, Sodium Level 137, Potassium Level 4.5, Chloride Level 106, Carbon Dioxide Level 20L, Anion Gap 11, Blood Urea Nitrogen 35H, Creatinine 0.87, Estimat Glomerular Filtration Rate 95, BUN/Creatinine Ratio 40, Glucose Level 225H, Calcium Level 8.9, Corrected Calcium 9.6, Phosphorus Level 3.4, Magnesium Level 1.9, Total Bilirubin 0.4, Aspartate Amino Transf (AST/SGOT) 12, Alanine Aminotransferase (ALT/SGPT) 20, Alkaline Phosphatase 35L, Total Protein 6.0L, Albumin 3.1L Microbiology 05/21/22 Blood Culture - Preliminary, Resulted No growth 05/21/22 MRSA Screen - Final, Complete MRSA not isolated CARLOS WELCH MD May 26, 2022 07:40
[2022-05-26] MEDS: ENOXAPARIN 40 MG/0.4 ML (LOVENOX) SYR SC SCH (07:57)
[2022-05-26] MEDS: TOLTERODINE LA 2 MG (DETROL LA) CAP PO SCH (07:58)
[2022-05-26] MEDS: FENOFIBRATE, MICRO 67 MG (LOFIBRA) CAPSULE PO SCH (07:58)
[2022-05-26] MEDS: SENNOSIDES 8.6 MG (SENOKOT) TAB PO SCH ×2 (07:58→21:47)
[2022-05-26] MEDS: buPROPion SR 150 MG (WELLBUTRIN SR) TAB PO SCH (07:58)
[2022-05-26] MEDS: DOCUSATE SODIUM 100 MG (COLACE) CAP PO SCH ×2 (07:58→21:46)
[2022-05-26] MEDS: PARoxetine 20 MG (PAXIL) TAB PO SCH (07:58)
[2022-05-26] MEDS: hydrALAZINE (APRESOLINE) 25 MG TAB PO SCH ×2 (07:59→17:25)
[2022-05-26] MEDS: PANTOPRAZOLE 20 MG TABLET (PROTONIX) PO SCH (07:59)
[2022-05-26] MEDS: metFORMIN 500 MG (GLUCOPHAGE) TAB PO SCH ×2 (07:59→17:25)
[2022-05-26] MEDS: LACTOBACILLUS ACIDOPHILUS (PROBIOTIC) CAPSULE PO SCH (07:59)
[2022-05-26] MEDS: CALCIUM CARB + VIT D 600 MG (CALCARB + D) TAB PO SCH ×2 (07:59→17:25)
[2022-05-26] MEDS: LORATADINE (CLARITIN) 10 MG TAB PO SCH (07:59)
[2022-05-26] MEDS: amLODIPine 10 MG (NORVASC) TAB PO SCH (07:59)
[2022-05-26] MEDS: LOSARTAN 50 MG (COZAAR) TAB PO SCH (07:59)
[2022-05-26] MEDS: AtorvaSTATin TABLET 10 MG TABLET PO SCH (07:59)
[2022-05-26] MEDS: ALPRAZolam 0.5 MG (XANAX) TAB PO PRN ×2 (08:00→15:15)
--- NOTE | 2022-05-26 08:25 | Diagnostic Imaging Report ---
EXAMINATION: Chest 1 view HISTORY: Dyspnea. COMPARISON: 05/25/2022. FINDINGS: Stable cardiomegaly with increasing perihilar and basilar opacities. Small bilateral pleural effusions are seen. No pneumothorax. IMPRESSION: 1. Findings concerning for worsening pulmonary edema. Recommend continued close followup. Dictated by: Dictated on workstation # [id number]
[2022-05-26] MEDS: RT--FLUTICASONE/SALMETEROL 232-14 (AIRDUO RespiCLICK) IH SCH ×2 (11:19→23:06)
--- NOTE | 2022-05-26 14:25 | Progress Note - Cardiology ---
Cardiology SOAP Progress Note Subjective: Shortness of breath better compared to the time of admission No cp or palp or syncope No n/v/d Gen weakness No focal weakness Objective: I&O/Vital Signs 05/26/22 05/26/22 05/26/22 05/26/22 02:34 03:00 03:13 04:00 Pulse 60 60 61 62 Resp 16 17 20 B/P (MAP) 158/84 161/80 (107) 123/99 (107) Pulse Ox 95 95 94 O2 Delivery NIV Bilevel NIV Bilevel O2 Flow Rate 40.00 40.00 40.00 05/26/22 05/26/22 05/26/22 05/26/22 04:00 04:09 04:18 05:00 Temp 36.9 Pulse 61 60 Resp 16 B/P (MAP) 158/84 168/90 (116) Pulse Ox 95 96 O2 Delivery NIV Bilevel NIV Bilevel O2 Flow Rate 40.00 FiO2 40 05/26/22 05/26/22 05/26/22 05/26/22 06:00 07:00 07:17 07:53 Temp 36.0 Pulse 57 61 59 Resp 18 15 B/P (MAP) 169/83 (111) 160/74 (102) Pulse Ox 95 94 O2 Delivery NIV Bilevel NIV Bilevel O2 Flow Rate 40.00 40.00 05/26/22 05/26/22 05/26/22 05/26/22 08:00 08:00 08:12 09:00 Pulse 58 64 Resp 19 16 B/P (MAP) 151/75 (100) 150/75 (100) Pulse Ox 93 94 94 93 O2 Delivery Vapotherm NIV Bilevel Vapotherm NIV Bilevel O2 Flow Rate 20.00 40.00 25.00 40.00 FiO2 40 40 05/26/22 05/26/22 05/26/22 05/26/22 09:15 10:00 11:00 11:20 Pulse 68 83 Resp 15 20 B/P (MAP) 133/68 (89) 168/76 (106) Pulse Ox 88 96 94 O2 Delivery Vapotherm Vapotherm Vapotherm Vapotherm O2 Flow Rate 20.00 20.00 20.00 25.00 40.00 40.00 40.00 FiO2 40 05/26/22 05/26/22 05/26/22 05/26/22 11:50 12:00 13:00 13:20 Temp 36.5 Pulse 90 B/P (MAP) Pulse Ox 93 O2 Delivery High Flow N/C High Flow N/C O2 Flow Rate 8.00 10.00 05/26/22 00:00 Intake Total 1050 ml Output Total 1350 ml Balance -300 ml Weight (Pounds): 226 Weight (Ounces): 1.0 Weight (Calculated Kilograms): 107.262792 Constitutional: AAO x 3, well-developed, well-nourished Respiratory: No accessory muscle use, No respiratory distress; chest expansion is symmetric, chest is bilaterally symmetric, rhonchi (scattered), other (fair air entry - currently on Bi-pap) Cardiovascular: regular rate-rhythm; No JVD; S1 and S2 Gastrointestional: soft, audible bowel sounds Extremities: swelling (mild to mod edema of all four extremities) Neurologic/Psychiatric: other (moves all limbs equally) Skin: No rash on exposed areas, No ulcerations on exposed areas Results/Procedures: Labs Laboratory Tests 05/25/22 15:41: Glucometer 222H 05/25/22 19:58: Glucometer 218H 05/26/22 04:16: White Blood Count 15.1H, Red Blood Count 4.54, Hemoglobin 12.3L, Hematocrit 38L, Mean Corpuscular Volume 84, Mean Corpuscular Hemoglobin 27, Mean Corpuscular Hemoglobin Concent 32, Red Cell Distribution Width 14.9H, Platelet Count 303, Mean Platelet Volume 9.4, Immature Granulocyte % (Auto) 1, Neutrophils (%) (Auto) 88H, Lymphocytes (%) (Auto) 5L, Monocytes (%) (Auto) 6, Eosinophils (%) (Auto) 0, Basophils (%) (Auto) 0, Neutrophils # (Auto) 13.3H, Lymphocytes # (Auto) 0.8L, Monocytes # (Auto) 0.9, Eosinophils # (Auto) 0.0, Basophils # (Auto) 0.0, Immature Granulocyte # (Auto) 0.1, Blood Gas Puncture Site L RAD, Blood Gas Patient Temperature 36.9, Arterial Blood pH 7.37, Arterial Blood Partial Pressure CO2 42, Arterial Blood Partial Pressure O2 61L, Arterial Blood HCO3 24, Arterial Blood Total CO2 24.8, Arterial Blood Oxygen Saturation 92L, Arterial Blood Base Excess -1.1, Castro Test YES-POS, Blood Gas Ventilator Setting NO, Blood Gas Inspired Oxygen 40%, Sodium Level 137, Potassium Level 4.5, Chloride Level 106, Carbon Dioxide Level 20L, Anion Gap 11, Blood Urea Nitrogen 35H, Creatinine 0.87, Estimat Glomerular Filtration Rate 95, BUN/Creatinine Ratio 40, Glucose Level 225H, Calcium Level 8.9, Corrected Calcium 9.6, Phosphorus Level 3.4, Magnesium Level 1.9, Total Bilirubin 0.4, Aspartate Amino Transf (AST/SGOT) 12, Alanine Aminotransferase (ALT/SGPT) 20, Alkaline Phosphatase 35L, Total Protein 6.0L, Albumin 3.1L 05/26/22 10:43: Glucometer 215H Microbiology 05/21/22 Blood Culture - Preliminary, Resulted No growth 05/21/22 MRSA Screen - Final, Complete MRSA not isolated A/P: Assessment: Dyspnea probably due to ac on ch exac of COPD due to pneumonia - Echocardiogram of 05-22-22: Mild concentric hypertrophy. Estimated ejection fraction is 60-65%. There were no regional wall motion abnormalities identified. A small to moderate pericardial effusion is identified circumferential to the heart, without evidence of hemodynamic significance - Echo of 05-22-22: mild conc LVH, LVEF 60-65%, small to mod pericard eff w/o evidence of hemodynamic significance, PASP 25-30 mmHg Acute on chronic exacerbation of COPD - management per Medical services Pneumonia - management per medical services Pericardial effusion seen on CT of the chest on 05-21-22 - see subsequent echo report above HTN - uncontrolled DM 2 GERD Plan: * Treat pnemonia and ac exac of COPD (Med Svce) * Monitor pericard eff. Today's repeat echo results are documented above * BP improved, continue current regimen * iv diuretics as needed * Monitor labs * Lovenox for DVT prophylaxis ELLIOT SMITH MD FACP FAC CCDS May 26, 2022 14:25
[2022-05-26] MEDS: HYDROmorphone 2 MG/ML VIAL (DILAUDID) IV PRN (15:15)
[2022-05-26] MEDS: LORazepam INJ 2 MG/ML (ATIVAN) VIAL IVP PRN (17:22)
[2022-05-26] MEDS: FINASTERIDE (PROSCAR) 5 MG TAB PO SCH (17:25)
[2022-05-26 19:22] VITALS: BP 151/77
[2022-05-26] MEDS: diphenhydrAMINE 25 MG TAB (BENADRYL) PO SCH (21:46)
[2022-05-26] MEDS: MELATONIN 10 MG TABLET PO SCH (21:47)
[2022-05-26] MEDS: ACETAMINOPHEN 500 MG TAB (TYLENOL) PO SCH (21:47)
[2022-05-26] MEDS: traZODone 150 MG (DESYREL) TABLET PO SCH (21:47)
[2022-05-26] MEDS: AZITHROMYCIN 250 MG TAB (ZITHROMAX) PO SCH (22:26)
[2022-05-26 23:07] VITALS: BP 156/85
[2022-05-26 23:39] VITALS: BP 156/85
[2022-05-27] MEDS ORDERED: RT-IPRATROPIUM (ATROVENT) 0.5MG/2.5ML AMP IH PRN
[2022-05-27] MEDS ORDERED: RT-ALBUTEROL SULF 2.5 MG/3 ML PRE-MIX VIAL INH PRN
[2022-05-27] MEDS: DexMEDEtomidine 250 ML DRIP 250 ML IV SCH ×3 (01:05→22:48)
[2022-05-27] MEDS: methylPREDNISolone 40 MG/ML (Solu-MEDROL) VIAL IV SCH ×5 (01:05→23:42)
[2022-05-27] MEDS: RT-ALBUTEROL SULF 2.5 MG/3 ML PRE-MIX VIAL INH SCH ×6 (03:20→22:07)
[2022-05-27] MEDS: RT-IPRATROPIUM (ATROVENT) 0.5MG/2.5ML AMP IH SCH ×6 (03:20→22:07)
[2022-05-27 03:21] VITALS: BP 155/85
[2022-05-27 05:45] LABS: BASOPHILS % (AUTO) 0 % (0-10); EOSINOPHILS % (AUTO) 0 % (0-10); HEMATOCRIT 38 % (40-54); HEMOGLOBIN 12.1 g/dL (13.3-17.7); LYMPHOCYTES # (AUTO) 0.7 10^3/uL (1.0-4.0); LYMPHOCYTES % (AUTO) 5 % (12-44); MEAN CORPUSCULAR HEMOGLOBIN 27 pg (25-34); MEAN CORPUSCULAR HGB CONC 32 g/dL (32-36); MEAN CORPUSCULAR VOLUME 83 fL (80-99); MEAN PLATELET VOLUME 10.1 fL (9.0-12.2); MONOCYTES # (AUTO) 0.9 10^3/uL (0.0-1.0); MONOCYTES % (AUTO) 6 % (0-12); NEUTROPHILS # (AUTO) 12.9 10^3/uL (1.8-7.8); NEUTROPHILS % (AUTO) 88 % (42-75); PLATELET COUNT 290 10^3/uL (130-400); WHITE BLOOD COUNT 14.7 10^3/uL (4.3-11.0)
[2022-05-27 06:01] LABS: POTASSIUM 4.7 MMOL/L (3.6-5.0)
[2022-05-27 06:02] LABS: CALCIUM 8.7 MG/DL (8.5-10.1)
[2022-05-27 06:03] LABS: ANISOCYTOSIS SLIGHT; BAND NEUTROPHILS 0 %; BASOPHILS % (MANUAL) 0 %; EOSINOPHILS % (MANUAL) 0 %; LYMPHOCYTES % (MANUAL) 2 %; MONOCYTES % (MANUAL) 9 %; NEUTROPHILS % (MANUAL) 89 %; TOTAL PROTEIN 5.7 GM/DL (6.4-8.2)
[2022-05-27 06:05] LABS: BILIRUBIN,TOTAL 0.4 MG/DL (0.1-1.0)
[2022-05-27 06:07] LABS: CREATININE SERUM 1.03 MG/DL (0.60-1.30); PHOSPHORUS 3.1 MG/DL (2.3-4.7)
[2022-05-27 06:10] LABS: MAGNESIUM 2.2 MG/DL (1.6-2.4)
[2022-05-27] MEDS: KCL 20 MEQ TAB (K-DUR) PO SCH (06:14)
[2022-05-27] MEDS: MAGNESIUM 1 GM/100 ML IVPB 100 ML IV SCH (06:14)
[2022-05-27] MEDS: POTASSIUM CL 10MEQ/50ML IVPB 50 ML IV SCH (06:14)
[2022-05-27] MEDS: inSUlin ASPART (NovoLOG) 1 UNIT/0.01 ML (CHARGE PER UNIT) SC SCH ×4 (06:28→20:40)
[2022-05-27 07:13] VITALS: BP 157/88
[2022-05-27] MEDS: amLODIPine 10 MG (NORVASC) TAB PO SCH (08:05)
[2022-05-27] MEDS: FENOFIBRATE, MICRO 67 MG (LOFIBRA) CAPSULE PO SCH (08:05)
[2022-05-27] MEDS: PARoxetine 20 MG (PAXIL) TAB PO SCH (08:05)
[2022-05-27] MEDS: LACTOBACILLUS ACIDOPHILUS (PROBIOTIC) CAPSULE PO SCH (08:05)
[2022-05-27] MEDS: PANTOPRAZOLE 20 MG TABLET (PROTONIX) PO SCH (08:05)
[2022-05-27] MEDS: ALPRAZolam 0.5 MG (XANAX) TAB PO PRN ×2 (08:05→16:18)
[2022-05-27] MEDS: DOCUSATE SODIUM 100 MG (COLACE) CAP PO SCH ×2 (08:05→19:25)
[2022-05-27] MEDS: MULTIVIT W/MINERALS TAB (THERAGRAN M) PO SCH (08:05)
[2022-05-27] MEDS: TOLTERODINE LA 2 MG (DETROL LA) CAP PO SCH (08:05)
[2022-05-27] MEDS: metFORMIN 500 MG (GLUCOPHAGE) TAB PO SCH ×2 (08:06→17:23)
[2022-05-27] MEDS: AtorvaSTATin TABLET 10 MG TABLET PO SCH (08:06)
[2022-05-27] MEDS: SENNOSIDES 8.6 MG (SENOKOT) TAB PO SCH ×2 (08:06→19:25)
[2022-05-27] MEDS: buPROPion SR 150 MG (WELLBUTRIN SR) TAB PO SCH (08:06)
[2022-05-27] MEDS: LORATADINE (CLARITIN) 10 MG TAB PO SCH (08:06)
[2022-05-27] MEDS: LOSARTAN 50 MG (COZAAR) TAB PO SCH (08:06)
[2022-05-27] MEDS: hydrALAZINE (APRESOLINE) 25 MG TAB PO SCH ×2 (08:06→17:23)
[2022-05-27] MEDS: CALCIUM CARB + VIT D 600 MG (CALCARB + D) TAB PO SCH ×2 (08:06→17:23)
[2022-05-27] MEDS: ENOXAPARIN 40 MG/0.4 ML (LOVENOX) SYR SC SCH (08:07)
--- NOTE | 2022-05-27 08:56 | Diagnostic Imaging Report ---
EXAMINATION: Chest 1 view HISTORY: Short of breath COMPARISON: 05/26/2022 FINDINGS: There are unchanged mild interstitial opacities. A small left effusion is unchanged. Heart size is enlarged. No pneumothorax. There is an unchanged chondroid lesion in the proximal right humerus. IMPRESSION: 1. Unchanged mild interstitial opacities and small left effusion favored to represent edema. Dictated by: Dictated on workstation # [id number]
[2022-05-27] MEDS ORDERED: BUMETANIDE 1 MG/4 ML (BUMEX) VIAL IV NR (10:00)
--- NOTE | 2022-05-27 10:31 | Progress Note ---
SARBJIT NEUMANN 05/27/22 1031: Subjective Date Seen by a Provider: May 27, 2022 Time Seen by a Provider: 07:46 Subjective/Events-last exam Shirley Diaz, 66 yo M, remains in ICU for BiPAP dependent Acute on Chronic Respiratory Failure. This morning he is alert and oriented sitting up in bed under no acute distress. His O2 sats are 96% while wearing 4L of O2 via nasal cannula, which is down from 6L previously. Yesterday he was on the nasal cannula for most of the day instead of the Vapotherm. Shirley feels he is breathing fine at this time. Reports he wears only prn oxygen at home. Denies pain or concerns. He has been eating. Anxiety is being managed with Precedex, Ativan, and Xanax. He has not had a bowel movement, but is on stool softeners. Landeros catheter is in place. PT consult has been placed to support strengthening and ambulation. There is trace swelling in his legs bilaterally. Review of Systems HEENT: Head Aches; No Visual Changes, No Dysphasia Pulmonary: Dyspnea; No Cough Cardiovascular: No: Chest Pain, Palpitations Gastrointestinal: No: Nausea, Vomiting, Abdominal Pain Genitourinary: No Dysuria, No Hematuria Neurological: Weakness Anxious Objective Exam Last Set of Vital Signs Vital Signs Date Time Temp Pulse Resp B/P (MAP) Pulse Ox O2 Delivery O2 Flow Rate FiO2 05/27/22 10:00 65 18 156/88 (110) 94 High Flow N/C 4.00 05/27/22 04:00 40 05/26/22 23:39 36.6 Capillary Refill : Less Than 3 Seconds I&O Intake and Output 05/27/22 00:00 Intake Total 1755 ml Output Total 1525 ml Balance 230 ml Intake Oral 1705 ml IV Total 50 ml Output Urine Total 1525 ml General: Alert, Oriented X3, Cooperative, No Acute Distress HEENT: PERRLA, EOMI Lungs: Clear to Auscultation, Normal Air Movement Heart: Regular Rate, Normal S1, Normal S2, No Murmurs Abdomen: Normal Bowel Sounds, Soft, No Tenderness Results Lab Laboratory Tests 05/26/22 10:43: Glucometer 215H 05/26/22 16:00: Glucometer 186H 05/26/22 21:30: Glucometer 226H 05/27/22 05:41: White Blood Count 14.7H, Red Blood Count 4.52, Hemoglobin 12.1L, Hematocrit 38L, Mean Corpuscular Volume 83, Mean Corpuscular Hemoglobin 27, Mean Corpuscular Hemoglobin Concent 32, Red Cell Distribution Width 14.9H, Platelet Count 290, Mean Platelet Volume 10.1, Immature Granulocyte % (Auto) 0, Neutrophils (%) (Auto) 88H, Lymphocytes (%) (Auto) 5L, Monocytes (%) (Auto) 6, Eosinophils (%) (Auto) 0, Basophils (%) (Auto) 0, Neutrophils # (Auto) 12.9H, Lymphocytes # (Auto) 0.7L, Monocytes # (Auto) 0.9, Eosinophils # (Auto) 0.0, Basophils # (Auto) 0.0, Immature Granulocyte # (Auto) 0.1, Neutrophils % (Manual) 89, Lymphocytes % (Manual) 2, Monocytes % (Manual) 9, Eosinophils % (Manual) 0, Basophils % (Manual) 0, Band Neutrophils 0, Anisocytosis SLIGHT, Sodium Level 137, Potassium Level 4.7, Chloride Level 106, Carbon Dioxide Level 22, Anion Gap 9, Blood Urea Nitrogen 36H, Creatinine 1.03, Estimat Glomerular Filtration Rate 80, BUN/Creatinine Ratio 35, Glucose Level 233H, Calcium Level 8.7, Corrected Calcium 9.5, Phosphorus Level 3.1, Magnesium Level 2.2, Total Bilirubin 0.4, Aspartate Amino Transf (AST/SGOT) 9, Alanine Aminotransferase (ALT/SGPT) 19, Alkaline Phosphatase 32L, Total Protein 5.7L, Albumin 3.0L Microbiology 05/21/22 Blood Culture - Preliminary, Resulted No growth 05/21/22 MRSA Screen - Final, Complete MRSA not isolated Meds Finished Cefepime and Azithromycin on 05/26 Radiology NAME: SHIRLEY DIAZ [facility] REC#: [id number] PT STATUS: ADM IN : 1955 PHYSICIAN: NAZANIN HALL DO ADMIT DATE: 05/21/22/ICU Draft Date of Exam:05/27/22 CHEST 1 VIEW, AP/PA ONLY EXAMINATION: Chest 1 view HISTORY: Short of breath COMPARISON: 05/26/2022 FINDINGS: There are unchanged mild interstitial opacities. A small left effusion is unchanged. Heart size is enlarged. No pneumothorax. There is an unchanged chondroid lesion in the proximal right humerus. IMPRESSION: 1. Unchanged mild interstitial opacities and small left effusion favored to represent edema. Dictated on workstation # [id number] Dict: 05/27/22 0852 Trans: 05/27/22 0856 [facility] [id number] Interpreted by: IBETH LOVELL MD Electronically signed by: Assessment/Plan Assessment/Plan Assess & Plan/Chief Complaint Assessment: Acute on chronic respiratory failure, BiPAP dependent Hypoxemia - newest ABG pO2 is 61 PNA AECOPD Severe COPD O2 dependent at home Recent COVID 3 weeks ago Lower extremity edema Elevated d-dimer ordered CT angiogram to r/o PE and dosed Lovenox 1mg/kg SQ Q 12 hours Smoker Panic attacks DM HTN HLP Depression Insomnia Anemia GERD Hypogonadism ED BPH B12 Malignant HTN Plan: Wean O2 requirements - currently on 4L NC down from 6L NC Continue Vapotherm as needed Continue steroids IVF Abx - Azithromycin and Cefepime - finished Lovenox - CTA and Venous doppler ruled out PE or DVT of lower extremities Anxiolytics - receiving Ativan, Precedex, Xanax Lower Extremity edema - resolved B12 labs = 491 wnl DM - continue insulins Malignant HTN - start amlodipine, losartan Depression - start paroxetine, buproprion Promote increasing nutrition intake Begin PT to increase mobility Clinical Quality Measures Admission Status Admission Dx Assessment: Acute on chronic respiratory failure AECOPD Severe COPD O2 dependent at home Suspicion for PNA vs. bronchitis Recent COVID 3 weeks ago Lower extremity edema Elevated d-dimer ordered CT angiogram to r/o PE and dosed Lovenox 1mg/kg SQ Q 12 hours Smoker Panic attacks DM HTN HLP Depression Insomnia Anemia GERD Hypogonadism ED BPH B12 Plan: Continue BiPAP IVF Abx - Azithromycin and Cefepime Lovenox Anxiolytics DVT/VTE Risk/Contraindication: Contraindications-Mechi: Other *list below* Other: poss dvt NAZANIN HALL DO 05/28/22 0452: Supervisory-Addendum Brief Verification & Attestation Participated in pt care: history, MDM, physical Personally performed: exam, history, MDM, supervision of care Care discussed with: Medical Student Procedures: n/a Results interpretation: Verified all documentation Verification and Attestation of Medical Student E/M Service A medical student performed and documented this service in my presence. I reviewed and verified all information documented by the medical student and made modifications to such information, when appropriate. I personally performed the physical exam and medical decision making. Nazanin Hall, May 28, 2022,04:51 SARBJIT NEUMANN May 27, 2022 10:31 NAZANIN HALL DO May 28, 2022 04:52
--- NOTE | 2022-05-27 10:33 | Cardiology Progress Note ---
Subjective Date Seen by Provider: May 27, 2022 Time Seen by Provider: 10:31 Subjective/Events-last exam Patient was seen at bedside, laying down comfortably Currently on oxygen nasal cannula. Objective-Cardiology Exam Last Set of Vital Signs Vital Signs 05/26/22 05/27/22 23:39 10:00 Temp 36.6 Pulse 65 Resp 18 B/P (MAP) 156/88 (110) Pulse Ox 94 O2 Delivery High Flow N/C O2 Flow Rate 4.00 I&O Intake and Output 05/27/22 00:00 Intake Total 1755 ml Output Total 1525 ml Balance 230 ml Intake Oral 1705 ml IV Total 50 ml Output Urine Total 1525 ml General: Alert, Oriented X3, Cooperative, No Acute Distress HEENT: PERRLA, EOMI Neck: Supple Lungs: Clear to Auscultation, Normal Air Movement Heart: Regular Rate, Normal S1, Normal S2, No Murmurs Abdomen: Normal Bowel Sounds, Soft, No Tenderness Extremities: No Clubbing, No Cyanosis, Normal Pulses Neuro: Normal Speech Psych/Mental Status: Mental Status NL, Mood NL Results Lab Laboratory Tests 05/27/22 05:41 A/P-Cardiology Admission Diagnosis Acute exacerbation of COPD Hypertension Pneumonia Diabetes mellitus Assessment/Plan Shortness of breath, status postacute exacerbation of COPD, was on Vapotherm Currently on nasal cannula, reporting improvement. Continue to monitor Pneumonia, managed by medical team Acute exacerbation of COPD, improving. Continue to monitor Small to moderate-sized pericardial effusion, no hemodynamic significance 2D echo was done on May 26, 2022 Continue to monitor Hypertension, monitor blood pressure Diabetes mellitus, followed and managed by primary care physician Gastroesophageal reflux disease Obesity, BMI 36. GARRETT DOBBINS MD May 27, 2022 10:33
[2022-05-27 10:49] LABS: ABG BASE EXCESS 1.4 MMOL/L (-2.5-2.5); ABG OXYGEN SATURATION 93 % (94-100); ABG PCO2 43 MMHG (35-45); ABG PH 7.39 (7.37-7.43); ABG PO2 64 MMHG (79-93); ABG TCO2 27.3 MMOL/L (21.0-31.0); INSPIRED O2 30%; PATIENT TEMP 36.4; VENTILATOR NO
[2022-05-27] MEDS: RT--FLUTICASONE/SALMETEROL 232-14 (AIRDUO RespiCLICK) IH SCH ×2 (11:10→22:08)
--- NOTE | 2022-05-27 12:24 | Tele-ICU Progress Note ---
Subjective Date Seen by a Provider: May 27, 2022 Time Seen by a Provider: 12:24 Subjective/Events-last exam (Tele-ICU Physician , Progress Note ) Service provided via interactive audio and video telecommunications E-CARE system to a patient admitted to ICU bed in [facility]. Patient is seen today due to persistent need of ICU care Available chart/ vitals / labs / Images reviewed Video assessment done using teleICU camera, rest of exam as per RN Discussed with RN Events overnight : Afebrile hemodynamically stable Respiratory - 30% I/O = pos Drips: 60 /h - TO STP Pressors- no Consultants: Hospital course: 05/21- 66y M Direct from [facility] for Acute on Chronic Resp failure,COPD, hy poxemia,LE edema. Elevated Ddimer-CTA chest r/o PE(-) 05/24 BIPAP / 30 % [id number], precedex 1.5 VT 5H 05/25 Bipap overnignh , precedex 1.5 , BUMEX 0.5 x1 05/27 - precedex 0.8 and off bipap for a day on 3 l NC , decrease dose to SM 60 q 6 , BUMEX 0.5 x1 A/P Acute on chronic resp failure - with AECOPD, infection , possible VO ( CTA 05/21 and US LE 05/22 neg for tromboembolic dz ) - BIPAP at night , NC daytime - precedex 0.8 - will try to diuresis , limit Po fluid inake - follow closely Acute exacerbation of COPD ( moderate emphysematous changes on CT, ( baseline on O2 ) - cont IV steroids - ( extra 125mg 05/23) nebs , on 80 q6 h - to decrease dose today to SM 60 q 6 Pneumonia? - post covid ? , CT chest with chronic changes - small infitrates vs atelectasis , - cont abx - cefepime Pericardial effusion seen on CT of the chest on 05-21-22 -not a consern by ECHO HTN - as per cards DM 2 - ISS - levemir , metformin Anxiety -on precedex 0.8 + xanax prn- to wean off precedex - home meds resumed midline 05/24 Landeros: + OG: Nutrition: po Analgesia: Anxiety/ delirium VTE Prophylaxis: wil 40 Stress Ulcer Prophylaxis: ppi Plans in collaboration with bedside consultants and IM MDs. Discussed with RN to reach out if any questions or concerns A total of 32 minutes of critical care time was devoted to this patient today, required to treat and/or prevent further deterioration of critical care condition ( as above ) . I am remotely monitoring this patient from another state. I am unable to do the bedside exam, and history/physical and pertinent information is taken from other notes in the computer and bedside staff. Sepsis Event Evaluation Height, Weight, BMI Height: 5'3.00" Weight: 226lbs. 1.0oz. 107.086602yj; 34.58 BMI Method:Stated Exam Exam Patient acknowledged, consented, and participated in this virtual visit which was conducted using real time audio/video Vital Signs Date Time Temp Pulse Resp B/P (MAP) Pulse Ox O2 Delivery O2 Flow Rate FiO2 05/27/22 12:00 36.3 05/27/22 11:20 High Flow N/C 3.00 05/27/22 11:11 94 High Flow N/C 8.00 05/27/22 11:00 65 17 147/84 (105) 94 High Flow N/C 4.00 05/27/22 10:36 65 156/88 05/27/22 10:00 65 18 156/88 (110) 94 High Flow N/C 4.00 05/27/22 09:13 High Flow N/C 4.00 05/27/22 09:00 66 18 151/84 (106) 96 NIV Bilevel 30.00 05/27/22 08:00 61 16 157/85 (109) 93 NIV Bilevel 30.00 05/27/22 08:00 96 Nasal Cannula 4.00 05/27/22 07:32 60 05/27/22 07:13 61 19 95 30.00 05/27/22 07:00 61 15 157/88 (111) 95 NIV Bilevel 30.00 05/27/22 06:30 59 161/91 05/27/22 06:00 60 15 161/91 (126) 95 NIV Bilevel 30.00 05/27/22 05:05 58 155/85 05/27/22 05:00 60 17 156/85 (114) 94 NIV Bilevel 30.00 05/27/22 04:00 97 NIV Bilevel 40 05/27/22 04:00 61 17 147/81 (111) 95 NIV Bilevel 30.00 05/27/22 03:21 58 15 95 30.00 05/27/22 03:00 59 15 155/85 (118) 95 NIV Bilevel 30.00 05/27/22 02:00 59 15 153/82 (117) 95 NIV Bilevel 30.00 05/27/22 02:00 58 153/82 05/27/22 01:05 63 156/85 05/27/22 01:00 61 05/27/22 01:00 61 18 152/85 (115) 95 NIV Bilevel 30.00 05/27/22 00:00 62 15 154/83 (118) 94 NIV Bilevel 30.00 05/26/22 23:59 96 NIV Bilevel 40 05/26/22 23:39 36.6 63 97 40 05/26/22 23:13 64 15 95 NIV Bilevel 30.00 05/26/22 23:11 30.00 05/26/22 23:07 63 16 97 40.00 05/26/22 23:00 64 15 156/85 (120) 96 NIV Bilevel 40.00 05/26/22 22:27 63 156/85 05/26/22 22:00 66 16 153/78 (112) 95 NIV Bilevel 40.00 05/26/22 21:00 70 16 153/79 (112) 94 NIV Bilevel 40.00 05/26/22 20:00 70 17 147/75 (105) 95 NIV Bilevel 40.00 05/26/22 20:00 95 NIV Bilevel 40 05/26/22 19:42 36.6 66 18 151/82 (105) 94 NIV Bilevel 40.00 05/26/22 19:22 66 17 95 40.00 05/26/22 19:00 66 16 151/77 (112) 94 NIV Bilevel 40.00 05/26/22 19:00 66 05/26/22 18:27 68 147/76 05/26/22 18:00 68 17 147/76 (99) 94 NIV Bilevel 40.00 05/26/22 17:00 72 24 144/74 (97) 95 NIV Bilevel 40.00 05/26/22 16:00 96 NIV Bilevel 40 05/26/22 16:00 93 22 97 NIV Bilevel 40.00 05/26/22 15:51 37.0 05/26/22 15:22 95 High Flow N/C 8.00 05/26/22 15:00 101 23 111/103 (106) 92 High Flow N/C 8.00 05/26/22 14:00 94 20 152/74 (100) 91 High Flow N/C 8.00 05/26/22 13:20 90 05/26/22 13:05 High Flow N/C 8.00 05/26/22 13:00 92 21 141/89 (106) 93 High Flow N/C 10.00 05/26/22 13:00 High Flow N/C 10.00 I & O 05/27/22 07:00 Intake Total 1825 ml Output Total 1400 ml Balance 425 ml Height & Weight Height: 5'3.00" Weight: 226lbs. 1.0oz. 107.869275vx; 34.58 BMI Method:Stated General Appearance: WD/WN, Chronically ill, Obese HEENT: PERRL/EOMI, Normal ENT Inspection, Pharynx Normal Neck: Full Range of Motion, Normal Inspection, Non Tender, Supple, Carotid Bruit Respiratory: Chest Non Tender, Lungs Clear, No Accessory Muscle Use, No Respiratory Distress, Decreased Breath Sounds, Other (wearing BiPAP) Cardiovascular: Regular Rate, Rhythm, No Edema, No Gallop, No JVD, No Murmur, Normal Peripheral Pulses Capillary Refill: Less Than 3 Seconds Gastrointestinal: normal bowel sounds, non tender, soft Extremity: Normal Capillary Refill, Normal Inspection, Normal Range of Motion, Non Tender, No Calf Tenderness, No Pedal Edema Neurologic/Psychiatric: Alert, Oriented x3, No Motor/Sensory Deficits, Normal Mood/Affect Skin: Normal Color, Warm/Dry Lymphatic: No Adenopathy Results Lab Laboratory Tests 05/26/22 04:16 05/27/22 05:41 Assessment/Plan Assessment/Plan 1 ZAC DIAZ MD May 27, 2022 12:24
--- NOTE | 2022-05-27 13:57 | Physical Therapy Evaluation ---
PT Evaluation-General Medical Diagnosis Admission Date May 21, 2022 at 18:38 Medical Diagnosis: CHF Onset Date: May 21, 2022 Therapy Diagnosis Therapy Diagnosis: generalized weakness Height/Weight Height (Feet): 5 Height (Inches): 3.00 Weight (Pounds): 226 Weight (Ounces): 1.0 Precautions Precautions/Isolations: Fall Prevention, Standard Precautions Referral Physician: Tereso Reason for Referral: Evaluation/Treatment Medical History Pertinent Medical History: COPD, DM, GERD, HTN, Smoking Current History Direct admit from physician's office due to SOA and post Covid Social History Home: Multilevel Current Living Status: Spouse Entry Into Home: Stairs With Railing PT Steps Into Home: 5 PT Steps Inside Home: 12 (he does not go up per his report) Prior Prior Level of Function SCALE: Activities may be completed with or without assistive devices. 4-Ogasrmpbzh-ufepsco completes the activity by him/herself with no assistance from a helper. 5-Set-up or Clean-up Assistance-helper sets up or cleans up; patient completes activity. [place] assists only prior to or following the activity. 4-Supervision or Touching Assistance-helper provides verbal cues and/or touching/steadying and/or contact guard assistance as patient completes activity. Assistance may be provided throughout the activity or intermittently. 3-Partial/Moderate Assistance-helper does LESS THAN HALF the effort. [place] lifts, holds or supports trunk or limbs, but provides less than half the effort. 2-Substantial/Maximal Assistance-helper does MORE THAN HALF the effort. [place] lifts or holds trunk or limbs and provides more than half the effort. 8-Imfxaissp-tjkjdu does ALL the effort. Patient does none of the effort to complete the activity. Or, the assistance of 2 or more helpers is required for the patient to complete the activity. If activity was not attempted, code reason: 7-Patient Refused. 9-Not Applicable-not attempted and the patient did not perform the activity before the current illness, exacerbation or injury. 10-Not Attempted due to Environmental Limitations-(lack of equipment, weather restraints, etc.). 88-Not Attempted due to Medical Conditions or Safety Concerns. Bed Mobility: 6 Transfers (B,C,W/C): 6 Gait: 6 Stairs: 6 Indoor Mobility (Ambulation): Independent Stairs: Independent Prior Devices Use: None PT Evaluation-Current Subjective Patient agrees to PT. Objective Patient Orientation: Normal For Age Attachments: Oxygen, Landeros Catheter, IV ROM/Strength ROM Lower Extremities bilateral LE WFL Strength Lower Extremities 4/5 grossly bilateral LE all planes Integumentary/Posture Bowel Incontinence: No Bladder Incontinence: Landeros Cath Posture WFL Neuromuscular (Tone, Coordination, Reflexes) grossly intact Sensory Vision: Functional Hearing: Functional Transfers Lying to Sitting/Side of Bed(Q: 6 Sit to Stand (QC): 4 Chair/Lnh-lo-Ydwnf Xfer(QC): 4 Gait Mode of Locomotion: Walk Anticipated Mode of Locomotion: Walk Walk 10 feet (QC): 4 Walk 50 ft with 2 Turns(QC): 4 Walk 150 ft (QC): 88 Distance: 50' Gait Assistive Device: FWW Comments/Gait Description safe and functional with no deviation Balance Sitting Static: Normal Sitting Dynamic: Normal Standing Static: Normal Standing Dynamic: Normal Assessment/Needs Patient will benefit from skilled PT to address functional strength and mobility to improve current LOF to safely return to home with spouse at maximum LOF. Rehab Potential: Fair PT Mcc Goals Stunt Person Goals PT Stunt Person Goals Time Frame: Jun 08, 2022 Roll Left & Right (QC): 6 Sit to Lying (QC): 6 Lying-Sitting on Side/Bed(QC): 6 Sit to Stand (QC): 6 Chair/Vrr-cd-Fqodz Xfer(QC): 6 Toilet Transfer (QC): 6 Walk 10 feet (QC): 6 Walk 50ft with 2 Turns (QC): 6 Walk 150 ft (QC): 6 1 Step (curb) (QC): 6 PT Plan Problem List Problem List: Activity Tolerance, Functional Strength, Safety, Balance, Gait, Transfer Treatment/Plan Treatment Plan: Continue Plan of Care Treatment Plan: Education, Functional Activity Dejuan, Functional Strength, Gait, Safety, Therapeutic Exercise, Other Treatment Duration: Jun 08, 2022 Frequency: 6 times per week Estimated Hrs Per Day: .25 hour per day Patient and/or Family Agrees t: Yes Time Time In: 1330 Time Out: 1346 DATE: May 27, 2022 Total Billed Treatment Time: 16 Total Billed Treatment 1 visit EVMod 16 min LORY ALCARAZ PT May 27, 2022 13:57
[2022-05-27] MEDS: FINASTERIDE (PROSCAR) 5 MG TAB PO SCH (17:23)
--- NOTE | 2022-05-27 17:24 | Occupational Therapy Eval ---
OT Evaluation-General/PLF Medical Diagnosis Admission Date May 21, 2022 at 18:38 Medical Diagnosis: CHF Onset Date: May 21, 2022 Therapy Diagnosis Therapy Diagnosis: WEAKNESS Height/Weight Height (Feet): 5 Height (Inches): 3.00 Weight (Pounds): 226 Weight (Ounces): 1.0 Precautions Precautions/Isolations: Fall Prevention, Standard Precautions Weight Bear Status Weight Bearing Restriction: Weight Bearing/Tolerated Referral Physician: Tereso Referral Reason: Evaluation/Treatment Medical History Pertinent Medical History: COPD, DM, GERD, HTN, Smoking Current History Sacha Diaz, 66 yo M, remains in ICU for BiPAP dependent Acute on Chronic Respiratory Failure. His O2 sats are 96% while wearing 4L of O2 via nasal cannula, Yesterday he was on the nasal cannula for most of the day instead of the Vapotherm. Sacha feels he is breathing fine at this time. Reports he wears only prn oxygen at home. Denies pain or concerns. He has been eating. Anxiety is being managed with Precedex, Ativan, and Xanax. He has not had a bowel movement, but is on stool softeners. Landeros catheter is in place Social History Home: Multilevel Current Living Status: Spouse Entry Into Home: Stairs With Railing Steps Into Home: 5 Steps Inside Home: 12 (he does not go up per his report) ADL-Prior Level of Function SCALE: Activities may be completed with or without assistive devices. 8-Eeffeoynyi-kkljcxn completes the activity by him/herself with no assistance from a helper. 5-Set-up or Clean-up Assistance-helper sets up or cleans up; patient completes activity. [place] assists only prior to or following the activity. 4-Supervision or Touching Assistance-helper provides verbal cues and/or touching/steadying and/or contact guard assistance as patient completes activity. Assistance may be provided throughout the activity or intermittently. 3-Partial/Moderate Assistance-helper does LESS THAN HALF the effort. [place] lifts, holds or supports trunk or limbs, but provides less than half the effort. 2-Substantial/Maximal Assistance-helper does MORE THAN HALF the effort. [place] lifts or holds trunk or limbs and provides more than half the effort. 2-Cenjzvbag-ejsxld does ALL the effort. Patient does none of the effort to complete the activity. Or, the assistance of 2 or more helpers is required for the patient to complete the activity. If activity was not attempted, code reason: 7-Patient Refused. 9-Not Applicable-not attempted and the patient did not perform the activity before the current illness, exacerbation or injury. 10-Not Attempted due to Environmental Limitations-(lack of equipment, weather restraints, etc.). 88-Not Attempted due to Medical Conditions or Safety Concerns. Self Care: Independent Functional Cognition: Independent Drive Self: Yes OT Current Status Subjective Up in chair eating snacks Mental Status/Objective Patient Orientation: Person, Place, Time, Situation Attachments: Landeros Catheter, Oxygen Current Upper Extremity ROM Limited by excessive soft tissue and unable to approximate at joints Upper Extremity Strength -4/5 BUE grossly Impulsive ADL-Treatment Eating (QC): 6 Oral Hygiene (QC): 5 Shower/Bathe Self (QC): 88 Upper Body Dressing (QC): 3 Lower Body Dressing (QC): 2 On/Off Footwear (QC): 2 Toileting Hygiene (QC): 7 (declined) Education OT Patient Education: Energy conservation, Exercise program, Modified ADL techniques, Progress toward Goal/Update tx plan, Purpose of tx/functional activities, Reviewed precautions, Rehab process, Safety issues, Transfer techniques, Use of adapted equipment Teaching Recipient: Patient Teaching Methods: Demonstration, Discussion Response to Teaching: Verbalize Understanding, Return Demonstration, Reinforcement Needed OT 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 2=Patient will verbalize/demonstrate understanding of assistive devices/modifications for ADL. 3=Patient will improve strength/tolerance for activity to enable patient to perform ADL's. 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 Plan of Care: ADL Retraining, Concurrent Therapy, Functional Mobility, Group Exercise/Act as Ind, UE Funct Exercise/Act Comment Returned to recliner, all needs met Treatment Duration: Jun 08, 2022 Frequency: 3 times per week (3-5 times per week) Estimated Hrs Per Day: .25 hour per day Rehab Potential: Fair Time Start Time: 14:57 Stop Time: 15:10 DATE: May 27, 2022 Total Time Billed (hr/min): 18 Billed Treatment Time 1 visit [facility] 1 18 minutes DUSTIN MUNIZ OT May 27, 2022 17:24
[2022-05-27] MEDS: LORazepam INJ 2 MG/ML (ATIVAN) VIAL IVP PRN (18:17)
[2022-05-27] MEDS: HYDROmorphone 2 MG/ML VIAL (DILAUDID) IV PRN (18:56)
[2022-05-27] MEDS: ACETAMINOPHEN 500 MG TAB (TYLENOL) PO SCH (19:24)
[2022-05-27] MEDS: MELATONIN 10 MG TABLET PO SCH (19:25)
[2022-05-27] MEDS: traZODone 150 MG (DESYREL) TABLET PO SCH (19:25)
[2022-05-27] MEDS: diphenhydrAMINE 25 MG TAB (BENADRYL) PO SCH (19:25)
[2022-05-27 22:12] VITALS: BP 150/73
[2022-05-28] MEDS: RT-ALBUTEROL SULF 2.5 MG/3 ML PRE-MIX VIAL INH SCH ×6 (03:02→22:29)
[2022-05-28] MEDS: RT-IPRATROPIUM (ATROVENT) 0.5MG/2.5ML AMP IH SCH ×6 (03:02→22:29)
[2022-05-28 03:03] VITALS: BP 162/83
[2022-05-28 03:38] LABS: BASOPHILS % (AUTO) 0 % (0-10); EOSINOPHILS % (AUTO) 0 % (0-10); HEMATOCRIT 38 % (40-54); HEMOGLOBIN 12.2 g/dL (13.3-17.7); LYMPHOCYTES # (AUTO) 0.9 10^3/uL (1.0-4.0); LYMPHOCYTES % (AUTO) 5 % (12-44); MEAN CORPUSCULAR HEMOGLOBIN 27 pg (25-34); MEAN CORPUSCULAR HGB CONC 32 g/dL (32-36); MEAN CORPUSCULAR VOLUME 83 fL (80-99); MEAN PLATELET VOLUME 9.9 fL (9.0-12.2); MONOCYTES # (AUTO) 0.9 10^3/uL (0.0-1.0); MONOCYTES % (AUTO) 6 % (0-12); NEUTROPHILS # (AUTO) 14.7 10^3/uL (1.8-7.8); NEUTROPHILS % (AUTO) 88 % (42-75); PLATELET COUNT 285 10^3/uL (130-400); WHITE BLOOD COUNT 16.6 10^3/uL (4.3-11.0)
[2022-05-28 03:45] LABS: POTASSIUM 4.7 MMOL/L (3.6-5.0)
[2022-05-28 03:46] LABS: CALCIUM 8.5 MG/DL (8.5-10.1)
[2022-05-28 03:47] LABS: TOTAL PROTEIN 5.5 GM/DL (6.4-8.2)
[2022-05-28 03:49] LABS: BILIRUBIN,TOTAL 0.4 MG/DL (0.1-1.0)
[2022-05-28 03:50] LABS: PHOSPHORUS 3.3 MG/DL (2.3-4.7)
[2022-05-28 03:51] LABS: CREATININE SERUM 0.96 MG/DL (0.60-1.30)
[2022-05-28] MEDS: DexMEDEtomidine 250 ML DRIP 250 ML IV SCH (05:34)
[2022-05-28] MEDS: inSUlin ASPART (NovoLOG) 1 UNIT/0.01 ML (CHARGE PER UNIT) SC SCH ×4 (05:39→19:47)
[2022-05-28] MEDS: methylPREDNISolone 40 MG/ML (Solu-MEDROL) VIAL IV SCH ×3 (05:39→18:04)
[2022-05-28 06:22] VITALS: BP 156/80
[2022-05-28 06:22] LABS: ABG BASE EXCESS 3.6 MMOL/L (-2.5-2.5); ABG OXYGEN SATURATION 90 % (94-100); ABG PCO2 42 MMHG (35-45); ABG PH 7.43 (7.37-7.43); ABG PO2 56 MMHG (79-93); ALLENS TEST YES-POS; INSPIRED O2 30%; PATIENT TEMP 36.6; VENTILATOR NO
[2022-05-28] MEDS: POTASSIUM CL 10MEQ/50ML IVPB 50 ML IV SCH (06:29)
[2022-05-28] MEDS: KCL 20 MEQ TAB (K-DUR) PO SCH (06:29)
[2022-05-28] MEDS: MAGNESIUM 1 GM/100 ML IVPB 100 ML IV SCH (06:29)
--- NOTE | 2022-05-28 07:06 | Cardiology Progress Note ---
Subjective Date Seen by Provider: May 28, 2022 Time Seen by Provider: 07:04 Subjective/Events-last exam Patient was seen at bedside, on BiPAP. Reporting improvement. Review of Systems General: No Chills, No Night Sweats; Fatigue; No Malaise, No Appetite, No Other HEENT: No Head Aches, No Visual Changes, No Eye Pain, No Ear Pain, No Dysphasia, No Sinus Congestion, No Post Nasal Drip, No Sore Throat, No Other Pulmonary: Dyspnea; No Cough, No Pleuritic Chest Pain, No Other Cardiovascular: No: Chest Pain, Palpitations, Orthopnea, Paroxysmal Noc. Dyspnea, Edema, Lt Headedness, Other Objective-Cardiology Exam Last Set of Vital Signs Vital Signs 05/27/22 05/28/22 05/28/22 20:00 06:00 06:22 Temp 37.1 Pulse 59 Resp 18 B/P (MAP) 156/80 (120) Pulse Ox 96 O2 Delivery NIV Bilevel O2 Flow Rate 40.00 I&O Intake and Output 05/28/22 00:00 Intake Total 2100 ml Output Total 2550 ml Balance -450 ml Intake Oral 1600 ml IV Total 500 ml Output Urine Total 2550 ml General: Alert, Oriented X3, Cooperative, No Acute Distress HEENT: PERRLA, EOMI Neck: Supple Lungs: Normal Air Movement, Other (Bilateral rhonchi) Heart: Regular Rate, Normal S1, Normal S2, No Murmurs Abdomen: Normal Bowel Sounds, Soft, No Tenderness Extremities: No Clubbing, No Cyanosis, Normal Pulses Neuro: Normal Speech Psych/Mental Status: Mental Status NL, Mood NL Results Lab Laboratory Tests 05/28/22 03:30 A/P-Cardiology Admission Diagnosis Acute exacerbation of COPD Hypertension Pneumonia Diabetes mellitus Assessment/Plan Shortness of breath, status postacute exacerbation of COPD, was on Vapotherm Reporting improvement, using BiPAP at night. 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 Continue to monitor Small to moderate-sized pericardial effusion, no hemodynamic significance 2D echo was done on May 26, 2022 Continue to monitor Hypertension, monitor blood pressure Diabetes mellitus, followed and managed by primary care physician Gastroesophageal reflux disease Obesity, BMI 36. GARRETT DOBBINS MD May 28, 2022 07:06
[2022-05-28] MEDS: PANTOPRAZOLE 20 MG TABLET (PROTONIX) PO SCH (08:10)
[2022-05-28] MEDS: TOLTERODINE LA 2 MG (DETROL LA) CAP PO SCH (08:11)
[2022-05-28] MEDS: CALCIUM CARB + VIT D 600 MG (CALCARB + D) TAB PO SCH ×2 (08:11→18:03)
[2022-05-28] MEDS: DOCUSATE SODIUM 100 MG (COLACE) CAP PO SCH (08:11)
[2022-05-28] MEDS: metFORMIN 500 MG (GLUCOPHAGE) TAB PO SCH ×2 (08:11→18:03)
[2022-05-28] MEDS: LOSARTAN 50 MG (COZAAR) TAB PO SCH (08:11)
[2022-05-28] MEDS: AtorvaSTATin TABLET 10 MG TABLET PO SCH (08:11)
[2022-05-28] MEDS: FENOFIBRATE, MICRO 67 MG (LOFIBRA) CAPSULE PO SCH (08:11)
[2022-05-28] MEDS: hydrALAZINE (APRESOLINE) 25 MG TAB PO SCH ×2 (08:11→18:03)
[2022-05-28] MEDS: amLODIPine 10 MG (NORVASC) TAB PO SCH (08:11)
[2022-05-28] MEDS: LACTOBACILLUS ACIDOPHILUS (PROBIOTIC) CAPSULE PO SCH (08:11)
[2022-05-28] MEDS: ENOXAPARIN 40 MG/0.4 ML (LOVENOX) SYR SC SCH (08:11)
[2022-05-28] MEDS: MULTIVIT W/MINERALS TAB (THERAGRAN M) PO SCH (08:11)
[2022-05-28] MEDS: SENNOSIDES 8.6 MG (SENOKOT) TAB PO SCH (08:11)
[2022-05-28] MEDS: PARoxetine 20 MG (PAXIL) TAB PO SCH (08:11)
[2022-05-28] MEDS: LORATADINE (CLARITIN) 10 MG TAB PO SCH (08:11)
[2022-05-28] MEDS: buPROPion SR 150 MG (WELLBUTRIN SR) TAB PO SCH (08:11)
--- NOTE | 2022-05-28 08:50 | Physical Therapy Daily Note ---
PT Daily Note-Current Subjective Patient states, "I'm ready to go home." Agrees to PT. Pain Section J - Health Conditions 1. Rarely or not at all 2. Occasionally 3. Frequently 4. Almost constantly 8. Unable to answer Pain Effect on Sleep: 1 Pain Interference with Therapy: 1 Pain Interference w/Day-to-Day: 1 Mental Status Patient Orientation: Normal For Age Attachments: Oxygen (6L HF), Landeros Catheter, IV Transfers SCALE: Activities may be completed with or without assistive devices. 2-Rfgnagdguf-tijumya completes the activity by him/herself with no assistance from a helper. 5-Set-up or Clean-up Assistance-helper sets up or cleans up; patient completes activity. [place] assists only prior to or following the activity. 4-Supervision or Touching Assistance-helper provides verbal cues and/or touching/steadying and/or contact guard assistance as patient completes activity. Assistance may be provided throughout the activity or intermittently. 3-Partial/Moderate Assistance-helper does LESS THAN HALF the effort. [place] lifts, holds or supports trunk or limbs, but provides less than half the effort. 2-Substantial/Maximal Assistance-helper does MORE THAN HALF the effort. [place] lifts or holds trunk or limbs and provides more than half the effort. 4-Xlogkyydv-ucgftp does ALL the effort. Patient does none of the effort to complete the activity. Or, the assistance of 2 or more helpers is required for the patient to complete the activity. If activity was not attempted, code reason: 7-Patient Refused. 9-Not Applicable-not attempted and the patient did not perform the activity before the current illness, exacerbation or injury. 10-Not Attempted due to Environmental Limitations-(lack of equipment, weather restraints, etc.). 88-Not Attempted due to Medical Conditions or Safety Concerns. Lying to Sitting/Side of Bed(Q: 4 Sit to Stand (QC): 4 Chair/Gxc-rg-Qxyed Xfer(QC): 4 Gait Training Distance: 50' Walk 10 feet (QC): 4 Walk 50 ft with 2 Turns(QC): 4 Gait Assistive Device: FWW slow, steady Exercises Seated Therapy Exercises: Long arc quads Seated Reps: 15 Assessment Patient's SAO2 decreased to 85% with activity with quick recovery. Patient is up in recliner with needs met. PT to continue to increase activity as tolerated by patient. PT Asphalt Distributor Tender Goals Asphalt Distributor Tender Goals PT Asphalt Distributor Tender Goals Time Frame: Jun 08, 2022 Roll Left & Right (QC): 6 Sit to Lying (QC): 6 Lying-Sitting on Side/Bed(QC): 6 Sit to Stand (QC): 6 Chair/Ora-ec-Eldsp Xfer(QC): 6 Toilet Transfer (QC): 6 Walk 10 feet (QC): 6 Walk 50ft with 2 Turns (QC): 6 Walk 150 ft (QC): 6 1 Step (curb) (QC): 6 PT Plan Treatment/Plan Treatment Plan: Continue Plan of Care Treatment Plan: Education, Functional Activity Dejuan, Functional Strength, Gait, Safety, Therapeutic Exercise, Other Treatment Duration: Jun 08, 2022 Frequency: 6 times per week Estimated Hrs Per Day: .25 hour per day Patient and/or Family Agrees t: Yes Time Time In: 836 Time Out: 847 DATE: May 28, 2022 Total Billed Treatment Time: 11 Total Billed Treatment 1 visit FA 11 min LORY ALCARAZ PT May 28, 2022 08:50
--- NOTE | 2022-05-28 09:24 | Tele-ICU Progress Note ---
Subjective Date Seen by a Provider: May 28, 2022 Time Seen by a Provider: 09:23 Subjective/Events-last exam (Tele-ICU Physician , Progress Note ) Service provided via interactive audio and video telecommunications E-CARE system to a patient admitted to ICU bed in [facility]. Patient is seen today due to persistent need of ICU care Available chart/ vitals / labs / Images reviewed Video assessment done using teleICU camera, rest of exam as per RN Discussed with RN Events overnight : Afebrile hemodynamically stable Respiratory - 30% I/O = pos Drips: 60 /h - TO STP Pressors- no Consultants: Hospital course: 05/21- 66y M Direct from [facility] for Acute on Chronic Resp failure,COPD, hy poxemia,LE edema. Elevated Ddimer-CTA chest r/o PE(-) 05/24 BIPAP 16/8 30 % [id number], precedex 1.5 VT 5H 05/25 Bipap overnignh , precedex 1.5 , BUMEX 0.5 x1 05/27 - precedex 0.8 and off bipap for a day on 3 l NC , decrease dose to SM 60 q 6 , BUMEX 0.5 x1 05/28 - BIPAP at night , NC daytime 6 L , precedex 1.5 , BUMEX 1 mg x1 A/P Acute on chronic resp failure - with AECOPD, infection , possible VO ( CTA 05/21 and US LE 05/22 neg for tromboembolic dz ) - BIPAP at night , NC daytime 6 L - precedex 1.5 - will need to wean off - will try to diuresis again , limit Po fluid inake - follow closely Acute exacerbation of COPD ( moderate emphysematous changes on CT, ( baseline on O2 ) - cont IV steroids - ( extra 125mg 05/23) nebs , on 80 q6 h - same dose today to SM 60 q 6 Pneumonia? - post covid ? , CT chest with chronic changes - small infitrates vs atelectasis , - cont abx - cefepime Pericardial effusion seen on CT of the chest on 05-21-22 -not a consern by ECHO HTN - as per cards DM 2 - ISS - levemir , metformin Anxiety -on precedex 0.8 + xanax prn- to wean off precedex - home meds resumed midline 05/24 Landeros: + OG: Nutrition: po Analgesia: Anxiety/ delirium VTE Prophylaxis: wil 40 Stress Ulcer Prophylaxis: ppi Plans in collaboration with bedside consultants and IM MDs. Discussed with RN to reach out if any questions or concerns A total of 32 minutes of critical care time was devoted to this patient today, required to treat and/or prevent further deterioration of critical care condition ( as above ) . I am remotely monitoring this patient from another state. I am unable to do the bedside exam, and history/physical and pertinent information is taken from other notes in the computer and bedside staff. Sepsis Event Evaluation Height, Weight, BMI Height: 5'3.00" Weight: 226lbs. 1.0oz. [id number]; 37.28 BMI Method:Stated Exam Exam Patient acknowledged, consented, and participated in this virtual visit which was conducted using real time audio/video Vital Signs Date Time Temp Pulse Resp B/P (MAP) Pulse Ox O2 Delivery O2 Flow Rate FiO2 05/28/22 07:45 36.4 05/28/22 07:30 NIV Bilevel 40.00 05/28/22 07:01 64 05/28/22 06:22 59 18 96 40.00 05/28/22 06:00 59 16 156/80 (120) 95 NIV Bilevel 30.00 05/28/22 05:34 60 157/79 05/28/22 05:30 59 18 157/79 (115) 95 NIV Bilevel 30.00 05/28/22 05:00 63 18 161/80 (119) 94 NIV Bilevel 30.00 05/28/22 04:00 94 NIV Bilevel 40 05/28/22 04:00 65 18 152/74 (111) 94 NIV Bilevel 30.00 05/28/22 03:19 60 18 143/73 (104) 95 NIV Bilevel 30.00 05/28/22 03:03 59 18 93 NIV Bilevel 30.00 05/28/22 03:03 60 20 90 30.00 05/28/22 03:00 59 19 162/83 (119) 92 NIV Bilevel 40.00 05/28/22 02:00 61 16 159/80 (115) 92 NIV Bilevel 40.00 05/28/22 01:00 62 05/28/22 01:00 62 17 159/81 (119) 91 NIV Bilevel 40.00 05/28/22 00:30 62 17 149/76 (107) 91 NIV Bilevel 40.00 05/28/22 00:00 92 NIV Bilevel 40 05/27/22 23:00 63 16 154/76 (110) 91 High Flow N/C 6.00 05/27/22 22:48 64 150/73 05/27/22 22:12 66 19 91 30.00 05/27/22 22:00 68 18 150/73 (106) 94 High Flow N/C 6.00 05/27/22 21:00 72 20 146/72 (100) 93 High Flow N/C 6.00 05/27/22 20:18 93 Nasal Cannula 6.00 05/27/22 20:00 80 21 139/65 (92) 92 High Flow N/C 6.00 05/27/22 20:00 37.1 05/27/22 19:30 90 24 148/92 (125) 86 High Flow N/C 6.00 05/27/22 19:00 101 05/27/22 18:59 92 OxyMask 6.00 05/27/22 18:00 109 30 172/82 (112) 90 High Flow N/C 3.00 05/27/22 17:00 88 20 130/82 (98) 92 High Flow N/C 3.00 05/27/22 16:22 36.4 05/27/22 16:00 78 39 118/78 (91) 93 High Flow N/C 3.00 05/27/22 15:44 95 Nasal Cannula 3.00 05/27/22 15:00 71 21 130/64 (86) 88 High Flow N/C 3.00 05/27/22 14:34 63 147/84 05/27/22 14:19 94 High Flow N/C 3.00 05/27/22 14:00 64 17 123/67 (85) 95 High Flow N/C 3.00 05/27/22 13:26 63 05/27/22 13:00 61 16 137/104 (115) 95 High Flow N/C 3.00 05/27/22 12:00 36.3 05/27/22 12:00 94 Nasal Cannula 3.00 05/27/22 12:00 62 16 152/81 (104) 94 High Flow N/C 3.00 05/27/22 11:20 High Flow N/C 3.00 05/27/22 11:11 94 High Flow N/C 8.00 05/27/22 11:00 65 17 147/84 (105) 94 High Flow N/C 4.00 05/27/22 10:36 65 156/88 05/27/22 10:00 65 18 156/88 (110) 94 High Flow N/C 4.00 I & O 05/28/22 07:00 Intake Total 2050 ml Output Total 2700 ml Balance -650 ml Height & Weight Height: 5'3.00" Weight: 226lbs. 1.0oz. [id number]; 37.28 BMI Method:Stated General Appearance: WD/WN, Chronically ill, Obese HEENT: PERRL/EOMI, Normal ENT Inspection, Pharynx Normal Neck: Full Range of Motion, Normal Inspection, Non Tender, Supple, Carotid Bruit Respiratory: Chest Non Tender, Lungs Clear, No Accessory Muscle Use, No Respiratory Distress, Decreased Breath Sounds, Other (wearing BiPAP) Cardiovascular: Regular Rate, Rhythm, No Edema, No Gallop, No JVD, No Murmur, Normal Peripheral Pulses Capillary Refill: Less Than 3 Seconds Gastrointestinal: normal bowel sounds, non tender, soft Extremity: Normal Capillary Refill, Normal Inspection, Normal Range of Motion, Non Tender, No Calf Tenderness, No Pedal Edema Neurologic/Psychiatric: Alert, Oriented x3, No Motor/Sensory Deficits, Normal Mood/Affect Skin: Normal Color, Warm/Dry Lymphatic: No Adenopathy Results Lab Laboratory Tests 05/27/22 05:41 05/28/22 03:30 Assessment/Plan Assessment/Plan 1 ZAC DIAZ MD May 28, 2022 09:23
[2022-05-28] MEDS ORDERED: BUMETANIDE 1 MG/4 ML (BUMEX) VIAL IV NR (09:30)
--- NOTE | 2022-05-28 10:11 | Progress Note ---
SARBJIT NEUMANN 05/28/22 1011: Subjective Date Seen by a Provider: May 28, 2022 Time Seen by a Provider: 07:54 Subjective/Events-last exam Sacha Diaz, 66 yo M, remains in ICU for BiPAP dependent Acute on Chronic Respiratory Failure. He is out of bed and sitting in the recliner this morning. Pt has been working with PT/OT and states it feels good to be up and moving. Denies pain or concerns. He is currently wearing 5L of O2 via nasal cannula with saturation of 87-90%. He did need to be placed on bipap again last night. Reports he had a small bowel movement last night. Landeros is still in place. Pt is receiving Precedex. States that is feels fine and is ready to go home. ABG: pH: 7.43 / pCO2: 42 / pO2:56 Review of Systems General: Appetite (good) HEENT: No Visual Changes, No Dysphasia Pulmonary: Dyspnea, Cough Cardiovascular: Palpitations (intermittent); No: Chest Pain Gastrointestinal: No: Nausea, Vomiting, Abdominal Pain Genitourinary: No Dysuria, No Hematuria Neurological: Weakness Anxious Objective Exam Last Set of Vital Signs Vital Signs Date Time Temp Pulse Resp B/P (MAP) Pulse Ox O2 Delivery O2 Flow Rate FiO2 05/28/22 09:48 64 156/80 05/28/22 07:45 36.4 05/28/22 07:30 NIV Bilevel 40.00 05/28/22 06:22 18 96 05/28/22 04:00 40 Capillary Refill : Less Than 3 Seconds I&O Intake and Output 05/28/22 00:00 Intake Total 2100 ml Output Total 2550 ml Balance -450 ml Intake Oral 1600 ml IV Total 500 ml Output Urine Total 2550 ml General: Alert, Cooperative, No Acute Distress HEENT: PERRLA, EOMI Neck: Supple Lungs: Clear to Auscultation, Normal Air Movement Heart: Normal S1, Normal S2, No Murmurs Abdomen: Soft, No Tenderness Extremities: Normal Pulses Results Lab Laboratory Tests 05/27/22 10:45: Blood Gas Puncture Site NA, Blood Gas Patient Temperature 36.4, Arterial Blood pH 7.39, Arterial Blood Partial Pressure CO2 43, Arterial Blood Partial Pressure O2 64L, Arterial Blood HCO3 26, Arterial Blood Total CO2 27.3, Arterial Blood Oxygen Saturation 93L, Arterial Blood Base Excess 1.4, Castro Test NA, Blood Gas Ventilator Setting NO, Blood Gas Inspired Oxygen 30%, Glucometer 242H 05/27/22 10:56: Glucometer 218H 05/27/22 16:14: Glucometer 218H 05/27/22 20:25: Glucometer 164H 05/28/22 03:30: White Blood Count 16.6H, Red Blood Count 4.59, Hemoglobin 12.2L, Hematocrit 38L, Mean Corpuscular Volume 83, Mean Corpuscular Hemoglobin 27, Mean Corpuscular Hemoglobin Concent 32, Red Cell Distribution Width 14.6H, Platelet Count 285, Mean Platelet Volume 9.9, Immature Granulocyte % (Auto) 1, Neutrophils (%) (Auto) 88H, Lymphocytes (%) (Auto) 5L, Monocytes (%) (Auto) 6, Eosinophils (%) (Auto) 0, Basophils (%) (Auto) 0, Neutrophils # (Auto) 14.7H, Lymphocytes # (Auto) 0.9L, Monocytes # (Auto) 0.9, Eosinophils # (Auto) 0.0, Basophils # (Auto) 0.0, Immature Granulocyte # (Auto) 0.1, Sodium Level 136, Potassium Level 4.7, Chloride Level 104, Carbon Dioxide Level 24, Anion Gap 8, Blood Urea Nitrogen 37H, Creatinine 0.96, Estimat Glomerular Filtration Rate 87, BUN/Creatinine Ratio 39, Glucose Level 203H, Calcium Level 8.5, Corrected Calcium 9.3, Phosphorus Level 3.3, Magnesium Level 2.0, Total Bilirubin 0.4, Aspartate Amino Transf (AST/SGOT) 15, Alanine Aminotransferase (ALT/SGPT) 21, Alkaline Phosphatase 33L, Total Protein 5.5L, Albumin 3.0L 05/28/22 05:46: Blood Gas Puncture Site R RADIAL, Blood Gas Patient Temperature 36.6, Arterial Blood pH 7.43, Arterial Blood Partial Pressure CO2 42, Arterial Blood Partial Pressure O2 56L, Arterial Blood HCO3 28H, Arterial Blood Total CO2 29.0, Arterial Blood Oxygen Saturation 90L, Arterial Blood Base Excess 3.6H, Castro Test YES-POS, Blood Gas Ventilator Setting NO, Blood Gas Inspired Oxygen 30% Microbiology 05/21/22 Blood Culture - Final, Complete No growth 05/21/22 MRSA Screen - Final, Complete MRSA not isolated Assessment/Plan Assessment/Plan Assess & Plan/Chief Complaint Assessment: Acute on chronic respiratory failure, BiPAP dependent Hypoxemia - newest ABG pO2 is 56 PNA AECOPD Severe COPD O2 dependent at home Recent COVID 3 weeks ago Lower extremity edema Elevated d-dimer ordered CT angiogram to r/o PE and dosed Lovenox 1mg/kg SQ Q 12 hours Smoker Panic attacks DM HTN HLP Depression Insomnia Anemia GERD Hypogonadism ED BPH B12 Malignant HTN Plan: Wean O2 requirements - currently on 5L NC with O2 sats of 87-90%, required BiPAP last night Continue Vapotherm as needed Continue steroids IVF Abx - Azithromycin and Cefepime - finished Lovenox - CTA and Venous doppler ruled out PE or DVT of lower extremities Anxiolytics - receiving Ativan, Precedex, Xanax Lower Extremity edema - resolved B12 labs = 491 wnl DM - continue insulins Malignant HTN - start amlodipine, losartan Depression - start paroxetine, buproprion Promote increasing nutrition intake Continue PT to increase mobility Clinical Quality Measures Admission Status Admission Dx Assessment: Acute on chronic respiratory failure AECOPD Severe COPD O2 dependent at home Suspicion for PNA vs. bronchitis Recent COVID 3 weeks ago Lower extremity edema Elevated d-dimer ordered CT angiogram to r/o PE and dosed Lovenox 1mg/kg SQ Q 12 hours Smoker Panic attacks DM HTN HLP Depression Insomnia Anemia GERD Hypogonadism ED BPH B12 Plan: Continue BiPAP IVF Abx - Azithromycin and Cefepime Lovenox Anxiolytics DVT/VTE Risk/Contraindication: Contraindications-Mechi: Other *list below* Other: poss dvt NAZANIN HALL DO 05/29/22 0458: Supervisory-Addendum Brief Verification & Attestation Participated in pt care: history, MDM, physical Personally performed: exam, history, MDM, supervision of care Care discussed with: Medical Student Procedures: n/a Results interpretation: Verified all documentation Verification and Attestation of Medical Student E/M Service A medical student performed and documented this service in my presence. I reviewed and verified all information documented by the medical student and made modifications to such information, when appropriate. I personally performed the physical exam and medical decision making. Nazanin Hall, May 29, 2022,04:58 SARBJIT NEUMANN May 28, 2022 10:11 NAZANIN HALL DO May 29, 2022 04:58
[2022-05-28] MEDS: RT--FLUTICASONE/SALMETEROL 232-14 (AIRDUO RespiCLICK) IH SCH ×2 (11:11→22:29)
--- NOTE | 2022-05-28 11:38 | Diagnostic Imaging Report ---
CHEST 1 VIEW, AP/PA ONLY Indication: Dyspnea Comparison: 05/27/2022 Findings: Stable cardiomegaly. Interstitial opacities have not substantially changed. Small left pleural effusion. No pneumothorax. Impression: 1. Unchanged cardiomegaly with mild interstitial edema. Dictated by: Dictated on workstation # [id number]
--- NOTE | 2022-05-28 14:25 | Occupational Ther Daily Note ---
OT Current Status-Daily Note Subjective Resting in bed, following BM w/ spouse assisting in hygiene Mental Status/Objective Patient Orientation: Person, Place, Time, Situation Attachments: Landeros Catheter, IV, Oxygen ADL-Treatment completed toileting just prior to OT arrival. Therapy Code Descriptions/Definitions Functional [place] Measure: 0=Not Assessed/NA 4=Minimal Assistance 1=Total Assistance 5=Supervision or Setup 2=Maximal Assistance 6=Modified [place] 3=Moderate Assistance 7=Complete IndependenceSCALE: Activities may be completed with or without assistive devices. 0-Qfcbmwtafg-ugjtpiz completes the activity by him/herself with no assistance from a helper. 5-Set-up or Clean-up Assistance-helper sets up or cleans up; patient completes activity. [place] assists only prior to or following the activity. 4-Supervision or Touching Assistance-helper provides verbal cues and/or touching/steadying and/or contact guard assistance as patient completes activity. Assistance may be provided throughout the activity or intermittently. 3-Partial/Moderate Assistance-helper does LESS THAN HALF the effort. [place] lifts, holds or supports trunk or limbs, but provides less than half the effort. 2-Substantial/Maximal Assistance-helper does MORE THAN HALF the effort. [place] lifts or holds trunk or limbs and provides more than half the effort. 9-Levsvqlac-mnwpwg does ALL the effort. Patient does none of the effort to complete the activity. Or, the assistance of 2 or more helpers is required for the patient to complete the activity. If activity was not attempted, code reason: 7-Patient Refused. 9-Not Applicable-not attempted and the patient did not perform the activity bef ore the current illness, exacerbation or injury. 10-Not Attempted due to Environmental Limitations-(lack of equipment, weather r estraints, etc.). 88-Not Attempted due to Medical Conditions or Safety Concerns. Eating (QC): 6 Oral Hygiene (QC): 6 Shower/Bathe Self (QC): 7 (declined) Upper Body Dressing (QC): 4 Lower Body Dressing (QC): 3 On/Off Footwear: 3 Toileting Hygiene (QC): 3 (nursing/spouse report) Toilet Transfer (QC): 4 c/o minimal headache following LB/socks intervention. Resolves at conclusion of session. Dressing tools introduced Other Treatment timed sit/stands intervals to increase endurance level and PLB training w/ activity. 02 monitor inaccurate Education OT Patient Education: Correct positioning, Energy conservation, Exercise program Teaching Recipient: Patient, Family Teaching Methods: Demonstration, Discussion Response to Teaching: Verbalize Understanding, Return Demonstration, Reinforcement Needed OT Ruling Technician Goals Half-Way Goals Time Frame: Jun 08, 2022 Eating (QC): 6 Oral Hygiene (QC): 6 Toileting Hygiene (QC): 6 Shower/Bathe Self (QC): 6 Upper Body Dressing (QC): 6 Lower Body Dressing (QC): 6 On/Off Footwear (QC): 6 1=Demonstrate adherence to instructed precautions during ADL tasks. 2=Patient will verbalize/demonstrate understanding of assistive carolyn camron/modifications for ADL. 3=Patient will improve strength/tolerance for activity to enable patient to perform ADL's. OT Education/Plan Problem List/Assessment Assessment: Decreased Activ Tolerance, Decreased Safety Aware, Impaired Bed Mobility, Impaired Coordination, Impaired Funct Balance, Impaired Self-Care Skills Discharge Recommendations Plan/Recommendations: Continue POC Therapy Discharge Recommendati: Post Acute OT Equpiment Recommendations-D/C: Agricultural Services Director, Sock Aide Treatment Plan/Plan of Care Treatment,Training & Education: Yes Patient would benefit from OT for education, treatment and training to promote independence in ADL's, mobility, safety and/or upper extremity function for ADL's. Plan of Care: ADL Retraining, Concurrent Therapy, Functional Mobility, Group Exercise/Act as Ind, UE Funct Exercise/Act Treatment Duration: Jun 08, 2022 Frequency: 3 times per week (3-5 times per week) Estimated Hrs Per Day: .25 hour per day Agreement: Yes Rehab Potential: Fair Returns to bed with all needs met. spouse in room Time Start Time: 13:08 Stop Time: 13:39 DATE: May 28, 2022 Total Time Billed (hr/min): 31 Billed Treatment Time 1 visit ADL 1, EX 1 31 minutes DUSTIN MUNIZ OT May 28, 2022 14:25
[2022-05-28] MEDS ORDERED: LOPERAMIDE 2 MG (IMODIUM) TABLET PO NR (16:30)
[2022-05-28] MEDS: ALPRAZolam 0.5 MG (XANAX) TAB PO PRN (17:59)
[2022-05-28] MEDS: FINASTERIDE (PROSCAR) 5 MG TAB PO SCH (18:03)
[2022-05-28] MEDS: traZODone 150 MG (DESYREL) TABLET PO SCH (19:38)
[2022-05-28] MEDS: MELATONIN 10 MG TABLET PO SCH (19:38)
[2022-05-28] MEDS: diphenhydrAMINE 25 MG TAB (BENADRYL) PO SCH (19:39)
[2022-05-28] MEDS: ACETAMINOPHEN 500 MG TAB (TYLENOL) PO SCH (19:39)
[2022-05-28] MEDS: HYDROmorphone 2 MG/ML VIAL (DILAUDID) IV PRN ×2 (19:47→22:33)
[2022-05-28] MEDS ORDERED: OXYMETAZOLINE (AFRIN) 0.05% NA 30 ML BTL PRN (20:45)
[2022-05-28] MEDS: LABETALOL HCL 20 MG/4 ML VIAL IV PRN (21:08)
[2022-05-29] MEDS: methylPREDNISolone 40 MG/ML (Solu-MEDROL) VIAL IV SCH ×4 (00:30→17:35)
[2022-05-29] MEDS: RT-ALBUTEROL SULF 2.5 MG/3 ML PRE-MIX VIAL INH SCH ×6 (03:21→21:28)
[2022-05-29] MEDS: RT-IPRATROPIUM (ATROVENT) 0.5MG/2.5ML AMP IH SCH ×6 (03:21→21:28)
[2022-05-29 05:24] LABS: BASOPHILS % (AUTO) 0 % (0-10); EOSINOPHILS % (AUTO) 0 % (0-10); HEMATOCRIT 37 % (40-54); HEMOGLOBIN 11.9 g/dL (13.3-17.7); LYMPHOCYTES # (AUTO) 0.8 10^3/uL (1.0-4.0); LYMPHOCYTES % (AUTO) 4 % (12-44); MEAN CORPUSCULAR HEMOGLOBIN 27 pg (25-34); MEAN CORPUSCULAR HGB CONC 32 g/dL (32-36); MEAN CORPUSCULAR VOLUME 83 fL (80-99); MONOCYTES # (AUTO) 1.2 10^3/uL (0.0-1.0); MONOCYTES % (AUTO) 7 % (0-12); NEUTROPHILS # (AUTO) 16.1 10^3/uL (1.8-7.8); NEUTROPHILS % (AUTO) 88 % (42-75); PLATELET COUNT 301 10^3/uL (130-400); WHITE BLOOD COUNT 18.2 10^3/uL (4.3-11.0)
[2022-05-29 05:36] LABS: CALCIUM 8.4 MG/DL (8.5-10.1)
[2022-05-29 05:37] LABS: TOTAL PROTEIN 5.4 GM/DL (6.4-8.2)
[2022-05-29 05:39] LABS: BILIRUBIN,TOTAL 0.4 MG/DL (0.1-1.0)
[2022-05-29 05:40] LABS: PHOSPHORUS 2.8 MG/DL (2.3-4.7)
[2022-05-29 05:41] LABS: CREATININE SERUM 0.83 MG/DL (0.60-1.30)
[2022-05-29] MEDS: KCL 20 MEQ TAB (K-DUR) PO SCH (05:43)
[2022-05-29] MEDS: POTASSIUM CL 10MEQ/50ML IVPB 50 ML IV SCH (05:43)
[2022-05-29 05:44] LABS: MAGNESIUM 1.8 MG/DL (1.6-2.4)
[2022-05-29] MEDS: inSUlin ASPART (NovoLOG) 1 UNIT/0.01 ML (CHARGE PER UNIT) SC SCH ×4 (05:44→20:24)
[2022-05-29 06:14] LABS: ABG OXYGEN SATURATION 92 % (94-100); ABG PCO2 43 MMHG (35-45); ABG PH 7.46 (7.37-7.43); ABG PO2 60 MMHG (79-93); ABG TCO2 31.1 MMOL/L (21.0-31.0)
[2022-05-29 06:15] LABS: ALLENS TEST YES-POS; INSPIRED O2 8L; PATIENT TEMP 37.2; VENTILATOR NO
[2022-05-29] MEDS ORDERED: MAGNESIUM 1 GM/100 ML IVPB 200 ML IV ONE (06:20)
[2022-05-29] MEDS: MAGNESIUM 1 GM/100 ML IVPB 100 ML IV SCH ×2 (06:24→08:00)
[2022-05-29] MEDS: ALPRAZolam 0.5 MG (XANAX) TAB PO PRN ×2 (06:35→15:10)
[2022-05-29] MEDS: MULTIVIT W/MINERALS TAB (THERAGRAN M) PO SCH (06:35)
[2022-05-29] MEDS: RT--FLUTICASONE/SALMETEROL 232-14 (AIRDUO RespiCLICK) IH SCH ×2 (06:47→17:34)
--- NOTE | 2022-05-29 07:53 | Diagnostic Imaging Report ---
INDICATION: Dyspnea, congestive heart failure COMPARISON: 05/28/2022 TECHNIQUE: Single radiograph chest obtained 05/29/2022. FINDINGS: The cardiac silhouette is significantly enlarged, similar to the prior examination. However, this has significantly increased since prior imaging from 2018. Central pulmonary vascular congestion is identified, slightly improved since the prior examination. Diffuse interstitial opacities are present, slightly improved since the prior examination. This is associated with improving small left basilar pleural effusion. No pneumothorax. Bilateral chronic rib fractures are again identified. IMPRESSION: Persistent cardiomegaly with central pulmonary vascular congestion. However, given contour of the cardiac silhouette, pericardial effusion is likely. Slightly improved aeration the lungs with improved interstitial edema and improved tiny left pleural effusion. Dictated by: Dictated on workstation # [id number]
[2022-05-29] MEDS: FENOFIBRATE, MICRO 67 MG (LOFIBRA) CAPSULE PO SCH (08:15)
[2022-05-29] MEDS: LACTOBACILLUS ACIDOPHILUS (PROBIOTIC) CAPSULE PO SCH (08:15)
[2022-05-29] MEDS: ENOXAPARIN 40 MG/0.4 ML (LOVENOX) SYR SC SCH (08:16)
[2022-05-29] MEDS: CALCIUM CARB + VIT D 600 MG (CALCARB + D) TAB PO SCH ×2 (08:16→17:34)
[2022-05-29] MEDS: buPROPion SR 150 MG (WELLBUTRIN SR) TAB PO SCH (08:16)
[2022-05-29] MEDS: TOLTERODINE LA 2 MG (DETROL LA) CAP PO SCH (08:16)
[2022-05-29] MEDS: LORATADINE (CLARITIN) 10 MG TAB PO SCH (08:17)
[2022-05-29] MEDS: metFORMIN 500 MG (GLUCOPHAGE) TAB PO SCH ×2 (08:17→17:34)
[2022-05-29] MEDS: PANTOPRAZOLE 20 MG TABLET (PROTONIX) PO SCH (08:17)
[2022-05-29] MEDS: AtorvaSTATin TABLET 10 MG TABLET PO SCH (08:18)
[2022-05-29] MEDS: PARoxetine 20 MG (PAXIL) TAB PO SCH (08:18)
[2022-05-29] MEDS: hydrALAZINE (APRESOLINE) 25 MG TAB PO SCH ×2 (08:18→17:34)
[2022-05-29] MEDS: amLODIPine 10 MG (NORVASC) TAB PO SCH (08:18)
[2022-05-29] MEDS: LOSARTAN 50 MG (COZAAR) TAB PO SCH (08:19)
--- NOTE | 2022-05-29 09:11 | Cardiology Progress Note ---
Subjective Date Seen by Provider: May 29, 2022 Time Seen by Provider: 09:10 Subjective/Events-last exam Patient was seen at bedside, laying down comfortably. Still having shortness of breath and wheezing Review of Systems General: No Chills, No Night Sweats; Fatigue; No Malaise, No Appetite, No Other HEENT: No Head Aches, No Visual Changes, No Eye Pain, No Ear Pain, No Dysphasia, No Sinus Congestion, No Post Nasal Drip, No Sore Throat, No Other Pulmonary: Dyspnea, Cough; No Pleuritic Chest Pain, No Other Cardiovascular: No: Chest Pain, Palpitations, Orthopnea, Paroxysmal Noc. Dyspnea, Edema, Lt Headedness, Other Objective-Cardiology Exam Last Set of Vital Signs Vital Signs 05/28/22 05/29/22 05/29/22 08:00 07:41 09:00 Temp 36.9 Pulse 87 Resp 19 B/P (MAP) 164/82 (114) Pulse Ox 90 O2 Delivery OxyMask O2 Flow Rate 8.00 FiO2 40 I&O Intake and Output 05/29/22 00:00 Intake Total 1750 ml Output Total 2175 ml Balance -425 ml Intake Oral 1500 ml IV Total 250 ml Output Urine Total 2175 ml # Bowel Movements 1 General: Alert, Cooperative, No Acute Distress HEENT: PERRLA, EOMI Neck: Supple Lungs: Normal Air Movement, Other (Bilateral rhonchi and wheezing) Heart: Normal S1, Normal S2, No Murmurs Abdomen: Soft, No Tenderness Extremities: Normal Pulses Neuro: Normal Speech Psych/Mental Status: Mental Status NL, Mood NL Results Lab Laboratory Tests 05/29/22 05:04 A/P-Cardiology Admission Diagnosis Acute exacerbation of COPD Hypertension Pneumonia Diabetes mellitus Assessment/Plan Shortness of breath, status post acute exacerbation of COPD, was on Vapotherm Reporting improvement, using BiPAP at night. 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 Continue to monitor Small to moderate-sized pericardial effusion, no hemodynamic significance 2D echo was done on May 26, 2022 Continue to monitor Hypertension, monitor blood pressure Diabetes mellitus, followed and managed by primary care physician Gastroesophageal reflux disease Obesity, BMI 36. GARRETT DOBBINS MD May 29, 2022 09:11
[2022-05-29] MEDS ORDERED: LORazepam 0.5 MG (ATIVAN) TABLET PO PRN (09:30)
[2022-05-29] MEDS ORDERED: LORazepam INJ 2 MG/ML (ATIVAN) VIAL IVP PRN (09:30)
--- NOTE | 2022-05-29 10:21 | Progress Note ---
SARBJIT NEUMANN 05/29/22 1021: Subjective Date Seen by a Provider: May 29, 2022 Time Seen by a Provider: 08:28 Subjective/Events-last exam Shirley Diaz, 66 yo M, remains in ICU for BiPAP dependent Acute on Chronic Respiratory Failure. Upon interview he is sitting up in bed eating breakfast. On room air oxygen sats are between 89-93%. He has been otherwise continuously wearing an oxymask at 8L. Reports he believes his breathing is fine. He is alert, oriented, and much more lively than in previous days. Precedex was held yesterday and this morning he has only taken Xanax. Last night he had some back pain which was managed with medication. Had a bowel movement yesterday. Landeros still in place. He has been working with PT/OT but states he has not been out of bed much. States he has been sleeping poorly and did not get any sleep last night. Mentions his continuous panic attacks. Pt states he wants to go home and plans to go home today. Review of Systems General: No Chills, No Night Sweats; Fatigue, Appetite (good) HEENT: No Visual Changes, No Dysphasia Pulmonary: Dyspnea, Cough Cardiovascular: No: Chest Pain, Palpitations Gastrointestinal: Other (heartburn); No: Nausea, Vomiting, Abdominal Pain Genitourinary: No Hematuria, No Retention Musculoskeletal: other (trace swelling in bilateral legs), back pain (resolved with meds) Neurological: Weakness; No: Numbness, Incoordination, Confusion Anxious Objective Exam Last Set of Vital Signs Vital Signs Date Time Temp Pulse Resp B/P (MAP) Pulse Ox O2 Delivery O2 Flow Rate FiO2 05/29/22 09:00 87 19 164/82 (114) 90 OxyMask 8.00 05/29/22 07:41 36.9 05/28/22 08:00 40 Capillary Refill : Less Than 3 Seconds I&O Intake and Output 05/29/22 00:00 Intake Total 1750 ml Output Total 2175 ml Balance -425 ml Intake Oral 1500 ml IV Total 250 ml Output Urine Total 2175 ml # Bowel Movements 1 General: Alert, Oriented X3, Mild Distress (respiratory) HEENT: PERRLA, EOMI Neck: Supple Lungs: Normal Air Movement, Other (accessory muscle use upon breathing room air) Heart: Regular Rate, Other (PVCs) Abdomen: Normal Bowel Sounds, Soft, No Tenderness Extremities: Normal Pulses, Other (trace LE edema bilaterally) Neuro: Normal Speech Results Lab Laboratory Tests 05/28/22 10:36: Glucometer 220H 05/28/22 15:41: Glucometer 198H 05/28/22 19:37: Glucometer 169H 05/29/22 05:04: White Blood Count 18.2H, Red Blood Count 4.44, Hemoglobin 11.9L, Hematocrit 37L, Mean Corpuscular Volume 83, Mean Corpuscular Hemoglobin 27, Mean Corpuscular Hemoglobin Concent 32, Red Cell Distribution Width 14.7H, Platelet Count 301, Mean Platelet Volume 10.0, Immature Granulocyte % (Auto) 1, Neutrophils (%) (Auto) 88H, Lymphocytes (%) (Auto) 4L, Monocytes (%) (Auto) 7, Eosinophils (%) (Auto) 0, Basophils (%) (Auto) 0, Neutrophils # (Auto) 16.1H, Lymphocytes # (A uto) 0.8L, Monocytes # (Auto) 1.2H, Eosinophils # (Auto) 0.0, Basophils # (Auto) 0.0, Immature Granulocyte # (Auto) 0.1, Sodium Level 139, Potassium Level 4.0, Chloride Level 104, Carbon Dioxide Level 26, Anion Gap 9, Blood Urea Nitrogen 29H, Creatinine 0.83, Estimat Glomerular Filtration Rate 96, BUN/Creatinine Ratio 35, Glucose Level 92, Calcium Level 8.4L, Corrected Calcium 9.2, Phosphorus Level 2.8, Magnesium Level 1.8, Total Bilirubin 0.4, Aspartate Amino Transf (AST/SGOT) 20, Alanine Aminotransferase (ALT/SGPT) 24, Alkaline Phosphatase 38L, Total Protein 5.4L, Albumin 3.0L 05/29/22 05:17: Blood Gas Puncture Site UNK, Blood Gas Patient Temperature 37.2, Arterial Blood pH 7.46H, Arterial Blood Partial Pressure CO2 43, Arterial Blood Partial Pressure O2 60L, Arterial Blood HCO3 30H, Arterial Blood Total CO2 31.1H, Arterial Blood Oxygen Saturation 92L, Arterial Blood Base Excess 6.0H, Castro Test YES-POS, Blood Gas Ventilator Setting NO, Blood Gas Inspired Oxygen 8L Microbiology 05/21/22 Blood Culture - Final, Complete No growth 05/21/22 MRSA Screen - Final, Complete MRSA not isolated Meds Precedex held at this time Radiology NAME: SHIRLEY DIAZ REC#: [id number] PT STATUS: ADM IN : 1955 PHYSICIAN: NAZANIN HALL DO ADMIT DATE: 05/21/22/ICU Signed Date of Exam:05/29/22 CHEST 1 VIEW, AP/PA ONLY INDICATION: Dyspnea, congestive heart failure COMPARISON: 05/28/2022 TECHNIQUE: Single radiograph chest obtained 05/29/2022. FINDINGS: The cardiac silhouette is significantly enlarged, similar to the prior examination. However, this has significantly increased since prior imaging from 2018. Central pulmonary vascular congestion is identified, slightly improved since the prior examination. Diffuse interstitial opacities are present, slightly improved since the prior examination. This is associated with improving small left basilar pleural effusion. No pneumothorax. Bilateral chronic rib fractures are again identified. IMPRESSION: Persistent cardiomegaly with central pulmonary vascular congestion. However, given contour of the cardiac silhouette, pericardial effusion is likely. Slightly improved aeration the lungs with improved interstitial edema and improved tiny left pleural effusion. Dictated by: Dictated on workstation # [id number] Dict: 05/29/22 0735 Trans: 05/29/22 0931 [facility] [id number] Interpreted by: EMMANUELLE COOK MD Electronically signed by: EMMANUELLE COOK MD 05/29/22 0931 Assessment/Plan Assessment/Plan Assess & Plan/Chief Complaint Assessment: Acute on chronic respiratory failure, BiPAP dependent Hypoxemia - newest ABG pO2 is 60 PNA AECOPD Severe COPD O2 dependent at home Recent COVID 3 weeks ago Lower extremity edema Elevated d-dimer ordered CT angiogram to r/o PE and dosed Lovenox 1mg/kg SQ Q 12 hours Smoker Panic attacks DM HTN HLP Depression Insomnia Anemia GERD Hypogonadism ED BPH B12 Malignant HTN Plan: Wean O2 requirements - currently on 8L Oxymask Continue PT to increase mobility - encouraging ambulation Remove Landeros catheter Transfer to 4th floor Continue Vapotherm as needed Continue steroids IVF Abx - Azithromycin and Cefepime - finished Lovenox - CTA and Venous doppler ruled out PE or DVT of lower extremities Anxiolytics - receiving Xanax, prn Ativan, Precedex held at this time Lower Extremity edema - trace B12 labs = 491 wnl DM - continue insulins Malignant HTN - continue amlodipine, losartan Depression - continue paroxetine, buproprion Promoting increased nutrition intake Clinical Quality Measures Admission Status Admission Dx Assessment: Acute on chronic respiratory failure AECOPD Severe COPD O2 dependent at home Suspicion for PNA vs. bronchitis Recent COVID 3 weeks ago Lower extremity edema Elevated d-dimer ordered CT angiogram to r/o PE and dosed Lovenox 1mg/kg SQ Q 12 hours Smoker Panic attacks DM HTN HLP Depression Insomnia Anemia GERD Hypogonadism ED BPH B12 Plan: Continue BiPAP IVF Abx - Azithromycin and Cefepime Lovenox Anxiolytics DVT/VTE Risk/Contraindication: Contraindications-Mechi: Other *list below* Other: poss dvt NAZANIN HALL DO 05/30/22 0457: Supervisory-Addendum Brief Verification & Attestation Participated in pt care: history, MDM, physical Personally performed: exam, history, MDM, supervision of care Care discussed with: Medical Student Procedures: n/a Results interpretation: Verified all documentation Verification and Attestation of Medical Student E/M Service A medical student performed and documented this service in my presence. I reviewed and verified all information documented by the medical student and made modifications to such information, when appropriate. I personally performed the physical exam and medical decision making. Nazanin Hall, May 30, 2022,04:57 SARBJIT NEUMANN May 29, 2022 10:21 NAZANIN HALL DO May 30, 2022 04:57
--- NOTE | 2022-05-29 11:19 | Physical Therapy Daily Note ---
PT Daily Note-Current Subjective Pt. c/o he is miserable, has not slept for several nights, has pain caused by keys cath as well as pain at 10/10 in left hip area anteriorly. Pt. does agree to L:E ex and attempt at rolling or bed mob if tolerated. Pain Numeric Pain Scale: 10-Worst Possible Pain Location: Left Location Body Site: Thigh (anterior aspect hip) Pain Description: Ache Section J - Health Conditions 1. Rarely or not at all 2. Occasionally 3. Frequently 4. Almost constantly 8. Unable to answer Pain Effect on Sleep: 4 Pain Interference with Therapy: 4 Pain Interference w/Day-to-Day: 4 Appearance bluish purple facial color Mental Status Patient Orientation: Normal For Age Attachments: Oxygen (10L), Keys Catheter, Other-See Comments (multiple), IV Transfers SCALE: Activities may be completed with or without assistive devices. 1-Ywszrzgwlm-uohvrmk completes the activity by him/herself with no assistance from a helper. 5-Set-up or Clean-up Assistance-helper sets up or cleans up; patient completes activity. [place] assists only prior to or following the activity. 4-Supervision or Touching Assistance-helper provides verbal cues and/or touching/steadying and/or contact guard assistance as patient completes activity. Assistance may be provided throughout the activity or intermittently. 3-Partial/Moderate Assistance-helper does LESS THAN HALF the effort. [place] lifts, holds or supports trunk or limbs, but provides less than half the effort. 2-Substantial/Maximal Assistance-helper does MORE THAN HALF the effort. [place] lifts or holds trunk or limbs and provides more than half the effort. 5-Zettzzurm-fegxuc does ALL the effort. Patient does none of the effort to complete the activity. Or, the assistance of 2 or more helpers is required for the patient to complete the activity. If activity was not attempted, code reason: 7-Patient Refused. 9-Not Applicable-not attempted and the patient did not perform the activity before the current illness, exacerbation or injury. 10-Not Attempted due to Environmental Limitations-(lack of equipment, weather restraints, etc.). 88-Not Attempted due to Medical Conditions or Safety Concerns. no rolling or TRFs attempted as pts sats drop in low 80s with nurse responding coming to room x2 during Rx Exercises Supine Ex: Ankle pumps, Quad Set, Glut sets, Heel Slides, Hip abd/add Supine Reps: 12 Treatments pt. on increased O2 this date at 10 L vs 6 L yesterday. pt. desats in low 80s with activity of LE ex and partial rolling. LE ex x 10-12 with assist Assessment Current Status: Poor Progress desats with activity PT [facility] Goals [facility] Goals PT Production [employer] Maker Goals Time Frame: Jun 08, 2022 Roll Left & Right (QC): 6 Sit to Lying (QC): 6 Lying-Sitting on Side/Bed(QC): 6 Sit to Stand (QC): 6 Chair/Blb-oa-Suocn Xfer(QC): 6 Toilet Transfer (QC): 6 Walk 10 feet (QC): 6 Walk 50ft with 2 Turns (QC): 6 Walk 150 ft (QC): 6 1 Step (curb) (QC): 6 PT Plan Treatment/Plan Treatment Plan: Continue Plan of Care Treatment Plan: Education, Functional Activity Dejuan, Functional Strength, Gait, Safety, Therapeutic Exercise, Other Treatment Duration: Jun 08, 2022 Frequency: 6 times per week Estimated Hrs Per Day: .25 hour per day Patient and/or Family Agrees t: Yes Safety Risks/Education Patient Education: Correct Positioning, Disease Process, Safety Issues Teaching Recipient: Patient Response to Teaching: Reinforcement Needed Time Time In: 1055 Time Out: 1108 DATE: May 29, 2022 Total Billed Treatment Time: 13 Total Billed Treatment 1,EX13m ROBBIE SALEEM TERMINAL OPERATOR May 29, 2022 11:19
--- NOTE | 2022-05-29 12:38 | Tele-ICU Progress Note ---
Subjective Date Seen by a Provider: May 29, 2022 Time Seen by a Provider: 12:38 Subjective/Events-last exam (Tele-ICU Physician , Progress Note ) Service provided via interactive audio and video telecommunications E-CARE system to a patient admitted to ICU bed in [facility]. Patient is seen today due to persistent need of ICU care Available chart/ vitals / labs / Images reviewed Video assessment done using teleICU camera, rest of exam as per RN Discussed with RN Events overnight : Afebrile hemodynamically stable Respiratory - 8L I/O = pos Drips: 60 /h - TO STP Pressors- no Consultants: Hospital course: 05/21- 66y M Direct from [place] for Acute on Chronic Resp failure,COPD, hypox emia,LE edema. Elevated Ddimer-CTA chest r/o PE(-) 05/24 BIPAP 16/ 30 % rr20 [id number], precedex 1.5 VT 5H 05/25 Bipap overnignh , precedex 1.5 , BUMEX 0.5 x1 05/27 - precedex 0.8 and off bipap for a day on 3 l NC , decrease dose to SM 60 q 6 , BUMEX 0.5 x1 05/28 - BIPAP at night , NC daytime 6 L , precedex 1.5 , BUMEX 1 mg x1 05/29 - NOT ON BIPAP LAST NIGHT , 8 L o2 , OFF precedex A/P Acute on chronic resp failure - with AECOPD, infection , possible VO ( CTA 05/21 and US LE 05/22 neg for tromboembolic dz ) - off BIPAP at night , NC daytime 8 L -PRECEDEX OFF - will try to diuresis again , limit Po fluid inake - follow closely Acute exacerbation of COPD ( moderate emphysematous changes on CT, ( baseline on O2 ) - cont IV steroids - ( extra 125mg 05/23) nebs , on SM 60 q 6 - ? room TO DECREASE DOSE Pneumonia? - post covid ? , CT chest with chronic changes - small infitrates vs atelectasis , -cefepime FINISHED 05/[address] effusion seen on CT of the chest on 05-21-22 -not a consern by ECHO HTN - as per cards DM 2 - ISS - levemir , metformin Anxiety - precedex OFF , xanax prn - home meds resumed midline 05/24 [place]: + OG: Nutrition: po Analgesia: Anxiety/ delirium VTE Prophylaxis: wil 40 Stress Ulcer Prophylaxis: ppi Plans in collaboration with bedside consultants and IM MDs. Discussed with RN to reach out if any questions or concerns A total of 20 minutes of critical care time was devoted to this patient today, required to treat and/or prevent further deterioration of critical care condition ( as above ) . I am remotely monitoring this patient from another state. I am unable to do the bedside exam, and history/physical and pertinent information is taken from other notes in the computer and bedside staff. Sepsis Event Evaluation Height, Weight, BMI Height: 5'3.00" Weight: 226lbs. 1.0oz. 107.599017co; 38.14 BMI Method:Stated Exam Exam Patient acknowledged, consented, and participated in this virtual visit which was conducted using real time audio/video Vital Signs Date Time Temp Pulse Resp B/P (MAP) Pulse Ox O2 Delivery O2 Flow Rate FiO2 05/29/22 12:00 High Flow N/C 10.00 05/29/22 11:38 36.9 87 26 115/89 (98) 90 Nasal Cannula 8.00 05/29/22 11:12 Nasal Cannula 8.00 05/29/22 09:00 87 19 164/82 (114) 90 OxyMask 8.00 05/29/22 08:00 89 OxyMask 8.00 05/29/22 08:00 77 16 196/75 (141) 89 OxyMask 8.00 05/29/22 07:41 36.9 05/29/22 07:00 80 21 158/85 (121) 90 OxyMask 8.00 05/29/22 07:00 81 05/29/22 06:44 90 OxyMask 6.00 05/29/22 06:44 90 OxyMask 6.00 05/29/22 06:00 78 21 167/118 (134) 90 OxyMask 8.00 05/29/22 05:00 80 15 132/92 (105) 91 OxyMask 8.00 05/29/22 04:00 82 21 88 OxyMask 8.00 05/29/22 03:27 89 OxyMask 8.00 05/29/22 03:00 83 18 159/90 (113) 89 OxyMask 8.00 05/29/22 02:00 81 13 150/86 (107) 89 OxyMask 6.00 05/29/22 01:00 80 15 151/76 (101) 89 OxyMask 6.00 05/29/22 01:00 80 05/29/22 00:00 81 17 149/74 (99) 89 OxyMask 6.00 05/28/22 23:58 89 OxyMask 6.00 05/28/22 23:00 81 15 138/76 (96) 89 OxyMask 6.00 05/28/22 22:33 90 OxyMask 5.00 05/28/22 22:00 80 19 140/89 (106) 89 OxyMask 6.00 05/28/22 21:00 99 31 169/86 (113) 89 OxyMask 6.00 05/28/22 20:00 36.4 99 29 164/99 (120) 88 OxyMask 6.00 05/28/22 20:00 92 OxyMask 6.00 05/28/22 19:00 95 05/28/22 19:00 95 19 164/75 (104) 85 High Flow N/C 6.00 05/28/22 18:00 98 17 97/82 (87) 90 High Flow N/C 6.00 05/28/22 17:00 96 23 145/99 (114) 90 High Flow N/C 6.00 05/28/22 16:06 93 High Flow N/C 6.00 05/28/22 16:00 78 17 158/76 (103) 90 High Flow N/C 6.00 05/28/22 15:42 36.6 05/28/22 15:11 90 5.00 05/28/22 15:00 72 19 143/64 (90) 90 High Flow N/C 6.00 05/28/22 14:54 37.9 05/28/22 14:00 74 21 130/68 (88) 88 High Flow N/C 6.00 05/28/22 13:21 72 108/97 05/28/22 13:00 70 05/28/22 13:00 70 18 108/97 (101) 90 High Flow N/C 6.00 I & O 05/29/22 07:00 Intake Total 1850 ml Output Total 2275 ml Balance -425 ml Height & Weight Height: 5'3.00" Weight: 226lbs. 1.0oz. 107.582072rx; 38.14 BMI Method:Stated General Appearance: WD/WN, Chronically ill, Obese HEENT: PERRL/EOMI, Normal ENT Inspection, Pharynx Normal Neck: Full Range of Motion, Normal Inspection, Non Tender, Supple, Carotid Bruit Respiratory: Chest Non Tender, Lungs Clear, No Accessory Muscle Use, No Respiratory Distress, Decreased Breath Sounds, Other (wearing BiPAP) Cardiovascular: Regular Rate, Rhythm, No Edema, No Gallop, No JVD, No Murmur, Normal Peripheral Pulses Capillary Refill: Less Than 3 Seconds Gastrointestinal: normal bowel sounds, non tender, soft Extremity: Normal Capillary Refill, Normal Inspection, Normal Range of Motion, Non Tender, No Calf Tenderness, No Pedal Edema Neurologic/Psychiatric: Alert, Oriented x3, No Motor/Sensory Deficits, Normal Mood/Affect Skin: Normal Color, Warm/Dry Lymphatic: No Adenopathy Results Lab Laboratory Tests 05/28/22 03:30 05/29/22 05:04 Assessment/Plan Assessment/Plan 1 ZAC DIAZ MD May 29, 2022 12:38
--- NOTE | 2022-05-29 13:36 | Occupational Ther Daily Note ---
OT Current Status-Daily Note Subjective Patient participating n therapy session n am Mental Status/Objective Patient Orientation: Person, Place, Situation Attachments: Oxygen (quickly desats with OOB actvity and minimal in bed activity) ADL-Treatment Therapy Code Descriptions/Definitions Functional [place] Measure: 0=Not Assessed/NA 4=Minimal Assistance 1=Total Assistance 5=Supervision or Setup 2=Maximal Assistance 6=Modified [place] 3=Moderate Assistance 7=Complete IndependenceSCALE: Activities may be completed with or without assistive devices. 1-Muisjdmumf-lmirxks completes the activity by him/herself with no assistance from a helper. 5-Set-up or Clean-up Assistance-helper sets up or cleans up; patient completes activity. [place] assists only prior to or following the activity. 4-Supervision or Touching Assistance-helper provides verbal cues and/or touching/steadying and/or contact guard assistance as patient completes activity. Assistance may be provided throughout the activity or intermittently. 3-Partial/Moderate Assistance-helper does LESS THAN HALF the effort. [place] lifts, holds or supports trunk or limbs, but provides less than half the effort. 2-Substantial/Maximal Assistance-helper does MORE THAN HALF the effort. [place] lifts or holds trunk or limbs and provides more than half the effort. 3-Tacuhqjrq-zszarm does ALL the effort. Patient does none of the effort to complete the activity. Or, the assistance of 2 or more helpers is required for the patient to complete the activity. If activity was not attempted, code reason: 7-Patient Refused. 9-Not Applicable-not attempted and the patient did not perform the activity before the current illness, exacerbation or injury. 10-Not Attempted due to Environmental Limitations-(lack of equipment, weather restraints, etc.). 88-Not Attempted due to Medical Conditions or Safety Concerns. Eating (QC): 5 (unable to open can pop top) Oral Hygiene (QC): 5 Shower/Bathe Self (QC): 88 Upper Body Dressing (QC): 3 (d/t lines and SOA) Lower Body Dressing (QC): 88 On/Off Footwear: 88 Toileting Hygiene (QC): 2 Toilet Transfer (QC): 7 Education OT Patient Education: Correct positioning, Energy conservation, Modified ADL techniques, Progress toward Goal/Update tx plan, Purpose of tx/functional activities, Reviewed precautions, Rehab process Teaching Recipient: Patient Teaching Methods: Demonstration, Discussion Response to Teaching: Verbalize Understanding, Return Demonstration, Reinforcement Needed OT [facility] Goals [facility] Goals Time Frame: Jun 08, 2022 Eating (QC): 6 Oral Hygiene (QC): 6 Toileting Hygiene (QC): 6 Shower/Bathe Self (QC): 6 Upper Body Dressing (QC): 6 Lower Body Dressing (QC): 6 On/Off Footwear (QC): 6 1=Demonstrate adherence to instructed precautions during ADL tasks. 2=Patient will verbalize/demonstrate understanding of assistive devices/modifications for ADL. 3=Patient will improve strength/tolerance for activity to enable patient to perform ADL's. OT Education/Plan Problem List/Assessment Assessment: Decreased Activ Tolerance, Impaired Self-Care Skills Discharge Recommendations Plan/Recommendations: Continue POC Treatment Plan/Plan of Care Treatment,Training & Education: Yes Patient would benefit from OT for education, treatment and training to promote independence in ADL's, mobility, safety and/or upper extremity function for ADL's. Plan of Care: ADL Retraining, Concurrent Therapy, Functional Mobility, Group Exercise/Act as Ind, UE Funct Exercise/Act Treatment Duration: Jun 08, 2022 Frequency: 3 times per week (3-5 times per week) Estimated Hrs Per Day: .25 hour per day Agreement: Yes Rehab Potential: Fair remains upright in bed w/ COKE COLA, all needs met Time Start Time: 11:00 Stop Time: 11:16 DATE: May 29, 2022 Total Time Billed (hr/min): 16 Billed Treatment Time 1 visit ADL 1 16 minutes DUSTIN MUNIZ OT May 29, 2022 13:36
[2022-05-29 16:17] VITALS: BP 185/55
[2022-05-29] MEDS: FINASTERIDE (PROSCAR) 5 MG TAB PO SCH (17:42)
[2022-05-29] MEDS: NEO/POLY/BAC (NEOSPORIN) OINT 15 GM TUBE TOP SCH ×2 (18:23→20:19)
[2022-05-29 19:48] VITALS: BP 160/73
[2022-05-29] MEDS: diphenhydrAMINE 25 MG TAB (BENADRYL) PO SCH (20:17)
[2022-05-29] MEDS: MELATONIN 10 MG TABLET PO SCH (20:17)
[2022-05-29] MEDS: traZODone 150 MG (DESYREL) TABLET PO SCH (20:18)
[2022-05-29] MEDS: ACETAMINOPHEN 500 MG TAB (TYLENOL) PO SCH (20:18)
[2022-05-30] VITALS (7 sets, daily range): BP systolic 155–165; BP diastolic 70–103
[2022-05-30] MEDS: methylPREDNISolone 40 MG/ML (Solu-MEDROL) VIAL IV SCH ×3 (00:51→11:05)
[2022-05-30] MEDS: HYDROmorphone 2 MG/ML VIAL (DILAUDID) IV PRN ×2 (00:57→13:05)
[2022-05-30] MEDS: RT-IPRATROPIUM (ATROVENT) 0.5MG/2.5ML AMP IH SCH (02:50)
[2022-05-30] MEDS: RT-ALBUTEROL SULF 2.5 MG/3 ML PRE-MIX VIAL INH SCH (02:50)
[2022-05-30] MEDS: MULTIVIT W/MINERALS TAB (THERAGRAN M) PO SCH (05:24)
[2022-05-30 05:46] LABS: BASOPHILS % (AUTO) 0 % (0-10); EOSINOPHILS % (AUTO) 0 % (0-10); HEMATOCRIT 38 % (40-54); HEMOGLOBIN 12.4 g/dL (13.3-17.7); LYMPHOCYTES # (AUTO) 0.7 10^3/uL (1.0-4.0); LYMPHOCYTES % (AUTO) 4 % (12-44); MEAN CORPUSCULAR HEMOGLOBIN 27 pg (25-34); MEAN CORPUSCULAR HGB CONC 33 g/dL (32-36); MEAN CORPUSCULAR VOLUME 83 fL (80-99); MONOCYTES # (AUTO) 1.5 10^3/uL (0.0-1.0); MONOCYTES % (AUTO) 8 % (0-12); NEUTROPHILS # (AUTO) 16.8 10^3/uL (1.8-7.8); NEUTROPHILS % (AUTO) 88 % (42-75); PLATELET COUNT 289 10^3/uL (130-400); WHITE BLOOD COUNT 19.3 10^3/uL (4.3-11.0)
[2022-05-30 05:53] LABS: ALBUMIN 3.1 GM/DL (3.2-4.5); POTASSIUM 4.2 MMOL/L (3.6-5.0)
[2022-05-30 05:54] LABS: CALCIUM 8.6 MG/DL (8.5-10.1)
[2022-05-30 05:56] LABS: TOTAL PROTEIN 5.5 GM/DL (6.4-8.2)
[2022-05-30 05:57] LABS: BILIRUBIN,TOTAL 0.5 MG/DL (0.1-1.0)
[2022-05-30 05:59] LABS: CREATININE SERUM 0.88 MG/DL (0.60-1.30)
[2022-05-30 06:02] LABS: MAGNESIUM 1.9 MG/DL (1.6-2.4)
[2022-05-30] MEDS: inSUlin ASPART (NovoLOG) 1 UNIT/0.01 ML (CHARGE PER UNIT) SC SCH ×3 (06:41→16:09)
[2022-05-30] MEDS: RT--FLUTICASONE/SALMETEROL 232-14 (AIRDUO RespiCLICK) IH SCH (07:03)
[2022-05-30] MEDS: metFORMIN 500 MG (GLUCOPHAGE) TAB PO SCH (08:00)
[2022-05-30] MEDS: LOSARTAN 50 MG (COZAAR) TAB PO SCH (08:00)
[2022-05-30] MEDS: buPROPion SR 150 MG (WELLBUTRIN SR) TAB PO SCH (08:00)
[2022-05-30] MEDS: LACTOBACILLUS ACIDOPHILUS (PROBIOTIC) CAPSULE PO SCH (08:00)
[2022-05-30] MEDS: CALCIUM CARB + VIT D 600 MG (CALCARB + D) TAB PO SCH (08:00)
[2022-05-30] MEDS: ENOXAPARIN 40 MG/0.4 ML (LOVENOX) SYR SC SCH (08:00)
[2022-05-30] MEDS: PANTOPRAZOLE 20 MG TABLET (PROTONIX) PO SCH (08:00)
[2022-05-30] MEDS: PARoxetine 20 MG (PAXIL) TAB PO SCH (08:01)
[2022-05-30] MEDS: LORATADINE (CLARITIN) 10 MG TAB PO SCH (08:01)
[2022-05-30] MEDS: amLODIPine 10 MG (NORVASC) TAB PO SCH (08:01)
[2022-05-30] MEDS: AtorvaSTATin TABLET 10 MG TABLET PO SCH (08:01)
[2022-05-30] MEDS: hydrALAZINE (APRESOLINE) 25 MG TAB PO SCH ×3 (08:01→16:08)
[2022-05-30] MEDS: TOLTERODINE LA 2 MG (DETROL LA) CAP PO SCH (08:28)
[2022-05-30] MEDS: FENOFIBRATE, MICRO 67 MG (LOFIBRA) CAPSULE PO SCH (08:28)
[2022-05-30] MEDS: NEO/POLY/BAC (NEOSPORIN) OINT 15 GM TUBE TOP SCH (08:29)
--- NOTE | 2022-05-30 08:56 | Occupational Ther Daily Note ---
OT Current Status-Daily Note Subjective Up in bed reclined, declined OOB activity, reports not sleeping well and taking medication that they wont let him have here like 2 OTC sleep aids and Scentsey pots. Mental Status/Objective Patient Orientation: Person, Place, Situation Attachments: Oxygen ADL-Treatment patient request sponge bathing d/t neck and axilla area feel "yuck" Therapy Code Descriptions/Definitions Functional [place] Measure: 0=Not Assessed/NA 4=Minimal Assistance 1=Total Assistance 5=Supervision or Setup 2=Maximal Assistance 6=Modified [place] 3=Moderate Assistance 7=Complete IndependenceSCALE: Activities may be completed with or without assistive devices. 5-Ksanlhstvz-dpqfxoe completes the activity by him/herself with no assistance from a helper. 5-Set-up or Clean-up Assistance-helper sets up or cleans up; patient completes activity. [place] assists only prior to or following the activity. 4-Supervision or Touching Assistance-helper provides verbal cues and/or touching/steadying and/or contact guard assistance as patient completes activity. Assistance may be provided throughout the activity or intermittently. 3-Partial/Moderate Assistance-helper does LESS THAN HALF the effort. [place] lifts, holds or supports trunk or limbs, but provides less than half the effort. 2-Substantial/Maximal Assistance-helper does MORE THAN HALF the effort. [place] lifts or holds trunk or limbs and provides more than half the effort. 6-Bnutybikm-gfydcg does ALL the effort. Patient does none of the effort to complete the activity. Or, the assistance of 2 or more helpers is required for the patient to complete the activity. If activity was not attempted, code reason: 7-Patient Refused. 9-Not Applicable-not attempted and the patient did not perform the activity before the current illness, exacerbation or injury. 10-Not Attempted due to Environmental Limitations-(lack of equipment, weather restraints, etc.). 88-Not Attempted due to Medical Conditions or Safety Concerns. Eating (QC): 6 Oral Hygiene (QC): 5 Bathing Location: L Arm, R Arm, Chest Shower/Bathe Self (QC): 2 (patient complete 1/4 of body surface area for sponge bathing, OT set up supplies and monitored 02 levels during activity ) Upper Body Dressing (QC): 4 Lower Body Dressing (QC): 7 (refused LB ADLS) On/Off Footwear: 7 (refused wearing socks) Toileting Hygiene (QC): 2 Toilet Transfer (QC): 3 Education OT Patient Education: Correct positioning, Energy conservation, Modified ADL techniques, Progress toward Goal/Update tx plan, Purpose of tx/functional activities, Reviewed precautions, Rehab process, Safety issues, Transfer techniques, Use of adapted equipment Teaching Recipient: Patient Teaching Methods: Demonstration, Discussion Response to Teaching: Verbalize Understanding, Return Demonstration, Reinforcement Needed OT [employer] Goals [facility] Goals Time Frame: Jun 08, 2022 Eating (QC): 6 Oral Hygiene (QC): 6 Toileting Hygiene (QC): 6 Shower/Bathe Self (QC): 6 Upper Body Dressing (QC): 6 Lower Body Dressing (QC): 6 On/Off Footwear (QC): 6 1=Demonstrate adherence to instructed precautions during ADL tasks. 2=Patient will verbalize/demonstrate understanding of assistive devices/modifications for ADL. 3=Patient will improve strength/tolerance for activity to enable patient to perform ADL's. OT Education/Plan Problem List/Assessment Assessment: Decreased Activ Tolerance, Decreased Safety Aware, Impaired Funct Balance, Impaired Self-Care Skills Discharge Recommendations Plan/Recommendations: Continue POC Therapy Discharge Recommendati: Post Acute OT Treatment Plan/Plan of Care Treatment,Training & Education: Yes Patient would benefit from OT for education, treatment and training to promote independence in ADL's, mobility, safety and/or upper extremity function for ADL's. Plan of Care: ADL Retraining, Concurrent Therapy, Functional Mobility, Group Exercise/Act as Ind, UE Funct Exercise/Act Treatment Duration: Jun 08, 2022 Frequency: 3 times per week (3-5 times per week) Estimated Hrs Per Day: .25 hour per day Agreement: Yes Rehab Potential: Fair Positioned upright near 90 degrees as girth would allow in bed to eat, encouraged chair for meals and patient declined, all needs met Time Start Time: 08:27 Stop Time: 08:59 DATE: May 30, 2022 Total Time Billed (hr/min): 32 Billed Treatment Time 1 visit ADL 2 32 min DUSTIN MUNIZ OT May 30, 2022 08:56
[2022-05-30] MEDS ORDERED: RT-ALBUTEROL SULF 2.5 MG/3 ML PRE-MIX VIAL INH SCH (09:00)
[2022-05-30] MEDS ORDERED: RT-IPRATROPIUM (ATROVENT) 0.5MG/2.5ML AMP IH SCH (09:00)
--- NOTE | 2022-05-30 10:20 | Cardiology Progress Note ---
Subjective Date Seen by Provider: May 30, 2022 Time Seen by Provider: 08:50 Subjective/Events-last exam Patient is sitting up in bed, no new complaints. Denies any chest pain, reports dyspnea is improving. Objective-Cardiology Exam Last Set of Vital Signs Vital Signs 05/28/22 05/30/22 08:00 11:21 Temp 37.1 Pulse 69 Resp 18 B/P (MAP) 165/75 (105) Pulse Ox 91 O2 Delivery High Flow N/C O2 Flow Rate 10.00 FiO2 40 I&O Intake and Output 05/30/22 00:00 Intake Total 1672 ml Output Total 1525 ml Balance 147 ml Intake Oral 1472 ml IV Total 200 ml Output Urine Total 1525 ml General: Alert, Oriented X3, Mild Distress (respiratory) HEENT: PERRLA, EOMI Neck: Supple Lungs: Normal Air Movement Heart: Regular Rate Abdomen: Normal Bowel Sounds, Soft, No Tenderness Extremities: Normal Pulses, Other (trace LE edema bilaterally) Neuro: Normal Speech Psych/Mental Status: Mental Status NL, Mood NL Results Lab Laboratory Tests 05/30/22 05:30 A/P-Cardiology Admission Diagnosis Acute exacerbation of COPD Hypertension Pneumonia Diabetes mellitus Assessment/Plan Shortness of breath, status post acute exacerbation of COPD, was on Vapotherm Reporting improvement, using BiPAP at night. 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 Continue to monitor Small to moderate-sized pericardial effusion, no hemodynamic significance 2D echo was done on May 26, 2022 Continue to monitor Hypertension, poorly controlled, I will increase hydralazine to TID. monitor blood pressure Diabetes mellitus, followed and managed by primary care physician Gastroesophageal reflux disease Obesity, BMI 36. Supervisory-Addendum Brief Supervisory Addendum Participated in pt care: history, MDM, physical Personally performed: exam, history, MDM Care discussed with: KACIE Results interpretation: Verified all documentation Notes: Patient was seen and evaluated with Estevan, examination performed, management plan was discussed, agree with the current scribed note, I made few changes to the note using Italic font Patient was seen at bedside laying down comfortably No new complaint, still on oxygen Overall blood pressure was elevated while he is receiving IV steroids Continue to monitor. ESTEVAN CIFUENTES May 30, 2022 10:20 GARRETT DOBBINS MD May 30, 2022 12:49
--- NOTE | 2022-05-30 10:22 | Physical Therapy Daily Note ---
PT Daily Note-Current Subjective Patient continues to state he's going to go home. Patient currently on 10L O2 HF with noted dyspnea at rest with SAO2 94%. Pain Section J - Health Conditions 1. Rarely or not at all 2. Occasionally 3. Frequently 4. Almost constantly 8. Unable to answer Pain Effect on Sleep: 4 Pain Interference with Therapy: 4 Pain Interference w/Day-to-Day: 4 Mental Status Patient Orientation: Person, Time, Situation Attachments: Oxygen (10L HF) Transfers SCALE: Activities may be completed with or without assistive devices. 7-Gktjtrfedj-jhlkssu completes the activity by him/herself with no assistance from a helper. 5-Set-up or Clean-up Assistance-helper sets up or cleans up; patient completes activity. [place] assists only prior to or following the activity. 4-Supervision or Touching Assistance-helper provides verbal cues and/or touching/steadying and/or contact guard assistance as patient completes activi ty. Assistance may be provided throughout the activity or intermittently. 3-Partial/Moderate Assistance-helper does LESS THAN HALF the effort. [place] lifts, holds or supports trunk or limbs, but provides less than half the effort. 2-Substantial/Maximal Assistance-helper does MORE THAN HALF the effort. [place] lifts or holds trunk or limbs and provides more than half the effort. 8-Evzcwltab-hlezfa does ALL the effort. Patient does none of the effort to complete the activity. Or, the assistance of 2 or more helpers is required for the patient to complete the activity. If activity was not attempted, code reason: 7-Patient Refused. 9-Not Applicable-not attempted and the patient did not perform the activity before the current illness, exacerbation or injury. 10-Not Attempted due to Environmental Limitations-(lack of equipment, weather restraints, etc.). 88-Not Attempted due to Medical Conditions or Safety Concerns. Lying to Sitting/Side of Bed(Q: 3 Sit to Stand (QC): 4 Chair/Hue-qf-Twhct Xfer(QC): 4 Gait Training Distance: 50' x 2 Walk 10 feet (QC): 4 Walk 50 ft with 2 Turns(QC): 4 Gait Assistive Device: FWW extended UE's with FWW use Treatments PT monitored SAO2 during session with SAO2 decreasing to 86% 10L with ambulation 50' with noted dyspnea with minimal activity. Patient required time to recover to 92% Assessment Patient ceased treatment due to fatigue. Education with patient on breathing techniques and OOB activity. Patient requests several time to return to bed. PT encouraged patient to stay up in recliner for an hour with nursing notified. PT Senior Care Goals Senior Care Goals PT Senior Care Goals Time Frame: Jun 08, 2022 Roll Left & Right (QC): 6 Sit to Lying (QC): 6 Lying-Sitting on Side/Bed(QC): 6 Sit to Stand (QC): 6 Chair/Bln-af-Ygtoc Xfer(QC): 6 Toilet Transfer (QC): 6 Walk 10 feet (QC): 6 Walk 50ft with 2 Turns (QC): 6 Walk 150 ft (QC): 6 1 Step (curb) (QC): 6 PT Plan Treatment/Plan Treatment Plan: Continue Plan of Care Treatment Plan: Education, Functional Activity Dejuan, Functional Strength, Gait, Safety, Therapeutic Exercise, Other Treatment Duration: Jun 08, 2022 Frequency: 6 times per week Estimated Hrs Per Day: .25 hour per day Patient and/or Family Agrees t: Yes Time Time In: 925 Time Out: 941 DATE: May 30, 2022 Total Billed Treatment Time: 16 Total Billed Treatment 1 visit FA 16 min LORY ALCARAZ PT May 30, 2022 10:22
[2022-05-30] MEDS: LABETALOL HCL 20 MG/4 ML VIAL IV PRN (11:30)
[2022-05-30] MEDS ORDERED: FUROSEMIDE 40 MG/4 ML INJ (LASIX) IVP NR (11:45)
[2022-05-30] MEDS ORDERED: CALCIUM CARBONATE 500 MG (TUMS) TAB.CHEW PO PRN (11:45)
[2022-05-30] MEDS ORDERED: PRED10TA22 PO (14:11)
[2022-05-30] MEDS ORDERED: FURO-124 PO (14:11)
--- NOTE | 2022-05-30 14:13 | Discharge Summary ---
Diagnosis/Chief Complaint Date of Admission May 21, 2022 at 18:38 Date of Discharge Discharge Date: May 30, 2022 Discharge Diagnosis Assessment: Acute on chronic respiratory failure, BiPAP dependent Hypoxemia PNA AECOPD Severe COPD O2 dependent at home Recent COVID 3 weeks ago Lower extremity edema Elevated d-dimer ordered CT angiogram to r/o PE and dosed Lovenox 1mg/kg SQ Q 12 hours Smoker Panic attacks DM HTN HLP Depression Insomnia Anemia GERD Hypogonadism ED BPH B12 Malignant HTN Plan: Wean O2 requirements - currently on 10L high flow nasal cannula Continue PT to increase mobility - encouraging ambulation Lower Extremity edema - trace, Start Furosemide Malignant HTN - continue amlodipine, losartan, hydralazine increased to TID GERD - managed with pantoprazole, Start Calcium Carbonate chews Continue BiPAP at night Continue Vapotherm as needed Continue steroids IVF Abx - Azithromycin and Cefepime - finished Lovenox - CTA and Venous doppler ruled out PE or DVT of lower extremities Anxiolytics - receiving Xanax prn, Ativan prn, Precedex held at this time B12 labs = 491 wnl DM - continue insulins Depression - continue paroxetine, buproprion Promoting increased nutrition intake Reason Hospital Visit Discharge Summary Discharge Physical Examination Allergies: Coded Allergies: No Known Drug Allergies (Unverified , 06/18/12) Vitals & I&Os Vital Signs Date Time Temp Pulse Resp B/P (MAP) Pulse Ox O2 Delivery O2 Flow Rate FiO2 05/30/22 16:33 36.6 76 20 162/77 91 High Flow N/C 4.00 05/28/22 08:00 40 General Appearance: Alert, Oriented X3, Cooperative Respiratory: Clear to Auscultation Cardiovascular: Regular Rate Psych/Mental Status: Mental Status NL Hospital Course Was the Problem List Reviewed?: Yes Sacha Diaz is a 66 yo M with a pmh of severe COPD, Diabetes, Anxiety, Hypertension, HLP, Depression, and Tobacco use among other chronic health conditions, who arrived to [facility] from clinic in [place] due to increasing dyspnea and lower extremity edema up to his thighs following COVID infection. PCP is Dr. Rider. He was directly admitted to the ICU for Acute on Chronic Respiratory Failure with BiPAP dependence on 05/21/22. At time of admission, Dimer was elevated at 3.16. Subsequent CTA ruled out PE and Venous Doppler showed no evidence of right or left lower extremity DVT. Pleural effusion was noted on CTA. Cardiology has been following the patient and he received two Echocardiograms on 05/22/22 and 05/26/22. He was found to have pneumonia and treated with Cefepime and Azithromycin. Throughout his stay in the ICU, Sacha has experienced multiple panic attacks requiring Precedex, Ativan, Xanax, and one dose of Versed. On 05/24/22, he was transitioned from BiPAP to Vapotherm. He then was able to sustain his O2 levels with nasal cannula and oxymask, needing BiPAP/Vapotherm prn. He was transferred to Med-Surg floor on 05/29/22. Today, Sacha is still very insistent that he go home as soon as possible. Asking today for a script to obtain a home bedside commode. He has been working with PT/OT but he does fatigue easily and desats with activity. He reports that he has still had some back pain which is managed with oxycodone and hydromorphone. He has been receiving Xanax prn. Still not sleeping. Sacha feels that he is breathing okay. He is currently on 10L of a high flow nasal cannula with SAO2 between 91-94%. Last bowel movement was yesterday in the ICU. Endorses being very flatulent. Landeros catheter has been removed and pt is voiding on his own. Denies dysuria or hematuria. Hypertension is still uncontrolled. Cardiology is increasing hydralazine to TID. No new ABG. Labs (last 24 hrs) Laboratory Tests 05/21/22 10:04: Urine Color YELLOW, Urine Clarity CLEAR, Urine pH 7.5, Urine Specific [place] 1.020, Urine Protein 1+H, Urine Glucose (UA) NEGATIVE, Urine Ketones NEGATIVE, Urine Nitrite NEGATIVE, Urine Bilirubin NEGATIVE, Urine Urobilinogen 1.0, Urine Leukocyte Esterase NEGATIVE, Urine RBC (Auto) NEGATIVE, Urine RBC NONE, Urine WBC NONE, Urine Squamous Epithelial Cells RARE, Urine Crystals NONE, Urine Bacteria TRACE, Urine Casts NONE, Urine Mucus NEGATIVE, Urine Culture Indicated NO 05/21/22 19:05: White Blood Count 15.4H, Red Blood Count 4.32, Hemoglobin 11.7L, Hematocrit 37L, Mean Corpuscular Volume 86, Mean Corpuscular Hemoglobin 27, Mean Corpuscular Hemoglobin Concent 32, Red Cell Distribution Width 15.7H, Platelet Count 332, Mean Platelet Volume 9.3, Immature Granulocyte % (Auto) 1, Neutrophils (%) (Auto) 72, Lymphocytes (%) (Auto) 14, Monocytes (%) (Auto) 11, Eosinophils (%) (Auto) 2, Basophils (%) (Auto) 1, Neutrophils # (Auto) 11.1H, Lymphocytes # (Auto) 2.2, Monocytes # (Auto) 1.7H, Eosinophils # (Auto) 0.3, Basophils # (Auto) 0.1, Immature Granulocyte # (Auto) 0.1, Neutrophils % (Manual) 79, Lymphocytes % (Manual) 9, Monocytes % (Manual) 10, Eosinophils % (Manual) 2, Hypochromasia SLIGHT, Anisocytosis SLIGHT, Prothrombin Time 13.9, INR Comment 1.0, D-Dimer 3.16H, Sodium Level 142, Potassium Level 3.1L, Chloride Level 106, Carbon Dioxide Level 25, Anion Gap 11, Blood Urea Nitrogen 9, Creatinine 0.80, Estimat Glomerular Filtration Rate 97, BUN/Creatinine Ratio 11, Glucose Level 101, Lactic Acid Level 1.56, Calcium Level 9.0, Corrected Calcium 9.1, Total Bilirubin 0.5, Aspartate Amino Transf (AST/SGOT) 16, Alanine Aminotransferase (ALT/SGPT) 24, Alkaline Phosphatase 40, Troponin I < 0.028, B-Type Natriuretic Peptide 75.4, Total Protein 7.2, Albumin 3.9 05/21/22 19:38: Blood Gas Puncture Site L RAD, Blood Gas Patient Temperature 37.1, Arterial Blood pH 7.42, Arterial Blood Partial Pressure CO2 45, Arterial Blood Partial Pressure O2 55L, Arterial Blood HCO3 29H, Arterial Blood Total CO2 29.9, Arterial Blood Oxygen Saturation 90L, Arterial Blood Base Excess 4.3H, Castro Test YES-POS, Blood Gas Ventilator Setting NO, Blood Gas Inspired Oxygen 6L 05/21/22 21:04: Glucometer 131H 05/22/22 04:28: White Blood Count 16.7H, Red Blood Count 4.39, Hemoglobin 11.9L, Hematocrit 39L, Mean Corpuscular Volume 88, Mean Corpuscular Hemoglobin 27, Mean Corpuscular Hemoglobin Concent 31L, Red Cell Distribution Width 15.2H, Platelet Count 254, Mean Platelet Volume 10.8, Immature Granulocyte % (Auto) 1, Neutrophils (%) (Auto) 91H, Lymphocytes (%) (Auto) 5L, Monocytes (%) (Auto) 2, Eosinophils (%) (Auto) 1, Basophils (%) (Auto) 1, Neutrophils # (Auto) 15.2H, Lymphocytes # (Auto) 0.9L, Monocytes # (Auto) 0.3, Eosinophils # (Auto) 0.1, Basophils # (Auto) 0.1, Immature Granulocyte # (Auto) 0.2H, Percent Immature Platelet Fraction 4.1, Sodium Level 141, Potassium Level 3.8, Chloride Level 105, Carbon Dioxide Level 24, Anion Gap 12, Blood Urea Nitrogen 8, Creatinine 0.77, Estimat Glomerular Filtration Rate 98, BUN/Creatinine Ratio 10, Glucose Level 189H, Calcium Level 8.6, Corrected Calcium 8.8, Phosphorus Level 3.5, Magnesium Level 1.7, Iron Level 63, Total Bilirubin 0.4, Aspartate Amino Transf (AST/SGOT) 19, Alanine Aminotransferase (ALT/SGPT) 20, Alkaline Phosphatase 43, Total Protein 7.2, Albumin 3.8, Vitamin B12 Level TNP:Hemolyzed 05/22/22 10:14: Glucometer 234H 05/22/22 15:50: Glucometer 162H 05/22/22 21:43: Glucometer 195H 05/23/22 06:16: Glucometer 219H 05/23/22 08:11: White Blood Count 14.4H, Red Blood Count 4.28L, Hemoglobin 11.6L, Hematocrit 37L , Mean Corpuscular Volume 85, Mean Corpuscular Hemoglobin 27, Mean Corpuscular Hemoglobin Concent 32, Red Cell Distribution Width 15.4H, Platelet Count 292, Mean Platelet Volume 9.8, Immature Granulocyte % (Auto) 1, Neutrophils (%) (Auto) 84H, Lymphocytes (%) (Auto) 7L, Monocytes (%) (Auto) 7, Eosinophils (%) (Auto) 0, Basophils (%) (Auto) 0, Neutrophils # (Auto) 12.2H, Lymphocytes # (Auto) 1.1, Monocytes # (Auto) 1.1H, Eosinophils # (Auto) 0.0, Basophils # (Auto) 0.0, Immature Granulocyte # (Auto) 0.1, Sodium Level 137, Potassium Level 4.0, Chloride Level 105, Carbon Dioxide Level 24, Anion Gap 8, Blood Urea Nitrogen 26H, Creatinine 0.92, Estimat Glomerular Filtration Rate 91, BUN/Creatinine Ratio 28, Glucose Level 218H, Calcium Level 8.6, Corrected Calcium 9.0, Phosphorus Level 3.1, Magnesium Level 2.3, Total Bilirubin 0.4, Aspartate Amino Transf (AST/SGOT) 18, Alanine Aminotransferase (ALT/SGPT) 16, Alkaline Phosphatase 40, Total Protein 6.7, Albumin 3.5, Vitamin B12 Level 491 05/23/22 12:11: Glucometer 265H 05/23/22 15:44: Glucometer 256H 05/23/22 20:26: Glucometer 222H 05/24/22 03:07: Blood Gas Puncture Site LT RAD, Blood Gas Patient Temperature 36.8, Arterial Blood pH 7.40, Arterial Blood Partial Pressure CO2 40, Arterial Blood Partial Pressure O2 68L, Arterial Blood HCO3 24, Arterial Blood Total CO2 25.2, Arterial Blood Oxygen Saturation 94, Arterial Blood Base Excess -0.3, Castro Test YES-POS, Blood Gas Ventilator Setting NO, Blood Gas Inspired Oxygen 65% 05/24/22 04:15: White Blood Count 17.2H, Red Blood Count 4.46, Hemoglobin 11.9L, Hematocrit 38L, Mean Corpuscular Volume 85, Mean Corpuscular Hemoglobin 27, Mean Corpuscular Hemoglobin Concent 32, Red Cell Distribution Width 15.3H, Platelet Count 293, Mean Platelet Volume 10.3, Immature Granulocyte % (Auto) 1, Neutrophils (%) (Auto) 88H, Lymphocytes (%) (Auto) 6L, Monocytes (%) (Auto) 5, Eosinophils (%) (Auto) 0, Basophils (%) (Auto) 0, Neutrophils # (Auto) 15.1H, Lymphocytes # (Auto) 1.1, Monocytes # (Auto) 0.9, Eosinophils # (Auto) 0.0, Basophils # (Auto) 0.0, Immature Granulocyte # (Auto) 0.1, Sodium Level 137, Potassium Level 4.0, Chloride Level 106, Carbon Dioxide Level 19L, Anion Gap 12, Blood Urea Nitrogen 32H, Creatinine 0.84, Estimat Glomerular Filtration Rate 96, BUN/Creatinine Ratio 38, Glucose Level 204H, Calcium Level 9.0, Corrected Calcium 9.5, Phosphorus Level 3.5, Magnesium Level 2.1, Total Bilirubin 0.5, Aspartate Amino Transf (AST/SGOT) 19, Alanine Aminotransferase (ALT/SGPT) 18, Alkaline Phosphatase 40, Total Protein 6.4, Albumin 3.4 05/24/22 10:57: Glucometer 191H 05/24/22 15:50: Glucometer 238H 05/24/22 20:02: Glucometer 177H 05/25/22 04:33: White Blood Count 17.5H, Red Blood Count 4.32, Hemoglobin 11.7L, Hematocrit 36L, Mean Corpuscular Volume 84, Mean Corpuscular Hemoglobin 27, Mean Corpuscular Hemoglobin Concent 32, Red Cell Distribution Width 15.2H, Platelet Count 316, Mean Platelet Volume 9.7, Immature Granulocyte % (Auto) 1, Neutrophils (%) (Auto) 89H, Lymphocytes (%) (Auto) 5L, Monocytes (%) (Auto) 6, Eosinophils (%) (Auto) 0, Basophils (%) (Auto) 0, Neutrophils # (Auto) 15.6H, Lymphocytes # (Auto) 0.8L, Monocytes # (Auto) 1.0, Eosinophils # (Auto) 0.0, Basophils # (Auto) 0.0, Immature Granulocyte # (Auto) 0.1, Blood Gas Puncture Site R RAD, Blood Gas Patient Temperature 36.2, Arterial Blood pH 7.36L, Arterial Blood Partial Pressure CO2 44, Arterial Blood Partial Pressure O2 65L, Arterial Blood HCO3 24, Arterial Blood Total CO2 25.8, Arterial Blood Oxygen Saturation 92L, Arterial Blood Base Excess -0.5, Castro Test YES-POS, Blood Gas Ventilator Setting NO, Blood Gas Inspired Oxygen 40%, Sodium Level 136, Potassium Level 4.3, Chloride Level 105, Carbon Dioxide Level 20L, Anion Gap 11, Blood Urea Nitrogen 34H, Creatinine 0.88, Estimat Glomerular Filtration Rate 94, BUN/Creatinine Ratio 39, Glucose Level 233H, Calcium Level 9.2, Corrected Calcium 9.8, Phosphorus Level 3.4, Magnesium Level 2.1, Total Bilirubin 0.3, Aspartate Amino Transf (AST/SGOT) 17, Alanine Aminotransferase (ALT/SGPT) 20, Alkaline Phosphatase 34L, Total Protein 6.3L, Albumin 3.3 05/25/22 10:29: Glucometer 240H 05/25/22 15:41: Glucometer 222H 05/25/22 19:58: Glucometer 218H 05/26/22 04:16: White Blood Count 15.1H, Red Blood Count 4.54, Hemoglobin 12.3L, Hematocrit 38L, Mean Corpuscular Volume 84, Mean Corpuscular Hemoglobin 27, Mean Corpuscular Hemoglobin Concent 32, Red Cell Distribution Width 14.9H, Platelet Count 303, Mean Platelet Volume 9.4, Immature Granulocyte % (Auto) 1, Neutrophils (%) (Auto) 88H, Lymphocytes (%) (Auto) 5L, Monocytes (%) (Auto) 6, Eosinophils (%) (Auto) 0, Basophils (%) (Auto) 0, Neutrophils # (Auto) 13.3H, Lymphocytes # ( Auto) 0.8L, Monocytes # (Auto) 0.9, Eosinophils # (Auto) 0.0, Basophils # (Auto) 0.0, Immature Granulocyte # (Auto) 0.1, Blood Gas Puncture Site L RAD, Blood Gas Patient Temperature 36.9, Arterial Blood pH 7.37, Arterial Blood Partial Pressure CO2 42, Arterial Blood Partial Pressure O2 61L, Arterial Blood HCO3 24, Arterial Blood Total CO2 24.8, Arterial Blood Oxygen Saturation 92L, Arterial Blood Base Excess -1.1, Castro Test YES-POS, Blood Gas Ventilator Setting NO, Blood Gas Inspired Oxygen 40%, Sodium Level 137, Potassium Level 4.5, Chloride Level 106, Carbon Dioxide Level 20L, Anion Gap 11, Blood Urea Nitrogen 35H, Creatinine 0.87, Estimat Glomerular Filtration Rate 95, BUN/Creatinine Ratio 40, Glucose Level 225H, Calcium Level 8.9, Corrected Calcium 9.6, Phosphorus Level 3.4, Magnesium Level 1.9, Total Bilirubin 0.4, Aspartate Amino Transf (AST/SGOT) 12, Alanine Aminotransferase (ALT/SGPT) 20, Alkaline Phosphatase 35L, Total Protein 6.0L, Albumin 3.1L 05/26/22 10:43: Glucometer 215H 05/26/22 16:00: Glucometer 186H 05/26/22 21:30: Glucometer 226H 05/27/22 05:41: White Blood Count 14.7H, Red Blood Count 4.52, Hemoglobin 12.1L, Hematocrit 38L, Mean Corpuscular Volume 83, Mean Corpuscular Hemoglobin 27, Mean Corpuscular Hemoglobin Concent 32, Red Cell Distribution Width 14.9H, Platelet Count 290, Mean Platelet Volume 10.1, Immature Granulocyte % (Auto) 0, Neutrophils (%) (Auto) 88H, Lymphocytes (%) (Auto) 5L, Monocytes (%) (Auto) 6, Eosinophils (%) (Auto) 0, Basophils (%) (Auto) 0, Neutrophils # (Auto) 12.9H, Lymphocytes # (Auto) 0.7L, Monocytes # (Auto) 0.9, Eosinophils # (Auto) 0.0, Basophils # (Auto) 0.0, Immature Granulocyte # (Auto) 0.1, Neutrophils % (Manual) 89, Lymphocytes % (Manual) 2, Monocytes % (Manual) 9, Eosinophils % (Manual) 0, Basophils % (Manual) 0, Band Neutrophils 0, Anisocytosis SLIGHT, Sodium Level 13 7, Potassium Level 4.7, Chloride Level 106, Carbon Dioxide Level 22, Anion Gap 9, Blood Urea Nitrogen 36H, Creatinine 1.03, Estimat Glomerular Filtration Rate 80, BUN/Creatinine Ratio 35, Glucose Level 233H, Calcium Level 8.7, Corrected Calcium 9.5, Phosphorus Level 3.1, Magnesium Level 2.2, Total Bilirubin 0.4, Aspartate Amino Transf (AST/SGOT) 9, Alanine Aminotransferase (ALT/SGPT) 19, Alkaline Phosphatase 32L, Total Protein 5.7L, Albumin 3.0L 05/27/22 10:45: Glucometer 242H, Blood Gas Puncture Site NA, Blood Gas Patient Temperature 36.4, Arterial Blood pH 7.39, Arterial Blood Partial Pressure CO2 43, Arterial Blood Partial Pressure O2 64L, Arterial Blood HCO3 26, Arterial Blood Total CO2 27.3, Arterial Blood Oxygen Saturation 93L, Arterial Blood Base Excess 1.4, Castro Test NA, Blood Gas Ventilator Setting NO, Blood Gas Inspired Oxygen 30% 05/27/22 10:56: Glucometer 218H 05/27/22 16:14: Glucometer 218H 05/27/22 20:25: Glucometer 164H 05/28/22 03:30: White Blood Count 16.6H, Red Blood Count 4.59, Hemoglobin 12.2L, Hematocrit 38L, Mean Corpuscular Volume 83, Mean Corpuscular Hemoglobin 27, Mean Corpuscular Hemoglobin Concent 32, Red Cell Distribution Width 14.6H, Platelet Count 285, Mean Platelet Volume 9.9, Immature Granulocyte % (Auto) 1, Neutrophils (%) (Auto) 88H, Lymphocytes (%) (Auto) 5L, Monocytes (%) (Auto) 6, Eosinophils (%) (Auto) 0, Basophils (%) (Auto) 0, Neutrophils # (Auto) 14.7H, Lymphocytes # (Auto) 0.9L, Monocytes # (Auto) 0.9, Eosinophils # (Auto) 0.0, Basophils # (Auto) 0.0, Immature Granulocyte # (Auto) 0.1, Sodium Level 136, Potassium Level 4.7, Chloride Level 104, Carbon Dioxide Level 24, Anion Gap 8, Blood Urea Nitrogen 37H, Creatinine 0.96, Estimat Glomerular Filtration Rate 87, BUN/Creatinine Ratio 39, Glucose Level 203H, Calcium Level 8.5, Corrected Calcium 9.3, Phosphorus Level 3.3, Magnesium Level 2.0, Total Bilirubin 0.4, Aspartate Amino Transf (AST/SGOT) 15, Alanine Aminotransferase (ALT/SGPT) 21, Alkaline Phosphatase 33L, Total Protein 5.5L, Albumin 3.0L 05/28/22 05:46: Blood Gas Puncture Site R RADIAL, Blood Gas Patient Temperature 36.6, Arterial Blood pH 7.43, Arterial Blood Partial Pressure CO2 42, Arterial Blood Partial Pressure O2 56L, Arterial Blood HCO3 28H, Arterial Blood Total CO2 29.0, Arterial Blood Oxygen Saturation 90L, Arterial Blood Base Excess 3.6H, Castro Test YES-POS, Blood Gas Ventilator Setting NO, Blood Gas Inspired Oxygen 30% 05/28/22 10:36: Glucometer 220H 05/28/22 15:41: Glucometer 198H 05/28/22 19:37: Glucometer 169H 05/29/22 05:04: White Blood Count 18.2H, Red Blood Count 4.44, Hemoglobin 11.9L, Hematocrit 37L, Mean Corpuscular Volume 83, Mean Corpuscular Hemoglobin 27, Mean Corpuscular Hemoglobin Concent 32, Red Cell Distribution Width 14.7H, Platelet Count 301, Mean Platelet Volume 10.0, Immature Granulocyte % (Auto) 1, Neutrophils (%) (Auto) 88H, Lymphocytes (%) (Auto) 4L, Monocytes (%) (Auto) 7, Eosinophils (%) (Auto) 0, Basophils (%) (Auto) 0, Neutrophils # (Auto) 16.1H, Lymphocytes # (Auto) 0.8L, Monocytes # (Auto) 1.2H, Eosinophils # (Auto) 0.0, Basophils # (Auto) 0.0, Immature Granulocyte # (Auto) 0.1, Sodium Level 139, Potassium Level 4.0, Chloride Level 104, Carbon Dioxide Level 26, Anion Gap 9, Blood Urea Nitrogen 29H, Creatinine 0.83, Estimat Glomerular Filtration Rate 96, BUN/Creatinine Ratio 35, Glucose Level 92, Calcium Level 8.4L, Corrected Calcium 9.2, Phosphorus Level 2.8, Magnesium Level 1.8, Total Bilirubin 0.4, Aspartate Amino Transf (AST/SGOT) 20, Alanine Aminotransferase (ALT/SGPT) 24, Alkaline Phosphatase 38L, Total Protein 5.4L, Albumin 3.0L 05/29/22 05:17: Blood Gas Puncture Site UNK, Blood Gas Patient Temperature 37.2, Arterial Blood pH 7.46H, Arterial Blood Partial Pressure CO2 43, Arterial Blood Partial Pressure O2 60L, Arterial Blood HCO3 30H, Arterial Blood Total CO2 31.1H, Arterial Blood Oxygen Saturation 92L, Arterial Blood Base Excess 6.0H, Castro Test YES-POS, Blood Gas Ventilator Setting NO, Blood Gas Inspired Oxygen 8L 05/29/22 11:05: Glucometer 161H 05/29/22 16:28: Glucometer 221H 05/29/22 20:16: Glucometer 279H 05/30/22 05:30: White Blood Count 19.3H, Red Blood Count 4.55, Hemoglobin 12.4L, Hematocrit 38L, Mean Corpuscular Volume 83, Mean Corpuscular Hemoglobin 27, Mean Corpuscular Hemoglobin Concent 33, Red Cell Distribution Width 14.7H, Platelet Count 289, Mean Platelet Volume 10.0, Immature Granulocyte % (Auto) 1, Neutrophils (%) (Auto) 88H, Lymphocytes (%) (Auto) 4L, Monocytes (%) (Auto) 8, Eosinophils (%) (Auto) 0, Basophils (%) (Auto) 0, Neutrophils # (Auto) 16.8H, Lymphocytes # (Auto) 0.7L, Monocytes # (Auto) 1.5H, Eosinophils # (Auto) 0.0, Basophils # (Auto) 0.0, Immature Granulocyte # (Auto) 0.2H, Sodium Level 138, Potassium Level 4.2, Chloride Level 102, Carbon Dioxide Level 26, Anion Gap 10, Blood Urea Nitrogen 27H, Creatinine 0.88, Estimat Glomerular Filtration Rate 94, BUN/C [place]atinine Ratio 31, Glucose Level 191H, Calcium Level 8.6, Corrected Calcium 9.3, Magnesium Level 1.9, Total Bilirubin 0.5, Aspartate Amino Transf (AST/SGOT) 17, Alanine Aminotransferase (ALT/SGPT) 27, Alkaline Phosphatase 36L, Total Protein 5.5L, Albumin 3.1L 05/30/22 10:16: Glucometer 198H 05/30/22 15:44: Glucometer 200H Microbiology 05/21/22 Blood Culture - Final, Complete No growth 05/21/22 MRSA Screen - Final, Complete MRSA not isolated Pending Labs Microbiology Date/Time Source Procedure Growth Status 05/21/22 20:35 Peripheral Rt Forearm Blood Culture - Final No growth Complete 05/21/22 19:30 Nasal MRSA Screen - Final MRSA not isolated Complete 05/21/22 19:05 Peripheral Rt Ac Blood Culture - Final No growth Complete Laboratory Tests 05/21/22 10:04: Urine Color YELLOW, Urine Clarity CLEAR, Urine pH 7.5, Urine Specific [place] 1.020, Urine Protein 1+, Urine Glucose (UA) NEGATIVE, Urine Ketones NEGATIVE, Urine Nitrite NEGATIVE, Urine Bilirubin NEGATIVE, Urine Urobilinogen 1.0, Urine Leukocyte Esterase NEGATIVE, Urine RBC (Auto) NEGATIVE, Urine RBC NONE, Urine WBC NONE, Urine Squamous Epithelial Cells RARE, Urine Crystals NONE, Urine Bacteria TRACE, Urine Casts NONE, Urine Mucus NEGATIVE, Urine Culture Indicated NO 05/21/22 19:05: White Blood Count 15.4, Red Blood Count 4.32, Hemoglobin 11.7, Hematocrit 37, Mean Corpuscular Volume 86, Mean Corpuscular Hemoglobin 27, Mean Corpuscular Hemoglobin Concent 32, Red Cell Distribution Width 15.7, Platelet Count 332, Mean Platelet Volume 9.3, Immature Granulocyte % (Auto) 1, Neutrophils (%) (Auto) 72, Lymphocytes (%) (Auto) 14, Monocytes (%) (Auto) 11, Eosinophils (%) (Auto) 2, Basophils (%) (Auto) 1, Neutrophils # (Auto) 11.1, Lymphocytes # (Auto) 2.2, Monocytes # (Auto) 1.7, Eosinophils # (Auto) 0.3, Basophils # (Auto) 0.1, Immature Granulocyte # (Auto) 0.1, Neutrophils % (Manual) 79, Lymphocytes % (Manual) 9, Monocytes % (Manual) 10, Eosinophils % (Manual) 2, Hypochromasia SLIGHT, Anisocytosis SLIGHT, Prothrombin Time 13.9, INR Comment 1.0, D-Dimer 3.16, Sodium Level 142, Potassium Level 3.1, Chloride Level 106, Carbon Dioxide Level 25, Anion Gap 11, Blood Urea Nitrogen 9, Creatinine 0.80, Estimat Glomerular Filtration Rate 97, BUN/Creatinine Ratio 11, Glucose Level 101, Lactic Acid Level 1.56, Calcium Level 9.0, Corrected Calcium 9.1, Total Bilirubin 0.5, Aspartate Amino Transf (AST/SGOT) 16, Alanine Aminotransferase (ALT/SGPT) 24, Alkaline Phosphatase 40, Troponin I < 0.028, B-Type Natriuretic Peptide 75.4, Total Protein 7.2, Albumin 3.9 05/21/22 19:38: Blood Gas Puncture Site L RAD, Blood Gas Patient Temperature 37.1, Arterial Blood pH 7.42, Arterial Blood Partial Pressure CO2 45, Arterial Blood Partial Pressure O2 55, Arterial Blood HCO3 29, Arterial Blood Total CO2 29.9, Arterial Blood Oxygen Saturation 90, Arterial Blood Base Excess 4.3, Castro Test YES-POS, Blood Gas Ventilator Setting NO, Blood Gas Inspired Oxygen 6L 05/21/22 21:04: Glucometer 131 05/22/22 04:28: White Blood Count 16.7, Red Blood Count 4.39, Hemoglobin 11.9, Hematocrit 39, Mean Corpuscular Volume 88, Mean Corpuscular Hemoglobin 27, Mean Corpuscular Hemoglobin Concent 31, Red Cell Distribution Width 15.2, Platelet Count 254, Mean Platelet Volume 10.8, Immature Granulocyte % (Auto) 1, Neutrophils (%) (Auto) 91, Lymphocytes (%) (Auto) 5, Monocytes (%) (Auto) 2, Eosinophils (%) (Auto) 1, Basophils (%) (Auto) 1, Neutrophils # (Auto) 15.2, Lymphocytes # (Auto) 0.9, Monocytes # (Auto) 0.3, Eosinophils # (Auto) 0.1, Basophils # (Auto) 0.1, Immature Granulocyte # (Auto) 0.2, Percent Immature Platelet Fraction 4.1, Sodium Level 141, Potassium Level 3.8, Chloride Level 105, Carbon Dioxide Level 24, Anion Gap 12, Blood Urea Nitrogen 8, Creatinine 0.77, Estimat Glomerular Filtration Rate 98, BUN/Creatinine Ratio 10, Glucose Level 189, Calcium Level 8 .6, Corrected Calcium 8.8, Phosphorus Level 3.5, Magnesium Level 1.7, Iron Level 63, Total Bilirubin 0.4, Aspartate Amino Transf (AST/SGOT) 19, Alanine Aminotransferase (ALT/SGPT) 20, Alkaline Phosphatase 43, Total Protein 7.2, Albumin 3.8, Vitamin B12 Level TNP:Hemolyzed 05/22/22 10:14: Glucometer 234 05/22/22 15:50: Glucometer 162 05/22/22 21:43: Glucometer 195 05/23/22 06:16: Glucometer 219 05/23/22 08:11: White Blood Count 14.4, Red Blood Count 4.28, Hemoglobin 11.6, Hematocrit 37, Mean Corpuscular Volume 85, Mean Corpuscular Hemoglobin 27, Mean Corpuscular Hemoglobin Concent 32, Red Cell Distribution Width 15.4, Platelet Count 292, Mean Platelet Volume 9.8, Immature Granulocyte % (Auto) 1, Neutrophils (%) (Auto) 84, Lymphocytes (%) (Auto) 7, Monocytes (%) (Auto) 7, Eosinophils (%) (Au to) 0, Basophils (%) (Auto) 0, Neutrophils # (Auto) 12.2, Lymphocytes # (Auto) 1.1, Monocytes # (Auto) 1.1, Eosinophils # (Auto) 0.0, Basophils # (Auto) 0.0, Immature Granulocyte # (Auto) 0.1, Sodium Level 137, Potassium Level 4.0, Chloride Level 105, Carbon Dioxide Level 24, Anion Gap 8, Blood Urea Nitrogen 26, Creatinine 0.92, Estimat Glomerular Filtration Rate 91, BUN/Creatinine Ratio 28, Glucose Level 218, Calcium Level 8.6, Corrected Calcium 9.0, Phosphorus Level 3.1, Magnesium Level 2.3, Total Bilirubin 0.4, Aspartate Amino Transf (AST/SGOT) 18, Alanine Aminotransferase (ALT/SGPT) 16, Alkaline Phosphatase 40, Total Protein 6.7, Albumin 3.5, Vitamin B12 Level 491 05/23/22 12:11: Glucometer 265 05/23/22 15:44: Glucometer 256 05/23/22 20:26: Glucometer 222 05/24/22 03:07: Blood Gas Puncture Site LT RAD, Blood Gas Patient Temperature 36.8, Arterial Blood pH 7.40, Arterial Blood Partial Pressure CO2 40, Arterial Blood Partial Pressure O2 68, Arterial Blood HCO3 24, Arterial Blood Total CO2 25.2, Arterial Blood Oxygen Saturation 94, Arterial Blood Base Excess -0.3, Castro Test YES-POS, Blood Gas Ventilator Setting NO, Blood Gas Inspired Oxygen 65% 05/24/22 04:15: White Blood Count 17.2, Red Blood Count 4.46, Hemoglobin 11.9, Hematocrit 38, Mean Corpuscular Volume 85, Mean Corpuscular Hemoglobin 27, Mean Corpuscular Hemoglobin Concent 32, Red Cell Distribution Width 15.3, Platelet Count 293, Mean Platelet Volume 10.3, Immature Granulocyte % (Auto) 1, Neutrophils (%) (Auto) 88, Lymphocytes (%) (Auto) 6, Monocytes (%) (Auto) 5, Eosinophils (%) (Auto) 0, Basophils (%) (Auto) 0, Neutrophils # (Auto) 15.1, Lymphocytes # (Auto) 1.1, Monocytes # (Auto) 0.9, Eosinophils # (Auto) 0.0, Basophils # (Auto) 0.0, Immature Granulocyte # (Auto) 0.1, Sodium Level 137, Potassium Level 4.0, Chloride Level 106, Carbon Dioxide Level 19, Anion Gap 12, Blood Urea Nitrogen 32, Creatinine 0.84, Estimat Glomerular Filtration Rate 96, BUN/Creatinine Ratio 38, Glucose Level 204, Calcium Level 9.0, Corrected Calcium 9.5, Phosphorus Level 3.5, Magnesium Level 2.1, Total Bilirubin 0.5, Aspartate Amino Transf (AST/SGOT) 19, Alanine Aminotransferase (ALT/SGPT) 18, Alkaline Phosphatase 40, Total Protein 6.4, Albumin 3.4 05/24/22 10:57: Glucometer 191 05/24/22 15:50: Glucometer 238 05/24/22 20:02: Glucometer 177 05/25/22 04:33: White Blood Count 17.5, Red Blood Count 4.32, Hemoglobin 11.7, Hematocrit 36, Mean Corpuscular Volume 84, Mean Corpuscular Hemoglobin 27, Mean Corpuscular Hemoglobin Concent 32, Red Cell Distribution Width 15.2, Platelet Count 316, Mean Platelet Volume 9.7, Immature Granulocyte % (Auto) 1, Neutrophils (%) (Auto) 89, Lymphocytes (%) (Auto) 5, Monocytes (%) (Auto) 6, Eosinophils (%) (Auto) 0, Basophils (%) (Auto) 0, Neutrophils # (Auto) 15.6, Lymphocytes # (Auto) 0.8, Monocytes # (Auto) 1.0, Eosinophils # (Auto) 0.0, Basophils # (Auto) 0.0, Immature Granulocyte # (Auto) 0.1, Blood Gas Puncture Site R RAD, Blood Gas Patient Temperature 36.2, Arterial Blood pH 7.36, Arterial Blood Partial Pressure CO2 44, Arterial Blood Partial Pressure O2 65, Arterial Blood HCO3 24, Arterial Blood Total CO2 25.8, Arterial Blood Oxygen Saturation 92, Arterial Blood Base Excess -0.5, Castro Test YES-POS, Blood Gas Ventilator Setting NO, Blood Gas Inspired Oxygen 40%, Sodium Level 136, Potassium Level 4.3, Chloride Level 105, Carbon Dioxide Level 20, Anion Gap 11, Blood Urea Nitrogen 34, Creatinine 0.88, Estimat Glomerular Filtration Rate 94, BUN/Creatinine Ratio 39, Glucose Level 233, Calcium Level 9.2, Corrected Calcium 9.8, Phosphorus Level 3.4, Magnesium Level 2.1, Total Bilirubin 0.3, Aspartate Amino Transf (AST/SGOT) 17, Alanine Aminotransferase (ALT/SGPT) 20, Alkaline Phosphatase 34, Total Protein 6.3, Albumin 3.3 05/25/22 10:29: Glucometer 240 05/25/22 15:41: Glucometer 222 05/25/22 19:58: Glucometer 218 05/26/22 04:16: White Blood Count 15.1, Red Blood Count 4.54, Hemoglobin 12.3, Hematocrit 38, Mean Corpuscular Volume 84, Mean Corpuscular Hemoglobin 27, Mean Corpuscular Hemoglobin Concent 32, Red Cell Distribution Width 14.9, Platelet Count 303, Mean Platelet Volume 9.4, Immature Granulocyte % (Auto) 1, Neutrophils (%) (Auto) 88, Lymphocytes (%) (Auto) 5, Monocytes (%) (Auto) 6, Eosinophils (%) (Auto) 0, Basophils (%) (Auto) 0, Neutrophils # (Auto) 13.3, Lymphocytes # (Auto) 0.8, Monocytes # (Auto) 0.9, Eosinophils # (Auto) 0.0, Basophils # (Auto) 0.0, Immature Granulocyte # (Auto) 0.1, Blood Gas Puncture Site L RAD, Blood Gas Patient Temperature 36.9, Arterial Blood pH 7.37, Arterial Blood Partial Pressure CO2 42, Arterial Blood Partial Pressure O2 61, Arterial Blood HCO3 24, Arterial Blood Total CO2 24.8, Arterial Blood Oxygen Saturation 92, Arterial Blood Base Excess -1.1, Castro Test YES-POS, Blood Gas Ventilator Setting NO, Blood Gas Inspired Oxygen 40%, Sodium Level 137, Potassium Level 4.5, Chloride Level 106, Carbon Dioxide Level 20, Anion Gap 11, Blood Urea Nitrogen 35, Creatinine 0.87, Estimat Glomerular Filtration Rate 95, BUN/Creatinine Ratio 40, Glucose Level 225, Calcium Level 8.9, Corrected Calcium 9.6, Phosphorus Level 3.4, Magnesium Level 1.9, Total Bilirubin 0.4, Aspartate Amino Transf (AST/SGOT) 12, Alanine Aminotransferase (ALT/SGPT) 20, Alkaline Phosphatase 35, Total Protein 6.0, Albumin 3.1 05/26/22 10:43: Glucometer 215 05/26/22 16:00: Glucometer 186 05/26/22 21:30: Glucometer 226 05/27/22 05:41: White Blood Count 14.7, Red Blood Count 4.52, Hemoglobin 12.1, Hematocrit 38, Mean Corpuscular Volume 83, Mean Corpuscular Hemoglobin 27, Mean Corpuscular Hemoglobin Concent 32, Red Cell Distribution Width 14.9, Platelet Count 290, Mean Platelet Volume 10.1, Immature Granulocyte % (Auto) 0, Neutrophils (%) (Auto) 88, Lymphocytes (%) (Auto) 5, Monocytes (%) (Auto) 6, Eosinophils (%) (Auto) 0, Basophils (%) (Auto) 0, Neutrophils # (Auto) 12.9, Lymphocytes # (Auto) 0.7, Monocytes # (Auto) 0.9, Eosinophils # (Auto) 0.0, Basophils # (Auto) 0.0, Immature Granulocyte # (Auto) 0.1, Neutrophils % (Manual) 89, Lymphocytes % (Manual) 2, Monocytes % (Manual) 9, Eosinophils % (Manual) 0, Basophils % (Manual) 0, Band Neutrophils 0, Anisocytosis SLIGHT, Sodium Level 137, Potassium Level 4.7, Chloride Level 106, Carbon Dioxide Level 22, Anion Gap 9, Blood Urea Nitrogen 36, Creatinine 1.03, Estimat Glomerular Filtration Rate 80, BUN/Creatinine Ratio 35, Glucose Level 233, Calcium Level 8.7, Corrected Calcium 9.5, Phosphorus Level 3.1, Magnesium Level 2.2, Total Bilirubin 0.4, Aspartate Amino Transf (AST/SGOT) 9, Alanine Aminotransferase (ALT/SGPT) 19, Alkaline Phosphatase 32, Total Protein 5.7, Albumin 3.0 05/27/22 10:45: Glucometer 242, Blood Gas Puncture Site NA, Blood Gas Patient Temperature 36.4, Arterial Blood pH 7.39, Arterial Blood Partial Pressure CO2 43, Arterial Blood Partial Pressure O2 64, Arterial Blood HCO3 26, Arterial Blood Total CO2 27.3, Arterial Blood Oxygen Saturation 93, Arterial Blood Base Excess 1.4, Castro Test NA, Blood Gas Ventilator Setting NO, Blood Gas Inspired Oxygen 30% 05/27/22 10:56: Glucometer 218 05/27/22 16:14: Glucometer 218 05/27/22 20:25: Glucometer 164 05/28/22 03:30: White Blood Count 16.6, Red Blood Count 4.59, Hemoglobin 12.2, Hematocrit 38, Mean Corpuscular Volume 83, Mean Corpuscular Hemoglobin 27, Mean Corpuscular Hemoglobin Concent 32, Red Cell Distribution Width 14.6, Platelet Count 285, Mean Platelet Volume 9.9, Immature Granulocyte % (Auto) 1, Neutrophils (%) (Auto) 88, Lymphocytes (%) (Auto) 5, Monocytes (%) (Auto) 6, Eosinophils (%) (Auto) 0, Basophils (%) (Auto) 0, Neutrophils # (Auto) 14.7, Lymphocytes # (Auto) 0.9, Monocytes # (Auto) 0.9, Eosinophils # (Auto) 0.0, Basophils # (Auto) 0.0, Immature Granulocyte # (Auto) 0.1, Sodium Level 136, Potassium Level 4.7, Chloride Level 104, Carbon Dioxide Level 24, Anion Gap 8, Blood Urea Nitrogen 37, Creatinine 0.96, Estimat Glomerular Filtration Rate 87, BUN/Creatinine Ratio 39, Glucose Level 203, Calcium Level 8.5, Corrected Calcium 9.3, Phosphorus Level 3.3, Magnesium Level 2.0, Total Bilirubin 0.4, Aspartate Amino Transf (AST/SGOT) 15, Alanine Aminotransferase (ALT/SGPT) 21, Alkaline Phosphatase 33, Total Protein 5.5, Albumin 3.0 05/28/22 05:46: Blood Gas Puncture Site R RADIAL, Blood Gas Patient Temperature 36.6, Arterial Blood pH 7.43, Arterial Blood Partial Pressure CO2 42, Arterial Blood Partial Pressure O2 56, Arterial Blood HCO3 28, Arterial Blood Total CO2 29.0, Arterial Blood Oxygen Saturation 90, Arterial Blood Base Excess 3.6, Castro Test YES-POS, Blood Gas Ventilator Setting NO, Blood Gas Inspired Oxygen 30% 05/28/22 10:36: Glucometer 220 05/28/22 15:41: Glucometer 198 05/28/22 19:37: Glucometer 169 05/29/22 05:04: White Blood Count 18.2, Red Blood Count 4.44, Hemoglobin 11.9, Hematocrit 37, Mean Corpuscular Volume 83, Mean Corpuscular Hemoglobin 27, Mean Corpuscular Hemoglobin Concent 32, Red Cell Distribution Width 14.7, Platelet Count 301, Mean Platelet Volume 10.0, Immature Granulocyte % (Auto) 1, Neutrophils (%) (Auto) 88, Lymphocytes (%) (Auto) 4, Monocytes (%) (Auto) 7, Eosinophils (%) (Auto) 0, Basophils (%) (Auto) 0, Neutrophils # (Auto) 16.1, Lymphocytes # (Auto) 0.8, Monocytes # (Auto) 1.2, Eosinophils # (Auto) 0.0, Basophils # (Auto) 0.0, Immature Granulocyte # (Auto) 0.1, Sodium Level 139, Potassium Level 4.0, Chloride Level 104, Carbon Dioxide Level 26, Anion Gap 9, Blood Urea Nitrogen 29, Creatinine 0.83, Estimat Glomerular Filtration Rate 96, BUN/Creatinine Ratio 35, Glucose Level 92, Calcium Level 8.4, Corrected Calcium 9.2, Phosphorus Level 2.8, Magnesium Level 1.8, Total Bilirubin 0.4, Aspartate Amino Transf (AST/SGOT) 20, Alanine Aminotransferase (ALT/SGPT) 24, Alkaline Phosphatase 38, Total Protein 5.4, Albumin 3.0 05/29/22 05:17: Blood Gas Puncture Site UNK, Blood Gas Patient Temperature 37.2, Arterial Blood pH 7.46, Arterial Blood Partial Pressure CO2 43, Arterial Blood Partial Pressure O2 60, Arterial Blood HCO3 30, Arterial Blood Total CO2 31.1, Arterial Blood Oxygen Saturation 92, Arterial Blood Base Excess 6.0, Castro Test YES-POS, Blood Gas Ventilator Setting NO, Blood Gas Inspired Oxygen 8L 05/29/22 11:05: Glucometer 161 05/29/22 16:28: Glucometer 221 05/29/22 20:16: Glucometer 279 05/30/22 05:30: White Blood Count 19.3, Red Blood Count 4.55, Hemoglobin 12.4, Hematocrit 38, Mean Corpuscular Volume 83, Mean Corpuscular Hemoglobin 27, Mean Corpuscular Hemoglobin Concent 33, Red Cell Distribution Width 14.7, Platelet Count 289, Mean Platelet Volume 10.0, Immature Granulocyte % (Auto) 1, Neutrophils (%) (Auto) 88, Lymphocytes (%) (Auto) 4, Monocytes (%) (Auto) 8, Eosinophils (%) (Auto) 0, Basophils (%) (Auto) 0, Neutrophils # (Auto) 16.8, Lymphocytes # (Auto) 0.7, Monocytes # (Auto) 1.5, Eosinophils # (Auto) 0.0, Basophils # (Auto) 0.0, Immature Granulocyte # (Auto) 0.2, Sodium Level 138, Potassium Level 4.2, Chloride Level 102, Carbon Dioxide Level 26, Anion Gap 10, Blood Urea Nitrogen 27, Creatinine 0.88, Estimat Glomerular Filtration Rate 94, BUN/Creatinine Ratio 31, Glucose Level 191, Calcium Level 8.6, Corrected Calcium 9.3, Magnesium Level 1.9, Total Bilirubin 0.5, Aspartate Amino Transf (AST/SGOT) 17, Alanine Aminotransferase (ALT/SGPT) 27, Alkaline Phosphatase 36, Total Protein 5.5, Albumin 3.1 05/30/22 10:16: Glucometer 198 05/30/22 15:44: Glucometer 200 Discharge Home Medications: Active Scripts Active Lasix (Furosemide) 40 Mg Tablet 40 Mg PO DAILY Prednisone 10 Mg Tab.ds.pk 10 Mg PO DAILY Take 6 tabs(60mg)daily,decrease by 1 tab(10MG)daily. Reported Zzzquil (Diphenhydramine HCl) 50 Mg/30 Ml Liquid 5 Ml PO HS Melatonin 5 Mg Tablet 10 Mg PO HS TAKES 2 (5MG) TABS Tylenol Pm Ex-Strength Caplet (Acetaminophen/Diphenhydramine) 500 Mg-25 Mg Tablet 3 Each PO HS Omeprazole 20 Mg Tab.rap.dr 20 Mg PO DAILY Loratadine 10 Mg Tablet 10 Mg PO DAILY Tolterodine Tartrate ER (Tolterodine Tartrate) 4 Mg Cap.er.24h 4 Mg PO DAILY Atorvastatin Calcium 10 Mg Tablet 10 Mg PO DAILY Olmesartan Medoxomil 40 Mg Tablet 40 Mg PO DAILY Metformin HCl 500 Mg Tablet 500 Mg PO BID WITH MEALS Men 50 Plus Multivitamin Tab (Multivit-Min/FA/Lycopen/Lutein) 300 Mcg-600 Mcg- 300 Mcg Tablet 1 Each PO DAILY Prazosin HCl 1 Mg Capsule 1 Mg PO HS Iprat-Albut 0.5-3(2.5) mg/3 ml (Ipratropium/Albuterol Sulfate) 0.5 Mg-3 Mg (2.5 Mg Base)/3 Ml Ampul.neb 3 Ml NEB TID Hydralazine HCl 25 Mg Tablet 25 Mg PO BID WITH MEALS Ventolin Hfa (Albuterol Sulfate) 1 Puff Puff 2 Puff INH Q4H PRN Symbicort 160-4.5 Mcg Inhaler (Budesonide/Formoterol Fumarate) 10.2 Gm Hfa.aer.ad 2 Puff INH BID Combivent Respimat Inhal [place] (Albuterol/Ipratropium) 20 Mcg-100 Mcg/Actuation Aero 1 Puff INH BID Finasteride 5 Mg Tablet 5 Mg PO 1800 Fenofibrate (Fenofibrate Nanocrystallized) 48 Mg Tablet 48 Mg PO DAILY Bupropion Xl (Bupropion HCl) 150 Mg Tab.er.24h 150 Mg PO DAILY Paroxetine HCl 40 Mg Tablet 40 Mg PO DAILY Amlodipine Besylate 5 Mg Tablet 5 Mg PO BID Trazodone HCl 150 Mg Tablet 300 Mg PO HS TAKES 2 (150NG) TABS Calcium 600 + Vit D 200 Tablet (Calcium Carbonate/Vitamin D3) 600 Mg Calcium-5 Mcg (200 Unit) Tablet 1 Ea PO BID WITH MEALS Probiotic (L.acidoph & Paracasei,B.lactis) 1 Each Capsule 1 Cap PO DAILY Instructions to patient/family Please see electronic discharge instructions given to patient. Diagnosis/Problems Diagnosis/Problems (1) Respiratory failure with hypoxia (2) COPD exacerbation (3) BiPAP (biphasic positive airway pressure) dependence (4) Anasarca (5) Pericardial effusion (6) Hypertension Status: Chronic (7) Diabetes mellitus (8) Obesity Status: Chronic (9) Oxygen dependent Status: Chronic Clinical Quality Measures DVT/VTE Risk/Contraindication: Contraindications-Mechi: Other *list below* Other: poss dvt ASHLYN RIDER DO May 30, 2022 14:13
--- NOTE | 2022-05-30 14:38 | Progress Note ---
SARBJIT NEUMANN 05/30/22 1438: Subjective Date Seen by a Provider: May 30, 2022 Time Seen by a Provider: 09:15 Subjective/Events-last exam Sacha Diaz is a 66 yo M with a pmh of severe COPD, Diabetes, Anxiety, Hypertension, HLP, Depression, and Tobacco use among other chronic health condit ions, who arrived to [facility] from clinic in [place] due to increasing dyspnea and lower extremity edema up to his thighs following COVID infection. PCP is Dr. Hall. He was directly admitted to the ICU for Acute on Chronic Respiratory Failure with BiPAP dependence on 05/21/22. At time of admission, Dimer was elevated at 3.16. Subsequent CTA ruled out PE and Venous Doppler showed no evidence of right or left lower extremity DVT. Pleural effusion was noted on CTA. Cardiology has been following the patient and he received two Echocardiograms on 05/22/22 and 05/26/22. He was found to have pneumonia and treated with Cefepime and Azithromycin. Throughout his stay in the ICU, Sacha has experienced multiple panic attacks requiring Precedex, Ativan, Xanax, and one dose of Versed. On 05/24/22, he was transitioned from BiPAP to Vapotherm. He then was able to sustain his O2 levels with nasal cannula and oxymask, needing BiPAP/Vapotherm prn. He was transferred to Med-Surg floor on 05/29/22. Today, Sacha is still very insistent that he go home as soon as possible. Asking today for a script to obtain a home bedside commode. He has been working with PT/OT but he does fatigue easily and desats with activity. He reports that he has still had some back pain which is managed with oxycodone and hydromorphone. He has been receiving Xanax prn. Still not sleeping. Sacha feels that he is breathing okay. He is currently on 10L of a high flow nasal cannula with SAO2 between 91-94%. Last bowel movement was yesterday in the ICU. Endorses being very flatulent. Landeros catheter has been removed and pt is voiding on his own. Denies dysuria or hematuria. Hypertension is still uncontrolled. Cardiology is increasing hydralazine to TID. No new ABG. Review of Systems General: No Chills, No Night Sweats; Fatigue, Appetite (good) HEENT: No Head Aches, No Visual Changes Pulmonary: Dyspnea, Cough Cardiovascular: Palpitations; No: Chest Pain Gastrointestinal: Other (Heartburn); No: Nausea, Vomiting, Abdominal Pain Genitourinary: No Dysuria, No Hematuria, No Retention Musculoskeletal: back pain (managed with meds) Neurological: Weakness Anxious Objective Exam Last Set of Vital Signs Vital Signs Date Time Temp Pulse Resp B/P (MAP) Pulse Ox O2 Delivery O2 Flow Rate FiO2 05/30/22 11:21 37.1 69 18 165/75 (105) 91 High Flow N/C 10.00 05/28/22 08:00 40 Capillary Refill : Less Than 3 Seconds I&O Intake and Output 05/30/22 00:00 Intake Total 1672 ml Output Total 1525 ml Balance 147 ml Intake Oral 1472 ml IV Total 200 ml Output Urine Total 1525 ml General: Alert, Oriented X3, Mild Distress (accessory muscle use during respiration) HEENT: PERRLA, EOMI Lungs: Other (Decreased breath sounds / rhonchi and wheezing) Heart: Normal S1, Normal S2, No Murmurs Abdomen: Normal Bowel Sounds, Soft, No Tenderness Extremities: Normal Pulses, Other (trace edema persists in bilateral lower extremities) Skin: Other (contusions on arms from BP cuff) Neuro: Normal Speech Results Lab Laboratory Tests 05/29/22 16:28: Glucometer 221H 05/29/22 20:16: Glucometer 279H 05/30/22 05:30: White Blood Count 19.3H, Red Blood Count 4.55, Hemoglobin 12.4L, Hematocrit 38L, Mean Corpuscular Volume 83, Mean Corpuscular Hemoglobin 27, Mean Corpuscular Hemoglobin Concent 33, Red Cell Distribution Width 14.7H, Platelet Count 289, Mean Platelet Volume 10.0, Immature Granulocyte % (Auto) 1, Neutrophils (%) (Auto) 88H, Lymphocytes (%) (Auto) 4L, Monocytes (%) (Auto) 8, Eosinophils (%) (Auto) 0, Basophils (%) (Auto) 0, Neutrophils # (Auto) 16.8H, Lymphocytes # (Auto) 0.7L, Monocytes # (Auto) 1.5H, Eosinophils # (Auto) 0.0, Basophils # (Auto) 0.0, Immature Granulocyte # (Auto) 0.2H, Sodium Level 138, Potassium Level 4.2, Chloride Level 102, Carbon Dioxide Level 26, Anion Gap 10, Blood Urea Nitrogen 27H, Creatinine 0.88, Estimat Glomerular Filtration Rate 94, BUN/Creatinine Ratio 31, Glucose Level 191H, Calcium Level 8.6, Corrected Calcium 9.3, Magnesium Level 1.9, Total Bilirubin 0.5, Aspartate Amino Transf (AST/SGOT) 17, Alanine Aminotransferase (ALT/SGPT) 27, Alkaline Phosphatase 36L, Total Protein 5.5L, Albumin 3.1L 05/30/22 10:16: Glucometer 198H Microbiology 05/21/22 Blood Culture - Final, Complete No growth 05/21/22 MRSA Screen - Final, Complete MRSA not isolated Assessment/Plan Assessment/Plan Assess & Plan/Chief Complaint Assessment: Acute on chronic respiratory failure, BiPAP dependent Hypoxemia PNA AECOPD Severe COPD O2 dependent at home Recent COVID 3 weeks ago Lower extremity edema Elevated d-dimer ordered CT angiogram to r/o PE and dosed Lovenox 1mg/kg SQ Q 12 hours Smoker Panic attacks DM HTN HLP Depression Insomnia Anemia GERD Hypogonadism ED BPH B12 Malignant HTN Plan: Wean O2 requirements - currently on 10L high flow nasal cannula Continue PT to increase mobility - encouraging ambulation Lower Extremity edema - trace, Start Furosemide Malignant HTN - continue amlodipine, losartan, hydralazine increased to TID GERD - managed with pantoprazole, Start Calcium Carbonate chews Continue BiPAP at night Continue Vapotherm as needed Continue steroids IVF Abx - Azithromycin and Cefepime - finished Lovenox - CTA and Venous doppler ruled out PE or DVT of lower extremities Anxiolytics - receiving Xanax prn, Ativan prn, Precedex held at this time B12 labs = 491 wnl DM - continue insulins Depression - continue paroxetine, buproprion Promoting increased nutrition intake Clinical Quality Measures Admission Status Admission Dx Assessment: Acute on chronic respiratory failure AECOPD Severe COPD O2 dependent at home Suspicion for PNA vs. bronchitis Recent COVID 3 weeks ago Lower extremity edema Elevated d-dimer ordered CT angiogram to r/o PE and dosed Lovenox 1mg/kg SQ Q 12 hours Smoker Panic attacks DM HTN HLP Depression Insomnia Anemia GERD Hypogonadism ED BPH B12 Plan: Continue BiPAP IVF Abx - Azithromycin and Cefepime Lovenox Anxiolytics DVT/VTE Risk/Contraindication: Contraindications-Mechi: Other *list below* Other: poss dvt NAZANIN HALL DO 05/31/22 0549: Supervisory-Addendum Brief Verification & Attestation Participated in pt care: history, MDM, physical Personally performed: exam, history, MDM, supervision of care Care discussed with: Medical Student Procedures: n/a Results interpretation: Verified all documentation Verification and Attestation of Medical Student E/M Service A medical student performed and documented this service in my presence. I reviewed and verified all information documented by the medical student and made modifications to such information, when appropriate. I personally performed the physical exam and medical decision making. Nazanin Hall, May 31, 2022,05:49 SARBJIT NEUMANN May 30, 2022 14:38 NAZANIN HALL DO May 31, 2022 05:49
[2022-05-30] MEDS ORDERED: FUROSEMIDE 40 MG/4 ML INJ (LASIX) IVP SCH (17:00)
== END 2022-05-30 16:40 | disposition home or self-care (01) | DRG 193 ==
LOC: OBSVTOIN 18:38 → ICU 18:38 → 4TH 05-29 15:14
PROVIDERS: ADMIT Internal Medicine; ATTEND Internal Medicine
PROC: 5A09457 Assistance with Respiratory Ventilation, 24-96 Consecutive Hours, Continuous Positive Airway Pressure (ICD-10-PCS; principal; 2022-05-22)
PROC: 5A0935A Assistance with Respiratory Ventilation, Less than 24 Consecutive Hours, High Flow/Velocity Cannula (ICD-10-PCS; 2022-05-22)
DX: J18.9 Pneumonia, unspecified organism (principal); J96.21 Acute and chronic respiratory failure with hypoxia; I31.39 Other pericardial effusion (noninflammatory); U09.9 Post COVID-19 condition, unspecified; J43.9 Emphysema, unspecified; F17.200 Nicotine dependence, unspecified, uncomplicated; E66.01 Morbid (severe) obesity due to excess calories; Z68.37 Body mass index [BMI] 37.0-37.9, adult; R60.1 Generalized edema; E11.9 Type 2 diabetes mellitus without complications; I10 Essential (primary) hypertension; F32.A Depression, unspecified; F41.0 Panic disorder [episodic paroxysmal anxiety]; D64.9 Anemia, unspecified; K21.9 Gastro-esophageal reflux disease without esophagitis; E29.1 Testicular hypofunction; N52.9 Male erectile dysfunction, unspecified; N40.0 Benign prostatic hyperplasia without lower urinary tract symptoms; E53.8 Deficiency of other specified B group vitamins; R00.0 Tachycardia, unspecified; Z99.81 Dependence on supplemental oxygen; Z79.84 Long term (current) use of oral hypoglycemic drugs; G47.00 Insomnia, unspecified; Z79.899 Other long term (current) drug therapy
CPT/HCPCS: 36410; 36415; 36600; 71045; 71275; 76937; 80053; 81000; 82607; 82805; 82947; 83540; 83605; 83735; 83880; 84100; 84484; 85007; 85025; 85027; 85379; 85610; 87040; 87081; 93005; 93306; 93970; 94640; 94660; 94760; 94761